=== PATIENT | male | born 1950 | race Caucasian/White ===

== ENCOUNTER 2024-03-02 17:42 | Emergency (ER) | payer MEDICARE, OTHER, SELFPAY ==
[2024-03-02 17:43] VITALS: BP 102/76; PULSE 107; RESP 16; TEMP 37.1; O2SAT 99; BMI 20.5
[2024-03-02 17:45] VITALS: BP 102/76; PULSE 107; RESP 16; TEMP 37.1; O2SAT 99
--- NOTE | 2024-03-02 18:22 | CT_ITS ---
EXAM: CT ABDOMEN AND PELVIS WITH INTRAVENOUS CONTRAST CLINICAL INDICATION: llq pain, n/v/d TECHNIQUE: Helically acquired images were obtained of the abdomen and pelvis with intravenous contrast. This CT exam was performed using one or more of the following dose reduction techniques: automated exposure control, adjustment of the mA and/or kV according to patient size, and/or use of iterative reconstruction technique. CONTRAST: IV 100mL Isovue-300 COMPARISON: No relevant prior studies available. FINDINGS: LOWER THORAX: Medium-sized hiatal hernia. Coronary artery calcifications and/or stents. Lung bases are clear. No cardiomegaly. No significant pericardial effusion. ABDOMEN: LIVER: Small right hepatic lobe cyst for which no follow-up is indicated. GALLBLADDER AND BILE DUCTS: No significant abnormality. No calcified gallstones. No gallbladder distention or wall edema. No intra- or extrahepatic biliary ductal dilation. PANCREAS: No significant abnormality. No focal cystic or solid mass. SPLEEN: No significant abnormality. Normal size without focal cystic or solid mass. ADRENALS: No significant abnormality. No nodules. KIDNEYS AND URETERS: Homogeneous intermediate attenuation right renal lesion measuring 1.9 cm. Punctate left lower pole renal calyceal stone without hydronephrosis or additional obstructive urolithiasis. STOMACH AND BOWEL: Colonic diverticulosis without evidence of acute diverticulitis. No stomach or bowel distention. PELVIS: APPENDIX: No evidence of acute appendicitis. BLADDER: Long catheter present. REPRODUCTIVE: Prostatomegaly and heterogeneity. ABDOMEN and PELVIS: INTRAPERITONEAL SPACE: No significant abnormality. No ascites or other fluid collection. No free air. BONES/JOINTS: Scoliotic curvature of the spine and degenerative changes of the axial and appendicular skeleton. No suspicious lytic or blastic abnormality. SOFT TISSUES: No significant abnormality. No discrete abdominal or pelvic wall hernia. VASCULATURE: Atherosclerosis of the aorta and its branch vessels. LYMPH NODES: No significant abnormality. No enlarged lymph nodes. CT/Abdomen/Pelvis W IV Cont ONLY IMPRESSION: 1. Homogeneous intermediate attenuation right renal lesion measuring 1.9 cm. ACR White Paper guidelines (Ara, et al. JACR 2018; 15(2):264-273) recommend MRI or CT without and with intravenous contrast. 2. Medium-sized hiatal hernia. 3. Punctate left lower pole renal calyceal stone without hydronephrosis or additional obstructive urolithiasis. 4. Prostatomegaly and heterogeneity. 5. Colonic diverticulosis without evidence of acute diverticulitis. Electronically Signed: Huang Nguyen DO at 20:11 EDT ,
--- NOTE | 2024-03-02 18:24 | EDS_ITS ---
HPI HPI - GI History of Present Illness Chief Complaint: Nausea/Vomiting/Diarrhea Informant: patient and family Narrative Narrative: 73-year-old male had a an outpatient total knee arthroplasty on the left knee 11 or 12 days ago. For the past week or so he has been having vomiting. He was put on both tramadol and Percocet by orthopedics. He was taking both of them for a long time and then he started cutting his medicines and now for the last couple days he has had none. He still vomiting and now has developed watery diarrhea. He is also developed some left lower quadrant pain. It is off-and-on it does not get better when he has bowel movement but sometimes improves after vomiting. No fevers or chills. No syncope. No blood that he has seen. He states his knee is doing great. He was on amoxicillin for a while postopera tively but not now. No history of C. difficile that he knows of. No travel out of the area recently except to get the surgery in [place]. No suspicious food ingestion or new ground water sources for drinking. 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 He needed to have dilating sounds used in order to get a catheter placed by urology at [facility] when this was placed. He states they suggested that he have the catheter removed soon. [facility] Home Medications ?Medication ?Instructions ?Recorded ?Last Taken ?Type ciprofloxacin HCl 500 mg tablet 500 mg PO BID #6 TABLETS 03/02/24 Unknown Rx promethazine 25 mg tablet 25 mg PO Q6H PRN PRN Nausea #16 03/02/24 Unknown Rx TABLETS Allergy/AdvReac Type Severity Reaction Status Date / Time No Known Allergies Allergy Verified 03/02/24 17:45 Social History Smoking Status: Never smoker ROS ROS ED Constitutional Constitutional ED: Denies chills or fever(s) Eyes Eyes: Denies change in vision or diplopia ENT ENT ED: Denies rhinorrhea or sore throat Cardiovascular Cardiovascular: Denies chest pain or palpitations Respiratory/Chest Respiratory/Chest: Denies cough or dyspnea Gastrointestinal Gastrointestinal: Reports abdominal pain, diarrhea, nausea and vomiting; Denies hematochezia or melena Genitourinary Genitourinary ED: Denies dysuria or hematuria Musculoskeletal Musculoskeletal: Denies back pain or neck pain Integumentary Denies abscess or rash Neurologic Neurologic: Denies headache(s), paresthesias or weakness Psychiatric Psychiatric: Denies anxiety or suicidal thoughts EXAM Physical Exam Const Vital Signs: 03/02/24 17:43 03/02/24 17:45 03/02/24 18:45 Temperature 98.7 F 98.7 F 98.2 F Temperature Source Temporal Temporal Oral Pulse Rate 107 H 107 H 89 Respiratory Rate 16 16 16 Blood Pressure 102/76 102/76 102/87 H Blood Pressure Mean 84 84 92 Pulse Ox 99 99 98 Oxygen Delivery Method Room Air Room Air Room Air 03/02/24 20:33 03/02/24 21:00 Temperature 98.2 F 98 F Temperature Source Oral Oral Pulse Rate 66 87 Respiratory Rate 16 16 Blood Pressure 154/76 H 145/78 H Blood Pressure Mean 102 100 Pulse Ox 100 98 Oxygen Delivery Method Room Air Room Air Positive well nourished and well developed General Appearance ED: well developed and NAD HEENT Reports moist mucous membranes normocephalic and atraumatic Eyes PERRL and EOMs intact bilaterally Neck full ROM and supple Resp normal respiratory effort and clear to auscultation bilaterally Cardio regular rate, regular rhythm and no murmurs GI non-tender and non-distended Auscultation: normoactive bowel sounds Palpation: soft Back/Spine no CVA tenderness General Back: other FROM Extremity normal to inspection General Extremety ED: Negative for edema, pulses abnormal or tenderness General Extremity: Negative for edema or pulses abnormal Neuro oriented x3, CN's II-XII intact bilaterally and no sensory deficits noted Sensorium / Orientation: awake and alert Motor Exam: strength 5/5 throughout Skin no rashes or lesions noted and no wounds MDM MDM MDM Narrative Medical decision making narrative: While running screening labs and urinalysis, treated patient with IV fluids, Zofran, and dicyclomine. He is doing better. Obtained a CT scan of the abdomen/pelvis given his pain and nausea/vomiting and diarrhea. He evaluated for colitis, diverticulitis, other potential sources. I reviewed the images and the report which I agree with, it is basically negative for any acute inflammatory condition that explains his symptoms. I did show some incidentals including a small mass in his right kidney and a nonobstructive nephrolith on the left. He has a history of kidney stones. He feels better after treatment. He said that his urologist suggested that he get the catheter out, but it is after 9 PM and I do not recommend pulling it out right now given the hour of the day. They are interested in potentially pulling it themselves. I am going to have nursing send him home with a syringe and instructions on how to discontinue the catheter, but I advised waiting to the morning and talking with his urologist first, and making sure that they are okay with that before it is pulled. 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 He was able to produce some diarrhea, I sent for stool studies, but he did not make very much. We were able to get a white blood cell smear that was positive. The labs suggesting we do not have enough for enteric PCR panel or C. difficile. I am less inclined to think this is C. difficile. He does not have a leukocytosis, his vitals are normal he is not clinically very ill. He was a little prerenal and the IV fluids probably help him feel better. In order to cover the urine possible infection which was sent for culture, as well as the diarrhea with positive white blood cell smear, I am going to prescribe him a 3-day course of Cipro and then I am encouraging him to be reevaluated closely if the diarrhea is worse, he is feeling worse, and/or he has urinary issues. I encouraged him to follow-up with his urologist and his medical doctor. They are comfortable with that overall plan. Lab Data Attestation: I reviewed the patient's lab results. Labs: Laboratory Results - last 24 hr 03/02/24 03/02/24 18:34 19:48 WBC 6.2 RBC 4.62 Hgb 11.2 L Hct 35.4 L MCV 76.6 L MCH 24.2 L MCHC 31.6 L RDW Std Deviation TNP RDW Coeff of Yonathan TNP Plt Count 297 MPV 9.6 Immature Gran % (Auto) 0.200 Neut % (Auto) 76.3 H Lymph % (Auto) 14.7 L [place] % (Auto) 7.5 Eos % (Auto) 0.5 Baso % (Auto) 0.8 Absolute Neuts (auto) 4.7 Absolute Lymphs (auto) 0.91 Nucleated RBC % 0 Differential Comment SCANNED Sodium 138 Potassium 3.5 Chloride 109 H Carbon Dioxide 21.0 Anion Gap 8 BUN 22 H Creatinine 0.88 Estim Creat Clear Calc 64.75 Est GFR (MDRD) Af Amer 108 Est GFR (MDRD) Non-Af 90 BUN/Creatinine Ratio 24.9 H Glucose 100 Calcium 9.4 Total Bilirubin 0.90 AST 25 ALT 24 Alkaline Phosphatase 259 H Total Protein 7.3 Albumin 2.9 L Globulin 4.4 H Albumin/Globulin Ratio 0.7 L Urine Color [place] Urine Clarity Cloudy Urine pH 6.0 Ur Specific [place] 1.020 Urine Protein 30 H Urine Glucose (UA) Normal Urine Ketones 50 H Urine Occult Blood 150 H Urine Nitrite Positive H Urine Bilirubin 1 H Urine Urobilinogen 8 H Ur Leukocyte Esterase 500 H Urine RBC 0-5 SEEN Urine WBC >100 SEEN Ur Squamous Epith Cells 0-5 SEEN Urine Bacteria 1+ Urine Mucus 1+ Urine Yeast 2+ Radiography Diagnostic Testing: Clinical Impression(s) from Imaging Studies Abdomen/Pelvis CT 03/02/24 18:22 IMPRESSION: 1. Homogeneous intermediate attenuation right renal lesion measuring 1.9 cm. ACR White Paper guidelines (Herts, et al. JACR 2018; 15(2):264-273) recommend MRI or CT without and with intravenous contrast. 2. Medium-sized hiatal hernia. 3. Punctate left lower pole renal calyceal stone without hydronephrosis or additional obstructive urolithiasis. 4. Prostatomegaly and heterogeneity. 5. Colonic diverticulosis without evidence of acute diverticulitis. Electronically Signed: Huang Nguyen DO at 20:11 EDT , Discharge Plan Triage Chief Complaint: Nausea/Vomiting/Diarrhea Other Complaint: Complaint ED Provider: Rafael Wilhelm Dx/Rx/DC Orders Clinical Impression: Gastroenteritis, Long catheter in place, Urinary tract infection, History of total knee arthroplasty, Mass of right kidney, Left nephrolithiasis Instructions: ED Diet Vomiting Diarrhea Prescriptions: New ciprofloxacin HCl 500 mg tablet 500 mg PO BID Qty: 6 0RF promethazine 25 mg tablet 25 mg PO Q6H PRN PRN (Reason: Nausea) Qty: 16 0RF Primary Care Provider: AIDEN TURCIOS MD Referrals: AIDEN TURCIOS MD [Other] - 3-5 Days if not improving Activity Restrictions/Additional Instructions: Call your urologist in the morning, if they want you to have the catheter remov ed and they approve of you removing it at home, use the syringe and remove as instructed. While on the 3 days of ciprofloxacin, use Phenergan for nausea, not Zofran. After you finish the antibiotic you may continue using Zofran. Print Language: Uzbek Disposition Disposition: Home, Self Care
[2024-03-02] MEDS: 0.9% Normal Saline (1000mL) 1,000 ML 999 ML IV (18:34)
[2024-03-02] MEDS: Dicyclomine 10 MG Capsule 20 MG PO (18:38)
[2024-03-02 18:45] VITALS: BP 102/87; PULSE 89; RESP 16; TEMP 36.8; O2SAT 98
[2024-03-02 19:03] LABS: ALB/GLOB Ratio 0.7 RATIO (0.9-2.4); AST(SGOT) 25 U/L (15-37); Alanine Aminotransfer ALT/SGPT 24 U/L (16-61); Albumin, Serum 2.9 g/dL (3.2-5.0); Alkaline Phosphatase 259 U/L (45-117); Anion Gap 8 (5-15); BUN 22 mg/dL (7-18); BUN/Creat Ratio 24.9 RATIO (10-20); Calcium,Total 9.4 mg/dL (8.5-10.1); Chloride 109 mmol/L (98-107); Creatinine, Serum 0.88 mg/dL (0.70-1.30); EST Glomerular Filtration Rate 90 mL/min (>60); Est Glom Filt Rate - Afr Amer 108 mL/min (>60); Estimated Creatinine Clearance 64.75 ml/min; Globulin 4.4 g/dL (2.2-4.2); Glucose 100 mg/dL (74-106); Potassium 3.5 mmol/L (3.5-5.1); Protein, Total 7.3 g/dL (6.4-8.2); Sodium Level 138 mmol/L (136-145)
[2024-03-02] MEDS: Ondansetron 4 MG/2 ML Vial IV (19:51)
[2024-03-02 19:52] LABS: Absolute Lymphocyte Count 0.91 X10^3/uL (0.83-4.51); Absolute Neutrophil Count 4.7 X10^3/uL (2.0-7.7); Basophil# 0.05 X10^3/uL; Basophil% 0.8 % (0-1); Eosinophil# 0.03 X10^3/uL; Eosinophils% 0.5 % (0-5); Hematocrit 35.4 % (40-54); Hemoglobin 11.2 g/dL (13.0-16.5); Lymphocyte # 0.91 X10^3/ul (0.83-4.51); Lymphocyte % 14.7 % (19-41); Mean Corp Hgb Conc 31.6 g/dL (32-36); Mean Corpuscular Hgb 24.2 pg (27.0-32.0); Mean Corpuscular Volume 76.6 fL (80-94); Mean Platelet Vol. 9.6 fl (6.2-12.0); Monocyte# 0.46 X10^3/uL; Monocyte% 7.5 % (0-10); NRBC Flagged by Analyzer 0 % (0-5); Neutrophil # 4.71 X10^3/uL (2.7-7.7); Neutrophil % 76.3 % (47-70); POSITIVE MORPHOLOGY YES; Platelet Count 297 K/mm3 (150-450); Red Blood Count 4.62 M/mm3 (4.6-6.2); White Blood Count 6.2 K/mm3 (4.4-11.0)
[2024-03-02 20:01] LABS: Color, Urine Amber (Yellow); Glucose, Dipstick Normal (Normal); Ketone-Dipstick 50 mg/dl (Negative); Leukocyte Esterase-Dipstick 500 /ul (Negative); Nitrite-Dipstick Positive (Negative); Occult Blood-Urine 150 /ul (Negative); Protein-Dipstick 30 mg/dl (Negative); Urine Clarity Cloudy (Clear); Urine Urobilinogen 8 mg/dl (Normal)
[2024-03-02 20:01] LABS: Differential Indicated SCAN CRITERIA MET
[2024-03-02 20:02] LABS: Urine Bilirubin Dipstick 1 mg/dL (Negative)
[2024-03-02 20:15] LABS: Bacteria 1+ /hpf (None Seen); Mucous, Urine 1+ /hpf (<or=2+); Red Blood Cells-Urine 0-5 SEEN /hpf (0-5); White Blood Cells >100 SEEN /hpf (0-5)
[2024-03-02 20:17] LABS: Squamous Epithelial Cells - UA 0-5 SEEN /hpf (0-5); Yeast-Urine 2+ /hpf (None Seen)
[2024-03-02 20:23] LABS: Differential Comment SCANNED
[2024-03-02 20:33] VITALS: BP 154/76; PULSE 66; RESP 16; TEMP 36.8; O2SAT 100
[2024-03-02 21:00] VITALS: BP 145/78; PULSE 87; RESP 16; TEMP 36.6; O2SAT 98
[2024-03-02] MEDS: Ciprofloxacin 500 MG Tablet PO (21:59)
[2024-03-02 22:02] VITALS: BP 140/66; PULSE 78; RESP 18; TEMP 36.8; O2SAT 98
== END 2024-03-02 22:12 | disposition home or self-care (01) ==
PROVIDERS: Emergency Provider Emergency Medicine; Visit Provider Emergency Medicine
DX: K52.9 Noninfective gastroenteritis and colitis, unspecified (principal); N39.0 Urinary tract infection, site not specified; N28.89 Other specified disorders of kidney and ureter; R33.9 Retention of urine, unspecified; Z98.890 Other specified postprocedural states; R10.32 Left lower quadrant pain; N20.0 Calculus of kidney; K44.9 Diaphragmatic hernia without obstruction or gangrene; K57.30 Diverticulosis of large intestine without perforation or abscess without bleeding
CPT/HCPCS: 74177; 80053; 81001; 83630; 85025; 87077; 87086; 87088; 87186; 87493; 87506; 99284; J7030; Q9967; A4216; J2405

== ENCOUNTER → 2024-05-23 | Outpatient (CLI) | payer MEDICARE, OTHER, SELFPAY ==
[2024-05-23 16:37] LABS: Color, Urine Straw (Yellow); Glucose, Dipstick Normal (Normal); Ketone-Dipstick 5 mg/dl (Negative); Leukocyte Esterase-Dipstick 500 /ul (Negative); Nitrite-Dipstick Negative (Negative); Occult Blood-Urine 250 /ul (Negative); Protein-Dipstick 100 mg/dl (Negative); Specific Gravity, Urine 1.025 (1.002-1.030); Urine Bilirubin Dipstick Negative (Negative); Urine Clarity Cloudy (Clear); Urine Urobilinogen 4 mg/dl (Normal)
[2024-05-23 16:44] LABS: Bacteria 2+ /hpf (None Seen); Mucous, Urine 1+ /hpf (<or=2+); Red Blood Cells-Urine 10-25 SEEN /hpf (0-5); Renal Epithelial Cells 5-10 SEEN /hpf (0-5); Squamous Epithelial Cells - UA 0-5 SEEN /hpf (0-5); Transitional Epithelial - Ur 0-5 SEEN /hpf (0-5); White Blood Cells 50-100 SEEN /hpf (0-5)
== END | disposition home or self-care (01) ==
LOC: BIMLAB 16:04
PROVIDERS: PCP Family Medicine; Visit Provider Family Medicine
DX: R39.9 Unspecified symptoms and signs involving the genitourinary system (principal)
CPT/HCPCS: 81001

== ENCOUNTER 2025-03-18 20:42 | Emergency (ER) | payer MEDICARE, OTHER, SELFPAY ==
[2025-03-18 20:43] VITALS: BP 179/97; PULSE 88; RESP 18; TEMP 36.4; O2SAT 99; BMI 23.8
--- OUTSIDE RECORDS SUMMARY | 2025-03-18 21:09 | XMS RPT_ITS | CCD ---
Author Organization 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 Name Role Phone Kosta Carrasco DO Primary Care Provid er Unavailable Primary Care Provider UnavailSam Malave Primary Care Provider Ileana Rojas DO A Unavailable Crystalkane MCFADDEN Ileana A Unavailable [phone] Iva MARTINS, Emilio Unavailable Megan Velazco MD, Tam Leiva Primary Care Provider DONNY KAPLAN Referring Unavailable MEGAN VELAZCO, TAM WALT Primary Care Unavailable RYAN WILL Admitting Unavailable RYAN WILL Attending Unavailable MEGAN VELAZCO, TAM WALT Primary Care Unavailable COLIN CARDOZA Consulting Unavailable Rochelle Mancini Attending Unavailable Rochelle Mancini Attending Unavailable Rochelle Mancini Primary Care Unavailable Rafael Wilhelm Attending Unavailable JAMSHID QUINTANA Primary Care Unavailable Megan Velazco MD, Tam Leiva Primary Care Provider ILEANA ROJAS Attending Unavailable MEGAN VELAZCO, TAM Primary Care Unavailable EARLY, SAM Primary Care Unavailable COLIN SCHAFFER Attending Unavailable EARLY, SAM Primary Care Unavailable CRYSTALILEANA Attending Unavailable CRYSTAL, ILEANA Referring Unavailable MEGAN VELAZCO, TAM Primary Care Unavailable CRYSTALVÍCTORILEANA Attending Unavailable CRYSTAL, ILEANA Referring Unavailable MEGAN VELAZCO, TAM Primary Care Unavailable CRYSTALVÍCTORILEANA Attending Unavailable EARLY, SAM Primary Care Unavailable CRYSTALILEANA Attending Unavailable EARLY, SAM Primary Care Unavailable EARLY, SAM Primary Care Unavailable CRYSTAL, ILEANA Attending Unavailable FLOWER ZEE Attending Unavailable TAM MAJOR WALT Primary Care Unavailable [facility] Primary [facility] Unavailable FLOWER ZEE Referring Unavailable [facility] Primary [facility] Unavailable ELANA TAVERAS Attending Unavailable SELF Referring Unavailable TAM MAJOR WALT Primary Care Unavailable [facility] Unavailable ROCHELLE CHRISTIAN Referring [facility] meng MEGANNomi VELAZCO [facility] Primary Care Unavailable ROCHELLE CHRISTIAN Attending [facility] Unavailable Medications Current Medications Medication Drug Class(es) Dates Sig (Normalized) Sig (Original) amoxicillin 875 mg / clavulanate 125 mg oral tablet (6 sources) Penicillin-class Antibacterial Start: 02-22-2024 End: 03-10-2024 take 1 tablet by mouth twice daily amoxicillin-clavul anate (Augmentin) 875-125 MG tablet Indications: Complicated UTI (urinary tract infection) Take 1 tablet by mouth 2 times daily for 17 days. 34 tablet 02/22/2024 03/10/2024 Active ciprofloxacin 500 mg oral tablet (20 sources) Quinolone Antimicrobial Start: 02-21-2024 End: 02-26-2024 take 1 tablet by mouth twice daily ciprofloxacin (Cipro) 500 MG tablet Take 1 tablet (500 mg) by mouth 2 times daily for 5 days. 10 tablet 02/21/2024 02/26/2024 Active Start: 08-21-2022 End: 12-02-2023 take 1 tablet by mouth twice daily ciprofloxacin HCl (CIPRO) 500 mg tablet Take 1 tablet by mouth twice daily. 14 tablet 0 01/29/2023 12/02/2023 Discontinued Comment on above: Take 500 mg by mouth as needed. Take 1 tablet by sergo th twice daily for 7 days. Take 1 tablet by sergo th twice daily. clobetasol propionate 0.5 mg/ml topical cream (19 sources) Corticosteroid Start: 09-08-19 24 clobetasol (Temovate) 0.05 % cream Indications: 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 urethral stricture , Hypospadias, penile Apply to meatus and dilator weekly and as needed for meatal stenosis 45 g 3 09/08/2023 Active doxycycline hyclate 100 mg oral tablet (10 sources) Tetracycline-class Drug Start: 07-12-20 End: 07-26-20 take 1 tablet by mouth twice daily doxycycline (Vibra-Tabs) 100 MG tablet Indications: Prostatitis, unspecified prostatitis type Take 1 tablet (100 mg) by mouth 2 times daily for 14 days. Take with a full glass of water and do not lie down for at least 30 minutes after. 28 tablet 0 07/12/2023 07/26/2023 Active Start: 08-19-2022 End: 08-29-2022 take 1 tablet by mouth twice daily doxycycline monohydrate 100 mg tablet Take 1 tablet by mouth twice daily for 10 days. 20 tablet 0 08/19/2022 08/29/2022 Active Start: 01-16-2020 take 1 capsule by [facility] twice daily doxycycline monohydrate (MONODOX) 100 mg capsule Indications: bacterial urinary tract infection Take 1 capsule by mouth twice daily. 28 capsule 0 12/06/2020 Active Comment on above: Take 1 capsule by [facility] twice daily. Take 1 tablet by [facility] twice daily for 10 days. ferrous sulfate 325 mg oral tablet (6 sources) Start: End: take 1 tablet by mouth once daily ferrous sulfate 325 mg (65 mg iron) tablet Indications: Iron deficiency Take 1 tablet by mouth once daily. 30 tablet 0 12/09/2023 01/08/2024 Active 17 ml ferumoxytol 30 mg/ml injection (1 source) Parenteral Iron Replacement Start: End: inject 17 mL intravenously every week ferumoxytol (FERAHEME) 510 mg/17 mL (30 mg/mL) injection Inject 17 mL intravenously one time a week for 2 doses. 34 mL 0 01/14/2024 01/22/2024 Active ibuprofen 600 mg oral tablet (20 sources) Nonsteroidal Anti-inflammatory Drug Start: 023 End: take 1 tablet by mouth every eight hours as needed for pain ibuprofen 600 MG tablet Indications: Prostatitis, unspecified prostatitis type Take 1 tablet (600 mg) by mouth every 8 hours as needed for mild pain (1-3) for up to 7 days. 20 tablet 0 07/12/2023 07/19/2023 Active take 1 tablet by [facility] every six hours as needed ibuprofen (MOTRIN) 200 mg tablet Take 200 mg by mouth every 6 hours as needed for pain. STOPPING 2 WEEKS PRIOR TO SURGERYlast dose was 02/12/24 0 Active End: 02-01-2024 take 2 tablets by mouth every six hours as needed ibuprofen (MOTRIN) 200 mg tablet Take 400 mg by mouth every 6 hours as needed for pain. 0 02/01/2024 Discontinued Comment on above: Take 400 mg by mouth every 6 hours as needed for pain. lansoprazole (20 sources) Proton Pump Inhibitor take 20 mg by mouth once daily lansoprazole (PREVACID ORAL) Take 20 mg by mouth once daily. Active Lansoprazole (MI EVACID PO) Take by mouth daily. Active take 20 mg by mouth once daily l ansoprazole (PREVACID ORAL) Take 20 mg by mouth once daily. 0 Active Lansoprazole (MI EVACID PO) Take by mouth daily. 0 Active lansoprazole (MI EVACID ORAL) Take by mouth once daily. 0 Active Comment on above: Take by mouth once d aily. Take 20 mg by mouth once daily. perflutren lipid microspheres 1.3 mL in NaCl (PF) 0.9% 10 mL injection (DEFINITY) (1 source) Start: 2022 End: 2022 perflutren lipid microspheres 1.3 mL in NaCl (PF) 0.9% 10 mL injection (DEFINITY) phenazopyridine hydrochloride 200 mg delayed release oral tablet (2 sources) Start: 2022 End: 2022 take 1 tablet by mouth three times daily as needed for muscle spasms phenazopyridine (Pyridium) 200 MG tablet Take 1 tablet (200 mg) by mouth 3 times daily as needed for bladder spasms for up to 3 days. 10 tablet 0 06/17/2023 06/20/2023 Active sildenafil 100 mg oral tablet (20 sources) Phosphodiesterase 5 Inhibitor Start: 2024 sildenafil (VIAGRA) 100 mg tablet Indications: erectile dysfunction Take 1 tablet by mouth as needed (one per day maximum as needed). 15 tablet 01/05/2025 Active Start: 09-03-2020 End: 05-02-2024 take 1 tablet by mouth once daily as needed, then take 1 tablet by mouth once daily as needed sildenafil (VIAGRA) 100 mg tablet Indications: BPH with obstruction/lower urinary tract symptoms take one tablet by mouth once a day as needed. maximum of 1 tablet daily 10 tablet 05/02/2024 Active Comment on above: TAKE ONE TABLET BY M OUTH NEEDED (MAXIMUM 1 PER DAY NEEDED) Take 1 tablet by sergo th as needed (one per day maximum as needed). TAKE ONE TABLET BY M OUTH NEEDED (ONCE PER DAY MAXIMUM NEEDED) tamsulosin hydrochloride 0.4 mg oral capsule (20 sources) alpha-Adrenergic Charbel Start: End: take 1 capsule by mouth twice daily tamsulosin (Flomax) 0.4 MG 24 hr capsule Indications: BPH with obstruction/lower urinary tract symptoms Take 1 capsule (0.4 mg) by mouth 2 times daily. 180 capsule 3 07/10/2024 Active Start: 02-25-2023 End: 07-16-2023 tamsulosin (Flomax) 0.4 MG 2 4 hr capsule Start: 08-11-2016 End: 12-02-2023 take 1 capsule by mouth once daily tamsulosin (FLOMAX) 0.4 mg Indications: Nocturia TAKE ONE CAPSULE BY MOUTH ONCE DAILY 90 capsule 3 03/31/2023 Active Comment on above: 0.4 mg once daily. Take 1 capsule by mo uth once daily. TAKE ONE CAPSULE BY MOUTH ONCE DAILY traMADol hydrochloride 50 mg oral tablet (14 sources) Opioid Agonist Start: 02-08-2024 End: 02-15-2024 traMADol (ULTRAM) 50 mg tablet Indications: Chronic pain of left knee Take 1 tablet by mouth every 12 hours as needed for up to 7 days. Do not start before February 08, 2024. 12 tablet 0 02/08/2024 02/15/2024 Active Start: 10-11-2023 End: 02-01-2024 take 1 tablet by mouth every six hours as needed traMADol (ULTRAM) 50 mg tablet Take 50 mg by mouth every 6 hours as needed. 0 10/11/2023 02/01/2024 Discontinued Completed/Discontinued Medications Medication Drug Class(es) Dates Sig (Normalized) Sig (Original) acetaminophen 500 mg oral tablet (20 sources) Start: 06-17-2023 End: 06-17-2023 acetaminophen (Tylenol) tablet 1,000 mg take 1 tablet by sergo every eight hours as needed acetaminophen (TYLENOL 8 HOUR) 650 mg CR tablet Take 650 mg by mouth every 8 hours as needed for pain. Active End: 12-02-2023 ACETAMINOPHEN (TYLENOL ORAL) Take by mouth once daily. 0 12/02/2023 Discontinued ACETAMINOPHEN (T YLENOL ORAL) Take by mouth once daily. 0 Active Comment on above: Take by mouth once d aily. ALPRAZolam 0.25 mg disintegrating oral tablet (2 sources) Benzodiazepine Start: 06-17-20 End: 06-17-20 ALPRAZolam (Xanax) disintegrating tablet 0.25 mg amoxicillin 500 mg oral capsule (15 sources) Penicillin-class Antibacterial End: 12-02-19 amoxicillin (POLYMOX, AMOXIL) 500 mg capsule Take 500 mg by mouth as needed. 0 12/02/2023 Discontinued Comment on above: Take 500 mg by mouth as needed. calcium chloride 0.0014 meq/ml / potassium chloride 0.004 meq/ml / sodium chloride 0.103 meq/ml / sodium lactate 0.028 meq/ml injectable solution (4 sources) Start: 06-17-20 End: 06-17-20 lactated ringers infusion Cannabinoids (medical cannabis) (20 sources) End: 09-13-19 take 1 dose by mouth twice daily Cannabinoids (medical cannabis) Take 1 each by mouth 2 times daily. CBD GUMMIES 09/13/2024 Discontinued (Therapy completed) End: 08-10-2024 take 1 dose by mouth twice daily Cannabinoids (medical cannabis) Take 1 each by mouth 2 times daily. CBD GUMMIES 08/10/2024 Discontinued (Therapy completed) take 1 dose by mouth twice daily Cannabinoids (medical cannabis) Take 1 each by mouth 2 times daily. CBD GUMMIES Active take 1 dose by mouth twice daily Cannabinoids (medical cannabis) Take 1 each by mouth 2 times daily. CBD GUMMIES 0 Active cephalexin 250 mg oral capsule (5 sources) Cephalosporin Antibacterial Start: 01-17-2019 take 1 capsule by mouth once daily cephALEXin (KEFLEX) 250 mg capsule Indications: bacterial urinary tract infection Take 1 capsule by mouth once daily. 90 capsule 3 01/17/2019 Active Comment on above: Take 1 capsule by [facility] once daily. cholecalciferol 0.025 mg oral capsule (20 sources) Vitamin D Start: 08-15-2014 End: 02-01-2024 take 1 capsule by mouth once daily Cholecalciferol, Vitamin D3, (VITAMIN D) 1,000 unit cap Indications: Vitamin D deficiency Take 1 capsule by mouth once daily. 0 08/15/2014 02/01/2024 Discontinued (Discontinued by Patient) take 1 tablet by mouth once poppy y cholecalciferol (Vitamin D-3) 10 MCG (400 UNIT) tablet Take 400 Units by mouth daily. Active Comment on above: Take 1 capsule by [facility] once daily. 1 ml diphenhydrAMINE hydrochloride 50 mg/ml cartridge (2 sources) Histamine-1 Receptor Antagonist Start: 06-17-2023 End: 06-17-2023 diphenhydrAMINE (BENADryl) injection 12.5 mg famotidine 20 mg oral tablet (3 sources) Histamine-2 Receptor Antagonist Start: 06-17-2023 End: 06-17-2023 famotidine (Pepcid) tablet 20 mg End: 03-03-2023 take 1 tablet by mouth twice daily famotidine (Pepcid) 20 MG tablet Take 20 mg by mouth 2 times daily. 0 03/03/2023 Discontinued (Therapy completed) 2 ml fentaNYL 0.05 mg/ml injection (4 sources) Opioid Agonist Start: 06-17-2023 End: 06-17-2023 fentaNYL (Sublimaze) injection 50 mcg Start: 06-17-2023 End: 06-17-2023 fentaNYL (Sublimaze) injecti on 25 mcg fluconazole 100 mg oral tablet (4 sources) Azole Antifungal Start: 08-10-2024 End: 09-13-2024 take 1 tablet by mouth once daily fluconazole (Diflucan) 100 MG tablet Indications: Recurrent UTI , Dysuria Take 1 tablet (100 mg) by mouth daily for 14 days. 14 tablet 08/10/2024 09/13/2024 Discontinued hyoscyamine sulfate 0.12 mg / methenamine 118 mg / methylene blue 10 mg / phenyl salicylate 36 mg / sodium phosphate, monobasic 40.8 mg oral capsule (10 sources) Oxidation-Reducti on Agent Start: 08-10-2024 End: 04-14-2025 take 1 capsule by mouth every six hours as needed for pain Meth-Hyo-M Bl-Na Phos-Ph Eduard (Uribel) 118 MG capsule Indications: Dysuria Take 1 capsule by mouth every 6 hours as needed (bladder pain/burning with urination). 30 capsule 3 09/13/2024 10/16/2024 Discontinued (Reorder) labetalol (Normodyne,Trandate) injection 5 mg (2 sources) Start: 06-17-2023 End: 06-17-2023 labetalol (Normodyne,Trandat e) injection 5 mg lidocaine hydrochloride 0.02 mg/mg topical gel (2 sources) Antiarrhythmic, Amide Local Anesthetic Start: 02-21-2024 End: 02-21-2024 Urethral, Once, On Wed02/21/24 at 2130, For 1 dose 1 ml morphine sulfate 4 mg/ml cartridge (2 sources) Opioid Agonist Start: 02-21-2024 End: 02-21-2024 take 1 dose by mouth every hour 4 mg, IntraVENous, Once, On Wed02/21/24 at 2020, For 1 dose, If oral and IV narcotics ordered, use oral first and only use IV if oral is ineffective or cannot take oral. Do Not give oral and IV within 1 hour of each other unless specifically ordered. Start: 02-21-2024 End: 02-21-2024 take 1 dose by mouth every hour 4 mg, IntraVENous, Once, On Wed02/21/24 at 2020, For 1 dose, If oral and IV narcotics ordered, use oral first and only use IV if oral is ineffective or cannot take oral. Do Not give oral and IV within 1 hour of each other unless specifically ordered. naproxen 500 mg oral tablet (20 sources) Nonsteroidal Anti-inflammatory Drug Start: 10-26-2023 End: 12-02-2023 take 1 tablet by mouth twice daily naproxen (NAPROSYN) 500 mg tablet Take 500 mg by mouth two times a day. 0 10/26/2023 12/02/2023 Discontinued Start: 11-13-2022 take 1 tablet by sergo th every twenty-four hours as needed naproxen (Naprosyn) 500 MG tablet Take 500 mg by mouth Daily as needed. 11/13/2022 Active 2 ml ondansetron 2 mg/ml injection (4 sources) Serotonin-3 Receptor Antagonist Start: 02-21-2024 End: 02-21-2024 4 mg, IntraVENous, Once, On 02/21/24 at 2020, For 1 dose Start: 06-17-2023 End: 06-17-2023 ondansetron (Zofran) injecti on 4 mg oxyCODONE (2 sources) Opioid Agonist Start: 06-17-2023 End: 06-17-2023 oxyCODONE (Roxicodone) immed iate release tablet 5 mg SAW PALMETTO ORAL (20 sources) End: 02-01-2024 SAW PALMETTO ORAL Take by [facility] once daily. 0 02/01/2024 Discontinued SAW PALMETTO ORA L Take by mouth once daily. 0 Active Comment on above: Take by mouth once d aily. 5 ml sodium chloride 9 mg/ml injection (20 sources) Start: 06-17-2023 End: 06-17-2023 sodium chloride 0.9% (NS) flush 10 mL Start: 06-17-2023 End: 06-17-2023 sodium chloride 0.9% (NS) fl ush 10 mL Start: 06-17-2023 End: 06-17-2023 sodium chloride 0.9 % bolus 500 mL Start: 06-17-2023 End: 06-17-2023 sodium chloride 0.9 % infusi on Start: 06-17-2023 End: 06-17-2023 sodium chloride 0.9% (NS) fl ush 10 mL Start: 05-19-2023 End: 05-26-2023 sodium chloride 0.9 % (flush ) 10 mL (BD POSIFLUSH) sulfamethoxazole 800 mg / trimethoprim 160 mg oral tablet (5 sources) Dihydrofolate Reductase Inhibitor Antibacterial, Sulfonamide Antimicrobial Start: 08-10-2024 End: 09-13-2024 take 1 tablet by mouth twice daily sulfamethoxazole-trimethoprim (Bactrim DS) 800-160 MG tablet Indications: Recurrent UTI , Dysuria Take 1 tablet by mouth 2 times daily. 60 tablet 08/10/2024 09/13/2024 Discontinued Problems Active Problems Problem Classification Problem Date Documented Date Episodic/Chronic Administrative/socia l admission (1 source) Patient encounter status; Translations: [Persons encountering health services in other specified circumstances] 12-02-2023 Episodic Cardiac dysrhythmias (20 sources) Irregular heart beat; Translations: [Cardiac arrhythmia, unspecified] Onset: 11-16-2024 08-21-2020 Chronic Cardiac dysrhythmias (2 sources) Palpitations; Translations: [Palpitations] Onset: 11-16-2024 11-16-2024 Episodic Complications of surgical procedures or medical care (2 sources) Hypoinsulinemia following procedure; 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] Onset: 02-15-2024 02-15-2024 Chronic Deficiency and other anemia (1 source) Iron deficiency anemia due to blood loss; Translations: [Iron deficiency anemia secondary to blood loss (chronic)] 11-16-2024 Chronic Deficiency and other anemia (1 source) Iron deficiency anemia secondary to blood loss (chronic); Translations: [Iron deficiency anemia due to chronic blood loss] Onset: 02-21-2024 Chronic Deficiency and other anemia (1 source) Iron deficiency anemia; Translations: [Iron deficiency anemia, unspecified] Episodic Disorders of lipid metabolism (20 sources) Hyperlipidemia; Translations: [Hyperlipidemia, unspecified] Onset: 06-06-2014 06-06-2014 Chronic Esophageal disorders (20 sources) Gastroesophageal reflux disease; Translations: [Gastro-esophageal reflux disease without esophagitis] Onset: 06-06-2014 06-06-2014 Chronic Genitourinary congenital anomalies (20 sources) Hypospadias, penile; Translations: [Hypospadias, penile] Onset: 02-09-2017 03-03-2023 Chronic Genitourinary symptoms and ill-defined conditions (20 sources) Nocturnal enuresis; Translations: [Nocturnal enuresis] Onset: 02-09-2017 05-18-2022 Chronic Heart valve disorders (7 sources) Mitral valve regurgitation; Translations: [Nonrheumatic mitral (valve) insufficiency] Onset: 02-21-2024 05-19-2023 Chronic Hyperplasia of prostate (20 sources) Benign prostatic hypertrophy with outflow obstruction; Translations: [Benign prostatic hyperplasia with lower urinary tract symptoms] Onset: 02-09-2017 01-17-2019 Chronic Inflammatory conditions of male genital organs (20 sources) Chronic prostatitis; Translations: [Chronic prostatitis] Onset: 02-09-2017 05-18-2022 Chronic Inflammatory conditions of male genital organs (20 sources) Prostatitis; Translations: [Inflammatory disease of prostate, unspecified] 07-28-2021 Episodic Joint disorders and dislocations; trauma-related (1 source) Other spontaneous disruption of medial collateral ligament of left knee; Translations: [Other spontaneous disruption of medial collateral ligament of left knee] Onset: 02-21-2024 Chronic Nausea and vomiting (1 source) Nausea with vomiting, unspecified; Translations: [Nausea with vomiting, unspecified] Onset: 05-23-2024 Episodic Nutritional deficiencies (1 source) Vitamin D deficiency; Translations: [Vitamin D deficiency, unspecified] Chronic Nutritional deficiencies (2 sources) Cobalamin deficiency; Translations: [Deficiency of other specified B group vitamins] Episodic Osteoarthritis (20 sources) Osteoarthritis of knee; Translations: [Unilateral primary osteoarthritis, unspecified knee] Onset: 05-20-2015 07-28-2021 Chronic Other circulatory disease (1 source) History of cardiac arrhythmia; Translations: [Personal history of other diseases of the circulatory system] 02-01-2024 Episodic Other diseases of bladder and urethra (3 sources) Spasm of bladder; Translations: [Other specified disorders of bladder] 08-10-2024 Chronic Other diseases of bladder and urethra (1 source) Disorder of bladder; Translations: [Overactive bladder] 09-13-2024 Chronic Other diseases of bladder and urethra (2 sources) Other specified disorders of bladder; Translations: [Other specified disorders of bladder] Onset: 09-13-2024 Chronic Other diseases of bladder and urethra (2 sources) Overactive bladder; Translations: [Overactive bladder] Onset: 09-13-2024 Chronic Other diseases of kidney and ureters (8 sources) Hydronephrosis; Translations: [Unspecified hydronephrosis] 08-07-2024 Episodic Other diseases of kidney and ureters (2 sources) Unspecified hydronephrosis; Translations: [Unspecified hydronephrosis] Onset: 08-15-2024 Episodic Other liver diseases (20 sources) Nodule of liver; Translations: [Other specified diseases of liver] Onset: 10-02-2015 10-02-2015 Chronic Other liver diseases (20 sources) Lesion of liver; Translations: [Liver disease, unspecified] 10-19-2016 Chronic Other lower respiratory disease (1 source) Dyspnea on exertion; Translations: [Other forms of dyspnea] 11-16-2024 Episodic Other lower respiratory disease (1 source) Other forms of dyspnea; Translations: [AGUILERA (dyspnea on exertion)] Onset: 11-16-2024 Episodic Other male genital disorders (20 sources) Secondary erectile dysfunction; Translations: [Male erectile dysfunction, unspecified] Onset: 07-13-2017 07-13-2017 Chronic Other male genital disorders (3 sources) Other male erectile dysfunction; Translations: [Impotence of organic origin] Onset: 07-13-2017 01-05-2025 Chronic Other non-traumatic joint disorders (4 sources) Pain in left knee; Translations: [Pain in joint, lower leg] Onset: 02-15-2024 Episodic Residual codes; unclassified (1 source) Pain; Translations: [Pain, unspecified] 02-14-2024 Episodic Residual codes; unclassified (1 source) Pain, unspecified; Translations: [Pain, unspecified] Onset: 02-15-2024 Episodic Unclassified (13 sources) 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 Onset: 12-22-2023 12-22-2023 Unclassified (1 source) m17.12 Onset: 11-19-2023 Urinary tract infections (20 sources) Acute cystitis; Translations: [Acute cystitis without hematuria] Onset: 07-10-2024 Episodic Past or Other Problems Problem Classification Problem Date Documented Da te Episodic/Chronic Abdominal hernia (20 sources) Inguinal hernia; Translations: [Unilateral inguinal hernia, without obstruction or gangrene, not specified as recurrent] Onset: 09-26-2014 09-26-2014 Episodic Calculus of urinary tract (20 sources) Kidney stone; Translations: [Calculus of kidney] Onset: 02-09-2017 07-13-2017 Episodic Complications of surgical procedures or medical care (9 sources) Postprocedural anterior urethral stricture; Translations: [Postprocedural urethral stricture, male, unspecified] Onset: 08-25-2022 Episodic Deficiency and other anemia (20 sources) Microcytic anemia; Translations: [Iron deficiency anemia, unspecified] Onset: 10-18-2020 10-18-2020 Episodic Deficiency and other anemia (4 sources) Anemia; Translations: [Anemia, unspecified] Onset: 10-18-2020 02-21-2024 Episodic Deficiency and other anemia (1 source) Iron deficiency anemia, unspecified; Translations: [Microcytic anemia] Onset: 10-18-2020 Episodic Genitourinary symptoms and ill-defined conditions (20 sources) Poor stream of urine; Translations: [Poor urinary stream] Onset: 02-09-2017 07-13-2017 Episodic Joint disorders and dislocations; trauma-related (19 sources) Tear of medial meniscus of knee; Translations: [Other tear of medial meniscus, current injury, left knee, subsequent encounter] Onset: 12-02-2023 12-02-2023 Episodic Other diseases of bladder and urethra (20 sources) Male urethral stricture; Translations: [Other anterior urethral stricture, male] Onset: 02-27-2017 Episodic Other diseases of bladder and urethra (20 sources) Urethral stricture; Translations: [Unspecified urethral stricture, male, unspecified site] Onset: 08-25-2022 08-25-2022 Episodic Other diseases of kidney and ureters (3 sources) Other obstructive and reflux uropathy; Translations: [Other obstructive and reflux uropathy] Onset: 01-17-2019 Episodic Other gastrointestinal disorders (20 sources) Occult blood in stools; Translations: [Other fecal abnormalities] Onset: 01-01-2016 01-10-2016 Episodic Other non-traumatic joint disorders (20 sources) Bilateral shoulder joint pain; Translations: [Pain in right shoulder] Onset: 01-08-2016 01-08-2016 Episodic Other screening for suspected conditions (not mental disorders or infectious disease) (15 sources) Raised prostate specific antigen; Translations: [Elevated prostate specific antigen [PSA]] Onset: 07-10-2024 Episodic Pancreatic disorders (not diabetes) (20 sources) Cyst of pancreas; Translations: [Cyst of pancreas] Onset: 10-02-2015 10-02-2015 Episodic Residual codes; unclassified (20 sources) Past history of procedure; Translations: [Presence of other specified devices] Onset: 02-21-2024 02-21-2024 Episodic Residual codes; unclassified (2 sources) Presence of other specified devices; Translations: [Presence of other specified devices] Onset: 02-21-2024 Episodic Results Test Name Value Interpretation Reference Range Facility [facility] 01-05-2025 CNOV Office Visit (AKURFL) MARGAUX QUARLES ([id number]) 1950 M Date Time Provider Department 01/05/25 10:00 AM ROCHELLE CHRISTIAN During your visit today, we recorded the following information about you: Pulse Height 64/minute 1.702 m Rochelle Christian MD 01/05/2025 1:14 PM Signed ESTABLISHED PATIENT OFFICE VISIT patient declined echo technologist PATIENT INFO: Margaux Quarles 74 year old HPI 01/05/2025 CC: stricture Patient follows with Dr. Nguyen and has future follow-up with her as delineated Denies dysuria and he takes the Uribel as ordered below and that helps take away any dysuria or deterioration symptoms On Flomax twice daily Does not need antibiotic as needed at this point CT recently showed tiny stone lower pole left kidney PSA is fine Erectile dysfunction-takes one quarter of a Viagra tablet and just needs a refill total of 15 tablets He just wants to follow-up with Dr. Nguyen moving ahead and see me as needed Past Urology Hx: October 16, 2024-seen by Dr. Rojas- Plan: Doing very well on current regimen Continue Uribel twice daily (as needed up to 4 times daily) for urinary bother and UTI prevention Continue tamsulosin 0.4 mg twice daily Topical clobetasol to the meatus and penile shaft as needed, dilate as needed for urethral stricture Most recent imaging no hydronephrosis, we will plan to follow-up in 6 months, he will contact me sooner as needed Follow Up: Follow up in about 6 months (around 04/18/2025) for BPH/Recurrent UTI follow up (UA/PVR at visit) . 01/11/2024 CC: stricture saw Dr. Ileana Nguyen as noted below and taken to surgery for the urethral dilation and then in follow-up instructed on straight catheterization but that her too much so we just stopped doing it He thinks voiding is going fine right now and does not want anything else done at this point-- he understands stricture can recur and worsen at any point Does not think he has set appointment to see Dr. Nguyen again at this point and discussed he could always just follow-up with her on a regular basis or as needed He still wants to follow-up with me also this point Remains on Flomax twice daily but he could try daily and see if does just as well on that so we will do that On no antibiotics and history of being on daily Keflex and doxycycline as needed Dipstick positive nitrite but no feelings of symptomatic UTI so we will hold off on culture or antibiotic and patient agrees History of erectile dysfunction-Viagra just uses a few times a year and wants a printed prescription Follow-up 12 months with PSA at the latest and earlier problems IPSS-; QoL-08/07September 08, 2023-seen by Dr. Ileana Nguyen/[facility]- Mamadou is doing very well after dilation in OR in June Reports has not had any recurrent urinary tract infections, stream is stronger as well For his BPH he is on Flomax twice a day, this has improved his emptying and his urinary symptoms as well He was taught meatal dilation/calibration today He will perform this weekly and as needed to keep the meatus patent, he was prescribed clobetasol cream as well which she can apply weekly and as needed to help prevent restenosis Follow-up with me in about 10 months for BPH and stricture, contact office sooner as needed Follow Up: Follow up in about 10 months (around 07/08/2024) for BPH / urethral stricture follow up (UA and PVR at visit) . Ileana Rojas DO Jun 17 2023-surgery with Dr. Nguyen/[facility]- The distal penile urethra is noted to be somewhat scarred and stenotic however the remaining portion of the urethra appears grossly normal. There is a narrowing where the expected location of the external urinary sphincter is located, no evidence for additional strictures within the urethra. Contrast does reach the bladder. He was then repositioned into a dorsal lithotomy fashion and reprepped and draped in a normal sterile fashion. A semirigid ureteroscope was used to perform distal ureteroscopy. Distal urethra is noted to be quite stenotic. Wire was passed through the scope and into the bladder. Decision was made to perform urethral dilation. Using the Cook S-curve dilators we dilated the urethra up to 20 Greenlandic using the dilators. A 17 Greenlandic rigid cystoscope was then passed alongside the wire and into the bladder. Distal urethra was noted to be scarred, likely from prior hypospadias surgeries. he proximal penile urethra, bulbar urethra, and prostatic urethra is noted to be widely patent. Within the urinary bladder there are no masses stones or lesions identified, bilateral ureteral orifices are normal in number position and orientation with clear E flux. Decision was made to place a Long catheter. The scope was withdrawn. An 18 Greenlandic Councill catheter was placed Plan: Patient will be discharged home with a Long (more content not included)... Normal [facility] UA DIP, URINE (POC)on 2024 BILIRUBIN UA (POCT) Small Abnormal Negative [facility] CLARITY UA (POCT) Slightly Cloudy Cl [facility] COLOR UA (POCT) Green [facility] GLUCOSE UA (POCT) Negative Negative mg/dL [facility] Hemoglobin Ql (U) Large Abnormal Negative [facility] Interpretation and review of laboratory results Abnormal [facility] KETONE UA (POCT) Negative Negative mg/dL [facility] LEUKOCYTES UA (POCT) Small Abnormal Negative [facility] NITRITE UA (POCT) Positive Abnormal Negative [facility] PH UA (POCT) 6 4.5 - 8.0 [facility] Protein Ql (U) 100 mg/dL Abnormal Negative [facility] SPECIFIC GRAVITY UA (POCT) 1.025 1.005 - 1.030 [facility] UROBILINOGEN UA (POCT) 0.2 Yenny l E.U./dL [facility] Location:[facility], [address] [place] [address], [address] [place] [address] POINT OF CARE [facility] David 12-22-2024 SKY Telephone (UROLAE) MARGAUX QUARLES ([id number]) 1950 M Date Time Provider Department 12/22/24 DONAL NIÑO During your visit today, we recorded the following information about you: Allergies As of Date: 12/22/2024 (No Known Allergies) Date Reviewed: 11/16/2024 Reviewed by: Joanna Holt MA - Fully Assessed Visit Diagnosis:BPH with obstruction/lower urinary tract symptoms [N40.1, N13.8] Prescriptions as of 12/22/2024 - URO-MP 118-10-40.8-36 mg TAKE 1 CAPSULE BY MOUTH EVERY 6 HOURS NEEDED FOR BLADDER PAIN / BURNING WITH URINATION. - sildenafil (VIAGRA) 100 mg tablet take one tablet by mouth once a day as needed. maximum of 1 tablet daily - acetaminophen (TYLENOL 8 HOUR) 650 mg CR tablet Take 650 mg by mouth every 8 hours as needed for pain. - tamsulosin (FLOMAX) 0.4 mg TAKE ONE CAPSULE BY MOUTH ONCE DAILY - lansoprazole (PREVACID ORAL) Take 20 mg by mouth once daily. 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] 10/02/2015 Liver nodule [K76.89] 10/02/2015 Pain of both shoulder joints [M25.511, M25.512] 01/08/2016 Fecal occult blood test positive [R19.5] 01/01/2016 Liver lesion [K76.9] ED (erectile dysfunction) of organic origin [N5*07/13/2017 Renal calculi [N20.0] 07/13/2017 Poor urinary stream [R39.12] 07/13/2017 Nocturia [R35.1] 07/13/2017 Hx of renal calculi [Z87.442] 01/17/2018 Irregular heart beat [I49.9] Anemia [D64.9] 10/18/2020 Urethral stricture [N35.919] 08/25/2022 Tear of medial meniscus of left knee, current [*12/02/2023 Preop testing [Z01.818] 02/17/2024 Nonrheumatic mitral valve regurgitation [I34.0] 02/21/2024 Encounter Status:Closed by BERLIN LE on 12/22/24 [facility] CNOVon 11-16-2024 CNOV Office Visit (AGCARDPOB) MARGAUX QUARLES ([id number]) 1950 M Date Time Provider Department 11/16/24 11:20 AM ELANA TAVERAS AGCARDPOB During your visit today, we recorded the following information about you: Pulse Blood pressure Weight Height 74/minute 137/74 74.4 kg 1.702 m Elana Taveras MD 11/16/2024 11:38 AM Signed Chief Complaint No chief complaint on file. History of Present Illness: Margaux Quarles is a 74-year-old male with a history of palpitations, microcytic anemia, and moderate mitral insufficiency, presenting for follow-up. The patient reports feeling well overall and denies experiencing palpitations, heart racing, chest pain, chest tightness, dyspnea, leg swelling, or claudication. He recalls a single episode of palpitations following knee surgery in January, which he attributes to standing in line for an extended period. He has not undergone an event recorder or stress test and has previously declined these tests. He continues to work 12-hour shifts, 6-7 days a week, without any issues. He has a history of microcytic anemia with an MCV of 66 fL and hematocrit of 29%. A GI evaluation was negative. He is currently taking bioplasma, which his recommended, and denies any recent testing for anemia. He reports normal bleeding when cut and denies any pallor. He underwent successful left knee surgery in January, performed by Dr. Ryan Gann. He also mentions having an enlarged prostate and is on medication that causes his urine to appear blue. He limits lifting to 40-pound bags of dog food and hay and rests if he anticipates heavy activity. Past medical history is significant for moderate mitral insufficiency and minimal aortic root enlargement, with a previous LVEF of 55%. His last LDL was 113 mg/dL a year ago, and he has not had recent lipid testing. PAST MEDICAL HISTORY Diagnosis Date Bilateral inguinal hernia 2014 BPH (benign prostatic hyperplasia) enlarged prostate Colonoscopy refused 06/06/2014 Fecal occult blood test positive 01/2016 GERD (gastroesophageal reflux disease) History of epistaxis Hyperlipidemia on diet control, exercise Irregular heart beat Left inguinal hernia 2010 Liver lesion MRI Microcytic anemia Mitral valve insufficiency, unspecified etiology OA (osteoarthritis) of knee Received Euflexxa injection Osteoarthritis Pancreatic lesion (HCC) MRI Poor urinary stream Prostatitis since age [address] [facility] Renal stone 2011 removed Urethral stricture in male Urgency of urination UTI (urinary tract infection) PAST SURGICAL HISTORY Procedure Laterality Date CAUTERIZATION INNER NOSE 2013 HERNIA REPAIR HX 11/16/2014 Laparoscopic total preperitoneal bilateral inguinal hernia repair. Open umbilical hernia repair PAST SURGICAL HISTORY OF 07/2010 lithotripsy REPAIR INGUINAL HERNIA 2010 left injuinal hernia repair w/ mesh TONSILLECTOMY HX URETHRA SURGERY HX 2021 AT [facility] FAMILY HISTORY Problem Relation Age of Onset Ischemic Heart Disease Father 70 CABG other (vertigo) Father alive other (Lung cancer- smoker) Mother 61 Cancer Maternal Grandmother lung cancer Heart Paternal Grandmother Social History Tobacco Use Smoking status: Never Smokeless tobacco: Never Vaping Use Vaping status: Never Used Substance Use Topics Alcohol use: Yes Comment: rarely Drug use: No ALLERGIES No Known Allergies Medications: Current Outpatient Medications Medication Sig Dispense Refill sildenafil (VIAGRA) 100 mg tablet take one tablet by mouth once a day as needed. maximum of 1 tablet daily 10 tablet 0 acetaminophen (TYLENOL 8 HOUR) 650 mg CR tablet Take 650 mg by mouth every 8 hours as needed for pain. tamsulosin (FLOMAX) 0.4 mg TAKE ONE CAPSULE BY MOUTH ONCE DAILY 90 capsule 3 lansoprazole (PREVACID ORAL) Take 20 mg by mouth once daily. No current facility-administere d medications for this visit. ROS Physical Examination: Vitals: BP 137/74 (BP Site: Left Arm, BP Position: Sitting, BP Cuff Size: Regular Adult) Pulse 74 Ht 5' 7 (1.702 m) Wt 164 lb (74.4 kg) SpO2 98% BMI 25.69 kg/m? Last 2 Encounter Wt Readings: Date: Wt: 02/15/2024 148 lb (67.1 kg) 02/01/2024 150 lb (68 kg) Physical Exam Constitutional: in no distress. HENT: Head: Normocephalic. Eyes: Pupils equal, eyelids appear normal Neck: No JVD present. No thyromegaly present. Cardiovascular: Regular rhythm and normal heart sounds. Occasional premature beats PMI is not palpable exam reveals no gallop, no distant heart sounds and no friction rub. No murmur heard. Pulses: Carotid pulses are 2+ on the right side and 2+ on the left side. Radial pulses are 2+ on the right side and 2+ on the left side. Bilateral posterior tibial pulses 2+ no RV lift Pulmonary/Ches (more content not included)... Normal [facility] ECG B/O W INTERP (MED OFFICE )on 11-16-2024 Sinus rhythm frequent multifocal PVCs small inferior Q waves [facility] Office Visiton 10-16-2024 Follow-up visit [id number] Margaux Quarles 1950 M Date Provider Department Center 10/16/2024 [id number] ROJAS [facility] UR None Family History Problem Relation Age of Onset Prostate cancer Father Breast cancer Mother Heart disease Father Family Status - Relation Status Age at Father Mother Level of Service:57724 [place] OFFICE/OUTPATIENT ESTABLISHED MOD MDM 30 MIN Reason for Visit and Comments: Benign Prostatic Hypertrophy [[id number]] Normal [facility] Progress Noteon 10-16-2024 Progress Note Ileana Rojas DO Urology Office Visit Established patient [facility] - [address] [facility] [address] Dept: [phone] Dept Loc: [phone] PATIENT NAME: Margaux Quarles DATE OF : 1950 REFERRING PROVIDER: No ref. provider found PCP: TAM MAJOR MD DATE OF VISIT: 10/16/2024 CHIEF COMPLAINT: Chief Complaint Patient presents with Benign Prostatic Hypertrophy Impression: Diagnoses and all orders for this visit: Recurrent UTI BPH with obstruction/lower urinary tract symptoms - Bladder scan Hypospadias, penile Dysuria Bladder spasms - Meth-Hyo-M Bl-Na Phos-Ph Eduard (Uribel) 118 MG capsule; Take 1 capsule by mouth every 6 hours as needed (bladder pain/burning with urination). Plan: Doing very well on current regimen Continue Uribel twice daily (as needed up to 4 times daily) for urinary bother and UTI prevention Continue tamsulosin 0.4 mg twice daily Topical clobetasol to the meatus and penile shaft as needed, dilate as needed for urethral stricture Most recent imaging no hydronephrosis, we will plan to follow-up in 6 months, he will contact me sooner as needed Follow Up: Follow up in about 6 months (around 04/18/2025) for BPH/Recurrent UTI follow up (UA/PVR at visit) . Ileana Rojas DO Reconstructive [facility] Subjective: Mr. Quarles is a 74 y.o. male who presents to the office for 3 month follow up visit for BPH and recurrent UTIs. Records have been reviewed HPI HPI The patient presents to the office for 3 month follow up visit for BPH and recurrent UTIs. Today he is doing well He uses Uribel BID now, down from 4 times a day He feels this is helping him tremendously We will continue this regimen along with tamsulosin 0.4 mg BID Has not had sx of UTI in a couple of months! 08/15/2024 CT abd&pelvis wo contrast showed Left inferior pole punctate nonobstructive nephrolithiasis. Prostatomegaly. 08/10/24 OV. He is unable to perform meatal dilation, has severe skin irritation. PO Fluconazole 100mg daily x 14 days. Bactrim DS BID x 30 days. Consider addition of tadalafil 5mg if no improvement in sx. Consider baclofen nightly. Uribel PRN for bladder spasms 07/14/2024 renal ultrasound simple right renal cyst, mild left hydronephrosis. Bladder incompletely distended 07/10/2024 urine culture 1-9K yeast 03/09/24 Void trial, able to void without difficulty 02/21/24 knee replacement, post operative urinary retention 09/08/23 office visit. Taught meatal dilation/calibration today. Continue Flomax BID 06/17/23 RUG, Cysto, urethral dilation, long placement. Distal penile urethral stricture (prior hypospadias surgeries) Hx of hypospadias, BPH, urinary retention and urethral stricture requiring dilation Referred by Dr Christian Has seen Drs Gino, Kwaku, Lesley, and Jamila in the past 12 years ago he had a hernia repair in [place] Could not get catheter in Had to get a urologist to get a catheter in. A few years ago had a dilation here in [place] as well Last Dilated August 2022 at [facility]. Dilated to 14, had 12 fr catheter placed over wire Reports that was the least painful Hx of recurrent prostatitis, stones. Has had previous treatment of stones with laser lithotripsy. PSA 07/14/2024 4.2 (38% free PSA)) 12/07/23 5.56 01/11/23 5.03 10/03/21 4.23 08/06/21 8.0 06/10/21 4.4 01/06/21 4.01 Tobacco History reports that he has never smoked. He does not have any smokeless tobacco history on file. Review of Systems Review of Systems Constitutional: Negative. HENT: Negative. Gastrointestinal: Negative. Genitourinary: Negative. Musculoskeletal: Negative. Past Medical History: Past Medical History: Diagnosis Date Arthritis gets stem cells injected in both knees and right shoulder Bilateral inguinal hernia Bleeding from the nose cauterized BPH (benign prostatic hyperplasia) Chronic anemia Eczema GERD (gastroesophageal reflux disease) Hyperlipidemia Kidney stones Mitral valve insufficiency Poor urinary stream UTI (urinary tract infection) Past Surgical History: Past Surgical History: Procedure Laterality Date CYSTOSCOPY 2016 stent HERNIA REPAIR KIDNEY STONE SURGERY LITHOTRIPSY 2010 OTHER SURGICAL HISTORY string stent TONSILLECTOMY AND ADENOIDECTOMY (HISTORICAL) Medications Current Outpatient Medications: cholecalciferol (Vitamin D-3) 10 MCG (400 UNIT) tablet, Take 400 Units by mouth daily., Disp: , Rfl: clobetasol (Temovate) 0.05 % cream, Apply to meatus and dilator weekly and as needed for meatal stenosis, Disp: 45 g, Rfl: 3 Lansoprazole (PREVACID PO), Take by mouth daily., Disp: , Rfl: naproxen (Naprosyn) 500 MG tablet, Take 500 mg by mouth Daily as needed., Disp: , Rfl: sildenafil (Viagra) 100 MG tablet, take one tablet by mouth once a day as needed. (more content not included)... Normal [facility] AMB POC URINALYSIS DIP STICK AUTO W/O MICROon 09-13-2024 Bil[facility], [facility], [facility] Large [facility] Glucose, UA Negative [facility] Interpretation and review of laboratory results Abnormal [facility] Ketones, UA (mg/dL) Positive Abnormal Negative mg/dL [facility] Leukocytes, UA Large [facility] Nitrite, UA Positive [facility] pH, UA 6.0 [facility] Protein, UA 100 [facility] Spec Grav, UA 1.025 [facility] Urobilin[facility], UA 0.2 [facility]th [facility] Office Visiton 09-13-2024 Follow-up visit [id number] Margaux Quarles 1950 M Date Provider Department Center 09/13/2024 [id number] ROJAS [facility] None Family History Problem Relation Age of Onset Prostate cancer Father Breast cancer Mother Heart disease Father Family Status - Relation Status Age at Father Mother Level of Service:31649 [place] OFFICE/OUTPATIENT ESTABLISHED MOD MDM 30 MIN Reason for Visit and Comments: Follow-up [894711] UTI [[id number]] Normal [facility] Progress Noteon 09-13-2024 Progress Note Ileana Rojas DO Urology Office Visit Established patient [facility] - [address] [facility] [address] Dept: [phone] Dept Loc: [phone] PATIENT NAME: Margaux Quarles DATE OF : 1950 REFERRING PROVIDER: No ref. provider found PCP: TAM MAJOR MD DATE OF VISIT: 09/13/2024 CHIEF COMPLAINT: Chief Complaint Patient presents with Follow-up UTI Impression: Diagnoses and all orders for this visit: Hypospadias, penile Bladder spasms - Meth-Hyo-M Bl-Na Phos-Ph Eduard (Uribel) 118 MG capsule; Take 1 capsule by mouth every 6 hours as needed (bladder pain/burning with urination). 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 Plan: Doing well at this time, he has no urinary symptoms. Urine analysis with some nitrates however in the absence of symptoms, his known significant urethral stricture disease and hypospadias would defer culture Nitrates could be positive as well secondary to being on Uribel If symptoms of UTI he can contact the office and we will obtain a culture Imaging reviewed, no stones to treat today, no significant prostate calcifications Continue tamsulosin twice daily for BPH Sildenafil 100 mg as needed for sexual activity Will plan 1 month follow-up as scheduled Follow Up: Follow up for Next scheduled follow-up. Ileana Rojas DO Reconstructive Urology [facility] Subjective: Mr. Quarles is a 74 y.o. male who presents to the office for 5 week follow up for recurrent UTI/prostatitis. Records have been reviewed HPI HPI The patient presents to the office for 5 week follow up for recurrent UTI/prostatitis. Urine culture on 08/10/2024 was negative for bacteria growth. Margaux reports that since his last visit last month he feels significantly better. Between treating the prostatitis and utilizing Uribel as needed he is no longer having any urinary discomfort He feels he is emptying his bladder well, PVR 0 cc today. While the urine is nitrate positive he is also taking Uribel which can cause this on a dipstick. Since he is not symptomatic will not send for a culture today He has not been calibrating the meatus, he states it is widely patent and he is able to void without difficulty He continues to take Flomax twice a day We discussed that should he need a catheter for any procedures in the future, would likely have him come to our office the day prior for a Long catheter placed here to prevent the complications that arose this past summer 08/15/2024 CT abd&pelvis wo contrast showed Left inferior pole punctate nonobstructive nephrolithiasis. Prostatomegaly. 08/10/24 OV. He is unable to perform meatal dilation, has severe skin irritation. PO Fluconazole 100mg daily x 14 days. Bactrim DS BID x 30 days. Consider addition of tadalafil 5mg if no improvement in sx. Consider baclofen nightly. Uribel PRN for bladder spasms 07/14/2024 renal ultrasound simple right renal cyst, mild left hydronephrosis. Bladder incompletely distended 07/10/2024 urine culture 1-9K yeast 03/09/24 Void trial, able to void without difficulty 02/21/24 knee replacement, post operative urinary retention 09/08/23 office visit. Taught meatal dilation/calibration today. Continue Flomax BID 06/17/23 RUG, Cysto, urethral dilation, long placement. Distal penile urethral stricture (prior hypospadias surgeries) Hx of hypospadias, BPH, urinary retention and urethral stricture requiring dilation Referred by Dr Christian Has seen Drs Gino, Kwaku, Lesley, and Jamila in the past 12 years ago he had a hernia repair in [facility] Could not get catheter in Had to get a urologist to get a catheter in. A few years ago had a dilation here in [place] as well Last Dilated August 2022 at [facility]. Dilated to 14, had 12 fr catheter placed over wire Reports that was the least painful Hx of recurrent prostatitis, stones. Has had previous treatment of stones with laser lithotripsy. PSA 07/14/2024 4.2 (38% free PSA)) 12/07/23 5.56 01/11/23 5.03 10/03/21 4.23 08/06/21 8.0 06/10/21 4.4 01/06/21 4.01 Tobacco History reports that he has never smoked. He does not have any smokeless tobacco history on file. Review of Systems Review of Systems Constitutional: Negative. HENT: Negative. Genitourinary: Positive for frequency. Negative for difficulty urinating, dysuria, hematuria and penile pain. Past Medical History: Past Medical History: Diagnosis Date Arthritis gets stem cells injected in both knees and right shoulder Bilateral inguinal hernia Bleeding from the nose cauterized BPH (benign prostatic hyperplasia) Chronic anemia Eczema GERD (gastroesophageal reflux disease) Hyperlipidemia Ki (more content not included)... Normal [facility] Progress Note PVR: 0 mL Normal [facility] 36on 09-01-2024 36 LMR for pt to reschedule his appt from 10/09/[address] Rojas at [place] she will be out of the office that day. Moved pt to 10/16/[address] Rojas at [place] office. Sending Soonr message also. Normal [facility] CT ABDOMEN PELVIS WO IV CONT Mela 08-15-2024 CT ABDOMEN PELVIS WO IV CONTRAST Patient Name: MARGAUX QUARLES : 1950 Exam Date/Time: 08/15/2024 09:18 Procedure: CT ABDOMEN PELVIS WO IV CONTRAST Ordering Provider: ROJAS ELIZABETH Reason For Exam: Flank pain, kidney stone suspected CT ABDOMEN AND PELVIS WITHOUT CONTRAST CLINICAL INDICATION: Flank pain Technique: Axial CT images were obtained of the abdomen and pelvis without the use of intravenous contrast. Images were reformatted in coronal and sagittal projections. Oral contrast: Not given Dose reduction was employed with automated exposure control. COMPARISON: 07/14/2024 US FINDINGS: Evaluation of solid organs is limited by lack of contrast administration. Lung bases: No pleural effusion or focal consolidation. Chest wall: Unremarkable. Liver: The liver is normal in size and contour. No focal hepatic lesions identified. Biliary system: The biliary system is not dilated. The gallbladder is normal in appearance. Spleen: The spleen is normal in size and contour. Pancreas: No significant abnormality. Adrenal glands: No significant abnormality. Kidneys/ Ureter: The bilateral kidneys are normal in size and contour. No evidence of hydroureteronephrosi s. Punctate nonobstructive nephrolithiasis is observed. This is in the inferior pole of the left kidney. Circumscribed hypoattenuating structures are noted in the kidneys bilaterally, likely reflecting simple renal and parapelvic cysts. Bladder: The urinary bladder is decompressed, limiting detailed evaluation. Thickening of the urinary bladder is noted particularly of the left lateral wall. Pelvic organs: The prostate gland is enlarged. It measures 5.6 x 4.8 cm, with internal dystrophic calcifications. Bowel: Moderate hiatal hernia is present, containing the gastric fundus and a portion of the gastric body. No evidence of incarceration. The stomach is unremarkable. The small bowel is of normal caliber throughout without evidence of wall thickening or obstruction. The appendix is unremarkable. Diverticuli are noted throughout the colon. No stenotic lesion or mucosal thickening is noted to suggest diverticulitis. Mesentery/Intraperit oneum: No intraperitoneal free fluid or air is seen. Mesentery is normal in appearance. Lymph nodes: No lymphadenopathy Vasculature: Atherosclerotic calcifications are noted throughout the abdominal pelvic vasculature. Otherwise, the abdominal aorta is normal in caliber without evidence of aneurysmal dilatation. The venous vasculature appears grossly unremarkable. Abdominal wall: The abdominal wall soft tissues appear unremarkable. Osseous structures: Levoscoliosis of the lumbar spine is noted. Diffuse osteopenia is observed. Mild degenerative changes of the lumbar spine are observed. IMPRESSION: 1. No acute abdominopelvic process identified. 2. Left inferior pole punctate nonobstructive nephrolithiasis. 3. Prostatomegaly, correlate with PSA values and concern for BPH. 4. Circumferential left bladder wall predominant thickening, which may reflect a sequela bladder outlet obstruction in the context of prostatomegaly. Consider cystoscopy for further evaluation. 5. Diverticulosis without evidence of diverticulitis. 6. Other chronic findings as discussed. Report Dictated on Electronically Signed By: Raymond Sandoval MD Electronically Signed Date/Time: 08/15/2024 12:13 PM EST Pt states he has a hx of kidney stones. He had an xray done recently and it showed something in right kidney per patient. He has no acute complaints today. Hx of hernia repair. Normal [facility] CT Abdomen and Pelvis WO con traston 08-15-2024 1. No acute abdominopelvic process identified. 2. Left inferior pole punctate nonobstructive nephrolithiasis. 3. Prostatomegaly, correlate with PSA values and concern for BPH. 4. Circumferential left bladder wall predominant thickening, which may reflect a sequela bladder outlet obstruction in the context of prostatomegaly. Consider cystoscopy for further evaluation. 5. Diverticulosis without evidence of diverticulitis. 6. Other chronic findings as discussed. Report Dictated on Electronically Signed By: Raymond Sandoval MD Electronically Signed Date/Time: 08/15/2024 12:13 PM [facility] RADIOLOGY SYSTEM Patient Name: MARGAUX QUARLES : 1950 Exam Date/Time: 08/15/2024 09:18 Procedure: CT ABDOMEN PELVIS WO IV CONTRAST Ordering Provider: CRYSTAL, , ILEANA Reason For Exam: Flank pain, kidney stone suspected CT ABDOMEN AND PELVIS WITHOUT CONTRAST CLINICAL INDICATION: Flank pain Technique: Axial CT images were obtained of the abdomen and pelvis without the use of intravenous contrast. Images were reformatted in coronal and sagittal projections. Oral contrast: Not given Dose reduction was employed with automated exposure control. COMPARISON: 07/14/2024 US FINDINGS: Evaluation of solid organs is limited by lack of contrast administration. Lung bases: No pleural effusion or focal consolidation. Chest wall: Unremarkable. Liver: The liver is normal in size and contour. No focal hepatic lesions identified. Biliary system: The biliary system is not dilated. The gallbladder is normal in appearance. Spleen: The spleen is normal in size and contour. Pancreas: No significant abnormality. Adrenal glands: No significant abnormality. Kidneys/ Ureter: The bilateral kidneys are normal in size and contour. No evidence of hydroureteronephrosi s. Punctate nonobstructive nephrolithiasis is observed. This is in the inferior pole of the left kidney. Circumscribed hypoattenuating structures are noted in the kidneys bilaterally, likely reflecting simple renal and parapelvic cysts. Bladder: The urinary bladder is decompressed, limiting detailed evaluation. Thickening of the urinary bladder is noted particularly of the left lateral wall. Pelvic organs: The prostate gland is enlarged. It measures 5.6 x 4.8 cm, with internal dystrophic calcifications. Bowel: Moderate hiatal hernia is present, containing the gastric fundus and a portion of the gastric body. No evidence of incarceration. The stomach is unremarkable. The small bowel is of normal caliber throughout without evidence of wall thickening or obstruction. The appendix is unremarkable. Diverticuli are noted throughout the colon. No stenotic lesion or mucosal thickening is noted to suggest diverticulitis. Mesentery/Intraperit oneum: No intraperitoneal free fluid or air is seen. Mesentery is normal in appearance. Lymph nodes: No lymphadenopathy Vasculature: Atherosclerotic calcifications are noted throughout the abdominal pelvic vasculature. Otherwise, the abdominal aorta is normal in caliber without evidence of aneurysmal dilatation. The venous vasculature appears grossly unremarkable. Abdominal wall: The abdominal wall soft tissues appear unremarkable. Osseous structures: Levoscoliosis of the lumbar spine is noted. Diffuse osteopenia is observed. Mild degenerative changes of the lumbar spine are observed. [employer] [facility] SYSTEM Raymond Sandoval MD - 08/15/2024 [facility] Name[facility] 1950 [id number] Exam Date/Time: 08/15/2024 09:18 Procedure: CT ABDOMEN PELVIS WO IV CONTRAST Ordering Provider: ROJAS ELIZABETH Reason For Exam: Flank pain, kidney stone suspected CT ABDOMEN AND PELVIS WITHOUT CONTRAST CLINICAL INDICATION: Flank pain Technique: Axial CT images were obtained of the abdomen and pelvis without the use of intravenous contrast. Images were reformatted in coronal and sagittal projections. Oral contrast: Not given Dose reduction was employed with automated exposure control. COMPARISON: 07/14/2024 US FINDINGS: Evaluation of solid organs is limited by lack of contrast administration. Lung bases: No pleural effusion or focal consolidation. Chest wall: Unremarkable. Liver: The liver is normal in size and contour. No focal hepatic lesions identified. Biliary system: The biliary system is not dilated. The gallbladder is normal in appearance. Spleen: The spleen is normal in size and contour. Pancreas: No significant abnormality. Adrenal glands: No significant abnormality. Kidneys/ Ureter: The bilateral kidneys are normal in size and contour. No evidence of hydroureteronephrosi s. Punctate nonobstructive nephrolithiasis is observed. This is in the inferior pole of the left kidney. Circumscribed hypoattenuating structures are noted in the kidneys bilaterally, likely reflecting simple renal and parapelvic cysts. Bladder: The urinary bladder is decompressed, limiting detailed evaluation. Thickening of the urinary bladder is noted particularly of the left lateral wall. Pelvic organs: The prostate gland is enlarged. It measures 5.6 x 4.8 cm, with internal dystrophic calcifications. Bowel: Moderate hiatal hernia is present, containing the gastric fundus and a portion of the gastric body. No evidence of incarceration. The stomach is unremarkable. The small bowel is of normal caliber throughout without evidence of wall thickening or obstruction. The appendix is unremarkable. Diverticuli are noted throughout the colon. No stenotic lesion or mucosal thickening is noted to suggest diverticulitis. Mesentery/Intraperit oneum: No intraperitoneal free fluid or air is seen. Mesentery is normal in appearance. Lymph nodes: No lymphadenopathy Vasculature: Atherosclerotic calcifications are noted throughout the abdominal pelvic vasculature. Otherwise, the abdominal aorta is normal in caliber without evidence of aneurysmal dilatation. The venous vasculature appears grossly unremarkable. Abdominal wall: The abdominal wall soft tissues appear unremarkable. Osseous structures: Levoscoliosis of the lumbar spine is noted. Diffuse osteopenia is observed. Mild degenerative changes of the lumbar spine are observed. IMPRESSION: 1. No acute abdominopelvic process identified. 2. Left inferior pole punctate nonobstructive nephrolithiasis. 3. Prostatomegaly, correlate with PSA values and concern for BPH. 4. Circumferential left bladder wall predominant thickening, which may reflect a sequela bladder outlet obstruction in the context of prostatomegaly. Consider cystoscopy for further evaluation. 5. Diverticulosis without evidence of diverticulitis. 6. Other chronic findings as discussed. Report Dictated on Electronically Signed By: Raymond Sandoval MD Electronically Signed Date/Time: 08/15/2024 12:13 PM EST [facility] Radiology Study observation (narrative[facility]en and Pelvis WO con trastOrdered By: Raymond Sandoval on 08-15-2024 [facility] [employer] Work Phone: [phone] 08-10-2024 37 Check out this website [email or web address] .org for more information about pelvic floor relaxation You can also check out this FREE YouTube Channel for videos on helpful stretches and exercises to start at home. Dr Siddiqui's [facility] Normal [facility] System [facility] AMB POC URINALYSIS DIP STICK AUTO W/O MICROon 08-10-2024 Bilirubin, UA Negative [facility] Blood, UA Large [facility] Glucose, UA Negative [facility] Ketones, UA (mg/dL) Negative Negative mg/dL [facility] Leukocytes, UA Small [facility] th Nitrite, UA Negative [facility] pH, UA 5.5 [facility] Protein, UA 300 [facility] Spec Grav, UA 1.030 [facility] Urob[facility], UA 0.2 [facility] alth [facility] Office Visiton 08-10-2024 Follow-up visit [id number] Margaux Quarles 1950 M Date Provider Department Center 08/10/2024 [id number] ROJAS [facility] URO None Family History Problem Relation Age of Onset Prostate cancer Father Breast cancer Mother Heart disease Father Family Status - Relation Status Age at Father Mother Level of Service:70686 [place] OFFICE/OUTPATIENT ESTABLISHED MOD MDM 30 MIN Reason for Visit and Comments: UTI [[id number]] - Pt stated he still have lots of bladder spasms, complications with his prostate, burning, cloudy urine. Normal [facility] Progress Noteon 08-10-2024 Progress Note Ileana Rojas DO Urology Office Visit Established patient [facility] [place] [address] [facility] [address] Dept: [phone] Dept Loc: [phone] PATIENT NAME: Margaux Quarles DATE OF : 1950 REFERRING PROVIDER: No ref. provider found PCP: Sam Early DATE OF VISIT: 08/10/2024 CHIEF COMPLAINT: Chief Complaint Patient presents with UTI Pt stated he still have lots of bladder spasms, complications with his prostate, burning, cloudy urine. Impression: Diagnoses and all orders for this visit: Bladder spasms - Meth-Hyo-M Bl-Na Phos-Ph Eduard (Uribel) 118 MG capsule; Take 1 capsule by mouth every 6 hours as needed (bladder pain/burning with urination). Recurrent UTI - AMB POC URINALYSIS DIP STICK AUTO W/O MICRO - Bladder scan - Mycoplasma/Ureaplasm a Panel ([facility]) - Urine culture - fluconazole (Diflucan) 100 MG tablet; Take 1 tablet (100 mg) by mouth daily for 14 days. - sulfamethoxazole-tri methoprim (Bactrim DS) 800-160 MG tablet; Take 1 tablet by mouth 2 times daily. Dysuria - Mycoplasma/Ureaplasm a Panel ([facility]) - Urine culture - fluconazole (Diflucan) 100 MG tablet; Take 1 tablet (100 mg) by mouth daily for 14 days. - sulfamethoxazole-tri methoprim (Bactrim DS) 800-160 MG tablet; Take 1 tablet by mouth 2 times daily. Hypospadias, penile 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 urethral stricture . Plan: Urine culture today Fluconazole 100mg daily x 14 days based on urine culture from July Bactrim DS BID x 30 days Adjust as needed, will contact with results Consider Tadalafil 5mg daily at next visit if no improvement in symptoms Consider Baclofen nightly as well if having bladder spasms that are worse overnight and in the morning Check out this website [email or web address] .org for more information about pelvic floor relaxation You can also check out this FREE YouTube Channel for videos on helpful stretches and exercises to start at home. Dr Siddiqui's [facility] Uribel PRN for bladder spasms / dysuria Plan about 5 week follow up Follow Up: Follow up in about 5 weeks (around 09/14/2024) for recurrent UTI / prostatitis follow up . Ileana Rojas, Reconstructive Urology [facility] Subjective: Mr. Quarles is a 73 y.o. male who presents to the office for dysuria, recurrent UTI . Records have been reviewed HPI HPI Having a lot of bladder spasms/prostate Has skin irritation as well Unable to pass the dilator at this time He does have urine associated dermatitis associated with dribbling. This is from his hypospadias, numerous surgeries and penile stricture. He has been having more pain within the perineum and prostate. This has been present ever since he had his knee replaced this summer. The last couple of months have been much worse. We obtained a renal ultrasound which showed new hydronephrosis on the left side. Uncertain etiology therefore a CT scan has been ordered and is scheduled for next week PSA 07/14/2024 4.2 (38% free PSA)) 12/07/23 5.56 01/11/23 5.03 10/03/21 4.23 08/06/21 8.0 06/10/21 4.4 01/06/21 4.01 08/15/2024 CT abdomen pelvis (scheduled) 07/14/2024 renal ultrasound simple right renal cyst, mild left hydronephrosis. Bladder incompletely distended 07/10/2024 urine culture 1-9K yeast 03/09/24 Void trial, able to void without difficulty 02/21/24 knee replacement, post operative urinary retention 09/08/23 office visit. Taught meatal dilation/calibration today. Continue Flomax BID 06/17/23 RUG, Cysto, urethral dilation, long placement. Distal penile urethral stricture (prior hypospadias surgeries) Hx of hypospadias, BPH, urinary retention and urethral stricture requiring dilation Referred by Dr Christian Has seen Rudy Christian, Kwaku, Lesley, and Jamila in the past 12 years ago he had a hernia repair in [place] Could not get catheter in Had to get a urologist to get a catheter in. A few years ago had a dilation here in [place] as well Last Dilated August 2022 at [facility]. Dilated to 14, had 12 fr catheter placed over wire Reports that was the least painful Hx of recurrent prostatitis, stones. Has had previous treatment of stones with laser lithotripsy. Tobacco History reports that he has never smoked. He does not have any smokeless tobacco history on file. Review of Systems Review of Systems Constitutional: Negative. HENT: Negative. Gastrointestinal: Negative. Genitourinary: Positive for dysuria, enuresis, frequency, penile pain and urgency. Negative for difficulty urinating, hematuria and testicular pain. Past Medical History: Past Medical History: Diagnosis Date Arthritis gets stem cells injected in both knees and right shoulder Bilateral inguinal hernia Bleeding from the nose cauterized BPH (benign prostatic hyperplasia) Chronic anemia Eczema GERD (gastroesophageal reflux dis (more content not included)... Normal [facility] 36on 08-07-2024 36 Spoke to pt to give D/T/L of CT. Pt said [employer] ok any day but Mondays. Scheduled for 08/15/24 @ 9:30am [employer] location. Also pt having issue and wants to see Dr Rojas and get a shot he say. Made appt for this 08/10/24. Normal [facility] 36on 08-05-2024 36 Please schedule patient for a CT scan of the abdomen and pelvis secondary to swelling seen on renal ultrasound with a history of kidney stones Normal [facility] US RETROPERITONEALon 16- 024 US RETROPERITONEAL Patient Name: MARGAUX QUARLES : 1950 Exam Date/Time: 07/14/2024 10:35 Procedure: US RETROPERITONEAL Ordering Provider: ROJAS ELIZABETH Reason For Exam: Nephrolithiasis US RETROPERITONEAL COMPLETE CLINICAL INDICATION: 73-year-old male with past medical history of nephrolithiasis and recurrent UTI presents for evaluation TECHNIQUE: Complete ultrasound of the retroperitoneal structures. COMPARISON: 03/24/2023 FINDINGS: RIGHT KIDNEY: Size: 9.6 x 5.2 x 6.0 cm Echogenicity: normal Parenchymal thickness: normal Contour: smooth Pelvicalyceal dilatation: none Calculus: none Mass: none Cyst: Mid pole simple cyst measuring 1.6 x 1.8 x 1.8 cm. LEFT KIDNEY: Size: 10.9 x 5.4 x 4.9 cm Echogenicity: normal Parenchymal thickness: normal Contour: smooth Pelvicalyceal dilatation: There is mild left-sided hydronephrosis Calculus: none Mass: none Cyst: none Bladder: The urinary bladder is incompletely distended. IMPRESSION: Mild left-sided hydronephrosis. No evidence of nephrolithiasis on either side. Report Dictated on Electronically Signed By: Sam Sandoval MD Electronically Signed Date/Time: 07/17/2024 9:38 AM EST Normal [facility] Office Visiton 07-10-2024 Follow-up visit [id number] Margaux Quarles 1950 M Date Provider Department Center 07/10/2024 [id number] ROJAS [facility] UR None Family History Problem Relation Age of Onset Prostate cancer Father Breast cancer Mother Heart disease Father Family Status - Relation Status Age at Father Mother Level of Service:04101 [place] OFFICE/OUTPATIENT ESTABLISHED MOD [facility] 30 MIN Reason for Visit and Comments: Benign Prostatic Hypertrophy [[id number]] - BPH/ Urethral stricture follow up. Has some occasional spasms and discomfort at prostate. Has been treated for pseudomonas about two weeks ago at [facility]. Normal [facility] Progress Noteon 07-10-2024 Progress Note Ileana Rojas DO Urology Office Visit Established patient [facility] - [address] [facility] [address] Dept: [phone] Dept Loc: [phone] PATIENT NAME: Margaux Quarles DATE OF : 1950 REFERRING PROVIDER: No ref. provider found PCP: Sam Early DATE OF VISIT: 07/10/24 CHIEF COMPLAINT: Chief Complaint Patient presents with Benign Prostatic Hypertrophy BPH/ Urethral stricture follow up. Has some occasional spasms and discomfort at prostate. Has been treated for pseudomonas about two weeks ago at [facility]. Impression: Diagnoses and all orders for this visit: Urinary retention - Bladder scan Dysuria - Urine culture Elevated PSA - PSA, total and free; Future - PSA, total and free; Future Recurrent UTI - US retroperitoneum; Future BPH with obstruction/lower urinary tract symptoms - tamsulosin (Flomax) 0.4 MG 24 hr capsule; Take 1 capsule (0.4 mg) by mouth 2 times daily. Hypospadias, penile 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 urethral stricture . Plan: Check Urine culture to rule out infection Will contact with results Rising PSA Check Free/Total PSA now and again in about 3 months Continue Flomax BID Recommend he continue dilation/self calibration 2 x per week Use clobetasol For urine associated dermatitis Barrier ointment such as A&D or Aquaphor Follow up in about 3 months to assess symptoms Follow Up: Follow up in about 3 months (around 10/08/2024) for BPH/Recurrent UTI/elevated PSA follow up . Ileana Rojas DO Reconstructive Urology [facility] Subjective: Mr. Quarles is a 73 y.o. male who presents to the office for BPH, history of retention, distal urethral stricture . Records have been reviewed HPI Since his post operative urinary retention, he has had urinary difficulty and UTIs Also some dysuria Was recently treated with PO cipro and then PO doxycycline for UTI Urine culture done at PCP in [place] and then one at an urgent care as well We discussed his rising PSA as well Will check PSA now and again in about 3 months to assess stabilit PSA 12/07/23 5.56 01/11/23 5.03 10/03/21 4.23 08/06/21 8.0 06/10/21 4.4 01/06/21 4.01 03/09/24 Void trial, able to void without difficulty 02/21/24 Left knee replacement, post operative urinary retention 09/08/23 office visit. Taught meatal dilation/calibration today. Continue Flomax BID 06/17/23 RUG, Cysto, urethral dilation, long placement. Distal penile urethral stricture (prior hypospadias surgeries) Hx of hypospadias, BPH, urinary retention and urethral stricture requiring dilation Referred by Dr Christian Has seen Rudy Christian, Kwaku, Lesley, and Jamila in the past 12 years ago he had a hernia repair in [place] Could not get catheter in Had to get a urologist to get a catheter in. A few years ago had a dilation here in [place] as well Last Dilated August 2022 at [facility]. Dilated to 14, had 12 fr catheter placed over wire Reports that was the least painful Hx of recurrent prostatitis, stones. Has had previous treatment of stones with laser lithotripsy. Tobacco History reports that he has never smoked. He does not have any smokeless tobacco history on file. Review of Systems Review of Systems Constitutional: Negative. HENT: Negative. Gastrointestinal: Negative. Genitourinary: Positive for difficulty urinating, dysuria, frequency, penile pain and urgency. Negative for hematuria. Past Medical History: Past Medical History: Diagnosis Date Arthritis gets stem cells injected in both knees and right shoulder Bilateral inguinal hernia Bleeding from the nose cauterized BPH (benign prostatic hyperplasia) Chronic anemia Eczema GERD (gastroesophageal reflux disease) Hyperlipidemia Kidney stones Mitral valve insufficiency Poor urinary stream UTI (urinary tract infection) Past Surgical History: Past Surgical History: Procedure Laterality Date CYSTOSCOPY 2015 stent HERNIA REPAIR KIDNEY STONE SURGERY LITHOTRIPSY 2010 OTHER SURGICAL HISTORY string stent TONSILLECTOMY AND ADENOIDECTOMY (HISTORICAL) Medications Current Outpatient Medications: Cannabinoids (medical cannabis), Take 1 each by mouth 2 times daily. CBD GUMMIES, Disp: , Rfl: cholecalciferol (Vitamin D-3) 10 MCG (400 UNIT) tablet, Take 400 Units by mouth daily., Disp: , Rfl: clobetasol (Temovate) 0.05 % cream, Apply to meatus and dilator weekly and as needed for meatal stenosis, Disp: 45 g, Rfl: 3 Lansoprazole (PREVACID PO), Take by mouth daily., Disp: , Rfl: naproxen (Naprosyn) 500 MG tablet, Take 500 mg by mouth Daily as needed., Disp: , Rfl: sildenafil (Viagra) 100 MG tablet, take one tablet by mouth once a day as needed. maximum of 1 tablet daily, Disp: , Rfl: tamsulosin (Flomax) 0.4 MG 24 hr capsule, Take 1 capsule (0.4 mg) by mouth 2 times daily., (more content not included)... Normal [facility] Internal Medicine Office Vis jean claude 05-23-2024 Internal Medicine Office Visit [facility] [address] [place], [place] [id number] OFFICE VISIT Date of Service: 05/23/24 MR#: [id number] Acct: [id number] Name: MARGAUX QUARLES Rep #: [id number] : 1950 Provider: Dr. 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 Accompanied by: Is patient in pain?: No Allergies No Known Allergies Allergy (Verified 05/23/24 14:51) Medications ???Medication ???Instructions ???Recorded ???Confirmed ???Type ferrous sulfate 325 mg (65 mg 325 mg PO QDAY 05/23/24 05/23/24 History iron) tablet (Feosol) lansoprazole 30 mg capsule,delayed 30 mg PO QDAY 05/23/24 05/23/24 History release (Prevacid) neruida PO 05/23/24 History nervida supplement PO BID 05/23/24 History tamsulosin 0.4 mg capsule 0.8 mg PO QDAY 05/23/24 05/23/24 History Have you fallen in the past year?: No Nurse's Note: Was wanting cbc and iron levels, states he has iron deficency which causes irregular heartbeat at times. States he has a cold that came on wednesday, Sx's include nasal congestion, productive cough that is clear and white. States he had a half an hour of body aches and chills but went away w/ tylneol. Denies fever, sob. Has taken 2 covid test and have been negative. [facility] Medical History (Updated 05/23/24 @ 16:[address] 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 In general this patient's health has been very good. He had a total knee replacement in January 2024 and had problems with urination after that. He had a catheter for 14 days before he could find a urologist to remove it and his tamsulosin has been increased to 0.8 mg a day because of that. He has been told by urology that he has a chronic prostatitis, and is taken Cipro for this in the past but feels it is not as effective as it used to be. He also has a history of chronic anemia with his iron being low and he has had upper and lower endoscopy and other tests to see if the cause could be found but none was found. At this time he has a minor URI so he has a mask on. ROS Const Constitutional: No body ache, chills, excessive sweating, fatigue, fever(s), frequent falls, headache(s), snoring, weakness or change in appetite Eyes Eyes: No blurry vision, change in vision, eye pain or Light sensitivity ENT ENT: Positive for nasal congestion; No abnormal hearing, ear or mastoid pain, tinnitus, headache(s), neck pain or sore throat Resp Respiratory: Positive for cough; No shortness of breath, snoring or wheezing Cardio Cardiology: No chest pain at rest, chest pain with exertion, excessive sweating, dyspnea on exertion, lightheadedness, orthopnea or palpitations Gastro GI: No abdominal pain, change in bowel habits, constipation, cramping, diarrhea, nausea/dyspepsia or vomiting Genitourinary Male: No burning urination, painful urination, urinary incontinence or urinary frequency Musc Musculoskeletal: No abnormal gait, joint pain, back pain, limited range of motion, muscle weakness, neck pain or numbness Skin Skin: No dry skin, redness, lesions, itchy eyes, rash or wounds Neuro Neurology: No abnormal gait, abnormal hearing, weakness, frequent falls, headache(s), memory loss or numbness Psych Psychiatric: No anxiety, No change in appet (more content not included)... Normal [facility] Urinalysis, Completeon 05-23 BACTERIA 2+ /hpf Normal None Seen [facility] Comment on above: Order Comment: BHAVANA CTOR TO SPECIFY Performed By: #### L 400.0001 #### [facility] [address] [place], [address] EPI,RENAL 5-10 SEEN Normal 0-5 [facility] Comment on above: Order Comment: BHAVANA CTOR TO SPECIFY Performed By: #### L 400.0001 #### [facility] [address] [place], [address] EPI,SQUAMOUS 0-5 SEEN Normal 0-5 [facility] Comment on above: Order Comment: BHAVANA CTOR TO SPECIFY Performed By: #### L 400.0001 #### [facility] [address] [place], [address] EPI,TRANSITION 0-5 SEEN Normal 0-5 [facility] Comment on above: Order Comment: BHAVANA CTOR TO SPECIFY Performed By: #### L 400.0001 #### [facility] [address] [place], [address] Mucus Ql (Urine sed) 1+ /hpf Normal [facility] Comment on above: Order Comment: BHAVANA CTOR TO SPECIFY Performed By: #### L 400.0001 #### [facility] [address] [place], [address] RBC 10-25 SEEN Normal 0-5 [facility] Comment on above: Order Comment: BHAVANA CTOR TO SPECIFY Performed By: #### L 400.0001 #### [facility] [address] [place], [place], [address] WBC 50-100 SEEN Normal 0-5 [facility] Comment on above: Order Comment: BHAVANA CTOR TO SPECIFY Performed By: #### L 400.0001 #### [facility] [address] [place], [place], [id number] CNPNon 04-27-2024 CNPN Telephone (AGINTMAC) MARGAUX QUARLES ([id number]) 1950 Date Time Provider Department 04/27/24 ZEEMILIO LING AGINTMAC During your visit today, we recorded the following information about you: Jamir Wong 04/27/2024 3:05 PM Signed Received a VM from [facility] requesting OV notes and supporting documentation for patient's iron infusion. 12/02/2023 and 02/01/2024 OV notes and 02/01/2024 Ferritin lab results faxed to [phone]. Alyse Love, Dental Assistant April 27, 2024 3:04 PM Allergies As of Date: 04/27/2024 (No Known Allergies) Date Reviewed: 02/21/2024 Reviewed by: Lynette Orellana RN - Fully Assessed Reason for Visit: Patient Update [6684] Cmt: Iron Infusion Prescriptions as of 04/27/2024 - acetaminophen (TYLENOL 8 HOUR) 650 mg CR tablet Take 650 mg by mouth every 8 hours as needed for pain. - sildenafil (VIAGRA) 100 mg tablet Take 1 tablet by mouth as needed (one per day maximum as needed). - tamsulosin (FLOMAX) 0.4 mg TAKE ONE CAPSULE BY MOUTH ONCE DAILY - kimosoprazole (PREVACID ORAL) Take 20 mg by mouth once daily. 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] 10/02/2015 Liver nodule [K76.89] 10/02/2015 Pain of both shoulder joints [M25.511, M25.512] 01/08/2016 Fecal occult blood test positive [R19.5] 01/01/2016 Liver lesion [K76.9] ED (erectile dysfunction) of organic origin [N5*07/13/2017 Renal calculi [N20.0] 07/13/2017 Poor urinary stream [R39.12] 07/13/2017 Nocturia [R35.1] 07/13/2017 Hx of renal calculi [Z87.442] 01/17/2018 Irregular heart beat [I49.9] Anemia [D64.9] 10/18/2020 Urethral stricture [N35.919] 08/25/2022 Tear of medial meniscus of left knee, current [*12/02/2023 Preop testing [Z01.818] 02/17/2024 Nonrheumatic mitral valve regurgitation [I34.0] 02/21/2024 Encounter Status:Closed by JAMIR WONG on 04/27/24 Normal [facility] 36on 03-17-2024 36 Name of caller: Margaux Contact phone number: [phone] Relationship to Patient: patient Provider: Practice: Urology Chief Complaint/Reason for Call: Patient calling to reschedule procedure appointment for 04/11/24. Patient will be out of town. Please call to reschedule. Best time of day caller can be reached: any Patient advised that office/PCP has 24-48 business hours to return their call: no Normal [facility] Progress Noteon 03-09-2024 Progress Note Attestation signed by Ian Luna APRN - [facility] at 03/09/2024 5:24 PM [address] [facility] [address] [facility] [address] Supervising Provider?s Attestation Statement The patient met the criteria for indirect supervision. I discussed the findings and plans with the nurse and agree as documented in their noted. Ian Luna DNP, [facility] 03/09/2024 at 5:24 PM An electronic signature was used to authenticate this note. [facility] [address] [facility] [facility] [address] Urology Nursing Visit PATIENT NAME: Margaux Quarles DATE OF : 1950 TODAY'S DATE: 03/09/2024 Patient presents today for indwelling long catheter removal and trial of voiding. Patient presents for long catheter removal and trial of voiding after episode of urinary retention.Patient had knee surgery 02/21/24 and evaluated in ER for urinary retention and required dilation. Patient is currently on Tamsulosin (Flomax). No Known Allergies Procedure: The existing 16 kiswahili straight tip catheter was instilled with 160 mL of sterile water into the urinary bladder. The catheter balloon was deflated, removing 10 mL of fluid. The catheter was clamped and then removed without difficulty. The patient was able to void 160 mL immediately. Patient tolerated well. PLAN: Patient was able to void after catheter removal. Patient scheduled for Cysto with possible dilation 04/11/24. Advised patient that it is common to having some burning with urination and to see blood-tinged urine intermittently for 2-4 weeks after catheter removal due to nature of recent surgical procedure. This timeframe can be longer if on blood thinning medications. Encouraged patient to increase fluids over the next few weeks to help with blood in urine and burning with urination that can occur. Patient instructed to go to ER if fever >100.4F +/- chills develop or unable to urinate. Normal [facility] Urine Cultureon 03-05-2024 [facility] Pseudomonas aeruginosa [place] Count 80,000-100,000 Pseudomonas aeruginosa: REACTION Cefepime Islt DONALDO 4 S Ciprofloxacin Islt DONALDO <=0.25 S Imipenem Islt DONALDO 2 S levoFLOXacin Islt DONALDO 0.5 S Pip+Tazo Islt DONALDO <=4 S Tobramycin Islt DONALDO <=1 S Normal [facility] Comment on above: Performed By: #### M 100.2200 #### [facility] [address] [place], [place], [address] Abdomen/Pelvis W IV Cont ONL Yon 03-02-2024 Abdomen/Pelvis W IV Cont ONLY [facility] [address] [place], [place] [address] Abdomen/Pelvis W IV Cont ONLY MR#: [id number] Acct: [id number] Name: MARGAUX QUARLES Rep #: [id number] : 1950 M 73 From: Huang reich DO PCP: MEGAN TURCIOS MD Status: REG ER Study: Abdomen/Pelvis W IV Cont ONLY Date of Exam: Exam# [id number] Ordering Dr: Rafael Wilhelm MD [id number] EXAM: CT ABDOMEN AND PELVIS WITH INTRAVENOUS CONTRAST CLINICAL INDICATION: llq pain, n/v/d TECHNIQUE: Helically acquired images were obtained of the abdomen and pelvis with intravenous contrast. This CT exam was performed using one or more of the following dose reduction techniques: automated exposure control, adjustment of the mA and/or kV according to patient size, and/or use of iterative reconstruction technique. CONTRAST: IV 100mL Isovue-300 COMPARISON: No relevant prior studies available. FINDINGS: LOWER THORAX: Medium-sized hiatal hernia. Coronary artery calcifications and/or stents. Lung bases are clear. No cardiomegaly. No significant pericardial effusion. ABDOMEN: LIVER: Small right hepatic lobe cyst for which no follow-up is indicated. GALLBLADDER AND BILE DUCTS: No significant abnormality. No calcified gallstones. No gallbladder distention or wall edema. No intra- or extrahepatic biliary ductal dilation. PANCREAS: No significant abnormality. No focal cystic or solid mass. SPLEEN: No significant abnormality. Normal size without focal cystic or solid mass. ADRENALS: No significant abnormality. No nodules. KIDNEYS AND URETERS: Homogeneous intermediate attenuation right renal lesion measuring 1.9 cm. Punctate left lower pole renal calyceal stone without hydronephrosis or additional obstructive urolithiasis. STOMACH AND BOWEL: Colonic diverticulosis without evidence of acute diverticulitis. No stomach or bowel distention. PELVIS: APPENDIX: No evidence of acute appendicitis. BLADDER: Long catheter present. REPRODUCTIVE: Prostatomegaly and heterogeneity. ABDOMEN and PELVIS: INTRAPERITONEAL SPACE: No significant abnormality. No ascites or other fluid collection. No free air. BONES/JOINTS: Scoliotic curvature of the spine and degenerative changes of the axial and appendicular skeleton. No suspicious lytic or blastic abnormality. SOFT TISSUES: No significant abnormality. No discrete abdominal or pelvic wall hernia. VASCULATURE: Atherosclerosis of the aorta and its branch vessels. LYMPH NODES: No significant abnormality. No enlarged lymph nodes. CT/Abdomen/Pelvis W IV Cont ONLY IMPRESSION: 1. Homogeneous intermediate attenuation right renal lesion measuring 1.9 cm. ACR White Paper guidelines (Herts, et al. JACR 2018; 15(2):264-273) recommend MRI or CT without and with intravenous contrast. 2. Medium-sized hiatal hernia. 3. Punctate left lower pole renal calyceal stone without hydronephrosis or additional obstructive urolithiasis. 4. Prostatomegaly and heterogeneity. 5. Colonic diverticulosis without evidence of acute diverticulitis. Electronically Signed: Huang Nguyen DO at 20:11 EDT , CC: MEGAN TURCIOS MD; Dr. Rafael Wilhelm MD Web Content Manager: Signed Normal [facility] CBC W/Diff, Automatedon 08-0 SMEAR COMMENT SCANNED Normal [facility] Comment on above: Result Comment: AUTO DIFF OK Performed By: #### L 500.4050, L100.0100 #### [facility] [address] [place], [address] CDIFF (PCR)on 03-02-2024 CDIFF A positive C. difficile molecular test does not differentiate between an active C. difficile infection and C. difficile colonization. Use clinical judgement and paired toxin/antigen testing to identify true infection and need for treatment. C diff DNA Spec Ql ELLA+probe Reference Range: Negative [employer] GeneXpert: polymerase chain reaction (PCR) 027 027 NAP1-B1 Presumptive Negative *for epidemiolologic???us e C. Diff PCR Negative- No toxigenic C. Diff Detected Normal [facility] Comment on above: Performed By: #### L 400.0001, M100.0605, M100.6796 #### [facility] [address] [place], [address] Comprehensive Metabolic Prof ilon 03-02-2024 Albumin [Mass/Vol] 2.9 g/dL Low 3.2-5.0 [facility] Comment on above: Performed By: #### L 500.4050, L100.0100 #### [facility] [address] [place], [address] Albumin/Globulin [Mass ratio] 0.7 {ratio} Low 0.9-2.4 [facility] Comment on above: Performed By: #### L 500.4050, L100.0100 #### [facility] [address] [place], [address] ALK P 259 U/L High 45-117 [facility] Comment on above: Performed By: #### L 500.4050, L100.0100 #### [facility] [address] [place], [address] ALT [Catalytic activity/Vol] 24 U/L Normal 16-61 [facility] Comment on above: Performed By: #### L 500.4050, L100.0100 #### [facility] [address] [place], [address] AST [Catalytic activity/Vol] 25 U/L Normal 15-37 [facility] Comment on above: Performed By: #### L 500.4050, L100.0100 #### [facility] [address] [place], [address] Bilirubin [Mass/Vol] 0.90 mg/dL Normal 0.20-1.00 [facility] Comment on above: Result Comment: For patients on eltrombopag therapy, use of Dimension [place] TBIL is not recommended. Performed By: #### L 500.4050, L100.0100 #### [facility] [address] [place], [address] BUN/CRE 24.9 RATIO High 10-20 [facility] Comment on above: Performed By: #### L 500.4050, L100.0100 #### [facility] [address] [place], [address] CA,Total 9.4 mg/dL Normal 8.5-10.1 [facility] Comment on above: Performed By: #### L 500.4050, L100.0100 #### [facility] [address] [place], [address] Chloride [Moles/Vol] 109 mmol/L High 98-107 [facility] Comment on above: Performed By: #### L 500.4050, L100.0100 #### [facility] [address] [place], [address] CO2 [Moles/Vol] 21.0 mmol/L Normal 21.0-32.0 [facility] Comment on above: Performed By: #### L 500.4050, L100.0100 #### [facility] [address] [place], [address] Creatinine [Mass/Vol] 0.88 mg/dL Normal 0.70-1.30 [facility] Comment on above: Result Comment: The validity of the calculated GFR GFRAA in patients over 70 years has not been determined. Clinical correlation is essential. Performed By: #### L 500.4050, L100.0100 #### [facility] [address] [place], [address] ECRCL 64.75 ml/min Normal [facility] Comment on above: Performed By: #### L 500.4050, L100.0100 #### [facility] [address] [place], [address] EST GFR - AA 108 mL/min Normal >60 [facility] Comment on above: Result Comment: Afri can [place] GFR Calc Performed By: #### L 500.4050, L100.0100 #### [facility] [address] [place], [address] GAP 8 Normal 5-15 [facility] Comment on above: Performed By: #### L 500.4050, L100.0100 #### [facility] [address] [place], [address] GFR/1.73 sq M.predicted among non-blacks MDRD (S/P/Bld) [Vol rate/Area] 90 mL/min/{1.73_m2} Normal >60 [facility] Comment on above: Result Comment: Non- GFR Calc Performed By: #### L 500.4050, L100.0100 #### [facility] [address] [place], [address] Globulin (S) [Mass/Vol] 4.4 g/dL High 2.2-4.2 [facility] Comment on above: Performed By: #### L 500.4050, L100.0100 #### [facility] [address] [place], [address] Glucose [Mass/Vol] 100 mg/dL Normal 74-106 [facility] Comment on above: Result Comment: Fast ing Glucose result from 100 to 125 mg/dL suggests IMPAIRED HOMEOSTASIS per A.D.A. criteria. Performed By: #### L 500.4050, L100.0100 #### [facility] [address] [place], [address] Potassium [Moles/Vol] 3.5 mmol/L Normal 3.5-5.1 [facility] Comment on above: Performed By: #### L 500.4050, L100.0100 #### [facility] [address] [place], [address] Sodium [Moles/Vol] 138 mmol/L Normal 136-145 [facility] Comment on above: Performed By: #### L 500.4050, L100.0100 #### [facility] [address] [place], [address] T PROT 7.3 g/dL Normal 6.4-8.2 [facility] Comment on above: Performed By: #### L 500.4050, L100.0100 #### [facility] [address] [place], [address] Urea nitrogen [Mass/Vol] 22 mg/dL High 7-18 [facility] Comment on above: Performed By: #### L 500.4050, L100.0100 #### [facility] [address] [place], [address] Emergency Department Summary on 03-02-2024 Emergency Department Summary [facility] Medical Records Department [address] [place] [address] Emergency Department Summary 03/02/24 MR#: [id number] Acct: [id number] Name: MARGAUX QUARLES Rep #: [id number] : 1950 73 From: Rafael Wilhelm MD PCP: MEGAN TURCIOS MD Status:REG ER Location: ED HPI HPI - GI History of Present Illness Chief Complaint: Nausea/Vomiting/Diar shira Informant: patient and family Narrative Narrative: 73-year-old male had a an outpatient total knee arthroplasty on the left knee 11 or 12 days ago. For the past week or so he has been having vomiting. He was put on both tramadol and Percocet by orthopedics. He was taking both of them for a long time and then he started cutting his medicines and now for the last couple days he has had none. He still vomiting and now has developed watery diarrhea. He is also developed some left lower quadrant pain. It is off-and-on it does not get better when he has bowel movement but sometimes improves after vomiting. No fevers or chills. No syncope. No blood that he has seen. He states his knee is doing great. He was on amoxicillin for a while postoperatively but not now. No history of C. difficile that he knows of. No travel out of the area recently except to get the surgery in [place]. No suspicious food ingestion or new ground water sources for drinking. She does have an indwelling Long catheter that has been in for 1 or 2 weeks because of urinary retention due to prostate issues and some type of uncommon issues with cartilage in his penis that he sees a specialist urology physician for in [place]. He needed to have dilating sounds used in order to get a catheter placed by urology at [facility] when this was placed. He states they suggested that he have the catheter removed soon. PFSH PFSH Home Medications ???Medication ???Instructions ???Recorded ???Last Taken ???Type ciprofloxacin HCl 500 mg tablet 500 mg PO BID #6 TABLETS 03/02/24 Unknown Rx promethazine 25 mg tablet 25 mg PO Q6H PRN PRN Nausea #16 03/02/24 Unknown Rx TABLETS Allergy/AdvReac Type Severity Reaction Status Date / Time No Known Allergies Allergy Verified 03/02/24 17:45 Social History Smoking Status: Never smoker ROS ROS ED Constitutional Constitutional ED: Denies chills or fever(s) Eyes Eyes: Denies change in vision or diplopia ENT ENT ED: Denies rhinorrhea or sore throat Cardiovascular Cardiovascular: Denies chest pain or palpitations Respiratory/Chest Respiratory/Chest: Denies cough or dyspnea Gastrointestinal Gastrointestinal: Reports abdominal pain, diarrhea, nausea and vomiting; Denies hematochezia or melena Genitourinary Genitourinary ED: Denies dysuria or hematuria Musculoskeletal Musculoskeletal: Denies back pain or neck pain Integumentary Denies abscess or rash Neurologic Neurologic: Denies headache(s), paresthesias or weakness Psychiatric Psychiatric: Denies anxiety or suicidal thoughts EXAM Physical Exam Const Vital Signs: 03/02/24 17:43 03/02/24 17:45 03/02/24 18:45 Temperature 98.7 F 98.7 F 98.2 F Temperature Source Temporal Temporal Oral Pulse Rate 107 H 107 H 89 Respiratory Rate 16 16 16 Blood Pressure 102/76 102/76 102/87 H Blood Pressure Mean 84 84 92 Pulse Ox 99 99 98 Oxygen Delivery Method Room Air Room Air Room Air 03/02/24 20:33 03/02/24 21:00 Temperature 98.2 F 98 F Temperature Source Oral Oral Pulse Rate 66 87 Respiratory Rate 16 16 Blood Pressure 154/76 H 145/78 H Blood Pressure Mean 102 100 Pulse Ox 100 98 Oxygen Delivery Method Room Air Room Air Positive well nourished and well developed General Appearance ED: well developed and NAD HEENT Reports moist mucous membranes normocephalic and atraumatic Eyes PERRL and EOMs intact bilaterally Neck full ROM and supple Resp normal respiratory effort and clear to auscultation bilaterally Cardio regular rate, regular rhythm and no murmurs GI non-tender and non-distended Auscultation: normoactive bowel sounds Palpation: soft Back/Spine no CVA tenderness General Back: other FROM Extremity normal to inspection General Extremety ED: Negative for edema, pulses abnormal or tenderness General Extremity: Negative for edema or pulses abnormal Neuro oriented x3, CN's II-XII intact bilaterally and no sensory deficits noted Sensorium / Orientation: awake and alert Motor Exam: strength 5/5 throughout Skin no rashes or lesions noted and no wounds MDM MDM MDM Narrative Medical decision making narrative: While running screening labs and urinalysis, treated patient with IV fluids, Zofran, and dicyclomine. He is doing better. Obtained a CT scan of the abdomen/pelvis given his pain and nausea/vomiting and diarrhea. He evaluated for colitis, diverticulit (more content not included)... Normal [facility] Stool Lactoferrin/WBCon 08 WBCST Normal Reference Range = Negative Fecal WBC Lactoferrin A Positive: Fecal WBC Lactoferrin present A Normal [facility] Comment on above: Performed By: #### L 400.0001, M100.0605, M100.6796 #### [facility] [address] [place], [address] Urinalysis, Completeon 03-02 -2023 EPI,SQUAMOUS 0-5 SEEN Normal 0-5 [facility] Comment on above: Order Comment: COLOR OF URINE MAY AFFECT DIPSTICK RESULTS. CLEAN CATCH Performed By: #### L 400.0001, M100.0605, M100.6796 #### [facility] [address] [place], [address] YEAST 2+ /hpf Normal None Seen [facility] Comment on above: Order Comment: COLOR OF URINE MAY AFFECT DIPSTICK RESULTS. CLEAN CATCH Performed By: #### L 400.0001, M100.0605, M100.6796 #### [facility] [address] [place], [address] BACTERIA 1+ /hpf Normal None Seen [facility] Comment on above: Order Comment: COLOR OF URINE MAY AFFECT DIPSTICK RESULTS. CLEAN CATCH Performed By: #### L 400.0001, M100.0605, M100.6796 #### [facility] [address] [place], [address] Mucus Ql (Urine sed) 1+ /hpf Normal [facility] Comment on above: Order Comment: COLOR OF URINE MAY AFFECT DIPSTICK RESULTS. CLEAN CATCH Performed By: #### L 400.0001, M100.0605, M100.6796 #### [facility] [address] [place], [address] RBC 0-5 SEEN Normal 0-5 [facility] Comment on above: Order Comment: COLOR OF URINE MAY AFFECT DIPSTICK RESULTS. CLEAN CATCH Performed By: #### L 400.0001, M100.0605, M100.6796 #### [facility] [address] [place], [address] WBC >100 SEEN Normal 0-5 [facility] Comment on above: Order Comment: COLOR OF URINE MAY AFFECT DIPSTICK RESULTS. CLEAN CATCH Performed By: #### L 400.0001, M100.0605, M100.6796 #### [facility] [address] [place], [address] 36on 02-22-2024 36 Pt called in. Asked if he should stay on Flomax even with catheter in now. Advised yes. [place] [address] Medication was sent to the [facility] in [place] per patient request. Call placed to the patient to advise script was sent to this pharmacy as requested. Patient voiced understanding. [place] [address] Pt is staying at his daughters house. He is requesting his medication to be sent to [facility] in [place]. Please advise. [place] [address] Left detailed message for pt regarding antibiotic. Advised to call office if there are any questions. [place] [address] Called pt and scheduled VT. Pt stated he had knee replacement at [facility] and then went into retention. They were unable to put a catheter in as they do not have any urologists oncall in the evenings. Pt stated he called our office as he is a pt of Dr Rojas and was advised to come to [facility] ED. Pt stated he waited 8 hours in the ED and it was chaos there. Those people don't know what they are doing. Thank goodness for the doctor who came and put the catheter in. She was wonderful. I was in so much pain because I couldn't pee. No one would help me until she came and she was absolutely wonderful!!. She was so nice and I appreciate that. Advised that it was Dr Jurado and she is one of our of best. Pt did not want to schedule cysto at this time stating I'm still overwhelmed right now with everything. Advised that he can shcedule cysto at his appt on 03/09/24. Pt verbalized understanding. [facility] 36 Augmentin BID until cath removal Patient is 1 day post op from total knee replacement [facility] 36 Please schedule for a void trial 1-2 weeks; Follow up with me for office cystoscopy with possible dilation any time after void trial (has appt in July but I would like to see him before then) [facility] 36 Please clarify if patient should be scheduled a VT vs office appointment or both . [facility] 36on 02-21-[address] Rojas. Seen in ED for rentention, difficult long after knee surgery. Required bedside dilation and long placement. Will need follow up. Thanks! [facility] 36 S: Patient spoke with [facility] nurse regarding urinary retention. B: Onset of symptoms/concern 02/21/2024. A: Patient reports that he had a total knee replacement today, is at home currently and having difficulty voiding. Patient states he does have some urine output, but has pressure and bladder feels firm and full. Patient had surgery at [facility], states they do not have urology team there. R: Advised patient to go to ED now, he verbalized understanding, states he is going to [facility] ED. No further needs at this time. Patient instructed to call back with new or worsening symptoms. Reason for Disposition [1] Unable to urinate (or only a few drops) > 4 hours AND [2] bladder feels very full (e.g., palpable bladder or strong urge to urinate) Protocols used: Urinary [id number] [facility] ANES POSTPROC EVALon 024 ANES POSTPROC EVAL HNO ID: [id number] Author: EZRA MARIA MD Service: Anesthesiology Author Type: Anesthesiologist Type: Anesthesia Postprocedure Evaluation Filed: 02/21/2024 11:54 Note Text: POST ANESTHESIA EVALUATION NOTE : 1950 Procedure Summary Date: 02/21/24 Room / Location: MR OR 02 / MR OR Anesthesia Start: 7 Anesthesia Stop: 3 Procedure: ARTHROPLASTY REPLACE JOINT TOTAL KNEE (Left: Knee) Diagnosis: Primary osteoarthritis of left knee Other spontaneous disruption of medial collateral ligament of left knee Left knee pain, unspecified chronicity (Primary osteoarthritis of left knee [M17.12]) (Other spontaneous disruption of medial collateral ligament of left knee [M23.632]) (Left knee pain, unspecified chronicity [M25.562]) Surgeons: Ryan Will MD Responsible Provider: Ezra Maria MD Anesthesia Type: regional, spinal ASA Status: 3 Anesthesia Type: regional, spinal Last Vitals Vitals Value Taken Time BP 152/68 02/21/24 1145 Temp 36.7 ?C (98 ?F) 02/21/24 1040 Pulse 75 02/21/24 1151 Resp 18 02/21/24 1115 SpO2 95 % 02/21/24 1151 Vitals shown include unfiled device data. Post Anesthesia Patient Status Patient Evaluation: PACU. PACU/ICU Patient Condition: stable. Anticipated Disposition: inpatient floor planned admission. Neurological Status: aware and responsive. Pulmonary Status: breathing comfortably on room air Airway Control: returned to baseline unsupported. Cardiovascular Status: stable. Pain Management: clinically adequate Postoperative Hydration: acceptable. Intraoperative Events: no significant anesthesia events Post Operative Nausea/Vomiting Status: no significant post operative nausea or vomiting Recommendation: continue current plan of care. Other Remarks: Spinal resolving appropriately. Patient is complaining of non dermatomal pain on the right side. Improving with pain meds. Otherwise doing well.. Anesthesia Observations No Documentation SIGNATURE: Ezra Maria MD PATIENT NAME: Margaux Quarles DATE: February 21, 2024 TIME: 11:53 AM CSN: [id number] [facility] ANES PRE-OPon 02-21-2024 ANES PRE-OP HNO ID: [id number] Author: EZRA MARIA MD Service: Anesthesiology Author Type: Anesthesiologist Type: Anesthesia Preprocedure Evaluation Filed: 02/21/2024 06:45 Note Text: ANESTHESIOLOGY DAY OF SURGERY NOTE : 1950 Procedure Information Date/Time: 02/21/24 6330 Procedures: ARTHROPLASTY REPLACE JOINT TOTAL KNEE (Left: Knee) OPEN REPAIR LIGAMENT KNEE; COLLATERAL (Left: Knee) Location: MR OR 02 / MR OR Surgeons: Ryan Will MD Estimated body mass index is 22.52 kg/m? as calculated from the following: Height as of this encounter: 170.2 cm (5' 7). Weight as of this encounter: 65.2 kg (143 lb 12.8 oz). Most recent hematocrit and potassium results: Hematocrit 38.2 02/15/2024 Potassium 4.3 02/15/2024 Relevant Problems ANESTHESIA (within normal limits) CARDIO Irregular heart rhythm. Has seen a alterations supervisor. Currently sinus rhythm with occasional pac and pvc on monitor. Echo in 2020 reveals normal LVEF, 2+ MR and trace AI. Aorta is dialated with maximal diameter pf 4.7 cm. According to alterations supervisor notes, patient refused stress testing, though most recent communication was that patient was acceptable for this procedure. (+) Nonrheumatic mitral valve regurgitation ENDO (within normal limits) GI GERD is controlled with prevacid. (+) GERD (gastroesophageal reflux disease) -RENAL (+) Liver lesion (+) Liver nodule (+) Renal calculi NEURO-PSYCH History of scoliosis. No leg pain or radicular symptoms. (+) Hx of renal calculi PULMONARY (within normal limits) I - PHYSICAL EVALUATION AIRWAY Patient intubated: No. Tracheostomy tube not present Mallampati: II. TM distance: >3 FB. Neck ROM: full ROM without neurological symptoms. Mouth opening: adequate. Short neck: no. Thick neck: no Coughlin present: yes Microretrognathia/Mi cronagthia/Recessed Chin: No DENTAL Dental findings: teeth intact. Additional exam findings: yes. CARDIOVASCULAR Rhythm: irregular Rate: normal Additional comments: Premature beats. PULMONARY Breath sounds clear to auscultation. II - ANESTHESIA PLAN ASA Score: 3 Anesthetic Plan: regional and spinal The patient is not a current smoker. NPO Status: adequate Beta Charbel Monitoring Plan Monitoring plan: standard ASA. Post Procedure Analgesic Plan Postoperative analgesic plan: peripheral nerve block. Informed Consent Anesthetic risks, benefits, alternatives, personnel and consent discussed: yes. Patient / Responsible Alliance Party agrees to proceed: yes Patient / Surrogate agrees to blood products: Yes Potential Anesthesia issues that may suggest increased risk of complications or contraindication to planned procedure: none. Discussed the possibility of lip / dental damage: yes Vitals Value Taken Time BP Pulse Resp Temp 37.1 ?C (98.7 ?F) 02/21/24 0614 SpO2 Facility-Administere d Medications as of 02/21/2024 Medication Dose Route Frequency lidocaine (PF) 10 mg/mL (1 %) 2 mg injection (XYLOCAINE) 0.2 mL INTRADERMAL PRN lactated ringers iv infusion 30 mL/hr INTRAVENOUS CONTINUOUS NaCl 0.9% iv flush bag 20 mL INTRAVENOUS PRN povidone-iodine 10 % solution (BETADINE) TOPICAL Pre-Op Once acetaminophen 1,000 mg tab(s) (TYLENOL) 1,000 mg ORAL ONCE celecoxib 400 mg cap(s) (CeleBREX) 400 mg ORAL ONCE oxyCODONE IR 5 mg tab(s) (ROXICODONE) 5 mg ORAL ONCE ceFAZolin iv piggyback 2 g in D5W (iso-osmotic) 100 mL (ANCEF) 2 g INTRAVENOUS ONCE Outpatient Medications as of 02/21/2024 Medication Sig ibuprofen (MOTRIN) 200 mg tablet Take 200 mg by mouth every 6 hours as needed for pain. STOPPING 2 WEEKS PRIOR TO SURGERYlast dose was 02/12/24 acetaminophen (TYLENOL 8 HOUR) 650 mg CR tablet Take 650 mg by mouth every 8 hours as needed for pain. tamsulosin (FLOMAX) 0.4 mg TAKE ONE CAPSULE BY MOUTH ONCE DAILY lansoprazole (PREVACID ORAL) Take 20 mg by mouth once daily. [] ferrous sulfate 325 mg (65 mg iron) tablet Take 1 tablet by mouth once daily. I have interviewed and examined the patient. I have reviewed the medical record and/or the pre-anesthesia evaluation, pertinent labs, and test results. This contains updated information obtained within 48 hours of Surgery/Procedure. SIGNATURE: Ezra Maria MD PATIENT NAME: Margaux Quarles DATE: February 21, 2024 TIME: 6:34 AM CSN: [id number] Normal [facility] BASIC METABOLIC PANELon 07-2 Anion gap [Moles/Vol] 10 mmol/L Normal 3-13 [facility] Comment on above: Performed By: #### L AB15 #### [employer] Making Machine Operator: JOSELINE PALENCIA ([id number]) [facility] ([facility]) [address] [place] [address] Calcium [Mass/Vol] 9.1 mg/dL Normal 8.4-10.4 [facility] Comment on above: Performed By: #### L AB15 #### [employer] Machine Operator: JOSELINE PALENCIA ([id number]) [facility] ([facility]) [address] [place] [address] [place] Chloride [Moles/Vol] 107 mmol/L Normal 98-107 [facility] Comment on above: Performed By: #### L AB15 #### [employer] Making Machine Operator: JOSELINE PALENCIA ([id number]) [facility] [address] [place] [address] CO2 [Moles/Vol] 17 mmol/L Low 22-30 [facility] Comment on above: Performed By: #### L AB15 #### [employer] Machine Operator: JOSELINE PALENCIA ([id number]) [facility] [address] [place] [address] Creatinine [Mass/Vol] 0.84 mg/dL Normal 0.66-1.25 [facility] Comment on above: Performed By: #### L AB15 #### [employer] Making Machine Operator: JOSELINE PALENCIA ([id number]) [facility] [address] [place] [address] GLOMERULAR FILTRATION RATE ML/MIN/1.73 SQ M.PREDICTED >90.0 Normal >60.0 [facility] Comment on above: Result Comment: Calc ulation based on the Chronic Kidney Disease Epidemiology Collaboration (CKD-EPI) equation refit without adjustment for race Performed By: #### L AB15 #### [employer] Making Machine Operator: JOSELINE PALENCIA ([id number]) [facility] [address] [place] [address] [place] Glucose [Mass/Vol] 132 mg/dL High 70-100 [facility] Comment on above: Performed By: #### L AB15 #### [employer] Making Machine Operator: JOSELINE PALENCIA ([id number]) [facility] ([facility]) [address] [place] [address] Potassium [Moles/Vol] 3.5 mmol/L Normal 3.5-5.1 [facility] Comment on above: Performed By: #### L AB15 #### [employer] Making Machine Operator: JOSELINE PALENCIA ([id number]) [facility] ([facility]) [address] [place] [address] Sodium [Moles/Vol] 134 mmol/L Low 135-145 [facility] Comment on above: Performed By: #### L AB15 #### [employer] Making Machine Operator: JOSELINE PALENCIA ([id number]) [facility] [address] [place] [address] Urea nitrogen [Mass/Vol] 18 mg/dL Normal 9-20 [facility] Comment on above: Performed By: #### L AB15 #### [employer] Making Machine Operator: JOSELINE PALENCIA ([id number]) [facility] [address] [place] [address] Bacteria Spec Anaerobe Culto n 02-21-2024 Bacteria identified Anaer cx Nom (Unsp spec) CULTURE, ANAEROBE: Anaerobe culture reviewed, negative at day 14. [facility] Comment on above: Performed By: #### 5 7021-8 #### [facility] CLIA [id number] [address] [place] [address] [place] Bacteria identified Anaer cx Nom (Unsp spec) CULTURE, ANAEROBE: Anaerobe culture reviewed, negative at day 14. [facility] Comment on above: Performed By: #### 5 7021-8 #### [facility] CLIA [id number] [address] [place] [address] [place] Bacteria Tiss Culton 024 Bacteria identified Cx Nom (Tiss) CULTURE, TISSUE: No Growth 14 days - Thioglycollate broth GRAM STAIN: Rare Polymorphonuclear leukocytes No organisms seen [facility] Comment on above: Performed By: #### 5 7021-8 #### [facility] CLIA [id number] [address] [place], [place] [id number] [place] Bacteria Wnd Culton 02-21-20 24 Bacteria identified Cx Nom (Wound) CULTURE, WOUND: No Growth 14 days - Thioglycollate broth GRAM STAIN: Rare Polymorphonuclear leukocytes No organisms seen Normal [facility] Comment on above: Performed By: #### 5 7021-8 #### [facility] CLIA [id number] [address] [place] [id number] [place] Basic metabolic 1998 panelon 02-21-2024 Anion gap [Moles/Vol] 10 mmol/L 3 - 13 mmol/L [facility] Calcium [Mass/Vol] 9.1 mg/dL 8.4 - 10. 4 mg/dL [facility] Chloride [Moles/Vol] 107 mmol/L 98 - 10 7 mmol/L [facility] CO2 [Moles/Vol] 17 mmol/L Low 22 - 30 mmol/L [facility] Creatinine [Mass/Vol] 0.84 mg/dL 0.66 - 1.25 mg/dL [facility] GFR/1.73 sq M.predicted MDRD (S/P/Bld) [Vol rate/Area] - PINF [facility] Comment on above: Calculation based on the Chronic Kidney Disease Epidemiology Collaboration (CKD-EPI) equation refit without adjustment for race Glucose [Mass/Vol] 132 mg/dL High 70 - 100 mg/dL [facility] Interpretation and review of laboratory results Abnormal [facility] Potassium [Moles/Vol] 3.5 mmol/L 3.5 - 5.1 mmol/L [facility] Sodium [Moles/Vol] 134 mmol/L Low 135 - 145 mmol/L [facility] Urea nitrogen [Mass/Vol] 18 mg/dL 9 - 20 mg/dL [facility] CBC W Auto Differential pane l (Bld)Ordered By: Azucena Solorzano on 02-21-2024 Erythrocyte distribution width (RBC) [Ratio] [facility] Comment on above: Unable to calculate Hematocrit (Bld) [Volume fraction] 33.0 % Low 40.0 - 52.0 % [facility] Hemoglobin (Bld) [Mass/Vol] 10.4 g/dL Low 13.0 - 18.0 g/dL [facility] Interpretation and review of laboratory results Abnormal [facility] th IPF 5 [facility] MCH (RBC) [Entitic mass] 24.1 pg Low 26. 0 - 34.0 pg [facility] MCHC (RBC) [Mass/Vol] 31.5 % 30.5 - 36.0 % [facility] MCV (RBC) [Entitic vol] 76.4 fL Low 77.0 - 99.0 fL [facility] Platelet mean volume (Bld) [Entitic vol] 10.6 fL 9.0 - 12.7 fL [facility] Platelets (Bld) [#/Vol] 159 10*3/uL 140 - 440 10*3/uL [facility] RBC (Bld) [#/Vol] 4.32 10*6/uL Low 4.40 - 5.9 0 10*6/uL [facility] WBC (Bld) [#/Vol] 8.7 10*3/uL 3.6 - 10.7 10*3/uL [facility] CBC WITH AUTO DIFFERENTIALon 02-21-2024 Hematocrit (Bld) [Volume fraction] 33.0 % Low 40.0-52.0 [facility] Comment on above: Performed By: #### Darcie [id number], [id number] ####[employer] Making Machine Operator: JOSELINE PALENCIA ([id number])[address] Hemoglobin (Bld) [Mass/Vol] 10.4 g/dL Low 13.0-18.0 [facility] Comment on above: Performed By: #### Darcie [id number], [id number] ####[employer] Making Machine Operator: JOSLEINE PALENCIA ([id number])[address] IPF 5 Normal [facility] Comment on above: Performed By: #### L [id number], [id number] ####[employer] Machine Operator: JOSELINE PALENCIA ([id number])[address] MCH (RBC) [Entitic mass] 24.1 pg Low 26.0-34.0 [facility] Comment on above: Performed By: #### L [id number], [id number] ####[employer] Making Machine Operator: JOSELINE PALENCIA ([id number])[facility])[address] [place] [address] MCHC 31.5 % Normal 30.5-36.0 [facility] Comment on above: Performed By: #### L [id number], [id number] ####[employer] Making Machine Operator: JOSELINE PALENCIA ([id number])[facility])[address] [place] [address] MCV (RBC) [Entitic vol] 76.4 fL Low 77.0-99.0 [facility] Comment on above: Performed By: #### L [id number], [id number] ####[employer] Making Machine Operator: JOSELINE PALENCIA ([id number])[facility])[address] [place] [address] Platelet mean volume (Bld) [Entitic vol] 10.6 fL Normal 9.0-12.7 [facility] Comment on above: Performed By: #### Darcie [id number], [id number] ####[employer] Making Machine Operator: JOSELINE PALENCIA ([id number])[facility] ([facility] [facility] [place] [address] Platelets (Bld) [#/Vol] 159 10*3/uL Normal 140-440 [facility] Comment on above: Performed By: #### L [id number], [id number] ####Collet Making Machine Operator: JOSELINE PALENCIA ([id number])[facility])[address] [place] [address] RBC (Bld) [#/Vol] 4.32 10*6/uL Low 4.40-5.90 [facility] Comment on above: Performed By: #### L [id number], [id number] ####Collet Making Machine Operator: JOSELINE PALENCIA ([id number])[facility])[address] [place] [address] RDW Normal [facility] Comment on above: Result Comment: Unab le to calculate Performed By: #### L [id number], [id number] ####Collet Making Machine Operator: JOSELINE PALENCIA ([id number])[facility])[address] [place] [address] WBC (Bld) [#/Vol] 8.7 10*3/uL Normal 3.6-10.7 [facility] Comment on above: Performed By: #### L [id number], [id number] ####Collet Making Machine Operator: JOSELINE PALENCIA ([id number])[facility] [place] [address] CONFIRM BLOOD TYPEon 024 ABO A [facility] Comment on above: Order Comment: Speci men Type: BLOOD SPECIMENOrdering Facility: [facility] Address: [address] [place] [address] Performed By: #### C ONABO ####[facility] BLOOD BANKCLIA [id number] [place] [address] [place] Rh Nom (Bld) Positive [facility] Comment on above: Order Comment: Speci men Type: BLOOD SPECIMENOrdering Facility: [facility] Address: [address] [place] [address] Performed By: #### C ONABO ####[facility] BLOOD BANKCLIA [id number] [address] [place] ED Nursing Noteon 02-21-2024 ED Nursing Note RN provided patient with leg bag and other supplies per resident Anthony Meadows RN 02/21/[address] [facility] ED Nursing Note RN attempted to place coude cath. Unsuccessful cart order. Resident at the bedside Anthony Meadows RN 02/21/[address] [facility] ED Nursing Note RN bladder scanned patient. Pt has over 563 ml of urine in bladder. Kosta ORDER MANAGEMENT SPECIALIST aware Anthony Meadows RN 02/21/[address] [facility] ED Provider Noteon ED Provider Note Emergency Department Encounter [facility] EMERGENCY DEPT Patient: Margaux Quarles : 1950 Date of Evaluation: 02/21/2024 ED Supervising Physician: Colin Schaffer MD I personally evaluated Margaux Quarles and made/approved the management plan and take responsibility for the patient management. This will serve as my Supervisory note and shared attestation. I did perform a substantive portion of the visit including all aspects of the Medical Decision Making. I wore appropriate PPE for the entirety of this encounter. In brief, Margaux Quarles is a 73 y.o. that presents to the emergency department for retention. Follows with urology and told to come here for evaluation by them after his knee replacement today. Has BPH. Complaining of pain secondary to urinary retention. No fevers or vomiting no flank pain Focused exam: Awake alert no acute distress vital signs stable nontoxic Long catheter in place draining pooja-colored light urine No abdominal or CVA tenderness Brief ED course/MDM: 73-year-old male presents for urinary retention. Differential BPH, recent surgical procedure, kidney injury. Urology consulted and placed a Long. No NAUN on BMP, urinalysis collected. Medical history and prognosis includes BPH. Will discharge with urology follow-up. Diagnostics interpreted by me: none I personally discussed the patient's management with other clinicians: none All diagnostic, treatment, and disposition decisions were made by myself in conjunction with the SARAH. For all further details of the patient's emergency department visit, please see their documentation. (Comment: Please note this report has been produced using speech recognition software and may contain errors related to that system including errors in grammar, punctuation, and spelling, as well as words and phrases that may be inappropriate. If there are any questions or concerns please feel free to contact the dictating provider for clarification.) Colin Schaffer MD Acute Care [facility] Colin Schaffer MD 02/21/[address] [facility] ED Provider Note EMERGENCY DEPARTMENT ENCOUNTER Pt Name: Margaux Quarles Birthdate 1950 Date of evaluation: 02/21/2024 ED Provider: Kosta Allen APRN - SCIENCE TEACHER Patient was seen by my attending Dr. Grossman please see his note and attestation of this patient. CHIEF COMPLAINT Urinary retention Chief Complaint Patient presents with Urinary Retention Pt states he had a knee replacement this morning and is now having urinary retention. Pt states he is also nausea and feels like he is going to pass out HISTORY OF PRESENT ILLNESS (Location/Symptom, Timing/Onset, Context/Setting, Quality, Duration, Modifying Factors, Severity) Note limiting factors. I wore appropriate PPE for the entirety of this encounter. HPI Margaux Quarles is a 73 y.o. who presents to the emergency department for evaluation treatment patient reported that he had a knee replacement of the left knee at a [facility] facility in [place] stated that he developed urinary retention and he called Dr. Rojas office who referred him to the emergency room. Denies any problems with his surgery he stated that he did feel some nausea. He denies any chest pain or shortness of breath he speaking in full sentences able to swallow his own secretions. Patient has a medical history of hyperlipidemia chronic anemia BPH he also has a history of arthritis poor urinary system or stream. As well as a mitral valve insufficiency. He reports he does not smoke denies any alcohol illicit drug use or abuse. Nursing Notes were reviewed. Limitations to history: None Outside historians: None REVIEW OF SYSTEMS Review of Systems GENERAL: Denies weight change, fatigue, weakness, fever HEENT: Denies trauma, headache, dizziness, visual change, ear pain, hearing change, tinnitus, rhinorrhea CARDIAC: Denies hypertension, murmur, angina, palpations, dyspnea on exertion, edema RESPIRATORY: Denies shortness of breath, wheezing, cough, sputum, asthma, COPD GI: Denies nausea, vomiting, change in bowels, abdominal pain URINARY: Denies changes in frequency/urgency, hematuria, incontinence, flank pain complaint of urinary retention MUSCULOSKELETAL: Denies weakness, pain, change in ROM, redness, swelling NEURO: Denies loss in sensation, tingling, tremors, weakness, fainting or seizures ENDO: Denies heat/cold intolerance, polyuria, polydipsia, or swelling around neck PSYCH: Denies changes in mood, anxiety, depression, tension, memory Pertinent positives and negatives as per HPI. PAST MEDICAL HISTORY Past Medical History: Diagnosis Date Arthritis gets stem cells injected in both knees and right shoulder Bilateral inguinal hernia Bleeding from the nose cauterized BPH (benign prostatic hyperplasia) Chronic anemia Eczema GERD (gastroesophageal reflux disease) Hyperlipidemia Kidney stones Mitral valve insufficiency Poor urinary stream UTI (urinary tract infection) SURGICAL HISTORY Past Surgical History: Procedure Laterality Date CYSTOSCOPY 2016 stent HERNIA REPAIR KIDNEY STONE SURGERY LITHOTRIPSY 2010 OTHER SURGICAL HISTORY string stent TONSILLECTOMY AND ADENOIDECTOMY (HISTORICAL) CURRENT MEDICATIONS Current Discharge Medication List CONTINUE these medications which have NOT CHANGED Details Cannabinoids (medical cannabis) Take 1 each by mouth 2 times daily. CBD GUMMIES cholecalciferol (Vitamin D-3) 10 MCG (400 UNIT) tablet Take 400 Units by mouth daily. 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 naproxen (Naprosyn) 500 MG tablet Take 500 mg by mouth Daily as needed. sildenafil (Viagra) 100 MG tablet take one tablet by mouth once a day as needed. maximum of 1 tablet daily tamsulosin (Flomax) 0.4 MG 24 hr capsule Take 1 capsule (0.4 mg) by mouth 2 times daily. 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 FAMILY HISTORY Family History Problem Relation Name Age of Onset Prostate cancer Father Breast cancer Mother Heart disease Father SOCIAL HISTORY Social History Socioeconomic History Marital status: Tobacco Use Smoking status: Never Vaping Use Vaping status: Never Used Substance and Sexual Activity Alcohol use: No Drug use: No Social Determinants of Health Received from [facility] Family and Community Support Intimate Partner Violence: Not At Risk (11/04/2023) Received from [facility] Abuse Screen Feels Unsafe at Home or Work/School: no Feels Threatened by Someone: no Does Anyone Try to Keep You From Having Contact with Others or Doing Things Outside Your Home?: no Physical Signs of Abuse Present (more content not included)... Normal [facility] ED Provider Note I did not participate in the care of this patient. America Felder PA-C 02/21/24 2259 Normal [facility] HISTORY PHYSICALon HISTORY PHYSICAL HNO ID: [id number] Author: RYAN WILL MD Service: Orthopaedic Surgery Author Type: Physician Type: H&P Filed: 02/21/2024 07:43 Note Text: Summary: interval HANDP No interval change Did discuss possible MCL augmentation repair and constrained component and or decompression of peroneal nerve if necessary. Normal [facility] Hematocrit Auto (Bld) [Volum e fraction]on 02-21-2024 Hematocrit (Bld) [Volume fraction] 38.4 % Low 39.0-51.0 [facility] Comment on above: Order Comment: Griselda shaver Type: BLOOD SPECIMENOrdering Facility: [facility] Address: [address] [place] [address] Performed By: #### 4 544-3, 718-7 ####[facility] LABORATORYCLIA [id number] [place] [address] [place] Hgb Bld-mCncon 02-21-2024 Hemoglobin (Bld) [Mass/Vol] 12.1 g/dL Low 13.0-17.0 [facility] Comment on above: Order Comment: Griselda shaver Type: BLOOD SPECIMENOrdering Facility: [facility] Address: [address] [place] [address] Performed By: #### 4 544-3, 718-7 ####[facility] LABORATORYCLIA [id number] [place] [address] [place] Laboratory - Hematology and Cell countson 02-21-2024 Anisocytosis Ql (Bld) Slight Abnormal (none) [facility] Band form neutrophils (Bld) [#/Vol] 0.2 10*3/uL High NINF - 0.0 10*3/uL [facility] Band form neutrophils/100 WBC (Bld) 2 % High NINF - 0 % [facility] Basophils (Bld) [#/Vol] 0.1 10*3/uL 0.0 - 0.2 10*3/uL [facility] Basophils/100 WBC (Bld) 1 % 0 - 2 % [facility] Terra cells LM Ql (Bld) Slight Abnormal (none) [facility] Lymphocytes (Bld) [#/Vol] 0.5 10*3/uL Low 1. 0 - 4.3 10*3/uL [facility] Lymphocytes/100 WBC (Bld) 6 % Low 15 - 45 % [facility] Macrocytes Ql (Bld) Slight Abnormal (none) [facility] Monocytes (Bld) [#/Vol] 0.0 10*3/uL 0.0 - 0.9 10*3/uL [facility] Monocytes/100 WBC (Bld) 0 % Low 5 - 13 % [facility] Neutrophils (Bld) [#/Vol] 8.1 10*3/uL High 1. 8 - 7.5 10*3/uL [facility] Ovalocytes LM Ql (Bld) Slight Abnormal (none) [facility] Poikilocytosis LM Ql (Bld) Slight Abnormal (none) [facility] RBC morphology finding Nom (Bld) abnormal [facility] Segmented neutrophils/100 WBC (Bld) 91 % High 38 - 82 % [facility] MANUAL DIFFERENTIAL (CELLAVI JOSE MARIA)on 02-21-2024 ANISOCYTOSIS PRESENCE IN BLOOD BY LIGHT MICROSCOPY Slight Abnormal (none) [facility] Comment on above: Performed By: #### L [id number], [id number] ####Collet Making Machine Operator: JOSELINE PALENCIA ([id number])[address] BAND NEUTROPHILS TOTAL PER COUNTED LEUKOCYTES BY MANUAL COUNT 2 Normal [facility] Comment on above: Performed By: #### L [id number], [id number] ####Collet Making Machine Operator: JOSELINE PALENCIA ([id number])[facility])[address] [place] [address] BANDS (10*3/UL) IN BLOOD-CELLAVISION 0.2 10*3/uL High <=0.0 [facility] Comment on above: Performed By: #### L [id number], [id number] ####Collet Making Machine Operator: JOSELINE PALENCIA ([id number])[facility] [place] [address] [place] BASOPHILS (10*3/UL) IN BLOOD-CELLAVISION 0.1 10*3/uL Normal 0.0-0.2 [facility] Comment on above: Performed By: #### L [id number], [id number] ####Collet Making Machine Operator: JOSELINE PALENCIA ([id number])[facility] [place] [address] [place] BASOPHILS TOTAL PER COUNTED LEUKOCYTES BY MANUAL COUNT 1 Normal [facility] Comment on above: Performed By: #### L [id number], [id number] ####Collet Making Machine Operator: JOSELINE PALENCIA ([id number])[facility] ([facility])[address] [place] [address] [place] BASOPHILS/100 LEUKOCYTES IN BLOOD-CELLAVISION 1 % Normal 0-2 [facility] Comment on above: Performed By: #### L [id number], [id number] ####Collet Making Machine Operator: JOSELINE PALENCIA ([id number])[facility] [place] [address] [place] BLASTS TOTAL PER COUNTED LEUKOCYTES BY MANUAL COUNT Normal [facility] Comment on above: Performed By: #### L [id number], [id number] ####Collet Making Machine Operator: JOSELINE PALENCIA ([id number])[facility] [place] [address] [place] TERRA CELLS PRESENCE IN BLOOD BY LIGHT MICROSCOPY Slight Abnormal (none) [facility] Comment on above: Performed By: #### L [id number], [id number] ####Collet Making Machine Operator: JOSELINE PALENCIA ([id number])[facility] ([facility])[address] [place] [address] [place] EOSINOPHILS TOTAL PER COUNTED LEUKOCYTES BY MANUAL COUNT Normal [facility] Comment on above: Performed By: #### L [id number], [id number] ####Collet Making Machine Operator: JOSELINE PALENCIA ([id number])[facility] ([facility])[address] [place] [address] [place] LYMPHOCYTES (10*3/UL) IN BLOOD-CELLAVISION 0.5 10*3/uL Low 1.0-4.3 [facility] Comment on above: Performed By: #### L [id number], [id number] ####Collet Making Machine Operator: JOSELINE PALENCIA ([id number])[facility] ([facility])[address] [place] [address] [place] LYMPHOCYTES TOTAL PER COUNTED LEUKOCYTES BY MANUAL COUNT 6 Normal [facility] Comment on above: Performed By: #### L [id number], [id number] ####Collet Making Machine Operator: JOSELINE PALENCIA ([id number])[facility] ([facility])[address] [place] [address] LYMPHOCYTES/100 LEUKOCYTES IN BLOOD-CELLAVISION 6 % Low 15-45 [facility] Comment on above: Performed By: #### Darcie [id number], [id number] ####Collet Making Machine Operator: JOSELINE PALENCIA ([id number])[facility] ([facility])[address] [place] [address] MACROCYTES (PRESENCE) IN BLOOD BY LIGHT MICROSCOPY Slight Abnormal (none) [facility] Comment on above: Performed By: #### Darcie [id number], [id number] ####Collet Making Machine Operator: JOSELINE PALENCIA ([id number])[facility])[address] [place] [address] METAMYELOCYTES TOTAL PER COUNTED LEUKOCYTES BY MANUAL COUNT Normal [facility] Comment on above: Performed By: #### Darcie [id number], [id number] ####Collet Making Machine Operator: JOSELINE PALENCIA ([id number])[facility])[address] [place] [address] [place] MONOCYTES (10*3/UL) IN BLOOD-CELLAVISION 0.0 10*3/uL Normal 0.0-0.9 [facility] Comment on above: Performed By: #### L [id number], [id number] ####Collet Making Machine Operator: JOSELINE PALENCIA ([id number])[facility] ([facility])[address] [place] [address] [place] MONOCYTES TOTAL PER COUNTED LEUKOCYTES BY MANUAL COUNT 0 Normal [facility] Comment on above: Performed By: #### L [id number], [id number] ####Collet Making Machine Operator: JOSELINE PALENCIA ([id number])[facility] ([facility])[address] [place] [address] [place] MONOCYTES/100 LEUKOCYTES IN BLOOD-PATRICK 0 % Low 5-13 [facility] Comment on above: Performed By: #### L [id number], [id number] ####Collet Making Machine Operator: JOSELINE PALENCIA ([id number])[facility] ([facility])[address] [place] [address] [place] MYELOCYTES COUNTED BY MANUAL COUNT Normal [facility] Comment on above: Performed By: #### L [id number], [id number] ####Collet Making Machine Operator: JOSELINE PALENCIA ([id number])[facility] ([facility])[address] [place] [address] NEUTROPHILS BAND FORM/100 LEUKOCYTES IN BLOOD-CELLAVISI 2 % High <=0 [facility] Comment on above: Performed By: #### L [id number], [id number] ####Collet Making Machine Operator: JOSELINE PALENCIA ([id number])[facility] ([facility])[address] [place] [address] NEUTROPHILS TOTAL PER COUNTED LEUKOCYTES BY MANUAL COUNT 91 Normal [facility] Comment on above: Performed By: #### L [id number], [id number] ####Collet Making Machine Operator: JOSELINE PALENCIA ([id number])[facility] ([facility])[address] [place] [address] [place] OVALOCYTES PRESENCE IN BLOOD BY LIGHT MICROSCOPY Slight Abnormal (none) [facility] Comment on above: Performed By: #### L [id number], [id number] ####Collet Making Machine Operator: JOSELINE PALENCIA ([id number])[facility])[address] [place] [address] [place] POIKILOCYTOSIS (PRESENCE) IN BLOOD BY LIGHT MICROSCOPY Slight Abnormal (none) [facility] Comment on above: Performed By: #### L [id number], [id number] ####Collet Making Machine Operator: JOSELINE [id number])[facility] ([facility])[address] [place] [address] [place] PROMYELOCYTES TOTAL PER COUNTED LEUKOCYTES BY MANUAL COUNT [facility] Comment on above: Performed By: #### L [id number], [id number] ####Collet Making Machine Operator: JOSELINE PALENCIA ([id number])[facility] ([facility])[address] [place] [address] RBC MORPHOLOGY IN BLOOD abnormal Normal [facility] Comment on above: Performed By: #### L [id number], [id number] ####Collet Making Machine Operator: JOSELINE PALENCIA ([id number])[facility] ([facility])[address] [place] [address] SEGMENTED NEUTROPHILS (10*3/UL) IN BLOOD-CELLAVISION 8.1 10*3/uL High 1.8-7.5 [facility] Comment on above: Performed By: #### L [id number], [id number] ####Collet Making Machine Operator: JOSELINE PALENCIA ([id number])[facility] [place] [address] [place] SEGMENTED NEUTROPHILS/100 LEUKOCYTES-CE 91 % High 38-82 [facility] Comment on above: Performed By: #### L [id number], [id number] ####Collet Making Machine Operator: JOSELNIE PALENCIA ([id number])[facility] ([facility])[address] [place] [address] UNCLASSIFIED CELLS TOTAL PER COUNTED LEUKOCYTES BY MANUAL COUNT [facility] Comment on above: Performed By: #### L [id number], [id number] ####Collet Making Machine Operator: JOSELINE PALENCIA ([id number])[facility] ([facility])[address] [place] [address] [place] VARIANT LYMPHOCYTES TOTAL PER COUNTED LEUKOCYTES BY MANUAL COUNT [facility] Comment on above: Performed By: #### L [id number], [id number] ####Collet Making Machine Operator: JOSELINE PALENCIA ([id number])[facility] ([facility])[address] [place] [address] [place] NURSING PROGon 02-21-2024 NURSING PROG HNO ID: [id number] Author: ANTHONY BARONE, RN Service: Nursing Author Type: Registered Nurse Type: Nursing Progress Note Filed: 02/21/2024 08:01 Note Text: Dr. Maria performed a left adductor block using us from [phone]. Suzy Camargo performed a spinal from [phone]. Normal [facility] No Panel Informationon 02-20 Atypical Lymphocytes Manual [facility] Bands Manual 2 [facility] Basophils Manual 1 [facility] Blasts Manual [facility] Eosinophils Manual [facility] Interpretation and review of laboratory results Abnormal [facility] Lymphocytes Manual 6 [facility] Metamyelocytes Manual [facility] Monocytes Manual 0 [facility] Myelocytes Manual [facility] Neutrophils Manual 91 [facility] Promyelocytes Manual [facility] Unclassified Cells, Manual [facility] OPERATIVE NOon 02-21-2024 OPERATIVE NO HNO ID: [id number] Author: RYAN WILL MD Service: Orthopaedic Surgery Author Type: Physician Type: Operative Report Filed: 02/21/2024 11:50 Note Text: Total Knee Arthroplasty OPERATIVE REPORT LOG ID: [id number] Surgery/Procedure Date: 02/21/2024 Incision/Procedure Start Time: 8:21 AM Incision Close/Procedure End Time: 10:31 AM Surgeon(s)/Procedura list(s) and Continuous Linter Drier Operator(s): Surgeon(s) and Role: * Ryan Will MD - Primary * Derian Coello DO - Resident - Assisting Recreation Program Specialist: Ann-Marie Otoole SA; Mehreen Payan SA Procedure(s): left total knee arthroplasty posterior stabilized. 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 . The tibial tray was a 79 mm 12 mm tibial bearing. The patella was a 34 mm thin. PROCEDURE: The patient is a very pleasant 73-year-old male I have known him for the last 3 years and has had severe valgus osteoarthritis of the left knee. 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 The valgus arthritis is severe his mechanical valgus on standing weightbearing x-rays about 26 degrees. Significant swelling in the knee and he has been intermittently using combination of PRP and/or stem cell injections into the medial collateral ligament area which he is the thing that bothers him the most. He does not report significant lateral joint line pain. He has severe erosive change of the lateral compartment. MRI did not show an avulsion of the MCL. In the office he was not completely correctable and I was concerned that I would have to do extensive releasing and/or augmentation of the medial collateral ligament given the fact that he gapped open 20 to 25 degrees when valgus stress is applied. Long discussions with him about increased risk for peroneal nerve palsy failure of components dislocation of the componentry I have primary revision and hinge constrained components all available. 10 alternatives are discussed and the patient is taken to the operating room for total knee arthroplasty plus or minus medial collateral ligament reconstruction and fixation up to including hinged componentry. At the time of surgery the patient had severe erosive change and deficient lateral condyle. We carefully measured out epicondylar axis and rotated Donato degrees off of the femoral condyles as the lateral femoral condyle was definitely deficient. There was a bloody effusion and extensive synovitis. I did an extensive synovectomy along the joint capsule and areas where there was hemosiderin deposit. there was severe erosive change at the posterior lateral tibial plateau. I took the resection level down to the mid aspect of the lateral tibial plateau and had about a 4 to 5 mm posterior lateral gap that was filled with drill holes and cement the componentry was stable. Once we had carefully resected and balanced in both flexion and extension I could feel that the MCL was definitely intact. I did a poor partial release of the pop Carol's in flexion the anterior aspect and trephination of the IT band and extension. Postoperatively the patient's peroneal nerve was intact and near neutral alignment was achieved Patient was evaluated in the holding area and the appropriate site was verified and the surgical team was present and all questions were answered by the patient and the team. Preoperative blocks and/or spinal anesthesia was obtained as indicated and the patient was then taken to the main operating room. Once anesthesia was obtained the patient was positioned on the operating room table and the left leg was prepped and draped in sterile orthopedic fashion. Timeout was taken and antibiotic was given. 1 g of tranexamic acid was given IV prior to beginning the procedure surgical marker was used to agustín out appropriate anatomy. Midline incision was made fingerbreadths above the superior pole of the patella down to the tibial tubercle. Esmarch was used to exsanguinate the limb and the tourniquet inflated to 250 mmHg. 10 blade was used to go through skin subcutaneous tissue. Medial parapatellar arthrotomy was made. The patella was everted and a medial release was performed to just shy of the mid coronal line. The patellar thickness was 22 mm. A Leon mill size 46 mm was used to ream down to a size 15 mm and a final size 34 mm was drilled the patellar button was placed and the patella was subluxed for the remaining aspect of the case. Medullary alignment was used for femoral alig (more content not included)... Normal [facility] Bacteria Ur Culton Bacteria identified Cx Nom (U) CULTURE, URINE: 10,000-<50,000 CFU/ml Normal Urogenital Muna Normal [facility] Comment on above: Performed By: #### 6 30-4 ####[facility] [id number] [place] [address] [place] Basic metabolic 2000 panelon 02-15-2024 Anion gap [Moles/Vol] 4 mmol/L Low 5 - 16 mmol/L [facility] Calcium [Mass/Vol] 9.4 mg/dL 8.5 - 10. 5 mg/dL [facility] Chloride [Moles/Vol] 112 mmol/L High 98 - 10 7 mmol/L [facility] CO2 [Moles/Vol] 24 mmol/L 21 - 32 mmol/L [facility] Creatinine [Mass/Vol] 0.89 mg/dL 0.50 - 1.40 mg/dL [facility] Comment on above: Patients receiving e ither N-Acetylcysteine (NAC) or Metamizole prior to venipuncture, may have falsely depressed results. GFR/1.73 sq M.predicted among non-blacks MDRD (S/P/Bld) [Vol rate/Area] 90 mL/min/{1.73_m2} - [facility] Comment on above: Estimated Glomerular Filtration Rate (eGFR) is calculated using the 2020 CKD-EPI creatinine equation. This equation utilizes serum creatinine, sex, and age as parameters. The creatinine assay has traceable calibration to isotope dilution-mass spectrometry. Refer to KDIGO guidelines for clinical interpretation. In patients with unstable renal function, e.g. those with acute kidney injury, the eGFR may not accurately reflect actual GFR. Glucose [Mass/Vol] 79 mg/dL 70 - 100 mg/dL [facility] Comment on above: The [place] Diabete s Association (ADA) provides guidance for cutoff values for fasting glucose and random glucose. The ADA defines fasting as no caloric intake for at least 8 hours. Fasting plasma glucose results between 100 to 125 mg/dL indicate increased risk for diabetes (prediabetes). Fasting plasma glucose results greater than or equal to 126 mg/dL meet the criteria for diagnosis of diabetes. In the absence of unequivocal hyperglycemia, results should be confirmed by repeat testing. In a patient with classic symptoms of hyperglycemia or hyperglycemic crisis, random plasma glucose results greater than or equal to 200 mg/dL meet the criteria for diagnosis of diabetes. Reference: Standards of Medical Care in Diabetes 2016, [place] Diabetes Association. Diabetes Care. 2016.39(Suppl 1). Results may be falsely elevated after the administration of Sulfapyridine. Results may be falsely depressed after the administration of Sulfasalazine. Interpretation and review of laboratory results Abnormal [facility] Potassium [Moles/Vol] 4.3 mmol/L 3.5 - 5.1 mmol/L [facility] Sodium [Moles/Vol] 140 mmol/L 136 - 145 mmol/L [facility] Urea nitrogen [Mass/Vol] 16 mg/dL 7 - 26 mg/dL [facility] Anion gap [Moles/Vol] 4 mmol/L Low 5-16 [facility] Comment on above: Order Comment: Speci men Type: BLOOD SPECIMEN Ordering Facility: [facility] Address: [address] [place] [address] Performed By: #### 2 4321-2 #### [facility] CLIA [id number] [address] [place] [address] [place] Calcium [Mass/Vol] 9.4 mg/dL Normal 8.5-10.5 [facility] Comment on above: Order Comment: Speci men Type: BLOOD SPECIMEN Ordering Facility: [facility] Address: [address] [place] [address] Performed By: #### 2 4321-2 #### [facility] CLIA [id number] [address] [place] [address] [place] Chloride [Moles/Vol] 112 mmol/L High 98-107 [facility] Comment on above: Order Comment: Speci men Type: BLOOD SPECIMEN Ordering Facility: [facility] Address: [address] [place] [address] Performed By: #### 2 4321-2 #### [facility] CLIA [id number] [address] [place] [address] [place] CO2 [Moles/Vol] 24 mmol/L Normal 21-32 [facility] Comment on above: Order Comment: Speci men Type: BLOOD SPECIMEN Ordering Facility: [facility] Address: [address] [place] [address] Performed By: #### 2 4321-2 #### [facility] CLIA [id number] [address] [place] [address] [place] Creatinine [Mass/Vol] 0.89 mg/dL Normal 0.50-1.40 [facility] Comment on above: Order Comment: Speci men Type: BLOOD SPECIMEN Ordering Facility: [facility] Address: [address] [place] [address] Result Comment: Ana ents receiving either N-Acetylcysteine (NAC) or Metamizole prior to venipuncture, may have falsely depressed results. Performed By: #### 2 4321-2 #### [facility] CLIA [id number] [address] [place] [address] [place] Creatinine and Glomerular filtration rate.predicted panel (S/P/Bld) 90 mL/min/1.73m??? Normal >=60 [facility] Comment on above: Order Comment: Speci men Type: BLOOD SPECIMEN Ordering Facility: [facility] Address: [address] [id number] Result Comment: Chandrika mated Glomerular Filtration Rate (eGFR) is calculated using the 2020 CKD-EPI creatinine equation. This equation utilizes serum creatinine, sex, and age as parameters. The creatinine assay has traceable calibration to isotope dilution-mass spectrometry. Refer to KDIGO guidelines for clinical interpretation. In patients with unstable renal function, e.g. those with acute kidney injury, the eGFR may not accurately reflect actual GFR. Performed By: #### 2 4321-2 #### [facility] CLIA [id number] [address] [place] [address] [place] Glucose [Mass/Vol] 79 mg/dL Normal 70-100 [facility] Comment on above: Order Comment: Griselda men Type: BLOOD SPECIMEN Ordering Facility: [facility] Address: [address] [place] [address] Result Comment: The [place] Diabetes Association (ADA) provides guidance for cutoff values for fasting glucose and random glucose. The ADA defines fasting as no caloric intake for at least 8 hours. Fasting plasma glucose results between 100 to 125 mg/dL indicate increased risk for diabetes (prediabetes). Fasting plasma glucose results greater than or equal to 126 mg/dL meet the criteria for diagnosis of diabetes. In the absence of unequivocal hyperglycemia, results should be confirmed by repeat testing. In a patient with classic symptoms of hyperglycemia or hyperglycemic crisis, random plasma glucose results greater than or equal to 200 mg/dL meet the criteria for diagnosis of diabetes. Reference: Standards of Medical Care in Diabetes 2016, [place] Diabetes Association. Diabetes Care. 2016.39(Suppl 1). Results may be falsely elevated after the administration of Sulfapyridine. Results may be falsely depressed after the administration of Sulfasalazine. Performed By: #### 2 4321-2 #### [facility] CLIA [id number] [address] [place], [place] [address] [place] Potassium [Moles/Vol] 4.3 mmol/L Normal 3.5-5.1 [facility] Comment on above: Order Comment: Griselda men Type: BLOOD SPECIMEN Ordering Facility: [facility] Address: [address] [id number] Performed By: #### 2 4321-2 #### [facility] CLIA [id number] [address] [place] [address] [place] Sodium [Moles/Vol] 140 mmol/L Normal 136-145 [facility] Comment on above: Order Comment: Speci men Type: BLOOD SPECIMEN Ordering Facility: [facility] Address: [address] [place] [address] Performed By: #### 2 4321-2 #### [facility] CLIA [id number] [address] [place] [address] [place] Urea nitrogen [Mass/Vol] 16 mg/dL Normal 7-26 [facility] Comment on above: Order Comment: Speci men Type: BLOOD SPECIMEN Ordering Facility: [facility] Address: [address] [place] [address] Performed By: #### 2 4321-2 #### [facility] CLIA [id number] [address] [place] [address] [place] CBC W Auto Differential pane l (Bld)on 02-15-2024 Basophils (Bld) [#/Vol] 0.05 10*3/uL [facility] Basophils/100 WBC (Bld) 1.2 % [facility] Differential cell count method Nom (Bld) Auto [facility] Eosinophils (Bld) [#/Vol] 0.20 10*3/uL [facility] Eosinophils/100 WBC (Bld) 4.6 % [facility] Erythrocyte distribution width (RBC) [Ratio] 29.0 % High 11.5 - 15.0 % [facility] Hematocrit (Bld) [Volume fraction] 38.2 % Low 39.0 - 51.0 % [facility] Hemoglobin (Bld) [Mass/Vol] 11.8 g/dL Low 13.0 - 17.0 g/dL [facility] Immature granulocytes (Bld) [#/Vol] [facility] Immature granulocytes/100 WBC (Bld) 0.2 % [facility] Interpretation and review of laboratory results Abnormal [facility] Lymphocytes (Bld) [#/Vol] 1.34 10*3/uL [facility] Lymphocytes/100 WBC (Bld) 31.1 % [facility] MCH (RBC) [Entitic mass] 23.4 pg Low 26. 0 - 34.0 pg [facility] MCHC (RBC) [Mass/Vol] 30.9 g/dL 30.5 - 36.0 g/dL [facility] MCV (RBC) [Entitic vol] 75.6 fL Low 80.0 - 100.0 fL [facility] Monocytes (Bld) [#/Vol] 0.30 10*3/uL [facility] Monocytes/100 WBC (Bld) 7.0 % C [facility] Neutrophils (Bld) [#/Vol] 2.41 10*3/uL [facility] Neutrophils/100 WBC (Bld) 55.9 % [facility] Nucleated RBC (Bld) [#/Vol] [facility] Nucleated RBC/100 WBC (Bld) [Ratio] 0.0 % /100 WBC [facility] Platelet mean volume (Bld) [Entitic vol] 9.9 fL 9.0 - 12.7 fL [facility] Platelets (Bld) [#/Vol] 174 10*3/uL [facility] RBC (Bld) [#/Vol] 5.05 10*6/uL 4.20 - 6.0 0 m/uL [facility] WBC (Bld) [#/Vol] 4.31 10*3/uL [facility] Basophils (Bld) [#/Vol] 0.05 10*3/uL Normal <0.11 [facility] Comment on above: Order Comment: Speci men Type: BLOOD SPECIMEN Ordering Facility: [facility] Address: [address] [place] [address] Performed By: #### 5 7021-8 #### [facility] CLIA [id number] [address] [place] [address] [place] [facility] Basophils/100 WBC (Bld) 1.2 % Normal [facility] Comment on above: Order Comment: Speci men Type: BLOOD SPECIMEN Ordering Facility: [facility] Address: [address] [place] [address] Performed By: #### 5 7021-8 #### [facility] CLIA [id number] [address] [place] [address] [place] Differential cell count method Nom (Bld) Auto Normal [facility] Comment on above: Order Comment: Speci men Type: BLOOD SPECIMEN Ordering Facility: [facility] Address: [address] [place] [address] Performed By: #### 5 7021-8 #### [facility] CLIA [id number] [address] [place] [address] [place] Eosinophils (Bld) [#/Vol] 0.20 10*3/uL Normal <0.46 [facility] Comment on above: Order Comment: Speci men Type: BLOOD SPECIMEN Ordering Facility: [facility] Address: [address] [place] [address] Performed By: #### 5 7021-8 #### [facility] CLIA [id number] [address] [place] [address] [place] Eosinophils/100 WBC (Bld) 4.6 % Normal [facility] Comment on above: Order Comment: Speci men Type: BLOOD SPECIMEN Ordering Facility: [facility] Address: [address] [place] [address] Performed By: #### 5 7021-8 #### [facility] CLIA [id number] [address] [place] [address] [place] Erythrocyte distribution width (RBC) [Ratio] 29.0 % High 11.5-15.0 [facility] Comment on above: Order Comment: Speci men Type: BLOOD SPECIMEN Ordering Facility: [facility] Address: [address] [place] [address] Performed By: #### 5 7021-8 #### [facility] CLIA [id number] [address] [place] [address] [place] Hematocrit (Bld) [Volume fraction] 38.2 % Low 39.0-51.0 [facility] Comment on above: Order Comment: Speci men Type: BLOOD SPECIMEN Ordering Facility: [facility] Address: [address] [place] [address] Performed By: #### 5 7021-8 #### [facility] CLIA [id number] [address] [place] [address] [place] Hemoglobin (Bld) [Mass/Vol] 11.8 g/dL Low 13.0-17.0 [facility] Comment on above: Order Comment: Speci men Type: BLOOD SPECIMEN Ordering Facility: [facility] Address: [address] [place] [address] Performed By: #### 5 7021-8 #### [facility] CLIA [id number] [address] [place] [address] [place] Immature granulocytes (Bld) [#/Vol] 10*3/uL Normal <0.10 [facility] Comment on above: Order Comment: Speci men Type: BLOOD SPECIMEN Ordering Facility: [facility] Address: [address] [place] [address] Performed By: #### 5 7021-8 #### [facility] CLIA [id number] [address] [place] [address] [place] Immature granulocytes/100 WBC (Bld) 0.2 % Normal [facility] Comment on above: Order Comment: Speci men Type: BLOOD SPECIMEN Ordering Facility: [facility] Address: [address] [place] [address] Performed By: #### 5 7021-8 #### [facility] CLIA [id number] [address] [place] [address] [place] Lymphocytes (Bld) [#/Vol] 1.34 10*3/uL Normal 1.00-4.0 0 [facility] Comment on above: Order Comment: Speci men Type: BLOOD SPECIMEN Ordering Facility: [facility] Address: [address] [place] [address] Performed By: #### 5 7021-8 #### [facility] CLIA [id number] [address] [place] [address] [place] Lymphocytes/100 WBC (Bld) 31.1 % Normal [facility] Comment on above: Order Comment: Speci men Type: BLOOD SPECIMEN Ordering Facility: [facility] Address: [address] [place] [address] Performed By: #### 5 7021-8 #### [facility] CLIA [id number] [address] [place] [address] [place] MCH (RBC) [Entitic mass] 23.4 pg Low 26.0-34.0 [facility] Comment on above: Order Comment: Speci men Type: BLOOD SPECIMEN Ordering Facility: [facility] Address: [address] [place] [address] Performed By: #### 5 7021-8 #### [facility] CLIA [id number] [address] [place] [address] [place] MCHC (RBC) [Mass/Vol] 30.9 g/dL Normal 30.5-36.0 [facility] Comment on above: Order Comment: Speci men Type: BLOOD SPECIMEN Ordering Facility: [facility] Address: [address] [place] [address] Performed By: #### 5 7021-8 #### [facility] CLIA [id number] [address] [place] [address] [place] [facility] MCV (RBC) [Entitic vol] 75.6 fL Low 80.0-100.0 [facility] Comment on above: Order Comment: Speci men Type: BLOOD SPECIMEN Ordering Facility: [facility] Address: [address] [place] [address] Performed By: #### 5 7021-8 #### [facility] CLIA [id number] [address] [place] [address] [place] Monocytes (Bld) [#/Vol] 0.30 10*3/uL Normal <0.87 [facility] Comment on above: Order Comment: Speci men Type: BLOOD SPECIMEN Ordering Facility: [facility] Address: [address] [place] [address] Performed By: #### 5 7021-8 #### [facility] CLIA [id number] [address] [place] [address] [place] Monocytes/100 WBC (Bld) 7.0 % Normal [facility] Comment on above: Order Comment: Speci men Type: BLOOD SPECIMEN Ordering Facility: [facility] Address: [address] [place] [address] Performed By: #### 5 7021-8 #### [facility] CLIA [id number] [address] [place] [address] [place] Neutrophils (Bld) [#/Vol] 2.41 10*3/uL Normal 1.45-7.5 0 [facility] Comment on above: Order Comment: Speci men Type: BLOOD SPECIMEN Ordering Facility: [facility] Address: [address] [place] [address] Performed By: #### 5 7021-8 #### [facility] CLIA [id number] [address] [place] [address] [place] Neutrophils/100 WBC (Bld) 55.9 % Normal [facility] Comment on above: Order Comment: Speci men Type: BLOOD SPECIMEN Ordering Facility: [facility] Address: [address] [place] [address] Performed By: #### 5 7021-8 #### [facility] CLIA [id number] [address] [place] [address] [place] Nucleated RBC (Bld) [#/Vol] 10*3/uL Normal <0.01 [facility] Comment on above: Order Comment: Speci men Type: BLOOD SPECIMEN Ordering Facility: [facility] Address: [address] [place] [address] Performed By: #### 5 7021-8 #### [facility] CLIA [id number] [address] [place] [address] [place] Nucleated RBC/100 WBC (Bld) [Ratio] 0.0 /100 WBC Normal [facility] Comment on above: Order Comment: Speci men Type: BLOOD SPECIMEN Ordering Facility: [facility] Address: [address] [place] [address] Performed By: #### 5 7021-8 #### [facility] CLIA [id number] [address] [place] [address] [place] Platelet mean volume (Bld) [Entitic vol] 9.9 fL Normal 9.0-12.7 [facility] Comment on above: Order Comment: Speci men Type: BLOOD SPECIMEN Ordering Facility: [facility] Address: [address] [place] [address] Performed By: #### 5 7021-8 #### [facility] CLIA [id number] [address] [place] [address] [place] Platelets (Bld) [#/Vol] 174 10*3/uL Normal 150-400 [facility] Comment on above: Order Comment: Speci men Type: BLOOD SPECIMEN Ordering Facility: [facility] Address: [address] [place] [address] Performed By: #### 5 7021-8 #### [facility] CLIA [id number] [address] [place] [address] [place] RBC (Bld) [#/Vol] 5.05 10*6/uL Normal 4.20-6.00 [facility] Comment on above: Order Comment: Speci men Type: BLOOD SPECIMEN Ordering Facility: [facility] Address: [address] [place] [address] Performed By: #### 5 7021-8 #### [facility] CLIA [id number] [address] [place] [address] [place] WBC (Bld) [#/Vol] 4.31 10*3/uL Normal 3.70-11.00 [facility] Comment on above: Order Comment: Speci men Type: BLOOD SPECIMEN Ordering Facility: [facility] Address: [address] [place] [address] Performed By: #### 5 7021-8 #### [facility] CLIA [id number] [address] [place] [address] [place] HbA1c (Bld)on 02-15-2024 Average glucose Estimated from glycated hemoglobin (Bld) [Mass/Vol] 94 mg/dL Normal [facility] Comment on above: Order Comment: Speci men Type: BLOOD SPECIMEN Ordering Facility: [facility] Address: [address] [place] [address] Result Comment: eAG: (Estimated average glucose) is a calculated value from HgbA1c and is sales and service representative of the average blood glucose level in the last 2-3 month period. Performed By: #### 5 5454-3 #### [facility] CLIA [id number] [address] [place] [address] [place] HbA1c (Bld) [Mass fraction] 4.9 % Normal 4.3-5.6 [facility] Comment on above: Order Comment: Griselda shaver Type: BLOOD SPECIMEN Ordering Facility: [facility] Address: [address] [place] [address] Result Comment: [place] Diabetes [employer] guidelines indicate that patients with HgbA1c in the range 5.7-6.4% are at increased risk for development of diabetes, and intervention by lifestyle modification may be beneficial. HgbA1c greater or equal to 6.5% is considered diagnostic of diabetes. Performed By: #### 5 5454-3 #### [facility] CLIA [id number] [address] [place] [address] [place] STAPHYLOCOCCUS AUREUS AND MR SA SCREEN, PCR, NASALon 02-15-2024 S. aureus and MRSA panel ELLA+probe (Nose) Not detected Normal Not Detected [facility] Comment on above: Order Comment: Griselda shaver Type: SWAB Ordering Facility: [facility] Address: [address] [place] [address] Performed By: #### S APCR #### [facility] CLIA [id number] [address] [place] [address] [place] STAPHYLOCOCCUS AUREUS & MRSA SCREEN, PCR, NASALon 02-15-2024 Interpretation and review of laboratory results Normal [facility] S. aureus and MRSA panel ELLA+probe (Nose) Not detected Not Detected [facility] TYPE AND SCREEN,30 DAYon ABO group Nom (Bld) A [facility] Blood group antibody screen Ql Negative [facility] HIstorical Ab Scr Status Negative [facility] Rh Nom (Bld) Positive [facility] ABO A Normal [facility] Comment on above: Order Comment: Speci men Type: BLOOD SPECIMEN Ordering Facility: [facility] Address: [address] [place] [address] Performed By: #### T SCR30 #### [facility] CLIA [id number] [address] [place] [address] OF [facility] HISTORICAL AB SCR STATUS Negative [facility] Comment on above: Order Comment: Speci men Type: BLOOD SPECIMEN Ordering Facility: [facility] Address: [address] [place] [address] Performed By: #### T SCR30 #### [facility] CLIA [id number] [address] [place] [address] [place] Rh Nom (Bld) Positive [facility] Comment on above: Order Comment: Speci men Type: BLOOD SPECIMEN Ordering Facility: [facility] Address: [address] [place] [address] Performed By: #### T SCR30 #### [facility] CLIA [id number] [address] [place] [address] David 02-02-2024 CNPN Telephone (AGINTMAC) MARGAUX QUARLES ([id number]) 1950 M Date Time Provider Department 02/02/24 FLOWER ZEE AGEBONI During your visit today, we recorded the following information about you: Flower Zee APRN.CNP 02/02/2024 12:01 PM Signed Reviewed lab results. Improved levels. Left VM regarding above. Advised to call office for any questions concerns. Flower Zee APRN.SCIENCE TEACHER Allergies As of Date: 02/02/2024 (No Known Allergies) Date Reviewed: 02/01/2024 Reviewed by: Gerard Granado LPN - Fully Assessed Reason for Visit: Results [95] Prescriptions as of 02/02/2024 - traMADol (ULTRAM) 50 mg tablet Take 1 tablet by mouth every 12 hours as needed for up to 7 days. Do not start before February 08, 2024. - sildenafil (VIAGRA) 100 mg tablet Take 1 tablet by mouth as needed (one per day maximum as needed). - tamsulosin (FLOMAX) 0.4 mg TAKE ONE CAPSULE BY MOUTH ONCE DAILY - sildenafil (VIAGRA) 100 mg tablet TAKE ONE TABLET BY MOUTH NEEDED (ONCE PER DAY MAXIMUM NEEDED) - lansoprazole (PREVACID ORAL) Take 20 mg by mouth once daily. 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] 10/02/2015 Liver nodule [K76.89] 10/02/2015 Pain of both shoulder joints [M25.511, M25.512] 01/08/2016 Fecal occult blood test positive [R19.5] 01/01/2016 Liver lesion [K76.9] ED (erectile dysfunction) of organic origin [N5*07/13/2017 Renal calculi [N20.0] 07/13/2017 Poor urinary stream [R39.12] 07/13/2017 Nocturia [R35.1] 07/13/2017 Hx of renal calculi [Z87.442] 01/17/2018 Irregular heart beat [I49.9] Microcytic anemia [D50.9] 10/18/2020 Urethral stricture [N35.919] 08/25/2022 Tear of medial meniscus of left knee, current [*12/02/2023 Encounter Status:Closed by CINKO, LIBERTINE on 02/02/24 Normal [facility] Basic metabolic 2000 panelon 02-01-2024 Anion gap [Moles/Vol] 13 mmol/L 8 - 15 mmol/L [facility] Calcium [Mass/Vol] 8.8 mg/dL 8.5 - 10. 2 mg/dL [facility] Chloride [Moles/Vol] 110 mmol/L High 98 - 10 7 mmol/L [facility] CO2 [Moles/Vol] 19 mmol/L Low 22 - 30 mmol/L [facility] Creatinine [Mass/Vol] 0.90 mg/dL 0.73 - 1.22 mg/dL [facility] GFR/1.73 sq M.predicted among non-blacks MDRD (S/P/Bld) [Vol rate/Area] 90 mL/min/{1.73_m2} [facility] Comment on above: Estimated Glomerular Filtration Rate (eGFR) is calculated using the 2020 CKD-EPI creatinine equation. This equation utilizes serum creatinine, sex, and age as parameters. The creatinine assay has traceable calibration to isotope dilution-mass spectrometry. Refer to KDIGO guidelines for clinical interpretation. In patients with unstable renal function, e.g. those with acute kidney injury, the eGFR may not accurately reflect actual GFR. Glucose [Mass/Vol] 85 mg/dL 74 - 99 mg/dL [facility] Comment on above: The [place] Diabete s Association (ADA) provides guidance for cutoff values for fasting glucose and random glucose. The ADA defines fasting as no caloric intake for at least 8 hours. Fasting plasma glucose results between 100 to 125 mg/dL indicate increased risk for diabetes (prediabetes). Fasting plasma glucose results greater than or equal to 126 mg/dL meet the criteria for diagnosis of diabetes. In the absence of unequivocal hyperglycemia, results should be confirmed by repeat testing. In a patient with classic symptoms of hyperglycemia or hyperglycemic crisis, random plasma glucose results greater than or equal to 200 mg/dL meet the criteria for diagnosis of diabetes. Reference: Standards of Medical Care in Diabetes 2016, [place] Diabetes Association. Diabetes Care. 2016.39(Suppl 1). Potassium [Moles/Vol] 4.5 mmol/L 3.7 - 5.1 mmol/L [facility] Sodium [Moles/Vol] 142 mmol/L 136 - 144 mmol/L [facility] Urea nitrogen [Mass/Vol] 22 mg/dL 9 - 24 mg/dL [facility] Anion gap [Moles/Vol] 13 mmol/L Normal 8-15 [facility] Comment on above: Order Comment: Speci men Type: BLOOD SPECIMEN Ordering Facility: [facility] Address: [address] [place] [address] Performed By: #### 2 4321-2, 6-4, 62967-6 #### [facility] CLIA [id number] [address] [place] [address] [place] Calcium [Mass/Vol] 8.8 mg/dL Normal 8.5-10.2 [facility] Comment on above: Order Comment: Speci men Type: BLOOD SPECIMEN Ordering Facility: [facility] Address: [address] [place] [address] Performed By: #### 2 4321-2, 2275-4, 08190-0 #### [facility] CLIA [id number] [address] [place] [address] [place] Chloride [Moles/Vol] 110 mmol/L High 98-107 [facility] Comment on above: Order Comment: Speci men Type: BLOOD SPECIMEN Ordering Facility: [facility] Address: [address] [place] [address] Performed By: #### 2 4321-2, 2275-4, 06653-6 #### [facility] CLIA [id number] [address] [place] [address] [place] CO2 [Moles/Vol] 19 mmol/L Low 22-30 [facility] Comment on above: Order Comment: Speci men Type: BLOOD SPECIMEN Ordering Facility: [facility] Address: [address] [place] [address] Performed By: #### 2 4321-2, 2275-4, 42852-4 #### [facility] CLIA [id number] [address] [place] [address] [place] Creatinine [Mass/Vol] 0.90 mg/dL Normal 0.73-1.22 [facility] Comment on above: Order Comment: Speci men Type: BLOOD SPECIMEN Ordering Facility: [facility] Address: [address] [place] [address] Performed By: #### 2 4321-2, 2276-4, 77140-7 #### [facility] CLIA [id number] [address] OF [place] Creatinine and Glomerular filtration rate.predicted panel (S/P/Bld) 90 mL/min/1.73m??? Normal >=60 [facility] Comment on above: Order Comment: Griselda shaver Type: BLOOD SPECIMEN Ordering Facility: [facility] Address: [address] [place] [address] Result Comment: Chandrika mated Glomerular Filtration Rate (eGFR) is calculated using the 2020 CKD-EPI creatinine equation. This equation utilizes serum creatinine, sex, and age as parameters. The creatinine assay has traceable calibration to isotope dilution-mass spectrometry. Refer to KDIGO guidelines for clinical interpretation. In patients with unstable renal function, e.g. those with acute kidney injury, the eGFR may not accurately reflect actual GFR. Performed By: #### 2 4321-2, 2276-4, 26782-4 #### [facility] CLIA [id number] [address] [place] [address] [place] Glucose [Mass/Vol] 85 mg/dL Normal 74-99 [facility] Comment on above: Order Comment: Griselda chhaya Type: BLOOD SPECIMEN Ordering Facility: [facility] Address: [address] [place] [address] Result Comment: The [place] Diabetes Association (ADA) provides guidance for cutoff values for fasting glucose and random glucose. The ADA defines fasting as no caloric intake for at least 8 hours. Fasting plasma glucose results between 100 to 125 mg/dL indicate increased risk for diabetes (prediabetes). Fasting plasma glucose results greater than or equal to 126 mg/dL meet the criteria for diagnosis of diabetes. In the absence of unequivocal hyperglycemia, results should be confirmed by repeat testing. In a patient with classic symptoms of hyperglycemia or hyperglycemic crisis, random plasma glucose results greater than or equal to 200 mg/dL meet the criteria for diagnosis of diabetes. Reference: Standards of Medical Care in Diabetes 2016, [place] Diabetes Association. Diabetes Care. 2016.39(Suppl 1). Performed By: #### 2 4321-2, 2276-4, 15567-2 #### [facility] CLIA [id number] [address] [place] Potassium [Moles/Vol] 4.5 mmol/L Normal 3.7-5.1 [facility] Comment on above: Order Comment: Speci men Type: BLOOD SPECIMEN Ordering Facility: [facility] Address: [address] [place] [address] Performed By: #### 2 4321-2, 2276-4, 09782-4 #### [facility] CLIA [id number] [address] STATES OF [facility] Sodium [Moles/Vol] 142 mmol/L Normal 136-144 [facility] Comment on above: Order Comment: Speci men Type: BLOOD SPECIMEN Ordering Facility: [facility] Address: [address] [place] [address] Performed By: #### 2 4321-2, 2276-4, 41377-2 #### [facility] CLIA [id number] [address] [place] [address] [place] Urea nitrogen [Mass/Vol] 22 mg/dL Normal 9-24 [facility] Comment on above: Order Comment: Speci men Type: BLOOD SPECIMEN Ordering Facility: [facility] Address: [address] [place] [address] Performed By: #### 2 4321-2, 2276-4, 59384-9 #### [facility] CLIA [id number] [address] [place] [address] [place] CBC panel Auto (Bld)on 01-31 Erythrocyte distribution width (RBC) [Ratio] 27.9 % High 11.5 - 15.0 % [facility] Hematocrit (Bld) [Volume fraction] 36.6 % Low 39.0 - 51.0 % [facility] Hemoglobin (Bld) [Mass/Vol] 10.8 g/dL Low 13.0 - 17.0 g/dL [facility] Interpretation and review of laboratory results Abnormal [facility] MCH (RBC) [Entitic mass] 22.0 pg Low 26. 0 - 34.0 pg [facility] MCHC (RBC) [Mass/Vol] 29.5 g/dL Low 30.5 - 36.0 g/dL [facility] MCV (RBC) [Entitic vol] 74.4 fL Low 80.0 - 100.0 fL [facility] Nucleated RBC (Bld) [#/Vol] NINF [facility] Platelet mean volume (Bld) [Entitic vol] 10.3 fL 9.0 - 12.7 fL [facility] Platelets (Bld) [#/Vol] 233 10*3/uL [facility] RBC (Bld) [#/Vol] 4.92 10*6/uL 4.20 - 6.0 0 m/uL [facility] WBC (Bld) [#/Vol] 5.47 10*3/uL [facility] Erythrocyte distribution width (RBC) [Ratio] 27.9 % High 11.5-15.0 [facility] Comment on above: Order Comment: Speci men Type: BLOOD SPECIMEN Ordering Facility: [facility] Address: [address] [place] [address] Performed By: #### 5 8410-2 #### [facility] CLIA [id number] [address] OF [facility] Hematocrit (Bld) [Volume fraction] 36.6 % Low 39.0-51.0 [facility] Comment on above: Order Comment: Speci men Type: BLOOD SPECIMEN Ordering Facility: [facility] Address: [address] [place] [address] Performed By: #### 5 8410-2 #### [facility] CLIA [id number] [address] [place] Hemoglobin (Bld) [Mass/Vol] 10.8 g/dL Low 13.0-17.0 [facility] Comment on above: Order Comment: Speci men Type: BLOOD SPECIMEN Ordering Facility: [facility] Address: [address] [place] [address] Performed By: #### 5 8410-2 #### [facility] CLIA [id number] [address] MCH (RBC) [Entitic mass] 22.0 pg Low 26.0-34.0 [facility] Comment on above: Order Comment: Speci men Type: BLOOD SPECIMEN Ordering Facility: [facility] Address: [address] [place] [address] Performed By: #### 5 8410-2 #### [facility] CLIA [id number] [address] MCHC (RBC) [Mass/Vol] 29.5 g/dL Low 30.5-36.0 [facility] Comment on above: Order Comment: Speci men Type: BLOOD SPECIMEN Ordering Facility: [facility] Address: [address] [place] [address] Performed By: #### 5 8410-2 #### [facility] CLIA [id number] [address] MCV (RBC) [Entitic vol] 74.4 fL Low 80.0-100.0 [facility] Comment on above: Order Comment: Speci men Type: BLOOD SPECIMEN Ordering Facility: [facility] Address: [address] [place] [address] Performed By: #### 5 8410-2 #### [facility] CLIA [id number] [address] Nucleated RBC (Bld) [#/Vol] 10*3/uL Normal <0.01 [facility] Comment on above: Order Comment: Speci men Type: BLOOD SPECIMEN Ordering Facility: [facility] Address: [address] [place] [address] Performed By: #### 5 8410-2 #### [facility] CLIA [id number] [address] Platelet mean volume (Bld) [Entitic vol] 10.3 fL Normal 9.0-12.7 [facility] Comment on above: Order Comment: Speci men Type: BLOOD SPECIMEN Ordering Facility: [facility] Address: [address] [place] [address] Performed By: #### 5 8410-2 #### [facility] CLIA [id number] [address] Platelets (Bld) [#/Vol] 233 10*3/uL Normal 150-400 [facility] Comment on above: Order Comment: Speci men Type: BLOOD SPECIMEN Ordering Facility: [facility] Address: [address] [place] [address] Performed By: #### 5 8410-2 #### [facility] CLIA [id number] [address] RBC (Bld) [#/Vol] 4.92 10*6/uL Normal 4.20-6.00 [facility] Comment on above: Order Comment: Speci men Type: BLOOD SPECIMEN Ordering Facility: [facility] Address: [address] [place] [address] Performed By: #### 5 8410-2 #### [facility] CLIA [id number] [address] WBC (Bld) [#/Vol] 5.47 10*3/uL Normal 3.70-11.00 [facility] Comment on above: Order Comment: Speci men Type: BLOOD SPECIMEN Ordering Facility: [facility] Address: [address] [place] [address] Performed By: #### 5 8410-2 #### [facility] CLIA [id number] [address] CNOVon 02-01-2024 CNOV Office Visit (AGINTMAC) MARGAUX QUARLES ([id number]) 1950 M Date Time Provider Department 02/01/24 11:00 AM FLOWER ZEE AGINTMAC During your visit today, we recorded the following information about you: Temperature Pulse Respiration Blood pressure 98.2 degrees 75/minute 18/minute 129/82 Weight Height 68 kg 1.702 m Flower Zee APRN.SCIENCE TEACHER 02/01/2024 12:18 PM Signed Flower Zee APRN [facility] SUBJECTIVE: Margaux Quarles is a 73 year old White male who presents for preoperative medical clearance for having left knee surgery Requesting surgeon: Dr. Figueredo. Procedure: Left total knee replacement. Anesthesia: Yes. Procedure/surgery date: 02/21/2024. Difficulty with prior surgeries:Denies - Hx Hernia, TURP. . History of difficulties with previous anesthesia: Denies Bleeding problems: Denies History of heart failure: Denies. History of stroke: Denies. History of diabetes requiring insulin: Denies. History of end-stage renal disease or severe CKD: Denies. History of significant arrhythmia: Yes. Activity level greater than 4 METs: Yes. Highest intensity of activity over last month: . - Able to walk around the block without shortness of breath - Still works at an [employer] everyday. - Takes care of his ADLs independently. Current or recent chest pain: Denies. Currently recent shortness of breath: Never. Patient is following with Dr. Major / Dr. Enrique for his chronic medical condition Patient is cleared for surgery by Dr. Taveras (Cardiology). History of microcytic anemia (receiving iron infusion) last infusion 01/26 , GERD, irregular heartbeat, and BPH. Patient is not on anticoagulation. Patient's medications were reviewed today. Patient is compliant on taking his medications :Yes Patient is tolerating his medication(s) without side effects: Yes Is the patient having any pain? Yes LOCATION: Left knee PAIN SCALE: 6 on a scale of 0-10 PAIN CHARACTER: burning, sharp, shooting, and Ache DURATION: (How long have you had the pain?) unknown FREQUENCY: (How often does the pain occur?) occurs constantly AGGRAVATING FACTORS: standing and twisting ALLEVIATING FACTORS: resting and medications - opioids Medications: See medication reconciliation list in [facility] MEDICATIONS: Tramadol at HS and recently has been taking 2x / day Have you ever seen a pain management physician: No Have you ever taken any pain medications (Narcotics): Yes; Type(s) AND Duration: september Last dispensed 01/22/24 for 30 pills. Only 13 pills left as he has been using it 2x per day. He is is requesting additional coverage until surgery date. Review of Systems Constitutional: Negative for chills, diaphoresis, fever, malaise/fatigue and weight loss. HENT: Negative. Eyes: Negative. Respiratory: Negative. Cardiovascular: Positive for palpitations (history.). Negative for chest pain, orthopnea, claudication, leg swelling and PND. Gastrointestinal: Negative. Genitourinary: Negative. Musculoskeletal: Positive for joint pain (left knee). Negative for back pain, falls, myalgias and neck pain. Skin: Negative. Neurological: Negative. Endo/Heme/Allergies: Negative. Psychiatric/Behavior al: Negative. Denies smoking or alcohol use. ALLERGIES No Known Allergies Current Outpatient Medications Medication Sig sildenafil (VIAGRA) 100 mg tablet Take 1 tablet by mouth as needed (one per day maximum as needed). traMADol (ULTRAM) 50 mg tablet Take 50 mg by mouth every 6 hours as needed. ibuprofen (MOTRIN) 200 mg tablet Take 400 mg by mouth every 6 hours as needed for pain. (Patient not taking: Reported on 12/02/2023) tamsulosin (FLOMAX) 0.4 mg TAKE ONE CAPSULE BY MOUTH ONCE DAILY sildenafil (VIAGRA) 100 mg tablet TAKE ONE TABLET BY MOUTH NEEDED (ONCE PER DAY MAXIMUM NEEDED) lansoprazole (PREVACID ORAL) Take 20 mg by mouth once daily. sildenafil (VIAGRA) 100 mg tablet TAKE ONE TABLET BY MOUTH NEEDED (MAXIMUM 1 PER DAY NEEDED) SAW PALMETTO ORAL Take by mouth once daily. (Patient not taking: Reported on 01/13/2021) Cholecalciferol, Vitamin D3, (VITAMIN D) 1,000 unit cap Take 1 capsule by mouth once daily. No current facility-administere d medications for this visit. PAST MEDICAL HISTORY Diagnosis Date Bilateral inguinal hernia 2014 BPH (benign prostatic hyperplasia) enlarged prostate Colonoscopy refused 06/06/2014 Fecal occult blood test positive 01/2016 GERD (gastroesophageal reflux disease) History of epistaxis Hyperlipidemia on diet control, exercise Irregular heart beat Left inguinal hernia 2010 Liver lesion MRI OA (osteoarthritis) of knee Received Euflexxa injection Osteoarthritis Pancreatic lesion MRI Prostatitis since age [address] Km [facility] Renal stone 2012 removed (more content not included)... Normal [facility] FERRITINon 02-01-2024 Ferritin [Mass/Vol] 591.0 ng/mL High 30.3 - 565.7 ng/mL [facility] Ferritin SerPl-mCncon 2023 Ferritin [Mass/Vol] 591.0 ng/mL High 30.3-565.7 [facility] Comment on above: Order Comment: Speci men Type: BLOOD SPECIMEN Ordering Facility: [facility] Address: [address] [place] [address] Performed By: #### 2 4321-2, 6-4, 20294-2 #### [facility] CLIA [id number] [address] STATES [place] [facility] Iron and Iron binding capaci ty panelon 02-01-2024 Interpretation and review of laboratory results Normal [facility] Iron [Mass/Vol] 74 ug/dL 41 - 186 ug/dL [facility] Iron binding capacity [Mass/Vol] 257 ug/dL 232 - 386 ug/dL [facility] Iron saturation [Mass fraction] 28.8 % 15.0 - 57.0 % [facility] Iron [Mass/Vol] 74 ug/dL Normal 41-186 [facility] Comment on above: Order Comment: Heleni men Type: BLOOD SPECIMEN Ordering Facility: [facility] Address: [address] [place] [address] Performed By: #### 2 4321-2, 2275-4, 22101-9 #### [facility] CLIA [id number] [address] [place] Iron binding capacity [Mass/Vol] 257 ug/dL Normal 232-386 [facility] Comment on above: Order Comment: Heleni men Type: BLOOD SPECIMEN Ordering Facility: [facility] Address: [facility] [place] [address] Performed By: #### 2 4321-2, 6-4, 75954-0 #### [facility] CLIA [id number] [address] [place] Iron saturation [Mass fraction] 28.8 % Normal 15.0-57.0 [facility] Comment on above: Order Comment: Speci men Type: BLOOD SPECIMEN Ordering Facility: [facility] Address: [address] [id number] Performed By: #### 2 4321-2, 2276-4, 50381-6 #### [facility] CLIA [id number] [address] [place] [id number] [place] [facility] No Panel Informationon 01-31 Interpretation and review of laboratory results Abnormal [facility] CNOVon 01-11-2024 CNOV Office Visit (AKURFL) MARGAUX QUARLES ([id number]) 1950 M Date Time Provider Department 01/11/24 11:00 AM ROCHELLE CHRISTIAN During your visit today, we recorded the following information about you: Pulse Height 79/minute 1.727 m Rochelle Christian MD 01/13/2024 10:58 AM Signed ESTABLISHED PATIENT OFFICE VISIT PATIENT INFO: Margaux Fan Alexandrea 73 year old HPI 01/11/2024 CC: stricture saw Dr. Ileana Nguyen as noted below and taken to surgery for the urethral dilation and then in follow-up instructed on straight catheterization but that her too much so we just stopped doing it He thinks voiding is going fine right now and does not want anything else done at this point-- he understands stricture can recur and worsen at any point Does not think he has set appointment to see Dr. Nguyen again at this point and discussed he could always just follow-up with her on a regular basis or as needed He still wants to follow-up with me also this point Remains on Flomax twice daily but he could try daily and see if does just as well on that so we will do that On no antibiotics and history of being on daily Keflex and doxycycline as needed Dipstick positive nitrite but no feelings of symptomatic UTI so we will hold off on culture or antibiotic and patient agrees History of erectile dysfunction-Viagra just uses a few times a year and wants a printed prescription Follow-up 12 months with PSA at the latest and earlier problems Scores/PVR: Bladder scan/PVR: IPSS-; QoL-08/07 Past Urology Hx: September 08, 2023-seen by Dr. Ileana Nguyen/[facility]- Mamadou is doing very well after dilation in OR in June Reports has not had any recurrent urinary tract infections, stream is stronger as well For his BPH he is on Flomax twice a day, this has improved his emptying and his urinary symptoms as well He was taught meatal dilation/calibration today He will perform this weekly and as needed to keep the meatus patent, he was prescribed clobetasol cream as well which she can apply weekly and as needed to help prevent restenosis Follow-up with me in about 10 months for BPH and stricture, contact office sooner as needed Follow Up: Follow up in about 10 months (around 07/08/2024) for BPH / urethral stricture follow up (UA and PVR at visit) . Ileana Rojas, Jun 17 2023-surgery with Dr. Nguyen/[facility]- The distal penile urethra is noted to be somewhat scarred and stenotic however the remaining portion of the urethra appears grossly normal. There is a narrowing where the expected location of the external urinary sphincter is located, no evidence for additional strictures within the urethra. Contrast does reach the bladder. He was then repositioned into a dorsal lithotomy fashion and reprepped and draped in a normal sterile fashion. A semirigid ureteroscope was used to perform distal ureteroscopy. Distal urethra is noted to be quite stenotic. Wire was passed through the scope and into the bladder. Decision was made to perform urethral dilation. Using the Cook S-curve dilators we dilated the urethra up to 20 Greenlandic using the dilators. A 17 Greenlandic rigid cystoscope was then passed alongside the wire and into the bladder. Distal urethra was noted to be scarred, likely from prior hypospadias surgeries. he proximal penile urethra, bulbar urethra, and prostatic urethra is noted to be widely patent. Within the urinary bladder there are no masses stones or lesions identified, bilateral ureteral orifices are normal in number position and orientation with clear E flux. Decision was made to place a Long catheter. The scope was withdrawn. An 18 Greenlandic Councill catheter was placed Plan: Patient will be discharged home with a Long catheter He will remove the catheter at home in a few days 01/12/2023 CC: cysto Voiding good with good stream and pleased with his progress and does not want cystoscopy today because he does not want to irritate anything Denies dysuria On Flomax Discussed stricture could easily recur and given his history probably most distal and he thinks that his consistent with what he is felt when it was dilated he does have a hypospadias history He is open to seeing Dr. Ileana Nguyen now for evaluation and opinion at least At the latest see me with PSA/KUB 12 months as he does have history of stones 10/06/2022 CC: stricture Since I saw him thinks voiding well with stream being okay and remains on Flomax He finished the Cipro but question of whether it made his joints hurt or whether was just the infection Residual urine 54 cc today Denies dysuria or gross hematuria now Option of seeing Dr. Ileana Nguyen about urethral evaluation and reconstruction but he wants to hold off on that He is open to getting PSA in 3 months and office cystoscopy in 3 months with me Werner (more content not included)... Normal [facility] UA DIP, URINE (POC)on 2023 BILIRUBIN UA (POCT) Negative Negative [facility] CLARITY UA (POCT) Slightly Cloudy Cl [facility] COLOR UA (POCT) Yellow [facility] GLUCOSE UA (POCT) Negative Negative mg/dL [facility] Hemoglobin Ql (U) Moderate Abnormal Negative [facility] Interpretation and review of laboratory results Abnormal [facility] KETONE UA (POCT) Negative Negative mg/dL [facility] LEUKOCYTES UA (POCT) Large Abnormal Negative [facility] NITRITE UA (POCT) Positive Abnormal Negative [facility] PH UA (POCT) 5.5 4.5 - 8.0 [facility] Protein Ql (U) 30 mg/dL Abnormal Negative [facility] SPECIFIC GRAVITY UA (POCT) 1.025 1.005 - 1.030 [facility] UROBILINOGEN UA (POCT) 0.2 Yenny l E.U./dL [facility] Location:[facility], [id number] [place] [address] POINT OF CARE [facility] XR ABDOMEN 1V SUPINEon 01-09 XR ABDOMEN 1V SUPINE * * *Final Report* * * DATE OF EXAM: Jan 10 2024 3:39PM ANX [id number] - XR ABDOMEN 1V SUPINE / PROCEDURE REASON: Renal calculi * * * * Physician Interpretation * * * * EXAM TITLE: XR ABDOMEN 1V SUPINE DATE: 01/10/2024 COMPARISON: 01/12/2018 CLINICAL INDICATION/HISTORY: Follow-up urinary tract calculi TECHNIQUE: Supine KUB. FINDINGS: No obvious renal calculi. There are numerous calcifications within the pelvis, many of which are likely related to the prostate gland and venous phleboliths. Some are quite large in size, measuring up to approximately 16 mm. These could potentially represent bladder calculi. There is no bowel dilatation. There is at least moderate stool throughout the right colon. Aortic calcification. Severe levorotoscoliosis of the lumbar spine. IMPRESSION: 1. No obvious renal calculi. 2. Multiple calcifications within the pelvis may be related to the prostate gland and venous phleboliths. However, some of these, measuring up to 16 mm, could represent bladder calculi. This could be further evaluated as indicated by ultrasound. 3. Moderate stool throughout the ascending colon. Web Content Manager: [facility] Transcribe Date/Time: Jan 14 2024 3:46P Dictated by : ROCHELLE STREET MD This examination was interpreted and the report reviewed and electronically signed by: ROCHELLE STREET MD on Jan 14 2024 3:49PM EST [id number] CN Normal [facility] CT KNEE WO IVCON LTon 2023 CT KNEE WO IVCON LT * * *Final Report* * * DATE OF EXAM: Nov 19 2023 4:46PM [id number] KNEE WO IVCON LT / PROCEDURE REASON: lt knee pain, effusion, unilateral primary osteo lt knee * * * * Physician Interpretation * * * * CT KNEE WO IVCON LT 11/19/2023 4:46 PM HISTORY: lt knee pain, effusion, unilateral primary osteo lt knee TECHNIQUE: Non-contrast axial CT imaging of the left knee was performed. Coronal and sagittal reconstructions were performed. Contrast: None. CT Radiation dose: Integrated Dose-length product (DLP) for this visit = 154.17 mGy*cm. CT Dose Reduction Employed: Automated exposure control(AEC) and iterative recon COMPARISON: Left knee radiographs dated 05/08/2015. RESULT: No acute fracture or dislocation is identified. There is tricompartment osteoarthritis with a joint effusion. No Lowery's cyst. No osseous erosion. No muscle fatty atrophy. No soft tissue collection. IMPRESSION: No acute bony abnormality. Tricompartment osteoarthritis with a joint effusion. Web Content Manager: [facility] Transcribe Date/Time: Nov 19 2023 5:00P Dictated by : ANDREW SCHMITT MD This examination was interpreted and the report reviewed and electronically signed by: ANDREW SCHMITT MD on Nov 19 2023 5:04PM EST [id number] CN [facility] CT Knee - left WO contraston 11-19-2023 [facility] Urinalysis complete panel (U )on 08-13-2023 Appearance (U) CLOUDY Abnormal CLEAR [facility] Bacteria LM.HPF (Urine sed) [#/Area] NONE SEEN NONE SEEN /HPF [facility] Bilirubin Ql (U) Negative NEGATIVE [facility] alth Color (U) YELLOW YELLOW [facility] Epithelial cells.squamous LM.HPF (Urine sed) [#/Area] 0-5 < OR = 5 /HPF [facility] Glucose Ql (U) Negative NEGATIVE [facility] Hemoglobin Ql (U) TRACE Abnormal NEGATIVE [facility] Hyaline casts (Urine sed) [#/Area] NONE SEEN NONE SEEN /LPF [facility] Interpretation and review of laboratory results Abnormal [facility] Ketones Ql (U) Negative NEGATIVE [facility] Leukocyte esterase Test strip Ql (U) 3+ Abnormal NEGATIVE [facility] Nitrite Ql (U) Negative NEGATIVE [facility] th pH (U) 6.0 [pH] 5.0 - 8.0 [facility] Protein Ql (U) TRACE Abnormal NEGATIVE [facility] RBC LM.HPF (Urine sed) [#/Area] NONE SEEN < OR = 2 /HPF [facility] Service comment (Unsp spec) [Interp] [facility] Comment on above: This urine was rowdy zed for the presence of WBC, RBC, bacteria, casts, and other formed elements. Only those elements seen were reported. Specific gravity (U) [Rel density] 1.020 1.001 - 1.035 [facility] WBC LM.HPF (Urine sed) [#/Area] /[HPF] Abnormal < OR = 5 /HPF [facility] No Panel Informationon 06-17 There is no interpretation needed for this exam. IMAGING US Retroperitoneumon 023 1.4 cm inferior pole right renal cyst. Report Dictated on Electronically Signed By: Ezra Couch DO Electronically Signed Date/Time: 03/24/2023 4:[address] [facility] Patient Name: MARGAUX QUARLES : 1950 Exam Date/Time: 03/24/2023 09:53 Procedure: US RETROPERITONEAL Ordering Provider: ROJAS ELIZABETH Reason For Exam: Nephrolithiasis RENAL ULTRASOUND: INDICATION: Nephrolithiasis COMPARISON: No prior studies are available for comparison. Sonographic images of the bilateral kidneys and bladder were obtained. The right kidney measures 9.6 x 5.2 x 5.4 cm. Parenchymal echotexture is normal. There is a 1.8 cm inferior pole simple cyst. There is no evidence of hydronephrosis or renal calculus. The left kidney measures 11.3 x 5.1 x 5.0 cm. Parenchymal echotexture is normal. No focal lesions are seen. There is mild pelvicalyceal ectasia. No mass or fluid collection is seen adjacent to the kidneys. The bladder is grossly unremarkable. [facility] Ezra Couch DO - 03/24/2023 Patient Name: MARGAUX QUARLES : 1950 Exam Date/Time: 03/24/2023 09:53 Procedure: US RETROPERITONEAL Ordering Provider: ROJAS ELIZABETH Reason For Exam: Nephrolithiasis RENAL ULTRASOUND: INDICATION: Nephrolithiasis COMPARISON: No prior studies are available for comparison. Sonographic images of the bilateral kidneys and bladder were obtained. The right kidney measures 9.6 x 5.2 x 5.4 cm. Parenchymal echotexture is normal. There is a 1.8 cm inferior pole simple cyst. There is no evidence of hydronephrosis or renal calculus. The left kidney measures 11.3 x 5.1 x 5.0 cm. Parenchymal echotexture is normal. No focal lesions are seen. There is mild pelvicalyceal ectasia. No mass or fluid collection is seen adjacent to the kidneys. The bladder is grossly unremarkable. IMPRESSION: 1.4 cm inferior pole right renal cyst. Report Dictated on Electronically Signed By: Ezra Couch DO Electronically Signed Date/Time: 03/24/2023 4:21 PM EDT [facility] Radiology Study observation (narrative) [facility] alth US RetroperitoneumOrdered By : Ezra Couch on 03-24-2023 [facility] [employer] Work Phone: [facility] URINALYSIS DIP STICK AUTO W/O MICRO (CRN)on 03-03-2023 Bilirubin, UA Negative [facility] Blood, UA Trace-Intact [facility] Glucose, UA Negative [facility] Ketones, UA Negative [facility] Leukocytes, UA Small [facility] Nitrite, UA Negative [facility] pH, UA 6.0 [facility] Protein, UA Negative [facility] Spec Grav, UA 1.020 [facility] Urobilinogen, UA 0.2 [facility] alth [facility] UA DIP, URINE (POC)on 2022 BILIRUBIN UA (POCT) Negative Negative [facility] CLARITY UA (POCT) Clear [facility] COLOR UA (POCT) Yellow [facility] GLUCOSE UA (POCT) Negative Negative mg/dL [facility] HEMOGLOBIN/BLOOD UA (POCT) Trace-intact Abnormal Negative [facility] KETONE UA (POCT) Negative Negative mg/dL [facility] LEUKOCYTES UA (POCT) Small Abnormal Negative [facility] NITRITE UA (POCT) Negative Negative [facility] PH UA (POCT) 6.0 4.5 - 8.0 [facility] Protein Ql (U) Trace Abnormal Negative mg/dL [facility] SPECIFIC GRAVITY UA (POCT) 1.025 1.005 - 1.030 [facility] UROBILINOGEN UA (POCT) 0.2 E.U./dL Yenny l E.U./dL [facility] XR UPPER GI ROUTINE DOUBLE C ONTRAST/AIRon 04-20-2022 [facility] Fecal Occult Bld Tston 11-17 Immuno FOB Positive Critically abnormal Negative [facility] Comment on above: Result Comment: This test was developed and its performance characteristics determined by [facility]'s [facility] [place] ([facility]). It has not been cleared or approved by the FDA. [facility] is regulated under CLIA as qualified to perform high complexity testing. This test is used for clinical purposes. It should not be regarded as investigational or for research. Performed By: #### I FOBT #### [facility] [address] [address] XR CHEST 2V FRONTAL/LATon XR CHEST 2V FRONTAL/LAT Final Report DATE OF EXAM: Sep 06 2020 9:03AM ANX [id number] - XR CHEST 2V FRONTAL/LAT / PROCEDURE REASON: multiple diagnoses Physician Interpretation EXAMINATION: CHEST RADIOGRAPH (2 VIEW FRONTAL & LATERAL) CLINICAL HISTORY: Irregular heart beat. AGUILERA (dyspnea on exertion). MQ: [id number] EXAM DATE/TIME: 09/06/2020 9:03 AM COMPARISON: Chest 2 views 10/04/2014. RESULT: Lines, tubes, and devices: None. Lungs and pleura: No consolidation. No lung mass. No pleural effusion. No pneumothorax. Small hiatal hernia. Cardiomediastinal silhouette: Within normal limits and unchanged. Bones and soft tissues: Unremarkable. IMPRESSION: No acute radiographic abnormality. Web Content Manager: [employer] Transcribe Date/Time: Sep 06 2020 9:11A Dictated by : ANDREW COULTER MD This examination was interpreted and the report reviewed and electronically signed by: ANDREW COULTER MD on Sep 06 2020 9:13AM EST Normal [facility] No Panel Information [facility] Vital Signs Date Time Vital Sign Value Performing Clinician Ana koroma 01-05-2025 09:48-0400 Body height 170.2 cm Rochelle Christian MD Work Phone: [facility] 01-05-2025 09:48-0400 Heart rate 64 /min Rochelle Christian MD Work Phone: [facility] 01-05-2025 09:48-0400 SaO2% (BldA) [Mass fraction] 98 % Rochelle Christian MD Work Phone: [facility] 11-16-2024 11:04-0400 Body height 170.2 cm Elana Taveras MD Work Phone: [facility] 11-16-2024 11:04-0400 Body mass index (BMI) [Ratio] 25.69 kg/m2 Elana Taveras MD Work Phone: [facility] 11-16-2024 11:04-0400 Body weight 74.39 kg Elana Taveras MD Work Phone: [facility] 11-16-2024 11:04-0400 Diastolic blood pressure 74 mm[Hg] Elana Taveras MD Work Phone: [facility] 11-16-2024 11:04-0400 Heart rate 74 /min Elana Taveras MD Work Phone: [facility] 11-16-2024 11:04-0400 SaO2% (BldA) [Mass fraction] 98 % Elana Taveras MD Work Phone: [facility] 11-16-2024 11:04-0400 Systolic blood pressure 137 mm[Hg] Elana Taveras MD Work Phone: [facility] 10-16-2024 11:11-0400 Diastolic blood pressure 88 mm[Hg] Ileana Matsons DO Work Phone: [facility] [employer] 10-16-2024 11:11-0400 Heart rate 65 /min Ileana Matsons DO Work Phone: [employer] 10-16-2024 11:11-0400 Systolic blood pressure 137 mm[Hg] Ileana Matsons DO Work Phone: [facility] [employer] 10-16-2024 11:07-0400 Body height 172.7 cm Ileana Rojas DO Work Phone: [facility] [employer] 10-16-2024 11:07-0400 Body mass index (BMI) [Ratio] 22.05 kg/m2 Ileana Crystal DO Work Phone: [employer] 10-16-2024 11:07-0400 Body weight 65.77 kg Ileana Crystal DO Work Phone: [employer] 09-13-2024 13:25-0500 Body height 172.7 cm Ileana Crystal DO Work Phone: [employer] 09-13-2024 13:25-0500 Body mass index (BMI) [Ratio] 22.05 kg/m2 Ileana Crystal DO Work Phone: [employer] 09-13-2024 13:25-0500 Body weight 65.77 kg Ileana Crystal DO Work Phone: [employer] 09-13-2024 13:25-0500 Diastolic blood pressure 74 mm[Hg] Ileana Crystal DO Work Phone: [employer] 09-13-2024 13:25-0500 Heart rate 66 /min Ileana Crystal DO Work Phone: [employer] 09-13-2024 13:25-0500 Systolic blood pressure 126 mm[Hg] Ileana Crystal DO Work Phone: [employer] 08-10-2024 09:13-0500 Body height 172.7 cm Ileana Crystal DO Work Phone: [employer] 08-10-2024 09:13-0500 Body mass index (BMI) [Ratio] 21.9 kg/m2 Ileana Crystal DO Work Phone: [employer] 08-10-2024 09:13-0500 Body weight 65.32 kg Ileana Crystal DO Work Phone: [employer] 08-10-2024 09:13-0500 Diastolic blood pressure 74 mm[Hg] Ileana Crystal DO Work Phone: [employer] 08-10-2024 09:13-0500 Heart rate 74 /min Ileana Rojas DO Work Phone: [employer] 08-10-2024 09:13-0500 Systolic blood pressure 138 mm[Hg] Ileana Matsons DO Work Phone: [employer] 07-10-2024 11:43-0500 Body height 172.7 cm [facility]jas [facility] 07-10-2024 11:43-0500 Body mass index (BMI) [Ratio] 21.9 kg/m2 Ileana Rojas DO Work Phone: [employer] 07-10-2024 11:43-0500 Body weight 65.32 kg Ileana Rojas DO Work Phone: [facility] [employer] 02-21-2024 19:46-0400 Body temperature 97.2 [degF] Colin Schaffer MD [facility] 02-21-2024 19:46-0400 Diastolic blood pressure 83 mm[Hg] Colin Schaffer MD Work Phone: [employer] 02-21-2024 19:46-0400 Heart rate 87 /min Colin Schaffer MD Work Phone: [employer] 02-21-2024 19:46-0400 Respiratory rate 20 /min Colin Schaffer MD Work Phone: [employer] 02-21-2024 19:46-0400 SaO2% (BldA) [Mass fraction] 99 % Colin Schaffer MD [facility] 02-21-2024 19:46-0400 Systolic blood pressure 155 mm[Hg] Colin Schaffer MD Work Phone: [facility] [employer] 02-15-2024 11:00-0400 Diastolic blood pressure 62 mm[Hg] Pacc 1 Work Phone: [facility] 02-15-2024 11:00-0400 Systolic blood pressure 126 mm[Hg] Pacc 1 Work Phone: [facility] 02-15-2024 10:58-0400 Body height 167.6 cm Pacc 1 Work Phone: [facility] 02-15-2024 10:58-0400 Body mass index (BMI) [Ratio] 23.89 kg/m2 Pacc 1 Work Phone: [facility] 02-15-2024 10:58-0400 Body weight 67.13 kg Pacc 1 Work Phone: [facility] 02-15-2024 10:58-0400 Heart rate 65 /min Pacc 1 Work Phone: [facility] 02-15-2024 10:58-0400 Respiratory rate 18 /min Pacc 1 Work Phone: [facility] 02-01-2024 11:35-0400 Body height 170.2 cm Libertine Cinko BIOMEDICAL ENGINEERING AIDE.SCIENCE TEACHER Work Phone: [facility] 02-01-2024 11:35-0400 Body mass index (BMI) [Ratio] 23.49 kg/m2 Libertine Cinko BIOMEDICAL ENGINEERING AIDE.SCIENCE TEACHER Work Phone: [facility] 02-01-2024 11:35-0400 Body temperature 98.2 [degF] Libertine Cinko BIOMEDICAL ENGINEERING AIDE.SCIENCE TEACHER Work Phone: [facility] 02-01-2024 11:35-0400 Body weight 68.04 kg Libertine Cinko BIOMEDICAL ENGINEERING AIDE.SCIENCE TEACHER Work Phone: [facility] 02-01-2024 11:35-0400 Diastolic blood pressure 82 mm[Hg] Libertine Cinko BIOMEDICAL ENGINEERING AIDE.SCIENCE TEACHER Work Phone: [facility] 02-01-2024 11:35-0400 Heart rate 75 /min Libertine Cinko BIOMEDICAL ENGINEERING AIDE.SCIENCE TEACHER Work Phone: [facility] 02-01-2024 11:35-0400 Respiratory rate 18 /min Libertine Cinko BIOMEDICAL ENGINEERING AIDE.SCIENCE TEACHER Work Phone: [facility] 02-01-2024 11:35-0400 SaO2% (BldA) [Mass fraction] 98 % Flower Salazarjo-ann BIOMEDICAL ENGINEERING AIDE.SCIENCE TEACHER Work Phone: [facility] 02-01-2024 11:35-0400 Systolic blood pressure 129 mm[Hg] Flower Salazarjo-ann BIOMEDICAL ENGINEERING AIDE.SCIENCE TEACHER Work Phone: [facility] 01-11-2024 11:00-0400 Body height 172.7 cm Rochelle Christian MD Work Phone: [facility] 01-11-2024 11:00-0400 Heart rate 79 /min Rochelle Christian MD Work Phone: [facility] 01-11-2024 11:00-0400 SaO2% (BldA) [Mass fraction] 100 % Rochelle Christian MD Work Phone: [facility] 12-02-2023 10:03-0400 Body height 172.7 cm Emilio Enrique MD Work Phone: [facility] 12-02-2023 10:03-0400 Body mass index (BMI) [Ratio] 23.11 kg/m2 Emilio Enrique MD Work Phone: [facility] 12-02-2023 10:03-0400 Body temperature 98.1 [degF] Emilio Enrique MD Work Phone: [facility] 12-02-2023 10:03-0400 Body weight 68.95 kg Emilio Enrique MD Work Phone: [facility] 12-02-2023 10:03-0400 Diastolic blood pressure 62 mm[Hg] Emilio Enrique MD Work Phone: [facility] 12-02-2023 10:03-0400 Heart rate 80 /min Emilio Enrique MD Work Phone: [facility] 12-02-2023 10:03-0400 Respiratory rate 18 /min Emilio Enrique MD Work Phone: [facility] 12-02-2023 10:03-0400 SaO2% (BldA) [Mass fraction] 100 % Emilio Enrique MD Work Phone: [facility] 12-02-2023 10:03-0400 Systolic blood pressure 106 mm[Hg] Emilio Enrique MD Work Phone: [facility] 09-08-2023 07:29-0500 Body height 172.7 cm Ileana Crystal DO Work Phone: [facility] [employer] 09-08-2023 07:29-0500 Body mass index (BMI) [Ratio] 24.18 kg/m2 Ileana Crystal DO Work Phone: [facility] [employer] 09-08-2023 07:29-0500 Body weight 72.12 kg Ileana Crystal DO Work Phone: [facility] [employer] 07-16-2023 10:14-0500 Body height 172.7 cm Albaniadafne Roy BIOMEDICAL ENGINEERING AIDE - SCIENCE TEACHER Work Phone: [facility] [employer] 07-16-2023 10:14-0500 Body mass index (BMI) [Ratio] 24.18 kg/m2 Alexanderlokesh Roy BIOMEDICAL ENGINEERING AIDE - SCIENCE TEACHER Work Phone: [facility] [employer] 07-16-2023 10:14-0500 Body weight 72.12 kg Rosas Roy BIOMEDICAL ENGINEERING AIDE - SCIENCE TEACHER Work Phone: [facility] [employer] 06-17-2023 12:15-0500 Diastolic blood pressure 68 mm[Hg] Ileana Crystal DO Work Phone: [facility] [employer] 06-17-2023 12:15-0500 Heart rate 55 /min Ileana Crystal DO Work Phone: [facility] [employer] 06-17-2023 12:15-0500 SaO2% (BldA) [Mass fraction] 100 % Ileana Crystal DO Work Phone: [facility] [employer] 06-17-2023 12:15-0500 Systolic blood pressure 119 mm[Hg] Ileana Crystal DO Work Phone: [facility] [employer] 06-17-2023 12:00-0500 Respiratory rate 14 /min Ileana Rojas DO Work Phone: [facility] [employer] 06-17-2023 11:28-0500 Body temperature 97 [degF] Ileana Matsons DO Work Phone: [facility] 06-17-2023 09:30-0500 Body height 172.7 cm Ileana Matsons DO Work Phone: [facility] 06-17-2023 09:30-0500 Body mass index (BMI) [Ratio] 24.18 kg/m2 Ileana Rojas DO Work Phone: [facility] 06-17-2023 09:30-0500 Body weight 72.12 kg Ileana Rojas DO Work Phone: [facility] 05-19-2023 09:57-0400 Body height 172.1 cm Elana Taveras MD Work Phone: [facility] 05-19-2023 09:57-0400 Body weight 70.76 kg Elana Taveras MD Work Phone: [facility] 05-19-2023 09:57-0400 Diastolic blood pressure 80 mm[Hg] Elana Taveras MD Work Phone: [facility] 05-19-2023 09:57-0400 Heart rate 73 /min Elana Taveras MD Work Phone: [facility] 05-19-2023 09:57-0400 SaO2% (BldA) [Mass fraction] 100 % Elana Taveras MD Work Phone: [facility] 05-19-2023 09:57-0400 Systolic blood pressure 122 mm[Hg] Elana Taveras MD Work Phone: [facility] 03-03-2023 10:43-0400 Body height 175.3 cm Ileana Crystal DO Work Phone: [facility] 03-03-2023 10:43-0400 Body mass index (BMI) [Ratio] 23.63 kg/m2 Ileanawei Rojas DO Work Phone: [facility] [employer] 03-03-2023 10:43-0400 Body weight 72.58 kg Ileana Crystal DO Work Phone: [facility] [employer] 03-03-2023 10:43-0400 Diastolic blood pressure 71 mm[Hg] Ileana Crystal DO Work Phone: [facility] 03-03-2023 10:43-0400 Systolic blood pressure 115 mm[Hg] Ileana Matsons DO Work Phone: [facility] 10-06-2022 13:58-0500 Body height 175.3 cm Rochelle Christian MD Work Phone: [facility] 10-06-2022 13:58-0500 Body weight 73.48 kg Rochelle Christian MD Work Phone: [facility] 10-06-2022 10:06-0500 Body height 175.3 cm Kosta Bodjanac DO Work Phone: [facility] 10-06-2022 10:06-0500 Body weight 73.48 kg Kosta Bodjanac DO Work Phone: [facility] 10-06-2022 10:06-0500 Diastolic blood pressure 83 mm[Hg] Kosta Bodjanac DO Work Phone: [facility] 10-06-2022 10:06-0500 Heart rate 72 /min Kosta Bodjanac DO Work Phone: [facility] 10-06-2022 10:06-0500 SaO2% (BldA) [Mass fraction] 98 % Kosta Bodjanac DO Work Phone: [facility] 10-06-2022 10:06-0500 Systolic blood pressure 135 mm[Hg] Kosta Bodjanac DO Work Phone: [facility] 08-25-2022 10:55-0500 Body height 175.3 cm Rochelle Christian MD Work Phone: [facility] 08-25-2022 10:55-0500 Body weight 74.39 kg Rochelle Christian MD Work Phone: [facility] 08-25-2022 10:55-0500 Diastolic blood pressure 78 mm[Hg] Rochelle Christian MD Work Phone: [facility] 08-25-2022 10:55-0500 Systolic blood pressure 126 mm[Hg] Rochelle Christian MD Work Phone: [facility] 12-03-2021 10:25-0400 Body height 175.3 cm Kosta Bodjanac DO Work Phone: [facility] 12-03-2021 10:25-0400 Body weight 74.39 kg Kosta Bodjanac DO Work Phone: [facility] 12-03-2021 10:25-0400 Diastolic blood pressure 75 mm[Hg] Kosta Bodjanac DO Work Phone: [facility] 12-03-2021 10:25-0400 Heart rate 74 /min Kosta Bodjanac DO Work Phone: [facility] 12-03-2021 10:25-0400 SaO2% (BldA) [Mass fraction] 99 % Kosta Bodjanac DO Work Phone: [facility] 12-03-2021 10:25-0400 Systolic blood pressure 130 mm[Hg] Kosta Bodjanac DO Work Phone: [facility] Encounters Encounter Date Encounter Type Care Provider Facility Start: 01-05-2025 End: 01-05-2025 Patient encounter procedure Rochelle Christian MD Work Phone: [facility] Comment on above: BPH with obstruction /lower urinary tract symptoms (Primary Dx); Nocturia; Postprocedural stricture of anterior urethra; Renal calculi; Other male erectile dysfunction Start: 01-05-2025 End: 01-05-2025 ambulatory ROCHELLE CHRISTIAN Facility:[facility] Start: 11-16-2024 End: 11-16-2024 Patient encounter procedure Elana Taveras MD Work Phone: [facility] [place] Comment on above: Palpitations (Primar y Dx); Non-rheumatic mitral regurgitation; AGUILEAR (dyspnea on exertion); Iron deficiency anemia due to chronic blood loss; PVC (premature ventricular contraction) Start: 11-16-2024 End: 11-16-2024 ambulatory ELANA TAVERAS Facility:[facility] Start: 10-16-2024 End: 10-16-2024 Office outpatient visit 25 minutes Ileana Rojas DO Work Phone: [facility] [place] Comment on above: Recurrent UTI (Prima ry Dx); BPH with obstruction/lower urinary tract symptoms; Hypospadias, penile; Dysuria; Bladder spasms Start: 10-16-2024 End: 10-16-2024 ambulatory [facility] Start: 09-13-2024 End: 09-13-2024 Office outpatient visit 25 minutes Ileana Rojas DO Work Phone: [facility] [place] Comment on above: Hypospadias, penile (Primary Dx); Bladder spasms; Recurrent UTI; Urgency-frequency syndrome; BPH with obstruction/lower urinary tract symptoms Start: 09-13-2024 End: 09-13-2024 [facility] ILEANA ROJAS [facility] Start: 09-01-2024 End: 09-01-2024 [facility] Start: 08-15-2024 End: 08-15-2024 Subsequent hospital visit by physician Ileana Samuel Phone: [facility] Comment on above: Calculus of kidney; Hydronephrosis, unspecified hydronephrosis type Start: 08-15-2024 End: 08-15-2024 [facility] Start: 08-10-2024 End: 08-10-2024 Office outpatient visit 25 minutes [facility]leana Rojas DO [facility] Comment on above: Bladder spasms (Prim tru Dx); Recurrent UTI; Dysuria; Hypospadias, penile; 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 urethral stricture Start: 08-10-2024 End: 08-10-2024 ambulatory [facility] Start: 08-05-2024 End: 08-07-2024 Telephone encounter Ileana Rojas DO Work Phone[facility] [place] Comment on above: Results Start: 07-14-2024 End: 07-14-2024 Subsequent hospital visit by physician Ileana Rojas DO Work Phone: [facility] Comment on above: Recurrent UTI Start: 07-14-2024 End: 07-14-2024 ambulatory [facility] Start: 07-10-2024 End: 07-10-2024 ambulatory [facility] Start: 07-10-2024 End: 07-10-2024 Office outpatient visit 25 minutes Ileana Rojas DO Work Phone: [facility] Comment on above: Urinary retention (P rimary Dx); Dysuria; Elevated PSA; Recurrent UTI; BPH with obstruction/lower urinary tract symptoms; Hypospadias, penile; 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 urethral stricture Start: 05-23-2024 End: 05-23-2024 ambulatory [facility] Facility:[facility] Start: 05-23-2024 End: 05-23-2024 ambulatory [facility] Facility:[facility] Start: 04-30-2024 End: 05-02-2024 Refill Rochelle Christian MD Work Phone: [place] [place] [facility] Comment on above: Refill Request Start: 04-27-2024 End: 04-27-2024 Telephone encounter Emilio Enrique MD Work Phone: [facility] Internal Medicine [facility] ([facility]) Comment on above: Patient Update (Iron Infusion) Start: 03-17-2024 End: 06-05-2024 Telephone encounter Ileana Rojas DO Work Phone: [facility] [employer] Comment on above: Reschedule Start: 03-09-2024 End: 03-09-2024 ambulatory [facility] Start: 03-02-2024 End: 03-02-2024 [facility] Start: 02-21-2024 End: 02-21-2024 Emergency department patient visit Colin Schaffer MD Work Phone: [facility] EM[facility] Comment on above: Urinary retention (P rimary Dx); Status post insertion of Long catheter Start: 02-21-2024 End: 03-20-2024 Patient encounter procedure Benny Ogden RN [facility] Communication Start: 02-21-2024 End: 02-22-2024 Telephone encounter Jada Gutiérrez MD Work Phone: [facility] Comment on above: Appointment Request Start: 02-21-2024 End: 03-20-2024 ambulatory RYAN PARIS SUMAN Facility:[id number] Start: 02-17-2024 Patient encounter status Julia Enrique MD Work Phone: [facility] Work Phone: Start: 02-15-2024 End: 02-15-2024 Office outpatient new 45 [place] [id number] Work Phone: Pre Anesthesia Comment on above: Preop testing (Prima ry Dx); Pain, unspecified; Postprocedural hypoinsulinemia; Benign prostatic hyperplasia, unspecified whether lower urinary tract symptoms present; Gastroesophageal reflux disease, unspecified whether esophagitis present; Hyperlipidemia, unspecified hyperlipidemia type; Left knee pain, unspecified chronicity Start: 02-15-2024 End: 02-15-2024 Patient encounter status Pacc 1 Work Phone: [facility] Work Phone: Start: 02-15-2024 End: 02-15-2024 ambulatory TAM MAJOR Facility:[id number] Start: 02-15-2024 Encounter for other preprocedural examination DONNY KAPLAN [facility] Start: 02-02-2024 Telephone encounter Flower Zee APRN.CNP Work Phone: [facility] Internal Medicine [facility] ([facility]) Comment on above: Results Start: 02-01-2024 End: 02-01-2024 ambulatory LIBERTINE H MARTINKO Facility:[facility] Start: 02-01-2024 End: 02-01-2024 Patient encounter procedure Flower Zee APRN.SCIENCE TEACHER Work Phone: [facility] ([facility]) Comment on above: Pre-operative examin ation for internal medicine (Primary Dx); History of cardiac arrhythmia; Microcytic anemia; Chronic pain of left knee Start: 02-01-2024 End: 02-01-2024 Patient encounter status Flower Zee BIOMEDICAL ENGINEERING AIDE.SCIENCE TEACHER Work Phone: [facility] Work Phone: Start: 02-01-2024 End: 02-01-2024 ambulatory LIBERTINE H MARTINKO Facility:[facility] Start: 02-01-2024 Encounter for other preprocedural examination TERRYERTINE Li SALAZARKO [facility] Start: 01-11-2024 End: 01-11-2024 Patient encounter procedure Rochelle Christian MD Work Phone: [place] [place] [facility] Comment on above: Nocturia (Primary Dx ); Postprocedural stricture of anterior urethra; BPH with obstruction/lower urinary tract symptoms Start: 01-11-2024 End: 01-11-2024 ambulatory ROCHELLE CHRISTIAN Facility:[facility] Start: 01-10-2024 End: 01-10-2024 Subsequent hospital visit by physician Xr [place] [facility] Comment on above: Renal calculi [N20.0 ] Start: 01-10-2024 ambulatory Emilio mendes MD Work Phone: [facility] ([facility]) Start: 01-10-2024 Patient encounter procedure Denny Enrique MD Work Phone: [facility] ([facility]) Comment on above: Iron Infusion Start: 01-04-2024 Telephone encounter Cat Dinero [facility] Internal [facility] ([facility]) Comment on above: Consult (Pain Manage ment) Start: 01-03-2024 ambulatory Emilio mendes MD Work Phone: [facility] ([facility]) Start: 01-03-2024 Patient encounter procedure Denny Enrique MD Work Phone: [facility] ([facility]) Comment on above: Pain Management Start: 12-24-2023 Telephone encounter Elana nino MD Work Phone: [facility] [place] Start: 12-22-2023 Telephone encounter Elana nino MD Work Phone: [facility] [place] Comment on above: Cardiac Clearance Appointment (Pre-Op Clearance Appt Needed) Start: 12-09-2023 Telephone encounter Isidoro Botello MD Work Phone: [facility] ([facility]) Comment on above: Results Start: 12-02-2023 End: 12-02-2023 Patient encounter procedure Emilio Enrique MD Work Phone: [facility] ([facility]) Comment on above: Encounter to [facility] (Primary Dx); Microcytic anemia; Tear of medial meniscus of left knee, current, unspecified tear type, subsequent encounter Start: 11-19-2023 ambulatory DONNY Fortune y:[id number] Start: 11-19-2023 End: 11-19-2023 Subsequent hospital visit by physician [facility] [address] Scan Comment on above: m17.12 Start: 09-08-2023 End: 09-08-2023 Office outpatient visit 25 minutes Ileana Rojas DO Work Phone: [facility] Comment on above: 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 urethral stricture (Primary Dx); Hypospadias, penile Start: 08-12-2023 Orders Only Rosas Allen BIOMEDICAL ENGINEERING AIDE - SCIENCE TEACHER Work Phone: [facility] Start: 08-12-2023 Telephone encounter Rosas Roy BIOMEDICAL ENGINEERING AIDE - SCIENCE TEACHER Work Phone: [facility] Comment on above: Lab Orders Start: 07-16-2023 End: 07-16-2023 Office outpatient visit 15 minutes Rosas Ricks CNP Work Phone: [facility] Comment on above: BPH with obstruction /lower urinary tract symptoms Start: 06-17-2023 End: 06-17-2023 Subsequent hospital visit by physician Ileana Rojas DO Work Phone: [facility] Start: 06-16-2023 ambulatory Ileana lovelace DO Work Phone: [facility] Start: 05-19-2023 End: 05-19-2023 Patient encounter procedure Elana Taveras MD Work Phone: [facility] Cardiology [place] Comment on above: Irregular heart beat (Primary Dx); Mixed hyperlipidemia; Microcytic anemia; Poor urinary stream; Preoperative clearance; Mitral valve insufficiency, unspecified etiology Start: 05-19-2023 End: 05-19-2023 Preoperative state Elana Taveras MD Work Phone: [facility] Start: 03-31-2023 Refill Rochelle Christian MD Work Phone: [place] [place] [facility] Comment on above: Refill Request Start: 03-24-2023 End: 03-24-2023 Subsequent hospital visit by physician [facility] Us Exam Room 1 [facility] Comment on above: History of kidney [facility] Start: 03-05-2023 Telephone encounter Elana nino MD Work Phone: [facility] Cardiology [place] Comment on above: Cardiac Clearance Start: 03-03-2023 Telephone encounter Ileana Rojas DO Work Phone: [facility] Comment on above: Surgery Scheduling Start: 03-03-2023 End: 03-03-2023 Office outpatient new 45 minutes Ileana Rojas DO Work Phone: [facility] Comment on above: History of kidney [facility] (Primary Dx); Stricture of male urethra, unspecified stricture type; Hypospadias, penile Start: 01-29-2023 Telephone encounter Rochelle Christian MD Work Phone: [place] [place] [facility] Comment on above: Patient Update Start: 01-25-2023 Telephone encounter Rochelle Christian MD Work Phone: [place] [facility] Comment on above: Orders; UTI Start: 10-06-2022 End: 10-06-2022 Patient encounter procedure Kosta Colin Carrasco DO Work Phone: [facility] Comment on above: Routine general medi sofía examination at a [facility] facility (Primary Dx); Pure hypercholesterolemia; Hypertriglyceridemia; BPH with obstruction/lower urinary tract symptoms; Chronic pain of left knee BPH with obstruction /lower urinary tract symptoms (Primary Dx); Postprocedural stricture of anterior urethra Start: 10-06-2022 End: 10-06-2022 Patient encounter status Kosta Colin Carrasco DO Work Phone: [facility] Start: 08-25-2022 End: 08-25-2022 Patient encounter procedure Rochelle Christian MD Work Phone: [place] [place] [facility] Comment on above: Nocturia (Primary Dx ); Acute cystitis without hematuria; Other stricture of anterior urethra in male Start: 08-20-2022 Patient Outreach Annette Johnson [facility] Comment on above: Transition Of Care ( Seen at ED on 08/19/22) ER F/U Start: 04-20-2022 End: 04-20-2022 Evaluation and management of inpatient Gi/Gu 1 [facility] [place] [facility] (I-Stat) [facility] Comment on above: d50.9 anemia iorn di dd z12.[address] to fx Start: 12-03-2021 End: 12-03-2021 Patient encounter procedure Kosta Colin Carrasco DO Work Phone: [facility] Comment on above: Pure hypercholestero lemia (Primary Dx); Hypertriglyceridemia; Iron deficiency anemia, unspecified iron deficiency anemia type; BPH with obstruction/lower urinary tract symptoms; Elevated PSA; Vitamin D deficiency; Vitamin B12 deficiency Start: 10-21-2021 ambulatory Maxine Juarez [facility] [place] Comment on above: Population Health Na vigation Outreach (ACO Roster- Scheduled [address] Carrasco) Procedures Date Procedure Procedure Detail Performing Clinician Start: 01-05-2025 Urnls dip stick/tabl et rgnt auto w/o microscopy Rochelle Christian MD Work Phone: Start: 11-16-2024 Ecg routine ecg w/le ast 12 lds w/i&r Elana Taveras MD Work Phone: Start: 09-13-2024 Urnls dip stick/tabl et rgnt auto w/o microscopy Ileana Rojas DO Work Phone: Start: 08-15-2024 Ct abdomen & pelvis w/o contrast material Ileana Rojas DO Work Phone: Start: 08-10-2024 Urnls dip stick/tabl et rgnt auto w/o microscopy Ileana Rojas DO Work Phone: Start: 02-21-2024 Basic metabolic pane l calcium total Kosta Allen BIOMEDICAL ENGINEERING AIDE - SCIENCE TEACHER Work Phone: Start: 02-21-2024 Manual Differential panel - Blood Kosta Allen BIOMEDICAL ENGINEERING AIDE - SCIENCE TEACHER Work Phone: Start: 02-15-2024 Antibody screen DONNY KAPLAN Comment on above: Order Comment: Speci men Type: BLOOD SPECIMEN Ordering Facility: [facility] Address: [address] [place] [address] Performed By: #### T [id number] #### [facility] CLIA [id number] [address] [place] [address] [place] Start: 02-15-2024 Antibody screen rbc each serum technique Ryan Will MD Work Phone: Start: 02-15-2024 Basic metabolic pane l calcium total Ryan Will MD Work Phone: Start: 02-15-2024 Iadna s aureus ampli fied probe tq Ryan Will MD Work Phone: Start: 01-11-2024 Urnls dip stick/tabl et rgnt auto w/o microscopy Rochelle Christian MD Work Phone: Start: 12-02-2023 Adult depression scr eening assessment Emilio Enrique MD Work Phone: Start: 11-19-2023 Ct lower extremity w /o contrast material Donny Kaplan DO Work Phone: Start: 08-12-2023 Urnls dip stick/tabl et rgnt auto w/o microscopy Albaniadafne Carrera Kirill BIOMEDICAL ENGINEERING AIDE - SCIENCE TEACHER Work Phone: Start: 06-17-2023 FL GUIDANCE OR USE O NLY - NON-RESULTABLE Ileana Rojas DO Work Phone: Start: 05-19-2023 Ecg routine ecg w/le ast 12 lds w/i&r Elana Taveras MD Work Phone: Start: 03-24-2023 Us retroperitoneal r eal time w/image complete Ileana Rojas DO Work Phone: Start: 03-03-2023 Urnls dip stick/tabl et rgnt auto w/o microscopy Ileana Rojas DO Work Phone: Start: 10-06-2022 Ecg routine ecg w/le ast 12 lds w/i&r Kosta Carrasco DO Work Phone: Start: 10-06-2022 End: 10-06-2022 Hao post-voiding residual urine&/bladder cap Rochelle Christian MD Work Phone: Start: 04-20-2022 Radiologic exam upr gi trc double contrast study Jeff Duarte Work Phone: Start: 04-13-2022 Colonoscopy Kosta gilman DO Work Phone: Start: 12-03-2021 Ecg routine ecg w/le ast 12 lds w/i&r Kosta Carrasco DO Work Phone: Start: 12-03-2021 Adult depression scr eening assessment Kosta Carrasco DO Work Phone: Start: 09-06-2020 Lipid 1996 panel - S lauri or Plasma Elana Taveras MD Work Phone: Start: 01-16-2020 PSA screening Comment on above: Performed By: #### P SA #### [place] [id number] Start: 09-15-2016 Adult depression scr eening assessment Maxine Juarez Plan of Treatment Date Care Activity Detail Author Start: 04-13-2032 Colonoscopy COLONOSCOPY [facility] Start: 04-13-2032 COLORECTAL CANCER SCREENING COLORECTAL CANCER SCREENING [facility] Start: 04-13-2032 Screening for malignant neoplasm of colon [facility] Start: 02-20-2027 Diabetes Screening Diabetes Screening [facility] Start: 02-14-2027 Diabetes Screening Diabetes Screening [facility] Start: 01-31-2027 Diabetes Screening Diabetes Screening [facility] Start: 12-06-2026 Diabetes Screening Diabetes Screening [facility] Start: 10-16-2025 End: 11-16-2025 Echocardiography ECHO Cardiology Routine PVC (premature ventricular contraction) Expected: 10/16/2025 (Approximate), Expires: 11/16/2025 [facility] Work Phone: Comment on above: Expected: 10/16/2025 (Approximate), Expi res: 11/16/2025 Start: 09-06-2025 Lipid 1996 panel - Serum or Plasma Lipid Screening [facility] Start: 09-06-2025 Lipid panel Lipid Screening [facility] Start: 09-06-2025 LIPID SCREEN LIPID SCREEN [facility] Start: 04-26-2025 End: 04-26-2025 Patient encounter procedure 04/26/2025 10:00 AM EDT Office Visit [facility] [address] [place] [address] Ileana Rojas DO [address] [place] [address] [facility] Start: 04-02-2025 Influenza vaccination Influenza Vaccine (Season Ended) [facility] Start: 01-10-2025 End: 04-11-2025 Prostate specific Ag [Mass/volume] in Serum or Plasma PROSTATE-SPECIFIC ANTIGEN DIAGNOSTIC Lab Routine BPH with obstruction/lower urinary tract symptoms Expected: 01/10/2025 (Approximate), Expires: 04/11/2025 [facility] Work Phone: Comment on above: Expected: 01/10/2025 (Approximate), Expi res: 04/11/2025 Start: 01-09-2025 End: 01-09-2025 Patient encounter procedure 01/09/2025 11:00 AM EDT Office Visit [facility] [address] [place] [phone] Rochelle Christian MD [address] [place] [phone] 12 months psa prior [facility] Comment on above: 12 months psa prior Start: 01-05-2025 End: 01-05-2025 Patient encounter procedure 01/05/2025 10:00 AM EDT Office Visit [facility] [address] [place] [phone] Rochelle Christian MD [address] [place] [address] 12 months psa prior [facility] Comment on above: 12 months psa prior Start: 12-01-2024 Anxiety Screening Anxiety Screening [facility] Start: 12-01-2024 Depression Screening Depression Screening [facility] Start: 10-16-2024 End: 10-16-2024 Patient encounter procedure 10/16/2024 11:00 AM EDT [facility] [address] [place] [phone] Ileana Rojas, DO [address] [place] [address] [facility] Start: 10-09-2024 End: 10-09-2024 Patient encounter procedure 10/09/2024 11:00 AM EDT Office Visit [facility] [address] [place] [phone] Ileana Rojas DO [address] [place] [address] [facility] Start: 10-08-2024 End: 07-10-2025 PSA, total and free PSA, total and free Lab Routine Elevated PSA Expected: 10/08/2024 (Approximate), Expires: 07/10/2025 [facility] Comment on above: Expected: 10/08/2024 (Approximate), Expi res: 07/10/2025 Start: 09-13-2024 End: 09-13-2024 Patient encounter procedure 09/13/2024 1:40 PM EST Office Visit [place] [address] [place] [phone] Ileana Rojas DO [address] [place] [address] [facility] Start: 08-15-2024 End: 08-15-2024 Patient encounter procedure 08/15/2024 9:[address] [facility] [address] [facility] [address] [place] [address] Ileana Rojas DO [address] [place] [address] [facility] Start: 08-10-2024 End: 08-10-2024 Patient encounter procedure 08/10/2024 9:20 AM EST Office Visit [facility] [address] [place] [phone] Ileana Rojas DO [address] [place] [address] [facility] [place] Start: 08-05-2024 End: 08-05-2025 CT Abdomen and Pelvis WO contrast CT abdomen pelvis wo IV contrast Imaging Routine Calculus of kidney Hydronephrosis, unspecified hydronephrosis type Expected: 08/05/2024, Expires: 08/05/2025 [facility] Work Phone: Comment on above: Expected: 08/05/2024, Expires: Start: 08-02-2024 Advance Directive Discussion Advance Directive Discussion [facility] Start: 07-14-2024 End: 07-14-2024 Patient encounter procedure 07/14/2024 10:45 AM EST Appointment [facility] [address] [place] [address] [facility] Start: 07-10-2024 End: 07-10-2025 PSA, total and free PSA, total and free Lab Routine Elevated PSA Expected: 07/10/2024 (Approximate), Expires: 07/10/2025 [facility] Comment on above: Expected: 07/10/2024 (Approximate), Expi res: 07/10/2025 Start: 07-10-2024 End: 07-10-2025 US Retroperitoneum US retroperitoneum Imaging Routine Recurrent UTI Expected: 07/10/2024, Expires: 07/10/2025 [facility] Comment on above: Expected: 07/10/2024, Expires: Start: 07-10-2024 End: 07-10-2024 Patient encounter procedure [facility] Start: 04-19-2024 End: 05-19-2024 Echocardiography ECHO Cardiology Routine Mitral valve insufficiency, unspecified etiology Expected: 04/19/2024 (Approximate), Expires: 05/19/2024 [facility] Work Phone: Comment on above: Expected: 04/19/2024 (Approximate), Expi res: 05/19/2024 Start: 04-11-2024 End: 04-11-2024 Patient encounter procedure 04/11/2024 11:20 AM EDT Procedure Visit [facility] [address] [place] [phone] Ileana Rojas DO [address] [place] [address] [facility] Start: 04-02-2024 Covid-19 Vaccine ( season) Covid-19 Vaccine ( season) [facility] Start: 04-02-2024 Influenza vaccination [facility] Start: 03-09-2024 End: 03-09-2024 Patient encounter procedure 03/09/2024 11:30 AM EDT Office Visit [facility] [address] [place] [phone] [facility] Start: 02-21-2024 End: 02-21-2024 Admission to same day surgery center 02/21/2024 7:30 AM EDT - 02/21/2024 9:[address] [facility] [address] [place] [address] Ryan Will MD [address] [phone] ARTHROPLASTY REPLACE JOINT TOTAL KNEE [facility] Comment on above: ARTHROPLASTY REPLACE JOINT TOTAL KNEE Start: 02-21-2024 End: 02-21-2024 Arthrp kne condyle&platu medial&lat compartments ARTHROPLASTY REPLACE JOINT TOTAL KNEE Primary osteoarthritis of left knee Other spontaneous disruption of medial collateral ligament of left knee Left knee pain, unspecified chronicity 02/21/2024 7:30 AM EDT MR OR Start: 02-21-2024 End: 02-21-2024 Rpr primary torn ligm&/capsule knee collateral OPEN REPAIR LIGAMENT KNEE; COLLATERAL Primary osteoarthritis of left knee Other spontaneous disruption of medial collateral ligament of left knee Left knee pain, unspecified chronicity 02/21/2024 7:30 AM EDT MR OR Start: 02-21-2024 Subsequent hospital visit by physician 02/21/2024 7:30 AM EDT Hospital Encounter [facility] [address] [place] [address] Ryan Will MD [address] [place] [address] Primary osteoarthritis of left knee [M17.12] [facility] Comment on above: Primary osteoarthritis of left knee [M17 .12] Start: 02-15-2024 End: 05-16-2024 Bacteria identified in Urine by Culture [facility] Work Phone: Comment on above: Expected: 02/15/2024, Expires: Start: 02-15-2024 End: 05-16-2024 Hemoglobin A1c in Blood [facility] Work Phone: Comment on above: Expected: 02/15/2024, Expires: Start: 02-15-2024 End: 02-15-2024 Anesthesia consultation 02/15/2024 11:00 AM EDT PAT Pre Anesthesia [address] [place] [address] ARTHROPLASTY REPLACE JOINT TOTAL KNEE [3132] - Knee - Left Pre Anesthesia Comment on above: ARTHROPLASTY REPLACE JOINT TOTAL KNEE [3 132] - Knee - Left Start: 02-09-2024 End: 02-09-2024 Patient encounter procedure 02/09/2024 10:20 AM EDT Office Visit [facility] Internal [facility]) [address] [facility] [address] [place] [address] Flower Zee, DAYNA.SCIENCE TEACHER 1 [facility] [address] [place] [address] Pre surgery Exam [facility]) Comment on above: Pre surgery Exam Start: 02-07-2024 End: 02-07-2024 Patient encounter procedure 02/07/2024 3:30 PM EDT Office Visit [facility] [place] [address] [place] [phone] Weston Palacios DO [address] [place] [address] New Patient - Tear of medial meniscus of left knee, current, subsequent encounter [S83.242D] [facility] [place] Comment on above: New Patient - Tear of medial meniscus of left knee, current, subsequent encounter [H45.802D] Start: 02-01-2024 End: 02-01-2024 Patient encounter procedure 02/01/2024 11:00 AM EDT Office Visit [facility] Internal [facility] ([facility]) [address] [facility] [address] [place] [address] Flower Zee APRN.SCIENCE TEACHER 1 [facility] [address] [place] [address] Pre surgery Exam [facility]) Comment on above: Pre surgery Exam Start: 01-11-2024 End: 01-11-2024 Patient encounter procedure [facility] Comment on above: 12 months psa kub prior 12 months psa kub pr ior/12/13 lvm psa done, but not kub Start: 12-02-2023 End: 03-02-2024 Basic metabolic 2000 panel - Serum or Plasma BASIC METABOLIC PANEL Lab Routine Microcytic anemia Encounter to establish care Expected: 12/02/2023, Expires: 03/02/2024 [facility] Comment on above: Expected: 12/02/2023, Expires: Start: 12-02-2023 End: 03-02-2024 CBC panel - Blood by Automated count COMPLETE BLOOD COUNT Lab Routine Microcytic anemia Encounter to establish care Expected: 12/02/2023, Expires: 03/02/2024 [facility] Work Phone: Comment on above: Expected: 12/02/2023, Expires: Start: 12-02-2023 End: 03-02-2024 Ferritin [Mass/volume] in Serum or Plasma FERRITIN Lab Routine Microcytic anemia Expected: 12/02/2023, Expires: 03/02/2024 [facility] Comment on above: Expected: 12/02/2023, Expires: Start: 12-02-2023 End: 03-02-2024 Iron and Iron binding capacity panel - Serum or Plasma IRON AND TIBC Lab Routine Microcytic anemia Expected: 12/02/2023, Expires: 03/02/2024 [facility] Comment on above: Expected: 12/02/2023, Expires: Start: 09-08-2023 End: 09-08-2023 Patient encounter procedure 09/08/2023 4:00 PM EST Office Visit [facility] [address] [place] [address] Ileana Rojas DO [address] [place], [place] [id number] [facility] Start: 09-06-2023 DIABETES SCREEN DIABETES SCREEN [facility] Start: 09-06-2023 Diabetes Screening Diabetes Screening [facility] Start: 08-12-2023 End: 08-26-2023 Bacteria identified in Urine by Culture [facility] Work Phone: Comment on above: Expected: 08/12/2023 (Approximate), Expi res: 08/26/2023 Start: 08-12-2023 End: 08-26-2023 Urinalysis complete panel - Urine Complete Urinalysis Lab Routine Dysuria Expected: 08/12/2023 (Approximate), Expires: 08/26/2023 [facility] Work Phone: Comment on above: Expected: 08/12/2023 (Approximate), Expi res: 08/26/2023 Start: 08-02-2023 Advance Directive Discussion Advance Directive Discussion [facility] Start: 08-02-2023 Behavioral Health Screening Behavioral Health Screening [facility] Start: 07-07-2023 End: 07-07-2023 Patient encounter procedure 07/07/2023 4:00 PM EST Office Visit [facility] [address] [place] [phone] Crystal, Ileana A, DO [address] [place] [address] [facility] Start: 06-17-2023 End: 06-17-2023 Admission to same day surgery center 06/17/2023 11:00 AM EST - 06/17/2023 12:00 PM EST Surgery [facility] MA[facility] [place] [address] [place] [phone] Ileana Rojas, DO [address] [place] [address] RETROGRADE URETHROGRAM, CYSTOSCOPY, POSSIBLE URETHRAL DILATION [01104 (CPT )] [facility] Comment on above: RETROGRADE URETHROGRAM, CYSTOSCOPY, POSS IBLE URETHRAL DILATION [92623 (CPT )] Start: 06-17-2023 End: 06-17-2023 Cysto calibration dilat urtl strix/stenosis CYSTOSCOPY AND DILATION AND OR CALIBRATION OF URETHRAL STRICTURE Urethral stricture 06/17/2023 11:00 AM EST [facility] Operating Room Start: 06-17-2023 End: 06-17-2023 Cystourethroscopy CYSTOSCOPY Urethral stricture 06/17/2023 11:00 AM EST [facility] Operating [facility] Start: 06-17-2023 End: 06-17-2023 Njx retrograde urethrocstograpy INJECTION PROCEDURE FOR RETROGRADE URETHROCYSTOGRAPHY Urethral stricture 06/17/2023 11:00 AM EST [facility] Operating [facility] Start: 06-17-2023 Subsequent hospital visit by physician 06/17/2023 11:00 AM EST Hospital Encounter [facility] [address] [facility] [place] [phone] Ileana Rojas, DO [address] [place] [address] [facility] Start: 06-07-2023 End: 06-07-2023 Admission to establishment 06/07/2023 12:00 PM EST Pre-Admission Testing [facility] Pre-Admit Testing [address] [facility] [place] [phone] [facility] Pre-Admit Testing Start: 04-02-2023 Covid-19 Vaccine ( season) Covid-19 Vaccine ( season) [facility] Start: 04-02-2023 Influenza vaccination [facility] Start: 03-24-2023 End: 03-24-2023 Patient encounter procedure 03/24/2023 9:45 AM EDT Appointment [facility] [address] [facility] [place] [address] [facility] Start: 03-18-2023 End: 03-18-2023 Admission to same day surgery center 03/18/2023 9:00 AM EDT - 03/18/2023 10:00 AM EDT Surgery [facility] MA[facility] OR [address] [place] [phone] Ileana Rojas, DO [address] [place] [address] RETROGRADE URETHROGRAM, CYSTOSCOPY, POSSIBLE URETHRAL DILATION [23724 (CPT )] [facility] MAIN OR Comment on above: RETROGRADE URETHROGRAM, CYSTOSCOPY, POSS IBLE URETHRAL DILATION [79599 (CPT )] Start: 03-18-2023 End: 03-18-2023 Cysto calibration dilat urtl strix/stenosis CYSTOSCOPY AND DILATION AND OR CALIBRATION OF URETHRAL STRICTURE Urethral stricture 03/18/2023 9:00 AM EDT [facility] Operating Room Start: 03-18-2023 End: 03-18-2023 Cystourethroscopy CYSTOSCOPY Urethral stricture 03/18/2023 9:00 AM EDT [facility] Operating Room Start: 03-18-2023 End: 03-18-2023 Njx retrograde urethrocstograpy INJECTION PROCEDURE FOR RETROGRADE URETHROCYSTOGRAPHY Urethral stricture 03/18/2023 9:00 AM EDT [facility] Operating Room Start: 03-18-2023 Subsequent hospital visit by physician 03/18/2023 9:00 AM EDT Hospital Encounter [facility] [address] [place] [phone] Ileana Rojas, DO [address] [place] [address] [facility] Start: 03-11-2023 End: 03-11-2023 Admission to establishment 03/11/2023 12:30 PM EDT Pre-Admission Testing [facility] Pre-Admit Testing [address] [place] [phone] Ileana Rojas, DO [address] [place] [address] [facility] Pre-Admit Testing Start: 03-03-2023 End: 03-03-2024 US Retroperitoneum US retroperitoneum Imaging Routine History of kidney stones Expected: 03/03/2023, Expires: 03/03/2024 [facility] Work Phone: Comment on above: Expected: 03/03/2023, Expires: 4 Start: 01-25-2023 End: 03-27-2023 Bacteria identified in Urine by Culture [facility] Work Phone: Comment on above: Expected: 01/25/2023 (Approximate), Expi res: 03/27/2023 Start: 01-06-2023 End: 03-08-2023 Prostate specific Ag [Mass/volume] in Serum or Plasma PSA/PROSTSPECAG DIAG Lab Routine BPH with obstruction/lower urinary tract symptoms Expected: 01/06/2023, Expires: 03/08/2023 [facility] Work Phone: Comment on above: Expected: 01/06/2023, Expires: 3 Start: 12-03-2022 Adult depression screening assessment DEPRESSION SCREENING [facility] Start: 08-02-2022 ADVANCE DIRECTIVE DISCUSSION ADVANCE DIRECTIVE DISCUSSION [facility] Start: 08-02-2022 DEPRESSION ASSESSMENT DEPRESSION ASSESSMENT [facility] Start: 04-02-2022 Influenza vaccination INFLUENZA (#1) [facility] Start: 12-03-2021 End: 02-02-2022 CBC W Auto Differential panel - Blood CBC + DIFF Lab Routine Iron deficiency anemia, unspecified iron deficiency anemia type Expected: 12/03/2021, Expires: 02/02/2022 [facility] Work Phone: Comment on above: Expected: 12/03/2021, Expires: 2 Start: 12-03-2021 End: 02-02-2022 Comprehensive metabolic 2000 panel - Serum or Plasma COMP METABOLIC PANEL Lab Routine Pure hypercholesterolemia Hypertriglyceridemia Expected: 12/03/2021, Expires: 02/02/2022 [facility] Work Phone: Comment on above: Expected: 12/03/2021, Expires: 2 Start: 12-03-2021 End: 02-02-2022 FERRITIN BLD FERRITIN BLD Lab Routine Iron deficiency anemia, unspecified iron deficiency anemia type Expected: 12/03/2021, Expires: 02/02/2022 [facility] Work Phone: Comment on above: Expected: 12/03/2021, Expires: 2 Start: 12-03-2021 End: 02-02-2022 IRON + TIBC IRON + TIBC Lab Routine Iron deficiency anemia, unspecified iron deficiency anemia type Expected: 12/03/2021, Expires: 02/02/2022 [facility] Work Phone: Comment on above: Expected: 12/03/2021, Expires: 2 Start: 12-03-2021 End: 02-02-2022 LIPID PANEL BASIC LIPID PANEL BASIC Lab Routine Pure hypercholesterolemia Hypertriglyceridemia Expected: 12/03/2021, Expires: 02/02/2022 [facility] Work Phone: Comment on above: Expected: 12/03/2021, Expires: 2 Start: 12-03-2021 End: 02-02-2022 Thyrotropin [Units/volume] in Serum or Plasma TSH BLD Lab Routine Pure hypercholesterolemia Hypertriglyceridemia Expected: 12/03/2021, Expires: 02/02/2022 [facility] Work Phone: Comment on above: Expected: 12/03/2021, Expires: 2 Start: 12-03-2021 End: 02-02-2022 VITAMIN B12 BLOOD VITAMIN B12 BLOOD Lab Routine Vitamin B12 deficiency Expected: 12/03/2021, Expires: 02/02/2022 [facility] Work Phone: Comment on above: Expected: 12/03/2021, Expires: 2 Start: 12-03-2021 End: 02-02-2022 VITAMIN D 25 HYDROXY VITAMIN D 25 HYDROXY Lab Routine Vitamin D deficiency Expected: 12/03/2021, Expires: 02/02/2022 [facility] Work Phone: Comment on above: Expected: 12/03/2021, Expires: 2 Start: 11-17-2021 COLORECTAL CANCER SCREENING COLORECTAL CANCER SCREENING [facility] Start: 11-17-2021 FECAL OCCULT BLOOD FECAL OCCULT BLOOD [facility] Start: 11-17-2021 Screening for malignant neoplasm of colon Fecal Occult Blood [facility] Start: 09-10-2021 COVID-19 VACCINE (2 - Booster for Keaton series) COVID-19 VACCINE (2 - Booster for Keaton series) [facility] Start: 08-02-2021 ADVANCE DIRECTIVE DISCUSSION ADVANCE DIRECTIVE DISCUSSION [facility] Start: 09-09-2020 Pneumococcal Vaccine: 50+ Years (3 of 3 - PCV20 or PCV21) Pneumococcal Vaccine: 50+ Years (3 of 3 - PCV20 or PCV21) [facility] Start: 09-09-2020 Pneumococcal Vaccine: 65+ Years (3 - PPSV23 or PCV20) Pneumococcal Vaccine: 65+ Years (3 - PPSV23 or PCV20) [facility] Start: 09-09-2020 Pneumococcal Vaccine: 65+ Years (3 of 3 - PPSV23 or PCV20) Pneumococcal Vaccine: 65+ Years (3 of 3 - PPSV23 or PCV20) [facility] Start: 06-06-2019 Pneumococcal Vaccine: 65+ Years (3 - PPSV23 if available, else PCV20) Pneumococcal Vaccine: 65+ Years (3 - PPSV23 if available, else PCV20) [facility] Start: 09-15-2017 Adult depression screening assessment DEPRESSION SCREENING [facility] Start: 2010 Hepatitis B Vaccines (1 of 3 - Risk 3-dose series) Hepatitis B Vaccines (1 of 3 - Risk 3-dose series) [facility] Start: 2010 RSV Immunization aged 60 or older (1 - 1-dose 60+ series) RSV Immunization aged 60 or older (1 - 1-dose 60+ series) [facility] Start: 2010 RSV Immunization for Adults (1 - Risk 60-74 years 1-dose series) RSV Immunization for Adults (1 - Risk 60-74 years 1-dose series) [facility] Start: 2000 Zoster Vaccines (1 of 2) Zoster Vaccines (1 of 2) [facility] Start: 1995 COLOGUARD (FIT-DNA) COLOGUARD (FIT-DNA) [facility] Start: 1995 Colonoscopy COLONOSCOPY [facility] Start: [address] COLONOGRAPHY [facility] Start: 1995 Screening for malignant neoplasm of colon [facility] Start: 1995 SIGMOIDOSCOPY SIGMOIDOSCOPY [facility] Start: 1969 DTaP/Tdap/Td Vaccines (1 - Tdap) DTaP/Tdap/Td Vaccines (1 - Tdap) [facility] Start: 1969 Hepatitis A Vaccines (1 of 2 - Risk 2-dose series) Hepatitis A Vaccines (1 of 2 - Risk 2-dose series) [facility] Start: 1969 Urine microalbumin profile [facility] Start: 1968 Hepatitis C screening Hepatitis C Screening [facility] Start: 1962 Depression Screening Depression Screening [facility] Start: 1950 Lipid panel Lipid Panel [facility] Start: 1950 Medicare Annual Wellness (AWV) Medicare Annual Wellness (AWV) [facility] Start: 1950 Screening for malignant neoplasm of colon [facility] Bacteria identified in Urine by Culture Urine culture Microbiology Routine Dysuria Ordered: 07/10/2024 [facility] Work Phone: Comment on above: Ordered: 07/10/2024 Bacteria identified in Urine by Culture Urine culture Microbiology Routine Recurrent UTI Dysuria Ordered: 08/10/2024 [facility] Comment on above: Ordered: 08/10/2024 Cysto calibration di lat urtl strix/stenosis CYSTOSCOPY AND DILATION AND OR CALIBRATION OF URETHRAL STRICTURE Urethral stricture [facility] Operating [facility] Cystourethroscopy CYSTOSCOPY Ure thral stricture [facility] Operating Room Mycoplasma/Ureaplasm a Panel ([facility]) Mycoplasma/Ureaplasma Panel ([facility]) Microbiology Routine Recurrent UTI Dysuria Ordered: 08/10/2024 [facility] Work Phone: Comment on above: Ordered: 08/10/2024 Njx retrograde urethrocstograpy INJECTION PROCEDURE FOR RETROGRADE URETHROCYSTOGRAPHY Urethral stricture [facility] Operating Room OUTSIDE PROCEDURE SCAN OUTSIDE P ROCEDURE SCAN Procedures Ordered: 03/24/2023 [facility] Comment on above: Ordered: 03/24/2023 UA DIP B/O UA DIP B/O Lab R outine BPH with obstruction/lower urinary tract symptoms Ordered: 01/05/2025 [facility] Work Phone: Comment on above: Ordered: 01/05/2025 End: 07-14-2024 US Retroperitoneum [facility] Work Phone: Comment on above: Once for 1 Occurrences starting 07/14/20 24 until 07/14/2024 XR Abdomen Supine an d Upright XR ABDOMEN 1V SUPINE Radiology Routine Renal calculi 01/10/2024 3:39 PM EDT [facility] Work Phone: [facility] Immunizations Immunization Date Immunization Notes Care Provider Juan [facility] 04-15-2023 respiratory syncytia l virus (RSV) vaccine, adjuvanted (AREXVY) Emilio Enrique MD Work Phone: [facility] 07-09-2022 influenza, injectabl e, quadrivalent, preservative free Emilio Enrique MD Work Phone: [facility] 07-09-2022 influenza virus vaccine, unspecified formulation Ileana Rojas DO Work Phone: [facility] 07-04-2021 Influenza, injectabl e, Madin Gilbert Canine Kidney, preservative free, quadrivalent Emilio Enrique MD Work Phone: [facility] 04-24-2020 Influenza, injectabl e, Madin Gilbert Canine Kidney, preservative free, quadrivalent Maxine Juarez [facility] Work Phone: 09-15-2016 influenza, high dose seasonal, preservative-free [facility] 09-09-2015 pneumococcal conjuga te vaccine, 13 valent [facility] 04-23-2015 influenza, injectabl e, quadrivalent, contains preservative [facility] 04-23-2015 influenza, seasonal, injectable [facility] Work Phone: 06-06-2014 influenza, seasonal, injectable [facility]2014 pneumococcal polysaccharide vaccine, 23 valent Maxine [facility] 06-05-2013 influenza, high dose seasonal, preservative-free Maxine [facility] Work Phone: 07-20-2012 influenza, seasonal, injectable Maxine [facility] Work Phone: Payers Date Payer Category Payer Self-pay 2022 Medicare supplementa l policy (as second payer) [employer] [id number] 2022 Unknown [facility] [id number] 2022-Present [address] [place] [address] Supplement [id number] 2015 Medicare MEDICARE MEDICAR E A AND B [id number] 2015-Present [phone] [address] [address] [place] [address] Medicare [id number] 2015 Medicare [id number] 2015 Private Health Insurance [facility] AARP SUPPLEMENT [id number] 2015-Present [phone] [address] [place] [address] Indemnity [id number] 2015 Private Health Insurance [id number] 2015 Medicare [id number] 2015 Unknown [id number] Unknown [id number] Unknown [id number] Unknown [id number] Social History Date Type Detail Facility Start: 06-06-2014 Tobacco smoking stat [facility] Never smoked tobacco [facility] Start: 06-06-2014 Tobacco use and exposure Smoke less tobacco non-user [facility] Start: 10-07-2021 End: 01-05-2025 Alcohol intake Current drinker of alcohol (finding) [facility] Start: 06-06-2014 History SDOH Alcohol Comment rarely [facility] Start: 1950 Sex Assigned At Not on file [facility] Start: 10-11-2021 End: 03-24-2023 Exposure to SARS-CoV-2 (event) Not sure [facility] Start: 1950 Sex Assigned At Male [facility] Start: 07-21-2022 End: 10-16-2024 Alcohol intake Current non-drinker of alcohol (finding) [facility] Start: 07-21-2022 End: 06-13-2023 History of Social function [facility] Start: 07-21-2022 End: 01-12-2023 Tobacco use panel [facility] National Score (1-10 0), lower number is lower risk 59 [facility] Start: 08-22-2022 Gender identity Identifies as male gender (finding) [facility] Start: 08-22-2022 Sexual orientation Heterosexual (jose laura) [facility] Start: 03-02-2022 Sex Male (finding) Jennifernomi Johnson soto Medical Equipment Procedure Code Equipment Code Equipment Origin al Text Equipment Identifier Dates Mesh Srg 3dmax 6x4in Rt Groin - [id number] Start: 11-16-2014 Comment on above: Description: BARD 3D MAX MESHKNITTED POLYPROPYLEN PRE FORMED MESH Mesh Srg 3dmax 6x4in Lt Groin - [id number] Start: 11-16-2014 Comment on above: Description: BARD 3 D MAX MESH KNITTED POLYPROPYLENE PRE FORMED MESH Cement Refobacin Bone Sterile Latex Free Disposable - [id number] Start: 02-21-2024 Cement Refobacin Bone Sterile Latex Free Disposable - [id number] Start: 02-21-2024 Component 34mm Thin Patellar 3 Peg Series A Knee - [id number] Start: 02-21-[address] Interlok Cocr 65mm Femoral Cemented Posterior Stabilize - [id number] Start: 02-21-2024 Tray Cocr 79mm Tibial I Beam Knee - [id number] Start: 02-21-2024 Bearing Vanguard Porous [id number] Tibial Posterior Stabilize Plus Direct - [id number] Start: 02-21-2024 Goals Date Patient Goal Desired Activity /State Personal health goal Functional Status Date Assessment Result Facility 12-12-2014 Are you deaf, or do you have serious difficulty hearing No 12/12/2014 2:37 PM EDT Angeles Romero MA No [facility] 12-12-2014 Do you have serious difficulty walking or climbing stairs No 12/12/2014 2:37 PM EDT Angeles Romero MA No [facility] 12-12-2014 Do you have difficul ty dressing or bathing No 12/12/2014 2:37 PM EDT Angeles Romero MA No [facility] 12-12-2014 Because of a physica l, mental, or emotional condition, do you have difficulty doing errands alone such as visiting a physician's office or shopping No 12/12/2014 2:37 PM EDT Angeles Romero MA No [facility] 11-28-2014 Are you blind, or do you have serious difficulty seeing, even when wearing glasses No 11/28/2014 7:57 AM EDT Anitha Goldberg LPN No [facility] Mental Status Date Assessment Result Facility 12-12-2014 Because of a physica l, mental, or emotional condition, do you have serious difficulty concentrating, remembering, or making decisions No 12/12/2014 2:37 PM EDT Angeles Romero MA No [facility] Clinical Notes 10-21-2021 to 01-05-2025 Patient Rochelle Velazco MD - 01/05/2025 9:49 AM EDTPatient InstructionsElana Taveras MD - 11/16/2024 7:25 AM EDTEjulia Rojas DO - 10/16/2024 11:00 AM EDTPatient Instructions Note Date & Type Note Facility 01-05-2025 Instructions Rochelle Christian MD - 01/05/2025 10:22 AM EDT INSTRUCTIONS FROM DR. CHRISTIAN: PATIENT INFORMATION: Viagra Review: Viagra cannot be taken if plans to take any type of medication that contains nitrates. Side-effects of Viagra can include headache, blue vision, indigestion and the chance of priapism which is an erection that will not go away. Take Viagra approximately 45 minutes to 1 hours before desire for an erection, and the effects of Viagra should last about 6-8 hours. Try not have food just before or after taking Viagra as it may not work as well on full stomache. documented in this encounter [facility] 01-05-2025 Note HNO ID: [id number] Author: ROCHELLE CHRISTIAN MD Service: ? Author Type: Physician Type: Progress Notes Filed: 01/05/2025 13:14 Note Text: ESTABLISHED PATIENT OFFICE VISIT patient declined echo technologist PATIENT INFO: Margaux Quarles 74 year old HPI 01/05/2025 CC: stricture Patient follows with Dr. Nguyen and has future follow-up with her as delineated Denies dysuria and he takes the Uribel as ordered below and that helps take away any dysuria or deterioration symptoms On Flomax twice daily Does not need antibiotic as needed at this point CT recently showed tiny stone lower pole left kidney PSA is fine Erectile dysfunction-takes one quarter of a Viagra tablet and just needs a refill total of 15 tablets He just wants to follow-up with Dr. Nguyen moving ahead and see me as needed Past Urology Hx: October 16, 2024-seen by Dr. Rojas- Plan: Doing very well on current regimen Continue Uribel twice daily (as needed up to 4 times daily) for urinary bother and UTI prevention Continue tamsulosin 0.4 mg twice daily Topical clobetasol to the meatus and penile shaft as needed, dilate as needed for urethral stricture Most recent imaging no hydronephrosis, we will plan to follow-up in 6 months, he will contact me sooner as needed Follow Up: Follow up in about 6 months (around 04/18/2025) for BPH/Recurrent UTI follow up (UA/PVR at visit) . 01/11/2024 CC: stricture saw Dr. Ileana Nguyen as noted below and taken to surgery for the urethral dilation and then in follow-up instructed on straight catheterization but that her too much so we just stopped doing it He thinks voiding is going fine right now and does not want anything else done at this point-- he understands stricture can recur and worsen at any point Does not think he has set appointment to see Dr. Nguyen again at this point and discussed he could always just follow-up with her on a regular basis or as needed He still wants to follow-up with me also this point Remains on Flomax twice daily but he could try daily and see if does just as well on that so we will do that On no antibiotics and history of being on daily Keflex and doxycycline as needed Dipstick positive nitrite but no feelings of symptomatic UTI so we will hold off on culture or antibiotic and patient agrees History of erectile dysfunction-Viagra just uses a few times a year and wants a printed prescription Follow-up 12 months with PSA at the latest and earlier problems IPSS-; QoL-08/07September 08, 2023-seen by Dr. Ileana Nguyen/[facility]- Mamadou is doing very well after dilation in OR in June Reports has not had any recurrent urinary tract infections, stream is stronger as well For his BPH he is on Flomax twice a day, this has improved his emptying and his urinary symptoms as well He was taught meatal dilation/calibration today He will perform this weekly and as needed to keep the meatus patent, he was prescribed clobetasol cream as well which she can apply weekly and as needed to help prevent restenosis Follow-up with me in about 10 months for BPH and stricture, contact office sooner as needed Follow Up: Follow up in about 10 months (around 07/08/2024) for BPH / urethral stricture follow up (UA and PVR at visit) . Ileana Rojas, Jun 17 2023-surgery with Dr. Nguyen/[facility]- The distal penile urethra is noted to be somewhat scarred and stenotic however the remaining portion of the urethra appears grossly normal. There is a narrowing where the expected location of the external urinary sphincter is located, no evidence for additional strictures within the urethra. Contrast does reach the bladder. He was then repositioned into a dorsal lithotomy fashion and reprepped and draped in a normal sterile fashion. A semirigid ureteroscope was used to perform distal ureteroscopy. Distal urethra is noted to be quite stenotic. Wire was passed through the scope and into the bladder. Decision was made to perform urethral dilation. Using the Cook S-curve dilators we dilated the urethra up to 20 Greenlandic using the dilators. A 17 Greenlandic rigid cystoscope was then passed alongside the wire and into the bladder. Distal urethra was noted to be scarred, likely from prior hypospadias surgeries. he proximal penile urethra, bulbar urethra, and prostatic urethra is noted to be widely patent. Within the urinary bladder there are no masses stones or lesions identified, bilateral ureteral orifices are normal in number position and orientation with clear E flux. Decision was made to place a Long catheter. The scope was withdrawn. An 18 Greenlandic Councill catheter was placed Plan: Patient will be discharged home with a Long catheter He will remove the catheter at home in a few days 01/12/2023 CC: cysto Voiding good with good stream and pleased with his progress and does not want cystoscopy today because he does not want to irritate anything Denies (more content not included)... [facility] 01-05-2025 History of Present illness Narrative ESTABLISHED PATIENT OFFICE VISIT patient declined echo technologist PATIENT INFO: Margaux Quarles 74 year old HPI 01/05/2025 CC: stricture Patient follows with Dr. Nguyen and has future follow-up with her as delineated Denies dysuria and he takes the Uribel as ordered below and that helps take away any dysuria or deterioration symptoms On Flomax twice daily Does not need antibiotic as needed at this point CT recently showed tiny stone lower pole left kidney PSA is fine Erectile dysfunction-takes one quarter of a Viagra tablet and just needs a refill total of 15 tablets He just wants to follow-up with Dr. Nguyen moving ahead and see me as needed Past Urology Hx: October 16, 2024-seen by Dr. Rojas- Plan: Doing very well on current regimen Continue Uribel twice daily (as needed up to 4 times daily) for urinary bother and UTI prevention Continue tamsulosin 0.4 mg twice daily Topical clobetasol to the meatus and penile shaft as needed, dilate as needed for urethral stricture Most recent imaging no hydronephrosis, we will plan to follow-up in 6 months, he will contact me sooner as needed Follow Up: Follow up in about 6 months (around 04/18/2025) for BPH/Recurrent UTI follow up (UA/PVR at visit) . 01/11/2024 CC: stricture saw Dr. Ileana Nguyen as noted below and taken to surgery for the urethral dilation and then in follow-up instructed on straight catheterization but that her too much so we just stopped doing it He thinks voiding is going fine right now and does not want anything else done at this point-- he understands stricture can recur and worsen at any point Does not think he has set appointment to see Dr. Nguyen again at this point and discussed he could always just follow-up with her on a regular basis or as needed He still wants to follow-up with me also this point Remains on Flomax twice daily but he could try daily and see if does just as well on that so we will do that On no antibiotics and history of being on daily Keflex and doxycycline as needed Dipstick positive nitrite but no feelings of symptomatic UTI so we will hold off on culture or antibiotic and patient agrees History of erectile dysfunction-Viagra just uses a few times a year and wants a printed prescription Follow-up 12 months with PSA at the latest and earlier problems IPSS-; QoL-08/07September 08, 2023-seen by Dr. Ileana Nguyen/[facility]- Mamadou is doing very well after dilation in OR in June Reports has not had any recurrent urinary tract infections, stream is stronger as well For his BPH he is on Flomax twice a day, this has improved his emptying and his urinary symptoms as well He was taught meatal dilation/calibration today He will perform this weekly and as needed to keep the meatus patent, he was prescribed clobetasol cream as well which she can apply weekly and as needed to help prevent restenosis Follow-up with me in about 10 months for BPH and stricture, contact office sooner as needed Follow Up: Follow up in about 10 months (around 07/08/2024) for BPH / urethral stricture follow up (UA and PVR at visit) . Ileana Rojas, Jun 17 2023-surgery with Dr. Nguyen/[facility]- The distal penile urethra is noted to be somewhat scarred and stenotic however the remaining portion of the urethra appears grossly normal. There is a narrowing where the expected location of the external urinary sphincter is located, no evidence for additional strictures within the urethra. Contrast does reach the bladder. He was then repositioned into a dorsal lithotomy fashion and reprepped and draped in a normal sterile fashion. A semirigid ureteroscope was used to perform distal ureteroscopy. Distal urethra is noted to be quite stenotic. Wire was passed through the scope and into the bladder. Decision was made to perform urethral dilation. Using the Cook S-curve dilators we dilated the urethra up to 20 Greenlandic using the dilators. A 17 Greenlandic rigid cystoscope was then passed alongside the wire and into the bladder. Distal urethra was noted to be scarred, likely from prior hypospadias surgeries. he proximal penile urethra, bulbar urethra, and prostatic urethra is noted to be widely patent. Within the urinary bladder there are no masses stones or lesions identified, bilateral ureteral orifices are normal in number position and orientation with clear E flux. Decision was made to place a Long catheter. The scope was withdrawn. An 18 Greenlandic Councill catheter was placed Plan: Patient will be discharged home with a Long catheter He will remove the catheter at home in a few days 01/12/2023 CC: cysto Voiding good with good stream and pleased with his progress and does not want cystoscopy today because he does not want to irritate anything Denies dysuria On Flomax Discussed stricture could easily recur and given his history probably most distal and he thinks that his consistent with what he is felt when it was dilated he does have a hypospadias history He is open to seeing Dr. Ileana Nguyen now for evaluation and opinion at least At the latest see me with PSA/KUB 12 months as he does have history of stones 10/06/2022 CC: stricture Since I saw him thinks voiding well with stream being okay and remains on Flomax He finished the Cipro but question of whether it made his joints hurt or whether was just the infection Residual urine 54 cc today Denies dysuria or gross hematuria now Option of seeing Dr. Ileana Nguyen about urethral evaluation and reconstruction but he wants to hold off on that He is open to getting PSA in 3 months and office cystoscopy in 3 months with me Bladder scan/PVR: 54cc 08/25/2022 CC: aur Sent home on doxycycline but changed to Cipro He said the resident just put a wire in and dilated with one of the blue dilators and got the catheter and at the emergency department After starting Cipro discomfort went away very quickly but catheter is real bothersome Wants voiding trial today as catheter has been in for about a week We filled him up and he voided well Will add 1 more week of Cipro On Flomax Has appointment with me in about 5 to 6 weeks already from prior and will keep that August 19, 2022-seen by nurse practitioner at [facility]- 71 year old male known to Dr Christian for nephrolithiasis, urinary retention due BPH, hypospadias, ureteral stricture requiring dilation, and prostatitis. Last seen 10/07/2021. He reports he hasn't been able to urinate since yesterday, ER for long insertion by residents. He also notes his prostate feels like the size of an orange. Bladder scan in ER is 409cc. resident dilated urethra to 14F, then over an 035 wire, placed a 12F long catheter for a return of 250cc yellow urine. - Maintain long catheter at discharge. Send home with leg bags as well. - Check UA and Urine culture prior to dc. - Recommend discharging with 10 days of doxycycline based on prior urine cultures and resistance to cipro. - he can follow-up with Dr Christian. 10/07/2021 CC: bph Remains on Flomax daily and no problems with prostatitis right now Nocturia x2 and daytime voiding every 3-4 hours and moderate stream and satisfied with progress Has history of hypospadias and other staff trouble catheterizing in the past when he needed it but urology resident did so without any kind of problem He just sits to void and feels fine doing that Erectile dysfunction-he went to the private organization that does shockwave therapy the penis and thinks had some 50% improvement with treatments Now only needs about one fourth of a Viagra tablet and needs refill of that He will follow-up 12 months with PSA 01/13/2021 CC: bph Saw nurse as below and placed on doxycycline which cleared his symptoms and he took Flomax twice daily during that time but now just daily Back to normal now Does not take doxycycline on a regular basis anymore and just will take if recurrent symptoms in the future PSA slight continued rise so we will repeat PSA in 4 months and plan follow-up 12 months for exam and PSA 12 months Bladder scan/PVR: 0cc December 06, 2020-seen by nurse- office today complaining of difficulty urinating and pressure in rectum. Patient was able to void once in office and PVR 93 ml. Patient instructed that if he has any sudden pain or inability to urinate he is to contact this office ([phone]) during the hours of 08:00 to 16:00. If after those hours, to go to the emergency room. Urine culture obtained and sent to lab. Urine culture proved to be negative and Gina told him to continue doxycycline 01/16/2020 CC: bph Saw him in May for prostatitis and cultures came back with Escherichia coli resistant to Cipro he was taking so we changed him to Bactrim for a couple of weeks 1 month ago in [place] saw urology because of prostatitis symptoms and they gave him doxycycline and things cleared within a couple of days Urologist suggested 5 days of doxycycline the first week of every month as prophylaxis rather than daily Keflex and the patient would like to do that Taking Flomax daily only now Nocturia 1-3 and stream is okay Has not been on Keflex every day at this point 05/29/2019 CC: prostate Patient got poison yamila and started on steroids and he thought he might end up getting recurrent prostatitis/UTI which she did Had fevers and dysuria with frequency and went to urgent care and got 10 days of Cipro and there has been improvement albeit occasional bladder spasm Normally takes Keflex 250 mg and Flomax Urinalysis today-large leukocyte on dipstick We'll treat him with 10 extra days of Cipro and get urine culture today No urine culture was done through urgent care 01/17/2019 CC: bph Still taking Keflex 250 mg daily and wants to continue with that Just taking Flomax 1 pill a day now and doing fine Nocturia times 1-2 and stream is moderate and satisfied with it but we did talk about Urolift Would need cystoscopy and transrectal ultrasound to evaluate but he will hold off for now Viagra works well for erections and gets it at [facility] a [facility] locally He is worried about doing any kind of cystoscopy evaluation because even passing a catheter in the past cause trouble urinating for a long time and irritation January 17, 2018-still takes Flomax 2 tablets one day and the next day will only take it in the morning. Viagra is still helpful and wants to stay on Keflex 250 mg daily for prophylaxis for his history of prostatitis. Nocturia 1. No gross hematuria or dysuria. Been well since I saw him July 2017. July 2017-Taking Flomax twice every other day and one tablet every other day. Nocturia 1 and stream moderate. Still on Keflex 250 mg daily. No burning or gross hematuria issue. Erectile dysfunction and Viagra helped. Has history of kidney stones and wanted follow-up KUB to see if recurrence. . ;Hx recur prostatitis; saw dr Marino in past and goit Geocillin qd; hx Gent x1 IM could help; recent to ER and admit for prostatitis and had a long p;laced-out now; Dr Betancourt had given cipor and better on it but recur sx off so started cipro at home and getting better; still some SP spasms in am; flomax q am can help saw Dr Sutton in past ; Past notes reviewed: Pt recently admitted to hospital with obstructing UPJ calc. Had stent placed and dilation of urethral stricture. Prostastitis post op kept him in the hospital post op. Stone has not passed. FREQUENCY: He has frequency of urination. This has been present several months. The following treatments have been used: nothing. The frequency is the same. The patient now urinates every 3 hours. ERECTILE DYSFUNCTION: He has impotency (erectile dysfunction) which The impotency (erectile dysfunction) is the same. There is no pain with erection. No dysuria noted. No hematuria is present. NOCTURIA: He has nocturia 1-2X which has been present several years. The following treatments have been used: alpha charbel, nothing, antibiotics, saw palmetto. The nocturia some nights up to 4x Patient dribbles occasionally. No dysuria noted. He has frequency every 2 hours. No hematuria is present. Patient states there is an occasional straining to urinate. The urinary stream is moderate. Patient states there is occasional urgency. There is no urgency incontinence. [place] Sheet: August 19, 2022-urine culture-Pseudomonas- May 29, 2019-urine [id number]-[id number] to ampicillin, Cipro, Levaquin but sensitive to cefazolin and doxycycline and Bactrim 12/15/2016: [place] Sheet: UC- E Coli-R to cipro/Amp 11/12/2016: [place] Sheet: UC- E Coli--R to doxy/bactrim/amp/augmentin 11/21/2015: [place] Sheet: Stone Ca Oxalate 10/03/2015: [place] Sheet: Urine c+s- no growth 03/09/2011: [place] Sheet: n/s 09/19/2010: [place] Sheet: Ucx 50k e coli 09/10/2010: [place] Sheet: KUB L 2mm stone 07/16/2010: [place] Sheet: L ESWL , cysto 06/19/2010: [place] Sheet: U/S R 2.6cm cyst, L 7mm stone 11/03/2009: [place] Sheet: CT flank 8mm proximal urethral stone, 6mm L renal stone, no hydro, R 1cm cyst Radiology: General 14 2025-CT/summa-punctate lower pole left renal calculus and some bladder wall thickening; prostate is 5.6 x 4.8 cm January 10, [id number] and stool and bowel gas and no obvious significant stone growth January 14, [id number] 11/12/2016: Test: CT, Comments: enlarged prostate PSA: July 14, 2024-PSA-4.2; percent free PSA-38 03/13/2016: PSA: 1.40 09/12/2015: PSA: 2.23 07/16/2014: PSA: 1.20 07/13/2013: PSA: 2.070 Creatinine Date Value Ref Range Status 02/15/2024 0.89 0.50 - 1.40 mg/dL Final Comment: Patients receiving either N-Acetylcysteine (NAC) or Metamizole prior to venipuncture, may have falsely depressed results. PSA (ng/mL) Date Value 12/07/2023 5.56 01/11/2023 5.03 10/03/2021 4.23 10/03/2021 5.72 08/06/2021 8.00 06/10/2021 4.4 01/06/2021 4.01 01/15/2020 3.00 01/12/2018 1.63 03/12/2016 1.40 Color (no units) Date Value 08/19/2022 Light Yellow 11/12/2016 STRAW Clarity (no units) Date Value 08/19/2022 Clear 11/18/2014 Cloudy Glucose, Urine Date Value 08/19/2022 Negative 01/17/2018 neg mg/dL Bilirubin, Urine (no units) Date Value 08/19/2022 Negative 01/17/2018 neg Ketones, Urine (no units) Date Value 08/19/2022 Negative 01/17/2018 neg Specific [place], Ur (no units) Date Value 08/19/2022 1.019 01/17/2018 1.020 Hemoglobin/Blood,Ur (no units) Date Value 08/19/2022 2+ 01/17/2018 neg pH, Urine (no units) Date Value 08/19/2022 7.0 01/17/2018 5.5 Protein, Urine Date Value 08/19/2022 Negative 01/17/2018 neg mg/dL Urobilinogen (no units) Date Value 08/19/2022 Normal 11/18/2014 Normal Nitrites (no units) Date Value 08/19/2022 Negative 01/17/2018 neg Leukest (no units) Date Value 11/18/2014 2+ Leuk Esterase (no units) Date Value 08/19/2022 25 Marcelino/mL Leukocytes Esterase (no units) Date Value 11/12/2016 LARGE Review of Systems Constitutional: Negative. HENT: Negative. Eyes: Negative. Respiratory: Negative. Cardiovascular: Negative. Gastrointestinal: Negative. Endocrine: Negative. Genitourinary: See HPI Musculoskeletal: Negative. Skin: Negative. Allergic/Immunologic: Negative. Neurological: Negative. Hematological: Negative. Psychiatric/Behavioral: Negative. I reviewed and confirmed ROS obtained by MA HISTORIES PAST MEDICAL HISTORY Diagnosis Date Bilateral inguinal hernia 2014 BPH (benign prostatic hyperplasia) enlarged prostate Colonoscopy refused 06/06/2014 Fecal occult blood test positive 01/2016 GERD (gastroesophageal reflux disease) History of epistaxis Hyperlipidemia on diet control, exercise Irregular heart beat Left inguinal hernia 2010 Liver lesion MRI Microcytic anemia Mitral valve insufficiency, unspecified etiology OA (osteoarthritis) of knee Received Euflexxa injection Osteoarthritis Pancreatic lesion (HCC) MRI Poor urinary stream Prostatitis since age [address] [facility] Renal stone 2011 removed Urethral stricture in male Urgency of urination UTI (urinary tract infection) FAMILY HISTORY Problem Relation Age of Onset Ischemic Heart Disease Father 70 CABG other (vertigo) Father alive other (Lung cancer- smoker) Mother 61 Cancer Maternal Grandmother lung cancer Heart Paternal Grandmother SOCIAL HISTORY Social History Tobacco Use Smoking status: Never Smokeless tobacco: Never Vaping Use Vaping status: Never Used Substance Use Topics Alcohol use: Yes Comment: rarely Drug use: No MEDICATIONS: URO-MP 118-10-40.8-36 mg TAKE 1 CAPSULE BY MOUTH EVERY 6 HOURS NEEDED FOR BLADDER PAIN / BURNING WITH URINATION. sildenafil (VIAGRA) 100 mg tablet take one tablet by mouth once a day as needed. maximum of 1 tablet daily acetaminophen (TYLENOL 8 HOUR) 650 mg CR tablet Take 650 mg by mouth every 8 hours as needed for pain. tamsulosin (FLOMAX) 0.4 mg TAKE ONE CAPSULE BY MOUTH ONCE DAILY lansoprazole (PREVACID ORAL) Take 20 mg by mouth once daily. sildenafil (VIAGRA) 100 mg tablet Take 1 tablet by mouth as needed (one per day maximum as needed). Physical Exam HENT: Head: Normocephalic and atraumatic. Nose: Nose normal. Neck: Trachea: No tracheal deviation. Pulmonary: Effort: Pulmonary effort is normal. No respiratory distress. Musculoskeletal: General: No deformity. Normal range of motion. Cervical back: Normal range of motion. Skin: General: Skin is warm. Neurological: Mental Status: He is alert and oriented to person, place, and time. Gait: Gait is intact. Psychiatric: Mood and Affect: Mood and affect normal. Cognition and Memory: Memory normal. Risk/Benefit Discussion: Viagra Review: Viagra absolutely cannot be taken if he is taking or plans to take any type of medication that contains nitrates,I explained the various side-effects of Viagra, including headache, blue vision, indigestion and the chance of priapism. I discussed risk factors which include being over age 50, heart disease,diabetes, high blood pressure, high cholesterol and smoking. I discussed the possibility of the rare complication of blindness with the patient. I did warn him about the possibility of a lowering of the blood pressure with Viagra. I advised him to take Viagra approximately 45 minutes to 1 hours before his desire for an erection, and informed him that the effects of Viagra should last about 8 hours. I did inform him that he should not have food just before or after taking Viagra. FOLLOW UP (1s&1w; 3s): Return if symptoms worsen or fail to improve. ASSESSMENT/PLAN: 1. BPH with obstruction/lower urinary tract symptoms - ICD9: 600.01, 599.69, ICD10: N40.1, N13.8 (primary diagnosis) - UA DIP B/O 2. Nocturia - ICD9: 788.43, ICD10: R35.1 3. Postprocedural stricture of anterior urethra - ICD9: 598.2, ICD10: N99.114 4. Renal calculi - ICD9: 592.0, ICD10: N20.0 5. Other male erectile dysfunction - ICD9: 607.84, ICD10: N52.8 - SILDENAFIL 100 MG TABLET Rochelle Christian The sensitive exam: The sensitive examination was discussed with the Patient or Patient's Authorized Adult Education Teacher. As applicable, any other physician, advance practice provider, medical student, or other health professional student that will be observing or involved in the sensitive examination for educational or training purposes was discussed with the Patient or Authorized Adult Education Teacher. The Patient or Authorized Adult Education Teacher has agreed to proceed with the sensitive examination. (Sensitive examination includes inspection and/or palpation of the breasts, pelvis, prostate and anorectal regions) Please note: This note has been produced using speech recognition software and may contain errors related to that system including grammar, punctuation, spelling, gender and words and phrases that may be inappropriate. documented in this encounter [facility] 11-16-2024 Instructions Elana Taveras MD - 11/16/2024 11:34 AM EDT I ordered an echocardiogram to be done in about 11 months: You should eventually hear from scheduling If you start having problems with chest pain with activity shortness of breath with activity or severe palpitations or passing out let us know documented in this encounter [facility] 11-16-2024 Note HNO ID: [id number] Author: ELANA TAVERAS MD Service: ? Author Type: Physician Type: Progress Notes Filed: 11/16/2024 11:38 Note Text: Chief Complaint No chief complaint on file. History of Present Illness: Margaux Quarles is a 74-year-old male with a history of palpitations, microcytic anemia, and moderate mitral insufficiency, presenting for follow-up. The patient reports feeling well overall and denies experiencing palpitations, heart racing, chest pain, chest tightness, dyspnea, leg swelling, or claudication. He recalls a single episode of palpitations following knee surgery in January, which he attributes to standing in line for an extended period. He has not undergone an event recorder or stress test and has previously declined these tests. He continues to work 12-hour shifts, 6-7 days a week, without any issues. He has a history of microcytic anemia with an MCV of 66 fL and hematocrit of 29%. A GI evaluation was negative. He is currently taking bioplasma, which his recommended, and denies any recent testing for anemia. He reports normal bleeding when cut and denies any pallor. He underwent successful left knee surgery in January, performed by Dr. Ryan Gann. He also mentions having an enlarged prostate and is on medication that causes his urine to appear blue. He limits lifting to 40-pound bags of dog food and hay and rests if he anticipates heavy activity. Past medical history is significant for moderate mitral insufficiency and minimal aortic root enlargement, with a previous LVEF of 55%. His last LDL was 113 mg/dL a year ago, and he has not had recent lipid testing. PAST MEDICAL HISTORY Diagnosis Date Bilateral inguinal hernia 2014 BPH (benign prostatic hyperplasia) enlarged prostate Colonoscopy refused 06/06/2014 Fecal occult blood test positive 01/2016 GERD (gastroesophageal reflux disease) History of epistaxis Hyperlipidemia on diet control, exercise Irregular heart beat Left inguinal hernia 2010 Liver lesion MRI Microcytic anemia Mitral valve insufficiency, unspecified etiology OA (osteoarthritis) of knee Received Euflexxa injection Osteoarthritis Pancreatic lesion (HCC) MRI Poor urinary stream Prostatitis since age [address] [facility] Renal stone 2011 removed Urethral stricture in male Urgency of urination UTI (urinary tract infection) PAST SURGICAL HISTORY Procedure Laterality Date CAUTERIZATION INNER NOSE 2013 HERNIA REPAIR HX 11/16/2014 Laparoscopic total preperitoneal bilateral inguinal hernia repair. Open umbilical hernia repair PAST SURGICAL HISTORY OF 07/2010 lithotripsy REPAIR INGUINAL HERNIA 2010 left injuinal hernia repair w/ mesh TONSILLECTOMY HX URETHRA SURGERY HX 2021 AT [facility] FAMILY HISTORY Problem Relation Age of Onset Ischemic Heart Disease Father 70 CABG other (vertigo) Father alive other (Lung cancer- smoker) Mother 61 Cancer Maternal Grandmother lung cancer Heart Paternal Grandmother Social History Tobacco Use Smoking status: Never Smokeless tobacco: Never Vaping Use Vaping status: Never Used Substance Use Topics Alcohol use: Yes Comment: rarely Drug use: No ALLERGIES No Known Allergies Medications: Current Outpatient Medications Medication Sig Dispense Refill sildenafil (VIAGRA) 100 mg tablet take one tablet by mouth once a day as needed. maximum of 1 tablet daily 10 tablet 0 acetaminophen (TYLENOL 8 HOUR) 650 mg CR tablet Take 650 mg by mouth every 8 hours as needed for pain. tamsulosin (FLOMAX) 0.4 mg TAKE ONE CAPSULE BY MOUTH ONCE DAILY 90 capsule 3 lansoprazole (PREVACID ORAL) Take 20 mg by mouth once daily. No current facility-administered medications for this visit. ROS Physical Examination: Vitals: BP 137/74 (BP Site: Left Arm, BP Position: Sitting, BP Cuff Size: Regular Adult) Pulse 74 Ht 5' 7 (1.702 m) Wt 164 lb (74.4 kg) SpO2 98% BMI 25.69 kg/m? Last 2 Encounter Wt Readings: Date: Wt: 02/15/2024 148 lb (67.1 kg) 02/01/2024 150 lb (68 kg) Physical Exam Constitutional: in no distress. HENT: Head: Normocephalic. Eyes: Pupils equal, eyelids appear normal Neck: No JVD present. No thyromegaly present. Cardiovascular: Regular rhythm and normal heart sounds. Occasional premature beats PMI is not palpable exam reveals no gallop, no distant heart sounds and no friction rub. No murmur heard. Pulses: Carotid pulses are 2+ on the right side and 2+ on the left side. Radial pulses are 2+ on the right side and 2+ on the left side. Bilateral posterior tibial pulses 2+ no RV lift Pulmonary/Chest: No wheeze or accessory muscle use abdominal: Soft. Nontender no obvious hepatomegaly musculoskeletal: General: No or edema. Cervical back: Normal range of motion. Status post left knee replacement Neurological: Follows commands moves all extremities. Normal mentation (more content not included)... [facility] 11-16-2024 History of Present illness Narrative Chief Complaint No chief complaint on file. History of Present Illness: Margaux Quarles is a 74-year-old male with a history of palpitations, microcytic anemia, and moderate mitral insufficiency, presenting for follow-up. The patient reports feeling well overall and denies experiencing palpitations, heart racing, chest pain, chest tightness, dyspnea, leg swelling, or claudication. He recalls a single episode of palpitations following knee surgery in January, which he attributes to standing in line for an extended period. He has not undergone an event recorder or stress test and has previously declined these tests. He continues to work 12-hour shifts, 6-7 days a week, without any issues. He has a history of microcytic anemia with an MCV of 66 fL and hematocrit of 29%. A GI evaluation was negative. He is currently taking bioplasma, which his recommended, and denies any recent testing for anemia. He reports normal bleeding when cut and denies any pallor. He underwent successful left knee surgery in January, performed by Dr. Ryan Gann. He also mentions having an enlarged prostate and is on medication that causes his urine to appear blue. He limits lifting to 40-pound bags of dog food and hay and rests if he anticipates heavy activity. Past medical history is significant for moderate mitral insufficiency and minimal aortic root enlargement, with a previous LVEF of 55%. His last LDL was 113 mg/dL a year ago, and he has not had recent lipid testing. PAST MEDICAL HISTORY Diagnosis Date Bilateral inguinal hernia 2014 BPH (benign prostatic hyperplasia) enlarged prostate Colonoscopy refused 06/06/2014 Fecal occult blood test positive 01/2016 GERD (gastroesophageal reflux disease) History of epistaxis Hyperlipidemia on diet control, exercise Irregular heart beat Left inguinal hernia 2010 Liver lesion MRI Microcytic anemia Mitral valve insufficiency, unspecified etiology OA (osteoarthritis) of knee Received Euflexxa injection Osteoarthritis Pancreatic lesion (HCC) MRI Poor urinary stream Prostatitis since age [address] K[facility] Renal stone 2011 removed Urethral stricture in male Urgency of urination UTI (urinary tract infection) PAST SURGICAL HISTORY Procedure Laterality Date CAUTERIZATION INNER NOSE 2013 HERNIA REPAIR HX 11/16/2014 Laparoscopic total preperitoneal bilateral inguinal hernia repair. Open umbilical hernia repair PAST SURGICAL HISTORY OF 07/2010 lithotripsy REPAIR INGUINAL HERNIA 2010 left injuinal hernia repair w/ mesh TONSILLECTOMY HX URETHRA SURGERY HX 2021 AT [facility] FAMILY HISTORY Problem Relation Age of Onset Ischemic Heart Disease Father 70 CABG other (vertigo) Father alive other (Lung cancer- smoker) Mother 61 Cancer Maternal Grandmother lung cancer Heart Paternal Grandmother Social History Tobacco Use Smoking status: Never Smokeless tobacco: Never Vaping Use Vaping status: Never Used Substance Use Topics Alcohol use: Yes Comment: rarely Drug use: No ALLERGIES No Known Allergies Medications: Current Outpatient Medications Medication Sig Dispense Refill sildenafil (VIAGRA) 100 mg tablet take one tablet by mouth once a day as needed. maximum of 1 tablet daily 10 tablet 0 acetaminophen (TYLENOL 8 HOUR) 650 mg CR tablet Take 650 mg by mouth every 8 hours as needed for pain. tamsulosin (FLOMAX) 0.4 mg TAKE ONE CAPSULE BY MOUTH ONCE DAILY 90 capsule 3 lansoprazole (PREVACID ORAL) Take 20 mg by mouth once daily. No current facility-administered medications for this visit. ROS Physical Examination: Vitals: BP 137/74 (BP Site: Left Arm, BP Position: Sitting, BP Cuff Size: Regular Adult) Pulse 74 Ht 5' 7 (1.702 m) Wt 164 lb (74.4 kg) SpO2 98% BMI 25.69 kg/m Last 2 Encounter Wt Readings: Date: Wt: 02/15/2024 148 lb (67.1 kg) 02/01/2024 150 lb (68 kg) Physical Exam Constitutional: in no distress. HENT: Head: Normocephalic. Eyes: Pupils equal, eyelids appear normal Neck: No JVD present. No thyromegaly present. Cardiovascular: Regular rhythm and normal heart sounds. Occasional premature beats PMI is not palpable exam reveals no gallop, no distant heart sounds and no friction rub. No murmur heard. Pulses: Carotid pulses are 2+ on the right side and 2+ on the left side. Radial pulses are 2+ on the right side and 2+ on the left side. Bilateral posterior tibial pulses 2+ no RV lift Pulmonary/Chest: No wheeze or accessory muscle use abdominal: Soft. Nontender no obvious hepatomegaly musculoskeletal: General: No or edema. Cervical back: Normal range of motion. Status post left knee replacement Neurological: Follows commands moves all extremities. Normal mentation Skin: Skin is warm and dry. No cyanosis no rash noted. He is not diaphoretic. Psychiatric: Mood and affect normal. Pertinent Labs: CBC: Hemoglobin (g/dL) Date Value 02/21/2024 12.1 09/15/2016 12.0 HGB (g/dL) Date Value 11/14/2016 9.9 Hematocrit (%) Date Value 02/21/2024 38.4 11/14/2016 31.6 WBC Date Value 02/15/2024 4.31 k/uL 11/14/2016 7.20 thou/cmm Platelet Count Date Value 02/15/2024 174 k/uL 11/14/2016 137 thou/cmm BMP: Glucose (mg/dL) Date Value 02/15/2024 79 11/14/2016 93 Potassium Date Value 02/15/2024 4.3 mmol/L 11/14/2016 3.2 mEq/L Sodium Date Value 02/15/2024 140 mmol/L 11/14/2016 141 mEq/L Chloride Date Value 02/15/2024 112 mmol/L 11/14/2016 113 mEq/L CO2 Date Value 02/15/2024 24 mmol/L 11/14/2016 20 mEq/L Creatinine (mg/dL) Date Value 02/15/2024 0.89 11/14/2016 0.94 BUN (mg/dL) Date Value 02/15/2024 16 11/14/2016 11 Anion Gap Date Value 02/15/2024 4 mmol/L 11/14/2016 11 Calcium (mg/dL) Date Value 11/14/2016 7.7 Calcium, Total (mg/dL) Date Value 02/15/2024 9.4 INR: TSH: No results found for: TSHREFL Lipid Profile: Cholesterol, Total Date Value Ref Range Status 09/06/2020 175 <200 mg/dL Final Comment: <200 mg/dL, Desirable 200-239 mg/dL, Borderline high >239 mg/dL, High HDL Cholesterol Date Value Ref Range Status 09/06/2020 46 >39 mg/dL Final Comment: 40-59 mg/dL, Acceptable >59 mg/dL, High: Negative risk factor for coronary heart disease <40 mg/dL, Low: Positive risk factor for coronary heart disease LDL Cholesterol Date Value Ref Range Status 09/06/2020 113 (H) <100 mg/dL Final Comment: <100 mg/dL, Optimal 100-129 mg/dL, Near optimal/above optimal 130-159 mg/dL, Borderline high 160-189 mg/dL, High >189 mg/dL, Very high Secondary prevention optimal LDL Cholesterol levels are recommended to be < 70 mg/dL Triglyceride Date Value Ref Range Status 09/06/2020 82 <150 mg/dL Final Comment: <150 mg/dL, Normal 150-199 mg/dL, Borderline high 200-499 mg/dL, High >499 mg/dL, Very high Hemoglobin A1C: No results found for: HGBA1C Most Recent Cardiac Testing EKG today sinus rhythm frequent multifocal PVCs tiny inferior Q waves Assessment and Plan: 1. Palpitations (R00.2) PVC (premature ventricular contraction) (I49.3) EKG shows frequent PVCs. Patient reports minimal palpitations, with only one incident post-surgery. - Discussed potential significance of PVCs, including possible association with coronary artery disease. - Recommended heart monitor to further evaluate rhythm disturbances; patient declined. - Advised patient to report any new or worsening symptoms such as chest pain, dyspnea, or syncope. 2. Non-rheumatic mitral regurgitation (I34.0) Previously diagnosed with moderate mitral insufficiency. No significant heart murmur auscultated on exam today. - Ordered echocardiogram to be performed in 11 months to reassess mitral valve function. 3. AGUILERA (dyspnea on exertion) (R06.09) No current dyspnea on exertion reported. Patient is physically active, working 6-7 days a week without limitations. - Recommended stress test to evaluate for underlying coronary artery disease; patient declined. 4. Iron deficiency anemia due to chronic blood loss (D50.0) History of microcytic anemia with MCV 66 and hematocrit 29. Previous evaluations for gastrointestinal bleeding were negative. Patient is taking bioplasma supplement. - Monitor for symptoms of anemia such as fatigue, pallor, or dyspnea. - Advised patient to continue current supplementation. 5. Lipids: Has not required treatment last LDL of 113 Electronically signed by Elana Taveras MD on November 16, 2024, 7:25 AM documented in this encounter [facility] 10-16-2024 History of Present illness Narrative Images from the original note were not included. Ileana Rojas DO Urology Office Visit Established patient [facility] [address] [facility] [id number] Dept: [phone] Dept Loc: [phone] PATIENT NAME: Margaux Quarles DATE OF : 1950 REFERRING PROVIDER: No ref. provider found PCP: TAM MAJOR MD DATE OF VISIT: 10/16/2024 CHIEF COMPLAINT: Chief Complaint Patient presents with Benign Prostatic Hypertrophy Impression: Diagnoses and all orders for this visit: Recurrent UTI BPH with obstruction/lower urinary tract symptoms - Bladder scan Hypospadias, penile Dysuria Bladder spasms - Meth-Hyo-M Bl-Na Phos-Ph Eduard (Uribel) 118 MG capsule; Take 1 capsule by mouth every 6 hours as needed (bladder pain/burning with urination). Plan: Doing very well on current regimen Continue Uribel twice daily (as needed up to 4 times daily) for urinary bother and UTI prevention Continue tamsulosin 0.4 mg twice daily Topical clobetasol to the meatus and penile shaft as needed, dilate as needed for urethral stricture Most recent imaging no hydronephrosis, we will plan to follow-up in 6 months, he will contact me sooner as needed Follow Up: Follow up in about 6 months (around 04/18/2025) for BPH/Recurrent UTI follow up (UA/PVR at visit) . Ileana Rojas, Reconstructive U[facility] Subjective: Mr. Quarles is a 74 y.o. male who presents to the office for 3 month follow up visit for BPH and recurrent UTIs. Records have been reviewed HPI HPI The patient presents to the office for 3 month follow up visit for BPH and recurrent UTIs. Today he is doing well He uses Uribel BID now, down from 4 times a day He feels this is helping him tremendously We will continue this regimen along with tamsulosin 0.4 mg BID Has not had sx of UTI in a couple of months! 08/15/2024 CT abd&pelvis wo contrast showed Left inferior pole punctate nonobstructive nephrolithiasis. Prostatomegaly. 08/10/24 OV. He is unable to perform meatal dilation, has severe skin irritation. PO Fluconazole 100mg daily x 14 days. Bactrim DS BID x 30 days. Consider addition of tadalafil 5mg if no improvement in sx. Consider baclofen nightly. Uribel PRN for bladder spasms 07/14/2024 renal ultrasound simple right renal cyst, mild left hydronephrosis. Bladder incompletely distended 07/10/2024 urine culture 1-9K yeast 03/09/24 Void trial, able to void without difficulty 02/21/24 knee replacement, post operative urinary retention 09/08/23 office visit. Taught meatal dilation/calibration today. Continue Flomax BID 06/17/23 RUG, Cysto, urethral dilation, long placement. Distal penile urethral stricture (prior hypospadias surgeries) Hx of hypospadias, BPH, urinary retention and urethral stricture requiring dilation Referred by Dr Christian Has seen Drs Gino, Kwaku, Lesley, and Jamila in the past 12 years ago he had a hernia repair in [place] Could not get catheter in Had to get a urologist to get a catheter in. A few years ago had a dilation here in [place] as well Last Dilated August 2022 at [facility]. Dilated to 14, had 12 fr catheter placed over wire Reports that was the least painful Hx of recurrent prostatitis, stones. Has had previous treatment of stones with laser lithotripsy. PSA 07/14/2024 4.2 (38% free PSA)) 12/07/23 5.56 01/11/23 5.03 10/03/21 4.23 08/06/21 8.0 06/10/21 4.4 01/06/21 4.01 Tobacco History reports that he has never smoked. He does not have any smokeless tobacco history on file. Review of Systems Review of Systems Constitutional: Negative. HENT: Negative. Gastrointestinal: Negative. Genitourinary: Negative. Musculoskeletal: Negative. Past Medical History: Past Medical History: Diagnosis Date Arthritis gets stem cells injected in both knees and right shoulder Bilateral inguinal hernia Bleeding from the nose cauterized BPH (benign prostatic hyperplasia) Chronic anemia Eczema GERD (gastroesophageal reflux disease) Hyperlipidemia Kidney stones Mitral valve insufficiency Poor urinary stream UTI (urinary tract infection) Past Surgical History: Past Surgical History: Procedure Laterality Date CYSTOSCOPY 2015 stent HERNIA REPAIR KIDNEY STONE SURGERY LITHOTRIPSY 2010 OTHER SURGICAL HISTORY string stent TONSILLECTOMY AND ADENOIDECTOMY (HISTORICAL) Medications Current Outpatient Medications: cholecalciferol (Vitamin D-3) 10 MCG (400 UNIT) tablet, Take 400 Units by mouth daily., Disp: , Rfl: clobetasol (Temovate) 0.05 % cream, Apply to meatus and dilator weekly and as needed for meatal stenosis, Disp: 45 g, Rfl: 3 Lansoprazole (PREVACID PO), Take by mouth daily., Disp: , Rfl: naproxen (Naprosyn) 500 MG tablet, Take 500 mg by mouth Daily as needed., Disp: , Rfl: sildenafil (Viagra) 100 MG tablet, take one tablet by mouth once a day as needed. maximum of 1 tablet daily, Disp: , Rfl: tamsulosin (Flomax) 0.4 MG 24 hr capsule, Take 1 capsule (0.4 mg) by mouth 2 times daily., Disp: 180 capsule, Rfl: 3 Meth-Hyo-M Bl-Na Phos-Ph Eduard (Uribel) 118 MG capsule, Take 1 capsule by mouth every 6 hours as needed (bladder pain/burning with urination)., Disp: 60 capsule, Rfl: 3 Vitals: BP 137/88 Pulse 65 Ht 5' 8 (1.727 m) Wt 145 lb (65.8 kg) BMI 22.05 kg/m Physical Exam Physical Exam Constitutional: Appearance: Normal appearance. Pulmonary: Effort: Pulmonary effort is normal. Skin: General: Skin is warm and dry. Neurological: Mental Status: He is alert and oriented to person, place, and time. Labs: Lab Results Component Value Date GLUCOSEUR Negative 09/13/2024 BILIRUBINUR Moderate 09/13/2024 KETONESU Positive (A) 09/13/2024 SPECGRAV 1.025 09/13/2024 PHUR 6.0 09/13/2024 PROTUR 100 09/13/2024 UROBILINOGEN 0.2 09/13/2024 LEUKOCYTESUR Large 09/13/2024 NITRITE Positive 09/13/2024 Hemoglobin Date Value Ref Range Status 02/21/2024 10.4 (L) 13.0 - 18.0 g/dL Final 06/07/2023 9.0 (L) 13.0 - 18.0 g/dL Final Hematocrit Date Value Ref Range Status 02/21/2024 33.0 (L) 40.0 - 52.0 % Final 06/07/2023 29.5 (L) 40.0 - 52.0 % Final Radiology Review: === 08/15/24 === CT ABDOMEN PELVIS WO IV CONTRAST - Impression - 1. No acute abdominopelvic process identified. 2. Left inferior pole punctate nonobstructive nephrolithiasis. 3. Prostatomegaly, correlate with PSA values and concern for BPH. 4. Circumferential left bladder wall predominant thickening, which may reflect a sequela bladder outlet obstruction in the context of prostatomegaly. Consider cystoscopy for further evaluation. 5. Diverticulosis without evidence of diverticulitis. 6. Other chronic findings as discussed. Report Dictated on Electronically Signed By: Raymond Sandoval MD Electronically Signed Date/Time: 08/15/2024 12:13 PM EST documented in this encounter [facility] 09-13-2024 History of Present illness Narrative Images from the original note were not included. Ileana Rojas DO Urology Office Visit Established patient [facility] [place] [address] [facility] [address] Dept: [phone] Dept Loc: [phone] PATIENT NAME: Margaux Quarles DATE OF : 1950 REFERRING PROVIDER: No ref. provider found PCP: TAM MAJOR MD DATE OF VISIT: 09/13/2024 CHIEF COMPLAINT: Chief Complaint Patient presents with Follow-up UTI Impression: Diagnoses and all orders for this visit: Hypospadias, penile Bladder spasms - Meth-Hyo-M Bl-Na Phos-Ph Eduard (Uribel) 118 MG capsule; Take 1 capsule by mouth every 6 hours as needed (bladder pain/burning with urination). 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 Plan: Doing well at this time, he has no urinary symptoms. Urine analysis with some nitrates however in the absence of symptoms, his known significant urethral stricture disease and hypospadias would defer culture Nitrates could be positive as well secondary to being on Uribel If symptoms of UTI he can contact the office and we will obtain a culture Imaging reviewed, no stones to treat today, no significant prostate calcifications Continue tamsulosin twice daily for BPH Sildenafil 100 mg as needed for sexual activity Will plan 1 month follow-up as scheduled Follow Up: Follow up for Next scheduled follow-up. Ileana Rojas DO Reconstructive [facility] [place] Subjective: Mr. Quarles is a 74 y.o. male who presents to the office for 5 week follow up for recurrent UTI/prostatitis. Records have been reviewed HPI HPI The patient presents to the office for 5 week follow up for recurrent UTI/prostatitis. Urine culture on 08/10/2024 was negative for bacteria growth. Margaux reports that since his last visit last month he feels significantly better. Between treating the prostatitis and utilizing Uribel as needed he is no longer having any urinary discomfort He feels he is emptying his bladder well, PVR 0 cc today. While the urine is nitrate positive he is also taking Uribel which can cause this on a dipstick. Since he is not symptomatic will not send for a culture today He has not been calibrating the meatus, he states it is widely patent and he is able to void without difficulty He continues to take Flomax twice a day We discussed that should he need a catheter for any procedures in the future, would likely have him come to our office the day prior for a Long catheter placed here to prevent the complications that arose this past summer08/15/2024 CT abd&pelvis wo contrast showed Left inferior pole punctate nonobstructive nephrolithiasis. Prostatomegaly. 08/10/24 OV. He is unable to perform meatal dilation, has severe skin irritation. PO Fluconazole 100mg daily x 14 days. Bactrim DS BID x 30 days. Consider addition of tadalafil 5mg if no improvement in sx. Consider baclofen nightly. Uribel PRN for bladder spasms 07/14/2024 renal ultrasound simple right renal cyst, mild left hydronephrosis. Bladder incompletely distended 07/10/2024 urine culture 1-9K yeast 03/09/24 Void trial, able to void without difficulty 02/21/24 knee replacement, post operative urinary retention 09/08/23 office visit. Taught meatal dilation/calibration today. Continue Flomax BID 06/17/23 RUG, Cysto, urethral dilation, long placement. Distal penile urethral stricture (prior hypospadias surgeries) Hx of hypospadias, BPH, urinary retention and urethral stricture requiring dilation Referred by Dr Christian Has seen Rudy Christian, Kwaku, Lesley, and Jamila in the past 12 years ago he had a hernia repair in [place] Could not get catheter in Had to get a urologist to get a catheter in. A few years ago had a dilation here in [place] as well Last Dilated August 2022 at [facility]. Dilated to 14, had 12 fr catheter placed over wire Reports that was the least painful Hx of recurrent prostatitis, stones. Has had previous treatment of stones with laser lithotripsy. PSA 07/14/2024 4.2 (38% free PSA)) 12/07/23 5.56 01/11/23 5.03 10/03/21 4.23 08/06/21 8.0 06/10/21 4.4 01/06/21 4.01 Tobacco History reports that he has never smoked. He does not have any smokeless tobacco history on file. Review of Systems Review of Systems Constitutional: Negative. HENT: Negative. Genitourinary: Positive for frequency. Negative for difficulty urinating, dysuria, hematuria and penile pain. Past Medical History: Past Medical History: Diagnosis Date Arthritis gets stem cells injected in both knees and right shoulder Bilateral inguinal hernia Bleeding from the nose cauterized BPH (benign prostatic hyperplasia) Chronic anemia Eczema GERD (gastroesophageal reflux disease) Hyperlipidemia Kidney stones Mitral valve insufficiency Poor urinary stream UTI (urinary tract infection) Past Surgical History: Past Surgical History: Procedure Laterality Date CYSTOSCOPY 2015 stent HERNIA REPAIR KIDNEY STONE SURGERY LITHOTRIPSY 2010 OTHER SURGICAL HISTORY string stent TONSILLECTOMY AND ADENOIDECTOMY (HISTORICAL) Medications Current Outpatient Medications: cholecalciferol (Vitamin D-3) 10 MCG (400 UNIT) tablet, Take 400 Units by mouth daily., Disp: , Rfl: clobetasol (Temovate) 0.05 % cream, Apply to meatus and dilator weekly and as needed for meatal stenosis, Disp: 45 g, Rfl: 3 Lansoprazole (PREVACID PO), Take by mouth daily., Disp: , Rfl: naproxen (Naprosyn) 500 MG tablet, Take 500 mg by mouth Daily as needed., Disp: , Rfl: sildenafil (Viagra) 100 MG tablet, take one tablet by mouth once a day as needed. maximum of 1 tablet daily, Disp: , Rfl: tamsulosin (Flomax) 0.4 MG 24 hr capsule, Take 1 capsule (0.4 mg) by mouth 2 times daily., Disp: 180 capsule, Rfl: 3 Meth-Hyo-M Bl-Na Phos-Ph Eduard (Uribel) 118 MG capsule, Take 1 capsule by mouth every 6 hours as needed (bladder pain/burning with urination)., Disp: 30 capsule, Rfl: 3 Vitals: BP 126/74 (BP Location: Left arm, Patient Position: Sitting, BP Cuff Size: Large adult) Pulse 66 Ht 5' 8 (1.727 m) Wt 145 lb (65.8 kg) BMI 22.05 kg/m Physical Exam Physical Exam Constitutional: Appearance: Normal appearance. Pulmonary: Effort: Pulmonary effort is normal. Skin: General: Skin is warm and dry. Neurological: Mental Status: He is alert and oriented to person, place, and time. Labs: Lab Results Component Value Date GLUCOSEUR Negative 09/13/2024 BILIRUBINUR Moderate 09/13/2024 KETONESU Positive (A) 09/13/2024 SPECGRAV 1.025 09/13/2024 PHUR 6.0 09/13/2024 PROTUR 100 09/13/2024 UROBILINOGEN 0.2 09/13/2024 LEUKOCYTESUR Large 09/13/2024 NITRITE Positive 09/13/2024 Hemoglobin Date Value Ref Range Status 02/21/2024 10.4 (L) 13.0 - 18.0 g/dL Final 06/07/2023 9.0 (L) 13.0 - 18.0 g/dL Final Hematocrit Date Value Ref Range Status 02/21/2024 33.0 (L) 40.0 - 52.0 % Final 06/07/2023 29.5 (L) 40.0 - 52.0 % Final Radiology Review: === 08/15/24 === CT ABDOMEN PELVIS WO IV CONTRAST - Impression - 1. No acute abdominopelvic process identified. 2. Left inferior pole punctate nonobstructive nephrolithiasis. 3. Prostatomegaly, correlate with PSA values and concern for BPH. 4. Circumferential left bladder wall predominant thickening, which may reflect a sequela bladder outlet obstruction in the context of prostatomegaly. Consider cystoscopy for further evaluation. 5. Diverticulosis without evidence of diverticulitis. 6. Other chronic findings as discussed. Report Dictated on Electronically Signed By: Raymond Sandoval MD Electronically Signed Date/Time: 08/15/2024 12:13 PM EST PVR: 0 mL documented in this encounter [facility] 09-01-2024 Telephone encounter Note LMR for pt to reschedule his appt from 10/09/[address] Rojas at [place] she will be out of the office that day. Moved pt to 10/16/[address] Rojas at [place] office. Sending Concent[employer] message also. [facility] 09-01-2024 Miscellaneous Notes LMR for pt to reschedule his appt from 10/09/[address] Rojas at [place] she will be out of the office that day. Moved pt to 10/16/[address] Rojas at [place] office. Sending Soonr message also. documented in this encounter [facility] 08-10-2024 History of Present illness Narrative Images from the original note were not included. Ileana Rojas DO Urology Office Visit Established patient [facility] - [address] [facility] [address] Dept: [phone] Dept Loc: [phone] PATIENT NAME: Margaux Quarles DATE OF : 1950 REFERRING PROVIDER: No ref. provider found PCP: Sam Early DATE OF VISIT: 08/10/2024 CHIEF COMPLAINT: Chief Complaint Patient presents with UTI Pt stated he still have lots of bladder spasms, complications with his prostate, burning, cloudy urine. Impression: Diagnoses and all orders for this visit: Bladder spasms - Meth-Hyo-M Bl-Na Phos-Ph Eduard (Uribel) 118 MG capsule; Take 1 capsule by mouth every 6 hours as needed (bladder pain/burning with urination). Recurrent UTI - AMB POC URINALYSIS DIP STICK AUTO W/O MICRO - Bladder scan - Mycoplasma/Ureaplasma Panel ([facility]) - Urine culture - fluconazole (Diflucan) 100 MG tablet; Take 1 tablet (100 mg) by mouth daily for 14 days. - sulfamethoxazole-trimethoprim (Bactrim DS) 800-160 MG tablet; Take 1 tablet by mouth 2 times daily. Dysuria - Mycoplasma/Ureaplasma Panel ([facility]) - Urine culture - fluconazole (Diflucan) 100 MG tablet; Take 1 tablet (100 mg) by mouth daily for 14 days. - sulfamethoxazole-trimethoprim (Bactrim DS) 800-160 MG tablet; Take 1 tablet by mouth 2 times daily. Hypospadias, penile 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 urethral stricture . Plan: Urine culture today Fluconazole 100mg daily x 14 days based on urine culture from July Bactrim DS BID x 30 days Adjust as needed, will contact with results Consider Tadalafil 5mg daily at next visit if no improvement in symptoms Consider Baclofen nightly as well if having bladder spasms that are worse overnight and in the morning Check out this website [email or web address] for more information about pelvic floor relaxation You can also check out this FREE YouTube Channel for videos on helpful stretches and exercises to start at home. Dr Siddiqui's [facility] Uribel PRN for bladder spasms / dysuria Plan about 5 week follow up Follow Up: Follow up in about 5 weeks (around 09/14/2024) for recurrent UTI / prostatitis follow up . Ileana Rojas DO Reconstructive [facility] [place] Subjective: Mr. Quarles is a 73 y.o. male who presents to the office for dysuria, recurrent UTI . Records have been reviewed HPI HPI Having a lot of bladder spasms/prostate Has skin irritation as well Unable to pass the dilator at this time He does have urine associated dermatitis associated with dribbling. This is from his hypospadias, numerous surgeries and penile stricture. He has been having more pain within the perineum and prostate. This has been present ever since he had his knee replaced this summer. The last couple of months have been much worse. We obtained a renal ultrasound which showed new hydronephrosis on the left side. Uncertain etiology therefore a CT scan has been ordered and is scheduled for next week PSA 07/14/2024 4.2 (38% free PSA)) 12/07/23 5.56 01/11/23 5.03 10/03/21 4.23 08/06/21 8.0 06/10/21 4.4 01/06/21 4.01 08/15/2024 CT abdomen pelvis (scheduled) 07/14/2024 renal ultrasound simple right renal cyst, mild left hydronephrosis. Bladder incompletely distended 07/10/2024 urine culture 1-9K yeast 03/09/24 Void trial, able to void without difficulty 02/21/24 knee replacement, post operative urinary retention 09/08/23 office visit. Taught meatal dilation/calibration today. Continue Flomax BID 06/17/23 RUG, Cysto, urethral dilation, long placement. Distal penile urethral stricture (prior hypospadias surgeries) Hx of hypospadias, BPH, urinary retention and urethral stricture requiring dilation Referred by Dr Christian Has seen Drs Gino, Kwaku, Lesley, and Jamila in the past 12 years ago he had a hernia repair in [place] Could not get catheter in Had to get a urologist to get a catheter in. A few years ago had a dilation here in [place] as well Last Dilated August 2022 at [facility]. Dilated to 14, had 12 fr catheter placed over wire Reports that was the least painful Hx of recurrent prostatitis, stones. Has had previous treatment of stones with laser lithotripsy. Tobacco History reports that he has never smoked. He does not have any smokeless tobacco history on file. Review of Systems Review of Systems Constitutional: Negative. HENT: Negative. Gastrointestinal: Negative. Genitourinary: Positive for dysuria, enuresis, frequency, penile pain and urgency. Negative for difficulty urinating, hematuria and testicular pain. Past Medical History: Past Medical History: Diagnosis Date Arthritis gets stem cells injected in both knees and right shoulder Bilateral inguinal hernia Bleeding from the nose cauterized BPH (benign prostatic hyperplasia) Chronic anemia Eczema GERD (gastroesophageal reflux disease) Hyperlipidemia Kidney stones Mitral valve insufficiency Poor urinary stream UTI (urinary tract infection) Past Surgical History: Past Surgical History: Procedure Laterality Date CYSTOSCOPY 2016 stent HERNIA REPAIR KIDNEY STONE SURGERY LITHOTRIPSY 2010 OTHER SURGICAL HISTORY string stent TONSILLECTOMY AND ADENOIDECTOMY (HISTORICAL) Medications Current Outpatient Medications: cholecalciferol (Vitamin D-3) 10 MCG (400 UNIT) tablet, Take 400 Units by mouth daily., Disp: , Rfl: clobetasol (Temovate) 0.05 % cream, Apply to meatus and dilator weekly and as needed for meatal stenosis, Disp: 45 g, Rfl: 3 Lansoprazole (PREVACID PO), Take by mouth daily., Disp: , Rfl: naproxen (Naprosyn) 500 MG tablet, Take 500 mg by mouth Daily as needed., Disp: , Rfl: sildenafil (Viagra) 100 MG tablet, take one tablet by mouth once a day as needed. maximum of 1 tablet daily, Disp: , Rfl: tamsulosin (Flomax) 0.4 MG 24 hr capsule, Take 1 capsule (0.4 mg) by mouth 2 times daily., Disp: 180 capsule, Rfl: 3 fluconazole (Diflucan) 100 MG tablet, Take 1 tablet (100 mg) by mouth daily for 14 days., Disp: 14 tablet, Rfl: 0 Meth-Hyo-M Bl-Na Phos-Ph Eduard (Uribel) 118 MG capsule, Take 1 capsule by mouth every 6 hours as needed (bladder pain/burning with urination)., Disp: 30 capsule, Rfl: 1 sulfamethoxazole-trimethoprim (Bactrim DS) 800-160 MG tablet, Take 1 tablet by mouth 2 times daily., Disp: 60 tablet, Rfl: 0 Vitals: BP 138/74 (BP Location: Left arm, Patient Position: Sitting) Pulse 74 Ht 5' 8 (1.727 m) Wt 144 lb (65.3 kg) BMI 21.90 kg/m Physical Exam Physical Exam Constitutional: Appearance: Normal appearance. Pulmonary: Effort: Pulmonary effort is normal. Skin: General: Skin is warm and dry. Neurological: Mental Status: He is alert and oriented to person, place, and time. Labs: Lab Results Component Value Date GLUCOSEUR Negative 08/10/2024 BILIRUBINUR Negative 08/10/2024 KETONESU Negative 08/10/2024 SPECGRAV 1.030 08/10/2024 PHUR 5.5 08/10/2024 PROTUR 300 08/10/2024 UROBILINOGEN 0.2 08/10/2024 LEUKOCYTESUR Small 08/10/2024 NITRITE Negative 08/10/2024 Hemoglobin Date Value Ref Range Status 02/21/2024 10.4 (L) 13.0 - 18.0 g/dL Final 06/07/2023 9.0 (L) 13.0 - 18.0 g/dL Final Hematocrit Date Value Ref Range Status 02/21/2024 33.0 (L) 40.0 - 52.0 % Final 06/07/2023 29.5 (L) 40.0 - 52.0 % Final Radiology Review: === 07/14/24 === US RETROPERITONEAL - Impression - Mild left-sided hydronephrosis. No evidence of nephrolithiasis on either side. Report Dictated on Electronically Signed By: Sam Sandoval MD Electronically Signed Date/Time: 07/17/2024 9:38 AM EST I have viewed the images from this patient's radiographic exam(s) and my independent assessment is : Mild left hydronephrosis, no obvious stones identified, normal right kidney, bladder is not distended documented in this encounter [facility] 08-10-2024 Instructions Ileana Rojas DO - 08/10/2024 9:20 AM EST Check out this website www.[email or web address].org for more information about pelvic floor relaxation You can also check out this FREE YouTube Channel for videos on helpful stretches and exercises to start at home. Dr Siddiqui's [facility] documented in this encounter [facility] 08-07-2024 Telephone encounter Note Spoke to pt to give D/T/L of CT. Pt said [facility] ok any day but Mondays. Scheduled for 08/15/24 @ 9:30am [facility] location. Also pt having issue and wants to see Dr Rojas and get a shot he say. Made appt for this 08/10/24. [facility] 08-07-2024 Miscellaneous Notes Spoke to pt to give D/T/L of CT. Pt said [employer] [facility] ok any day but Mondays. Scheduled for 08/15/24 @ 9:30am [employer] [facility] location. Also pt having issue and wants to see Dr Rojas and get a shot he say. Made appt for this 08/10/24. Please schedule patient for a CT scan of the abdomen and pelvis secondary to swelling seen on renal ultrasound with a history of kidney stones documented in this encounter [facility] 08-05-2024 Telephone encounter Note Please schedule patient for a CT scan of the abdomen and pelvis secondary to swelling seen on renal ultrasound with a history of kidney stones [facility] 07-10-2024 History of Present illness Narrative Images from the original note were not included. Ileana Rojas DO Urology Office Visit Established patient [facility] - [address] [facility] [address] Dept: [phone] Dept Loc: [phone] PATIENT NAME: Margaux Quarles DATE OF : 1950 REFERRING PROVIDER: No ref. provider found PCP: Sam Early DATE OF VISIT: 07/10/24 CHIEF COMPLAINT: Chief Complaint Patient presents with Benign Prostatic Hypertrophy BPH/ Urethral stricture follow up. Has some occasional spasms and discomfort at prostate. Has been treated for pseudomonas about two weeks ago at [facility]. Impression: Diagnoses and all orders for this visit: Urinary retention - Bladder scan Dysuria - Urine culture Elevated PSA - PSA, total and free; Future - PSA, total and free; Future Recurrent UTI - US retroperitoneum; Future BPH with obstruction/lower urinary tract symptoms - tamsulosin (Flomax) 0.4 MG 24 hr capsule; Take 1 capsule (0.4 mg) by mouth 2 times daily. Hypospadias, penile 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 urethral stricture . Plan: Check Urine culture to rule out infection Will contact with results Rising PSA Check Free/Total PSA now and again in about 3 months Continue Flomax BID Recommend he continue dilation/self calibration 2 x per week Use clobetasol For urine associated dermatitis Barrier ointment such as A&D or Aquaphor Follow up in about 3 months to assess symptoms Follow Up: Follow up in about 3 months (around 10/08/2024) for BPH/Recurrent UTI/elevated PSA follow up . Ileana Rojas DO Reconstructive [facility] [place] Subjective: Mr. Quarles is a 73 y.o. male who presents to the office for BPH, history of retention, distal urethral stricture . Records have been reviewed HPI Since his post operative urinary retention, he has had urinary difficulty and UTIs Also some dysuria Was recently treated with PO cipro and then PO doxycycline for UTI Urine culture done at PCP in [place] and then one at an urgent care as well We discussed his rising PSA as well Will check PSA now and again in about 3 months to assess stabilit PSA 12/07/23 5.56 01/11/23 5.03 10/03/21 4.23 08/06/21 8.0 06/10/21 4.4 01/06/21 4.01 03/09/24 Void trial, able to void without difficulty 02/21/24 Left knee replacement, post operative urinary retention 09/08/23 office visit. Taught meatal dilation/calibration today. Continue Flomax BID 06/17/23 RUG, Cysto, urethral dilation, long placement. Distal penile urethral stricture (prior hypospadias surgeries) Hx of hypospadias, BPH, urinary retention and urethral stricture requiring dilation Referred by Dr Christian Has seen Rudy Christian, Kwaku, Lesley, and Jamila in the past 12 years ago he had a hernia repair in [place] Could not get catheter in Had to get a urologist to get a catheter in. A few years ago had a dilation here in [place] as well Last Dilated August 2022 at [facility]. Dilated to 14, had 12 fr catheter placed over wire Reports that was the least painful Hx of recurrent prostatitis, stones. Has had previous treatment of stones with laser lithotripsy. Tobacco History reports that he has never smoked. He does not have any smokeless tobacco history on file. Review of Systems Review of Systems Constitutional: Negative. HENT: Negative. Gastrointestinal: Negative. Genitourinary: Positive for difficulty urinating, dysuria, frequency, penile pain and urgency. Negative for hematuria. Past Medical History: Past Medical History: Diagnosis Date Arthritis gets stem cells injected in both knees and right shoulder Bilateral inguinal hernia Bleeding from the nose cauterized BPH (benign prostatic hyperplasia) Chronic anemia Eczema GERD (gastroesophageal reflux disease) Hyperlipidemia Kidney stones Mitral valve insufficiency Poor urinary stream UTI (urinary tract infection) Past Surgical History: Past Surgical History: Procedure Laterality Date CYSTOSCOPY 2016 stent HERNIA REPAIR KIDNEY STONE SURGERY LITHOTRIPSY 2010 OTHER SURGICAL HISTORY string stent TONSILLECTOMY AND ADENOIDECTOMY (HISTORICAL) Medications Current Outpatient Medications: Cannabinoids (medical cannabis), Take 1 each by mouth 2 times daily. CBD GUMMIES, Disp: , Rfl: cholecalciferol (Vitamin D-3) 10 MCG (400 UNIT) tablet, Take 400 Units by mouth daily., Disp: , Rfl: clobetasol (Temovate) 0.05 % cream, Apply to meatus and dilator weekly and as needed for meatal stenosis, Disp: 45 g, Rfl: 3 Lansoprazole (PREVACID PO), Take by mouth daily., Disp: , Rfl: naproxen (Naprosyn) 500 MG tablet, Take 500 mg by mouth Daily as needed., Disp: , Rfl: sildenafil (Viagra) 100 MG tablet, take one tablet by mouth once a day as needed. maximum of 1 tablet daily, Disp: , Rfl: tamsulosin (Flomax) 0.4 MG 24 hr capsule, Take 1 capsule (0.4 mg) by mouth 2 times daily., Disp: 180 capsule, Rfl: 3 Vitals: Ht 5' 8 (1.727 m) Wt 144 lb (65.3 kg) BMI 21.90 kg/m Physical Exam Physical Exam Constitutional: Appearance: Normal appearance. He is normal weight. Pulmonary: Effort: Pulmonary effort is normal. Genitourinary: Comments: Circumcised, penile hypospadias, neomeatus about 8-10 fr in size, skin with some urine associated dermatitis Skin: General: Skin is warm and dry. Neurological: Mental Status: He is alert and oriented to person, place, and time. Psychiatric: Behavior: Behavior normal. Labs: Lab Results Component Value Date GLUCOSEUR Negative 03/03/2023 BILIRUBINUR Negative 03/03/2023 KETONESU Negative 03/03/2023 SPECGRAV 1.020 03/03/2023 PHUR 6.0 03/03/2023 PROTUR Negative 03/03/2023 UROBILINOGEN 0.2 03/03/2023 LEUKOCYTESUR Small 03/03/2023 NITRITE NEGATIVE 08/12/2023 Hemoglobin Date Value Ref Range Status 02/21/2024 10.4 (L) 13.0 - 18.0 g/dL Final 06/07/2023 9.0 (L) 13.0 - 18.0 g/dL Final Hematocrit Date Value Ref Range Status 02/21/2024 33.0 (L) 40.0 - 52.0 % Final 06/07/2023 29.5 (L) 40.0 - 52.0 % Final documented in this encounter [facility] 05-01-2024 Miscellaneous Notes Patient called requesting the following refill. Requested Prescriptions Pending Prescriptions Disp Refills sildenafil (VIAGRA) 100 mg tablet [Pharmacy Med Name: Sildenafil Citrate Oral Tablet 100 MG] 10 tablet 0 Sig: take one tablet by mouth once a day as needed. maximum of 1 tablet daily Patient last appointment: 01/11/2024 Patient Phone numbers: [phone] (home) Request is for script(s) to be escript to pharmacy. Berlin Le MA documented in this encounter [facility] 05-01-2024 Telephone encounter Note Patient called requesting the following refill. Requested Prescriptions Pending Prescriptions Disp Refills sildenafil (VIAGRA) 100 mg tablet [Pharmacy Med Name: Sildenafil Citrate Oral Tablet 100 MG] 10 tablet 0 Sig: take one tablet by mouth once a day as needed. maximum of 1 tablet daily Patient last appointment: 01/11/2024 Patient Phone numbers: [phone] (home) Request is for script(s) to be escript to pharmacy. Berlin Le MA [facility] 04-27-2024 Telephone encounter Note Received a VM from [employer] requesting OV notes and supporting documentation for patient's iron infusion. 12/02/2023 and 02/01/2024 OV notes and 02/01/2024 Ferritin lab results faxed to [phone]. Alyse Love, Dental Assistant April 27, 2024 3:04 PM [facility] 04-27-2024 Miscellaneous Notes Received a VM from [employer] requesting OV notes and supporting documentation for patient's iron infusion. 12/02/2023 and 02/01/2024 OV notes and 02/01/2024 Ferritin lab results faxed to [phone]. Alyse Love Dental Assistant April 27, 2024 3:04 PM documented in this encounter [facility] 03-17-2024 Telephone encounter Note Name of caller: Margaux Contact phone number: [phone] Relationship to Patient: patient Provider: Practice: Urology Chief Complaint/Reason for Call: Patient calling to reschedule procedure appointment for 04/11/24. Patient will be out of town. Please call to reschedule. Best time of day caller can be reached: any Patient advised that office/PCP has 24-48 business hours to return their call: no [facility] 03-17-2024 Miscellaneous Notes Name of caller: Margaux Contact phone number: [phone] Relationship to Patient: patient Provider: Practice: Urology Chief Complaint/Reason for Call: Patient calling to reschedule procedure appointment for 04/11/24. Patient will be out of town. Please call to reschedule. Best time of day caller can be reached: any Patient advised that office/PCP has 24-48 business hours to return their call: no documented in this encounter [facility] 02-22-2024 Note Addended by: DOREEN COFFMAN on: 02/22/2024 02:18 PM Modules accepted: Orders [facility] 02-22-2024 Note Addended by: DOREEN COFFMAN on: 02/22/2024 02:18 PM Modules accepted: Orders [facility] 02-22-2024 Note Addended by: DOREEN COFFMAN on: 02/22/2024 02:18 PM Modules accepted: Orders [facility] 02-22-2024 Note Addended by: DOREEN COFFMAN on: 02/22/2024 02:18 PM Modules accepted: Orders [facility] 02-22-2024 Miscellaneous Notes Addended by: DOREEN COFFMAN on: 02/22/2024 02:18 PM Modules accepted: Orders Medication was sent to the [facility] in [place] per patient request. Call placed to the patient to advise script was sent to this pharmacy as requested. Patient voiced understanding. Pt is staying at his daughters house. He is requesting his medication to be sent to [facility] in [place]. Please advise. Left detailed message for pt regarding antibiotic. Advised to call office if there are any questions. Called pt and scheduled VT. Pt stated he had knee replacement at [facility] and then went into retention. They were unable to put a catheter in as they do not have any urologists oncall in the evenings. Pt stated he called our office as he is a pt of Dr Rojas and was advised to come to [facility] ED. Pt stated he waited 8 hours in the ED and it was chaos there. Those people don't know what they are doing. Thank goodness for the doctor who came and put the catheter in. She was wonderful. I was in so much pain because I couldn't pee. No one would help me until she came and she was absolutely wonderful!!. She was so nice and I appreciate that. Advised that it was Dr Jurado and she is one of our of best. Pt did not want to schedule cysto at this time stating I'm still overwhelmed right now with everything. Advised that he can shcedule cysto at his appt on 03/09/24. Pt verbalized understanding. Augmentin BID until cath removal Patient is 1 day post op from total knee replacement Please schedule for a void trial 1-2 weeks; Follow up with me for office cystoscopy with possible dilation any time after void trial (has appt in July but I would like to see him before then) Please clarify if patient should be scheduled a VT vs office appointment or both . Known to Dr. Rojas. Seen in ED for rentention, difficult long after knee surgery. Required bedside dilation and long placement. Will need follow up. Thanks! documented in this encounter [facility] 02-22-2024 Telephone encounter Note [facility] [place] per patient request. Call placed to the patient to advise script was sent to this pharmacy as requested. Patient voiced understanding. [facility] 02-22-2024 Telephone encounter Note Pt is staying at his daughters house. He is requesting his medication to be sent to [facility] in [place]. Please advise. [facility] 02-22-2024 Telephone encounter Note Left detailed message for pt regarding antibiotic. Advised to call office if there are any questions. [facility] 02-22-2024 Telephone encounter Note Called pt and scheduled VT. Pt stated he had knee replacement at [facility] and then went into retention. They were unable to put a catheter in as they do not have any urologists oncall in the evenings. Pt stated he called our office as he is a pt of Dr Rojas and was advised to come to [facility] ED. Pt stated he waited 8 hours in the ED and it was chaos there. Those people don't know what they are doing. Thank goodness for the doctor who came and put the catheter in. She was wonderful. I was in so much pain because I couldn't pee. No one would help me until she came and she was absolutely wonderful!!. She was so nice and I appreciate that. Advised that it was Dr Jurado and she is one of our of best. Pt did not want to schedule cysto at this time stating I'm still overwhelmed right now with everything. Advised that he can shcedule cysto at his appt on 03/09/24. Pt verbalized understanding. [facility] 02-22-2024 Telephone encounter Note Augmentin BID until cath removal Patient is 1 day post op from total knee replacement T [facility] 02-22-2024 Telephone encounter Note Please schedule for a void trial 1-2 weeks; Follow up with me for office cystoscopy with possible dilation any time after void trial (has appt in July but I would like to see him before then) T [facility] 02-22-2024 Telephone encounter Note Please clarify if patient should be scheduled a VT vs office appointment or both . T [facility] 02-21-2024 Telephone encounter Note Known to Dr. Rojas. Seen in ED for rentention, difficult long after knee surgery. Required bedside dilation and long placement. Will need follow up. Thanks! T [facility] 02-21-2024 Emergency department Note RN provided patient with leg bag and other supplies per resident Anthony Meadows RN 02/21/24 [id number] [facility] 02-21-2024 Emergency department Note RN provided patient with leg bag and other supplies per resident Anthony Meadows RN 02/21/[address] coude cath. Unsuccessful cart order. Resident at the bedside Anthony Meadows RN 02/21/242148 RN bladder scanned patient. Pt has over 563 ml of urine in bladder. Kosta QUIJANO aware Anthony Meadows RN 02/21/242113 EMERGENCY DEPARTMENT ENCOUNTER Pt Name: Margaux Quarles Birthdate 1950 Date of evaluation: 02/21/2024 ED Provider: DAYNA Tai CNP Patient was seen by my attending Dr. Grossman please see his note and attestation of this patient. CHIEF COMPLAINT Urinary retention Chief Complaint Patient presents with Urinary Retention Pt states he had a knee replacement this morning and is now having urinary retention. Pt states he is also nausea and feels like he is going to pass out HISTORY OF PRESENT ILLNESS (Location/Symptom, Timing/Onset, Context/Setting, Quality, Duration, Modifying Factors, Severity) Note limiting factors. I wore appropriate PPE for the entirety of this encounter. HPI Margaux Quarles is a 73 y.o. who presents to the emergency department for evaluation treatment patient reported that he had a knee replacement of the left knee at a [facility] facility in [place] stated that he developed urinary retention and he called Dr. Rojas office who referred him to the emergency room. Denies any problems with his surgery he stated that he did feel some nausea. He denies any chest pain or shortness of breath he speaking in full sentences able to swallow his own secretions. Patient has a medical history of hyperlipidemia chronic anemia BPH he also has a history of arthritis poor urinary system or stream. As well as a mitral valve insufficiency. He reports he does not smoke denies any alcohol illicit drug use or abuse. Nursing Notes were reviewed. Limitations to history: None Outside historians: None REVIEW OF SYSTEMS Review of Systems GENERAL: Denies weight change, fatigue, weakness, fever HEENT: Denies trauma, headache, dizziness, visual change, ear pain, hearing change, tinnitus, rhinorrhea CARDIAC: Denies hypertension, murmur, angina, palpations, dyspnea on exertion, edema RESPIRATORY: Denies shortness of breath, wheezing, cough, sputum, asthma, COPD GI: Denies nausea, vomiting, change in bowels, abdominal pain URINARY: Denies changes in frequency/urgency, hematuria, incontinence, flank pain complaint of urinary retention MUSCULOSKELETAL: Denies weakness, pain, change in ROM, redness, swelling NEURO: Denies loss in sensation, tingling, tremors, weakness, fainting or seizures ENDO: Denies heat/cold intolerance, polyuria, polydipsia, or swelling around neck PSYCH: Denies changes in mood, anxiety, depression, tension, memory Pertinent positives and negatives as per HPI. PAST MEDICAL HISTORY Past Medical History: Diagnosis Date Arthritis gets stem cells injected in both knees and right shoulder Bilateral inguinal hernia Bleeding from the nose cauterized BPH (benign prostatic hyperplasia) Chronic anemia Eczema GERD (gastroesophageal reflux disease) Hyperlipidemia Kidney stones Mitral valve insufficiency Poor urinary stream UTI (urinary tract infection) SURGICAL HISTORY Past Surgical History: Procedure Laterality Date CYSTOSCOPY 2016 stent HERNIA REPAIR KIDNEY STONE SURGERY LITHOTRIPSY 2010 OTHER SURGICAL HISTORY string stent TONSILLECTOMY AND ADENOIDECTOMY (HISTORICAL) CURRENT MEDICATIONS Current Discharge Medication List CONTINUE these medications which have NOT CHANGED Details Cannabinoids (medical cannabis) Take 1 each by mouth 2 times daily. CBD GUMMIES cholecalciferol (Vitamin D-3) 10 MCG (400 UNIT) tablet Take 400 Units by mouth daily. 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 naproxen (Naprosyn) 500 MG tablet Take 500 mg by mouth Daily as needed. sildenafil (Viagra) 100 MG tablet take one tablet by mouth once a day as needed. maximum of 1 tablet daily tamsulosin (Flomax) 0.4 MG 24 hr capsule Take 1 capsule (0.4 mg) by mouth 2 times daily. 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 FAMILY HISTORY Family History Problem Relation Name Age of Onset Prostate cancer Father Breast cancer Mother Heart disease Father SOCIAL HISTORY Social History Socioeconomic History Marital status: Tobacco Use Smoking status: Never Vaping Use Vaping status: Never Used Substance and Sexual Activity Alcohol use: No Drug use: No Social Determinants of Health Received from [facility] Family and Community Support Intimate Partner Violence: Not At Risk (11/04/2023) Received from [facility] Abuse Screen Feels Unsafe at Home or Work/School: no Feels Threatened by Someone: no Does Anyone Try to Keep You From Having Contact with Others or Doing Things Outside Your Home?: no Physical Signs of Abuse Present: no Received from [facility] Housing Stability SCREENINGS PHYSICAL EXAM ED Triage Vitals [02/21/241945] Temp Heart Rate Resp BP 36.2 C (97.2 F) 87 20 (!) 155/83 SpO2 Temp Source Heart Rate Source Patient Position 99 % Temporal Monitor -- BP Location FiO2 (%) -- -- Physical Exam GENERAL: The patient appears nourished and normally developed. Vital signs as documented. EYES: Head exam is unremarkable. No scleral icterus or orbital trauma noted. HEENT: Mucous membranes moist. Nares patent without copious rhinorrhea. No enlarged lymphadenopathy. LUNGS: Lungs are clear to auscultation, without any respiratory distress. CARDIAC: Rhythm is regular. No dysrythmias or murmurs. ABDOMEN: Nontender with no obvious masses, and no peritoneal signs. Bladder slightly distended EXTREMITIES: Non edematous, with no obvious deformities. SKIN: Good color, with no significant rashes. No pallor. NEURO: No obvious neurological deficits, normal sensation and strength bilaterally. patient able to ambulate. DIAGNOSTIC RESULTS RADIOLOGY (Per Emergency Physician): Interpretation per the Radiologist below, if available at the time of this note: No orders to display LABS: Labs Reviewed CBC WITH AUTO DIFFERENTIAL - Abnormal Result Value Auto WBC 8.7 RBC 4.32 (*) Hemoglobin 10.4 (*) Hematocrit 33.0 (*) MCV 76.4 (*) MCH 24.1 (*) MCHC 31.5 RDW Platelets 159 MPV 10.6 IPF 5 BASIC METABOLIC PANEL - Abnormal SODIUM 134 (*) POTASSIUM 3.5 CHLORIDE 107 CARBON DIOXIDE 17 (*) UREA NITROGEN 18 CREATININE 0.84 GLUCOSE 132 (*) CALCIUM 9.1 ANION GAP 10 eGFR >90.0 MANUAL DIFFERENTIAL (CELLAVISION) - Abnormal RBC Morphology abnormal Anisocytosis Slight (*) Poikilocytes Slight (*) Macrocytes Slight (*) Ovalocytes Slight (*) Terra Cells Slight (*) Neutrophils % 91 (*) Bands % 2 (*) Lymphocytes % 6 (*) Monocytes % 0 (*) Basophils % 1 Absolute Neutrophil Count 8.1 (*) Bands Absolute 0.2 (*) Lymphocytes Absolute 0.5 (*) Monocytes Absolute 0.0 Basophils Absolute 0.1 Neutrophils Manual 91 Lymphocytes Manual 6 Monocytes Manual 0 Eosinophils Manual Basophils Manual 1 Bands Manual 2 Metamyelocytes Manual Myelocytes Manual Promyelocytes Manual Blasts Manual Atypical Lymphocytes Manual Unclassified Cells, Manual COMPLETE URINALYSIS All other labs were within normal range or not returned as of this dictation. EMERGENCY DEPARTMENT COURSE and DIFFERENTIAL DIAGNOSIS/MDM: Vitals: Vitals: 02/21/24 194 BP: (!) 155/83 Pulse: 87 Resp: 20 Temp: 36.2 C (97.2 F) TempSrc: Temporal SpO2: 99% Medications traMADol (Ultram) tablet 50 mg (has no administration in time range) morphine injection 4 mg (4 mg IntraVENous Given 02/21/242010) ondansetron (Zofran) injection 4 mg (4 mg IntraVENous Given 02/21/242111) lidocaine (Uro-Jet) 2 % gel ( Urethral Given 02/21/242129) MDM MDM elements: The patient presented with chief complaint of urinary retention. The differential diagnosis associated with this patient's presentation includes urinary retention versus infection versus cystitis versus post surgery nausea. Our workup consisted of ordering/reviewing: CBC BMP a urine as well as a Long was inserted by the urology resident.. The patient will be Discharged. Patient is in agreement with this plan. Patient's care was significantly impacted by social determinants of health including none. The patient had a Long placed by the urology resident please see her note he is to follow-up with Dr. Rojas office and 3 days. He is to return for new or worsening symptoms all patient's question concerns were addressed he was in agreement this plan a Long was then placed patient reported he felt better he was given trial of tramadol and morphine in the emergency room as well as Zofran for his nausea condition stable upon discharge. PROCEDURES: Unless otherwise noted below, none Procedures CRITICAL CARE TIME None FINAL IMPRESSION 1. Urinary retention 2. Status post insertion of Long catheter DISPOSITION Discharge 02/21/2024 10:29:04 PM PATIENT REFERRED TO: No follow-up provider specified. DISCHARGE MEDICATIONS: Current Discharge Medication List START taking these medications Details ciprofloxacin (Cipro) 500 MG tablet Take 1 tablet (500 mg) by mouth 2 times daily for 5 days. Qty: 10 tablet, Refills: 0 (Comment: Please note this report has been produced using speech recognition software and may contain errors related to that system including errors in grammar, punctuation, and spelling, as well as words and phrases that may be inappropriate. If there are any questions or concerns please feel free to contact the dictating provider for clarification.) DAYNA Tai CNP (electronically signed) Emergency Medicine Provider DAYNA Cohen CNP 02/21/24 3201 I did not participate in the care of this patient. America Felder PA-C 02/21/24 4160 Emergency Department Encounter [facility] EMERGENCY DEPT Patient: Margaux Quarles : 1950 Date of Evaluation: 02/21/2024 ED Supervising Physician: Colin Schaffer MD I personally evaluated Margaux Quarles and made/approved the management plan and take responsibility for the patient management. This will serve as my Supervisory note and shared attestation. I did perform a substantive portion of the visit including all aspects of the Medical Decision Making. I wore appropriate PPE for the entirety of this encounter. In brief, Margaux Quarles is a 73 y.o. that presents to the emergency department for retention. Follows with urology and told to come here for evaluation by them after his knee replacement today. Has BPH. Complaining of pain secondary to urinary retention. No fevers or vomiting no flank pain Focused exam: Awake alert no acute distress vital signs stable nontoxic Long catheter in place draining pooja-colored light urine No abdominal or CVA tenderness Brief ED course/MDM: 73-year-old male presents for urinary retention. Differential BPH, recent surgical procedure, kidney injury. Urology consulted and placed a Long. No NAUN on BMP, urinalysis collected. Medical history and prognosis includes BPH. Will discharge with urology follow-up. Diagnostics interpreted by me: none I personally discussed the patient's management with other clinicians: none All diagnostic, treatment, and disposition decisions were made by myself in conjunction with the [facility]. For all further details of the patient's emergency department visit, please see their documentation. (Comment: Please note this report has been produced using speech recognition software and may contain errors related to that system including errors in grammar, punctuation, and spelling, as well as words and phrases that may be inappropriate. If there are any questions or concerns please feel free to contact the dictating provider for clarification.) Colin Schaffer MD Acute Care [facility] Colin Schaffer MD 02/21/24 7690 documented in this encounter [facility] 02-21-2024 Note Urology Inpatient Consultation 02/21/2024 HISTORY OF PRESENT ILLNESS: The patient is a 73 y.o. male known to Dr. Rojas for hx of urethral stricture, hypospadias s/o OR dilation in 06/2023. Pt underwent a knee surgery at an outpatient surgery center. He was unable to void and advised to come to [facility] for urologic evaluation. Myself and RN were unable to pass a 16f long. I was able to pass a 0.035 glidewire and dilate the urethra from 12-18f. Pt does have a hypospadias with meatus a mid shaft. After dilation 16f [place] tip catheter was passed over a wire for return of 1L yellow urine. PAST MEDICAL HISTORY: Past Medical History: Diagnosis Date Arthritis gets stem cells injected in both knees and right shoulder Bilateral inguinal hernia Bleeding from the nose cauterized BPH (benign prostatic hyperplasia) Chronic anemia Eczema GERD (gastroesophageal reflux disease) Hyperlipidemia Kidney stones Mitral valve insufficiency Poor urinary stream UTI (urinary tract infection) PAST SURGICAL HISTORY: Past Surgical History: Procedure Laterality Date CYSTOSCOPY 2016 stent HERNIA REPAIR KIDNEY STONE SURGERY LITHOTRIPSY 2010 OTHER SURGICAL HISTORY string stent TONSILLECTOMY AND ADENOIDECTOMY (HISTORICAL) ALLERGIES: Patient has no known allergies. CURRENT MEDICATIONS: Current Facility-Administered Medications: traMADol (Ultram) tablet 50 mg, 50 mg, Oral, Once, DAYNA Cohen CNP Current Outpatient Medications: Cannabinoids (medical cannabis), Take 1 each by mouth 2 times daily. CBD GUMMIES, Disp: , Rfl: cholecalciferol (Vitamin D-3) 10 MCG (400 UNIT) tablet, Take 400 Units by mouth daily., Disp: , Rfl: ciprofloxacin (Cipro) 500 MG tablet, Take 1 tablet (500 mg) by mouth 2 times daily for 5 days., Disp: 10 tablet, Rfl: 0 clobetasol (Temovate) 0.05 % cream, Apply to meatus and dilator weekly and as needed for meatal stenosis, Disp: 45 g, Rfl: 3 Lansoprazole (PREVACID PO), Take by mouth daily., Disp: , Rfl: naproxen (Naprosyn) 500 MG tablet, Take 500 mg by mouth Daily as needed., Disp: , Rfl: sildenafil (Viagra) 100 MG tablet, take one tablet by mouth once a day as needed. maximum of 1 tablet daily, Disp: , Rfl: tamsulosin (Flomax) 0.4 MG 24 hr capsule, Take 1 capsule (0.4 mg) by mouth 2 times daily., Disp: 180 capsule, Rfl: 3 FAMILY HISTORY: Family History Problem Relation Name Age of Onset Prostate cancer Father Breast cancer Mother Heart disease Father Social History: Social History Tobacco Use Smoking status: Never Smokeless tobacco: Not on file Substance Use Topics Alcohol use: No ROS: Constitutional: negative for chills and fevers Respiratory: negative for hemoptysis and shortness of breath Cardiovascular: negative for dyspnea and syncope Gastrointestinal: negative for jaundice, nausea and vomiting Genitourinary:negative for dysuria, hematuria, and flank pain Hematologic/lymphatic: negative for bleeding and lymphadenopathy Integumentary: no new bruises or lesions Musculoskeletal:negative for muscle weakness or pain Neurological: negative for coordination problems and seizures All other systems negative PHYSICAL EXAM: VITALS: BP (!) 155/83 Pulse 87 Temp 36.2 ?C (97.2 ?F) (Temporal) Resp 20 SpO2 99% General: Alert, in no acute distress Head: Normocephalic, atraumatic Neck: supple, trachea is midline, no obvious masses Respiratory: no respiratory distress, normal effort, no audible wheezes Cardiovascular: regular pulse and no cyanosis Musculoskeletal: moving all extremities, normal tone Skin: warm and dry Psych: normal mood and affect, oriented Abdomen: soft, non distended, non tender, no organomegaly, no hernias : hypospadias, urethral meatus at mid shaft of the penis DATA: LABS: BMP: Lab Results Component Value Date GLUCOSE 132 (H) 02/21/2024 CALCIUM 9.1 02/21/2024 NA 134 (L) 02/21/2024 K 3.5 02/21/2024 CO2 17 (L) 02/21/2024 CL 107 02/21/2024 BUN 18 02/21/2024 CREATININE 0.84 02/21/2024 CBC: Lab Results Component Value Date WBC 8.7 02/21/2024 HGB 10.4 (L) 02/21/2024 HCT 33.0 (L) 02/21/2024 MCV 76.4 (L) 02/21/2024 PLT 159 02/21/2024 Urinalysis: @LASTUA@ Urine Culture: No components found for: LABURIN RADIOLOGY: N/a IMPRESSION: 73 y.o. male with hx of hypospadias, urethral stricture, urinary retention PLAN: Pt with hx of hypospadias, urethral stricture s/p bedside dilation 12f-18f 16F long catheter placed by urology resident for 1000cc yellow urine Okay for DC home with long catheter in place. Pt known to Dr. Rojas, her office will call to arrange follow up Okay for DC home from ED from Urology perspective 5d cipro sent to pts pharmacy Please page the personal financial planner urology resident with any questions or concerns Thank you for allowing me to participate in the care of your patient. Jada Gutiérrez MD Urology PGY-3 02/21/2024 11:03 PM -Please r (more content not included)... [facility] 02-21-2024 Emergency department Note RN attempted to place coude cath. Unsuccessful cart order. Resident at the bedside Anthony Meadows RN 02/21/242148 [facility] 02-21-2024 Emergency department Note RN bladder scanned patient. Pt has over 563 ml of urine in bladder. Kosta QUIJANO aware Anthony Meadows RN 02/21/242113 [facility] 02-21-2024 Physician Emergency department Note EMERGENCY DEPARTMENT ENCOUNTER Pt Name: Margaux Quarles Birthdate 1950 Date of evaluation: 02/21/2024 ED Provider: Kosta Allen APRN - RONIT Patient was seen by my attending Dr. Grossman please see his note and attestation of this patient. CHIEF COMPLAINT Urinary retention Chief Complaint Patient presents with Urinary Retention Pt states he had a knee replacement this morning and is now having urinary retention. Pt states he is also nausea and feels like he is going to pass out HISTORY OF PRESENT ILLNESS (Location/Symptom, Timing/Onset, Context/Setting, Quality, Duration, Modifying Factors, Severity) Note limiting factors. I wore appropriate PPE for the entirety of this encounter. HPI Margaux Quarles is a 73 y.o. who presents to the emergency department for evaluation treatment patient reported that he had a knee replacement of the left knee at a [facility] in [place] stated that he developed urinary retention and he called Dr. Rojas office who referred him to the emergency room. Denies any problems with his surgery he stated that he did feel some nausea. He denies any chest pain or shortness of breath he speaking in full sentences able to swallow his own secretions. Patient has a medical history of hyperlipidemia chronic anemia BPH he also has a history of arthritis poor urinary system or stream. As well as a mitral valve insufficiency. He reports he does not smoke denies any alcohol illicit drug use or abuse. Nursing Notes were reviewed. Limitations to history: None Outside historians: None REVIEW OF SYSTEMS Review of Systems GENERAL: Denies weight change, fatigue, weakness, fever HEENT: Denies trauma, headache, dizziness, visual change, ear pain, hearing change, tinnitus, rhinorrhea CARDIAC: Denies hypertension, murmur, angina, palpations, dyspnea on exertion, edema RESPIRATORY: Denies shortness of breath, wheezing, cough, sputum, asthma, COPD GI: Denies nausea, vomiting, change in bowels, abdominal pain URINARY: Denies changes in frequency/urgency, hematuria, incontinence, flank pain complaint of urinary retention MUSCULOSKELETAL: Denies weakness, pain, change in ROM, redness, swelling NEURO: Denies loss in sensation, tingling, tremors, weakness, fainting or seizures ENDO: Denies heat/cold intolerance, polyuria, polydipsia, or swelling around neck PSYCH: Denies changes in mood, anxiety, depression, tension, memory Pertinent positives and negatives as per HPI. PAST MEDICAL HISTORY Past Medical History: Diagnosis Date Arthritis gets stem cells injected in both knees and right shoulder Bilateral inguinal hernia Bleeding from the nose cauterized BPH (benign prostatic hyperplasia) Chronic anemia Eczema GERD (gastroesophageal reflux disease) Hyperlipidemia Kidney stones Mitral valve insufficiency Poor urinary stream UTI (urinary tract infection) SURGICAL HISTORY Past Surgical History: Procedure Laterality Date CYSTOSCOPY 2016 stent HERNIA REPAIR KIDNEY STONE SURGERY LITHOTRIPSY 2010 OTHER SURGICAL HISTORY string stent TONSILLECTOMY AND ADENOIDECTOMY (HISTORICAL) CURRENT MEDICATIONS Current Discharge Medication List CONTINUE these medications which have NOT CHANGED Details Cannabinoids (medical cannabis) Take 1 each by mouth 2 times daily. CBD GUMMIES cholecalciferol (Vitamin D-3) 10 MCG (400 UNIT) tablet Take 400 Units by mouth daily. 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 naproxen (Naprosyn) 500 MG tablet Take 500 mg by mouth Daily as needed. sildenafil (Viagra) 100 MG tablet take one tablet by mouth once a day as needed. maximum of 1 tablet daily tamsulosin (Flomax) 0.4 MG 24 hr capsule Take 1 capsule (0.4 mg) by mouth 2 times daily. 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 FAMILY HISTORY Family History Problem Relation Name Age of Onset Prostate cancer Father Breast cancer Mother Heart disease Father SOCIAL HISTORY Social History Socioeconomic History Marital status: Tobacco Use Smoking status: Never Vaping Use Vaping status: Never Used Substance and Sexual Activity Alcohol use: No Drug use: No Social Determinants of Health Received from [facility] Family and Community Support Intimate Partner Violence: Not At Risk (11/04/2023) Received from [facility] Abuse Screen Feels Unsafe at Home or Work/School: no Feels Threatened by Someone: no Does Anyone Try to Keep You From Having Contact with Others or Doing Things Outside Your Home?: no Physical Signs of Abuse Present: no Received from [facility] Housing Stability SCREENINGS PHYSICAL EXAM ED Triage Vitals [02/21/241945] Temp Heart Rate Resp BP 36.2 C (97.2 F) 87 20 (!) 155/83 SpO2 Temp Source Heart Rate Source Patient Position 99 % Temporal Monitor -- BP Location FiO2 (%) -- -- Physical Exam GENERAL: The patient appears nourished and normally developed. Vital signs as documented. EYES: Head exam is unremarkable. No scleral icterus or orbital trauma noted. HEENT: Mucous membranes moist. Nares patent without copious rhinorrhea. No enlarged lymphadenopathy. LUNGS: Lungs are clear to auscultation, without any respiratory distress. CARDIAC: Rhythm is regular. No dysrythmias or murmurs. ABDOMEN: Nontender with no obvious masses, and no peritoneal signs. Bladder slightly distended EXTREMITIES: Non edematous, with no obvious deformities. SKIN: Good color, with no significant rashes. No pallor. NEURO: No obvious neurological deficits, normal sensation and strength bilaterally. patient able to ambulate. DIAGNOSTIC RESULTS RADIOLOGY (Per Emergency Physician): Interpretation per the Radiologist below, if available at the time of this note: No orders to display LABS: Labs Reviewed CBC WITH AUTO DIFFERENTIAL - Abnormal Result Value Auto WBC 8.7 RBC 4.32 (*) Hemoglobin 10.4 (*) Hematocrit 33.0 (*) MCV 76.4 (*) MCH 24.1 (*) MCHC 31.5 RDW Platelets 159 MPV 10.6 IPF 5 BASIC METABOLIC PANEL - Abnormal SODIUM 134 (*) POTASSIUM 3.5 CHLORIDE 107 CARBON DIOXIDE 17 (*) UREA NITROGEN 18 CREATININE 0.84 GLUCOSE 132 (*) CALCIUM 9.1 ANION GAP 10 eGFR >90.0 MANUAL DIFFERENTIAL (CELLAVISION) - Abnormal RBC Morphology abnormal Anisocytosis Slight (*) Poikilocytes Slight (*) Macrocytes Slight (*) Ovalocytes Slight (*) Terra Cells Slight (*) Neutrophils % 91 (*) Bands % 2 (*) Lymphocytes % 6 (*) Monocytes % 0 (*) Basophils % 1 Absolute Neutrophil Count 8.1 (*) Bands Absolute 0.2 (*) Lymphocytes Absolute 0.5 (*) Monocytes Absolute 0.0 Basophils Absolute 0.1 Neutrophils Manual 91 Lymphocytes Manual 6 Monocytes Manual 0 Eosinophils Manual Basophils Manual 1 Bands Manual 2 Metamyelocytes Manual Myelocytes Manual Promyelocytes Manual Blasts Manual Atypical Lymphocytes Manual Unclassified Cells, Manual COMPLETE URINALYSIS All other labs were within normal range or not returned as of this dictation. EMERGENCY DEPARTMENT COURSE and DIFFERENTIAL DIAGNOSIS/MDM: Vitals: Vitals: 02/21/24 1946 BP: (!) 155/83 Pulse: 87 Resp: 20 Temp: 36.2 C (97.2 F) TempSrc: Temporal SpO2: 99% Medications traMADol (Ultram) tablet 50 mg (has no administration in time range) morphine injection 4 mg (4 mg IntraVENous Given 02/21/242010) ondansetron (Zofran) injection 4 mg (4 mg IntraVENous Given 02/21/242111) lidocaine (Uro-Jet) 2 % gel ( Urethral Given 02/21/242129) MDM MDM elements: The patient presented with chief complaint of urinary retention. The differential diagnosis associated with this patient's presentation includes urinary retention versus infection versus cystitis versus post surgery nausea. Our workup consisted of ordering/reviewing: CBC BMP a urine as well as a Long was inserted by the urology resident.. The patient will be Discharged. Patient is in agreement with this plan. Patient's care was significantly impacted by social determinants of health including none. The patient had a Long placed by the urology resident please see her note he is to follow-up with Dr. Rojas office and 3 days. He is to return for new or worsening symptoms all patient's question concerns were addressed he was in agreement this plan a Long was then placed patient reported he felt better he was given trial of tramadol and morphine in the emergency room as well as Zofran for his nausea condition stable upon discharge. PROCEDURES: Unless otherwise noted below, none Procedures CRITICAL CARE TIME None FINAL IMPRESSION 1. Urinary retention 2. Status post insertion of Long catheter DISPOSITION Discharge 02/21/2024 10:29:04 PM PATIENT REFERRED TO: No follow-up provider specified. DISCHARGE MEDICATIONS: Current Discharge Medication List START taking these medications Details ciprofloxacin (Cipro) 500 MG tablet Take 1 tablet (500 mg) by mouth 2 times daily for 5 days. Qty: 10 tablet, Refills: 0 (Comment: Please note this report has been produced using speech recognition software and may contain errors related to that system including errors in grammar, punctuation, and spelling, as well as words and phrases that may be inappropriate. If there are any questions or concerns please feel free to contact the dictating provider for clarification.) DAYNA Tai CNP (electronically signed) Emergency Medicine Provider DAYNA Cohen CNP 02/21/24 3552 T [facility] 02-21-2024 Physician Emergency department Note I did not participate in the care of this patient. America Felder PA-C 02/21/242250 T [facility] Work Phone: 02-21-2024 Physician Emergency department Note Emergency Department Encounter [facility] EMERGENCY DEPT Patient: Margaux Quarles : 1950 Date of Evaluation: 02/21/2024 ED Supervising Physician: Colin Schaffer MD I personally evaluated Margaux Quarles and made/approved the management plan and take responsibility for the patient management. This will serve as my Supervisory note and shared attestation. I did perform a substantive portion of the visit including all aspects of the Medical Decision Making. I wore appropriate PPE for the entirety of this encounter. In brief, Margaux Quarles is a 73 y.o. that presents to the emergency department for retention. Follows with urology and told to come here for evaluation by them after his knee replacement today. Has BPH. Complaining of pain secondary to urinary retention. No fevers or vomiting no flank pain Focused exam: Awake alert no acute distress vital signs stable nontoxic Long catheter in place draining pooja-colored light urine No abdominal or CVA tenderness Brief ED course/MDM: 73-year-old male presents for urinary retention. Differential BPH, recent surgical procedure, kidney injury. Urology consulted and placed a Long. No NAUN on BMP, urinalysis collected. Medical history and prognosis includes BPH. Will discharge with urology follow-up. Diagnostics interpreted by me: none I personally discussed the patient's management with other clinicians: none All diagnostic, treatment, and disposition decisions were made by myself in conjunction with the SARAH. For all further details of the patient's emergency department visit, please see their documentation. (Comment: Please note this report has been produced using speech recognition software and may contain errors related to that system including errors in grammar, punctuation, and spelling, as well as words and phrases that may be inappropriate. If there are any questions or concerns please feel free to contact the dictating provider for clarification.) Colin Schaffer MD Acute Care [facility] Colin Schaffer MD 02/21/24 3772 [employer] Phone: 02-21-2024 Telephone encounter Note S: Patient spoke with CAC nurse regarding urinary retention. B: Onset of symptoms/concern 02/21/2024. A: Patient reports that he had a total knee replacement today, is at home currently and having difficulty voiding. Patient states he does have some urine output, but has pressure and bladder feels firm and full. Patient had surgery at [facility], states they do not have urology team there. R: Advised patient to go to ED now, he verbalized understanding, states he is going to [facility] ED. No further needs at this time. Patient instructed to call back with new or worsening symptoms. Reason for Disposition [1] Unable to urinate (or only a few drops) > 4 hours AND [2] bladder feels very full (e.g., palpable bladder or strong urge to urinate) Protocols used: Urinary [id number] [facility] 02-21-2024 Miscellaneous Notes S: Patient spoke with CAC nurse regarding urinary retention. B: Onset of symptoms/concern 02/21/2024. A: Patient reports that he had a total knee replacement today, is at home currently and having difficulty voiding. Patient states he does have some urine output, but has pressure and bladder feels firm and full. Patient had surgery at [facility], states they do not have urology team there. R: Advised patient to go to ED now, he verbalized understanding, states he is going to [facility] ED. No further needs at this time. Patient instructed to call back with new or worsening symptoms. Reason for Disposition [1] Unable to urinate (or only a few drops) > 4 hours AND [2] bladder feels very full (e.g., palpable bladder or strong urge to urinate) Protocols used: Urinary [id number] documented in this encounter [facility] 02-21-2024 Note HNO ID: [id number] Author: JERED CROW RN Service: ? Author Type: Registered Nurse Type: Nursing Progress Note Filed: 02/21/2024 09:51 Note Text: Other: IRRISEPT USED INTRA OP FOR IRRIGATION PER [facility] 02-21-2024 Note HNO ID: [id number] Author: TRINA WILSON APRN.CRNA Service: ? 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 Reason for Block: primary surgical anesthetic Staffing Anesthesiologist: Ezra Maria MD VISITOR SERVICE ASSISTANT: Trina Wilson APRN.CRNA Performed by: VISITOR SERVICE ASSISTANT Preparation Sterility Preparation: hand hygiene performed prior to procedure, sterile gloves, drapes, and procedure tray, gown used during line insertion, surgical cap used, mask used, sterile drape used during line insertion, skin prep agent completely dried prior to procedure Site Prep: Chloraprep Procedure Details Patient Position: sitting Ultrasound Guided: No Monitoring: Pulse Ox, EKG and NIBP Approach: Midline Location: L4-5 Injection Technique: single-shot Needle Needle Type: pencil-tip Needle Gauge: 24 G Needle Length: 4 in CSF: adequate CSF flow from spinal needle Assessment Sensory Level: T10 Events: tolerated well Medications Administered bupivacaine (PF) 0.5 % (5 mg/mL) injection - EPIDURAL 10 mg - 02/21/2024 7:53:00 AM Comments First attempt pt c/o transient paraesthesia . Spinal needle withdrawn and re directed at the same level . Clear csf obtained and no c/o at this time 10 mg .5% bupivicaine used without adverse reaction Lot [id number] Exp 2024-06-02 [facility] spinal tray SIGNATURE: Trina Wilson APRN.CRNA, APRN.CRNA PATIENT NAME: Margaux Quarles DATE: February 21, 2024 TIME: 8:13 AM CSN: [id number] [facility] 02-21-2024 Note HNO ID: [id number] Author: EZRA MARIA MD Service: Anesthesiology Author Type: Anesthesiologist Type: Anesthesia Procedure Notes Filed: 02/21/2024 07:44 Note Text: ANESTHESIOLOGY PROCEDURE NOTE Peripheral Nerve Block General Information Procedure Start Time/Medication Administration: 02/21/2024 7:40 AM Procedure End time: 02/21/2024 7:42 AM Patient location during procedure: pre-op Timeout Performed Pre-procedure: timeout performed Consent Obtained: Yes Patient identity confirmed: patient and arm band Reason for block: post-op pain management/at surgeon's request Staffing Anesthesiologist: Ezra Maria MD Performed by: anesthesiologist Preparation Sterility Preparation: gown used during line insertion Site Prep: Chloraprep Pre-Procedure Neuro Exam Location: LLE Procedure Details Patient Position: supine Monitoring: Pulse OX, EKG and NIBP Block Type Lower Extremity: distal femoral (adductor canal) Laterality: left Injection Technique: single-shot Ultrasound Guided: Yes Local Infiltration: Yes Needle Needle Type: blunt and echogenic Needle Gauge: 22 G Needle Length: 100 mm Needle Localization: ultrasound Assessment Injection assessment: negative aspiration, no paresthesia on injection, incremental injection and local visualized surrounding nerve on ultrasound Paresthesia: none Medications Administered ropivacaine (PF) 5 mg/mL (0.5 %) injection (NAROPIN) - peripheral nerve block 20 mL - 02/21/2024 7:40:00 AM SIGNATURE: Ezra Maria MD PATIENT NAME: Margaux Quarles DATE: February 21, 2024 TIME: 7:43 AM CSN: [id number] [facility] 02-18-2024 Note HNO ID: [id number] Author: PAIGE SAWYER RN Service: ? Author Type: Registered Nurse Type: Progress Notes Filed: 02/18/2024 14:28 Note Text: MEDICATION INSTRUCTIONS PRIOR TO SURGERY Please read below carefully for your personalized instructions. Medications: If you are on blood thinner or anticoagulants including aspirin, please confirm with your surgical team on when to stop these medications. Unless instructed differently by your surgical team, stay on all of your medications until your surgery. Pre-Surgery Med Instructions Medication Instructions ibuprofen (MOTRIN) 200 mg tablet Follow Surgeon's instructions acetaminophen (TYLENOL 8 HOUR) 650 mg CR tablet PRN if needed traMADol (ULTRAM) 50 mg tablet PRN if needed sildenafil (VIAGRA) 100 mg tablet HOLD 48 HOURS PRIOR TO OR tamsulosin (FLOMAX) 0.4 mg Take morning of surgery with a sip of water, no other fluids lansoprazole (PREVACID ORAL) Take morning of surgery with a sip of water, no other fluids If you take any medications for erectile dysfunction-Cialis (Tadalafil), Levitra, Staxyn (Vardenafil) Viagra (Sildenenafil please do not take these for 48 hours before surgery. If you have any medication changes between receiving these instructions and your surgery date, please provide this updated information with the nurse who calls you the week day prior to your surgical procedure so we can update your list and provide you with updated instructions for the morning of your procedure. PRE-PROCEDURE INSTRUCTIONS TO PREPARE FOR YOUR PROCEDURE: Your arrival time for your procedure is 0545. Do NOT eat any solid foods after MIDNIGHT the night prior to your procedure - this includes gum or mints. You can drink clear liquids* up until 0345, which is 2 hours before your arrival time. *Clear liquids = water, carbohydrate drink (sports drink that is clear or yellow in color), Ensure Pre-Surgery (given by JUSTIN or your ), fruit juice without pulp (apple/cranberry), clear tea, black coffee (no cream). NO CARBONATED BEVERAGES AND NO ALCOHOL. Shower the morning of the procedure, put on clean clothes, and have clean sheets for your bed to help prevent infection after your procedure. Leave all valuables such as jewelry including rings, piercings, wallets, and purses at home. Wear comfortable, loose-fitting clothing. If you wear glasses or contacts, please bring a case. SPECIAL INSTRUCTIONS: If instructed, bring your first voided urine specimen with you. If you were provided skin preparation to use prior to your procedure, complete this as directed. If you were provided Ensure Pre-Surgery drink, you need to drink this at 0345. This should be consumed quickly (in less than 5 minutes, rather than sipped over time) If a bowel preparation has been ordered by your physician, it is very important to follow the bowel prep instructions or your procedure may need to be rescheduled. If you use crutches or a walker, bring them with you. If you have a home CPAP/BIPAP machine, bring it with you. If you were instructed to complete a fleets enema or bowel prep, complete as directed. Bring copy of Living Will/Power of Risk Management Internship. Do not smoke or chew. If you use tobacco, quit or at least cut down before surgery. Do not smoke or chew after midnight the day before your surgery. This effects bleeding, infection, healing, and so much more. Do not take any Diet or Herbal Supplements 2 weeks prior to your surgery date. Please notify your physician if there is any change in your physical condition such as a cold, cough, fever, sore throat, or skin irritation near the surgical site. Visitors under the age of 14 are restricted in the Surgery Center. UPON ARRIVAL: Access to [facility] (the [facility]) is located on [address] Electroencephalogram Technologist parking is available for your convenience from 5am-5pm- there is a $5.00 charge for this service. Take the elevators directly inside the entrance to the 1st Floor Surgery Lobby. Sign in at the podium located to the left when you get off the elevators. A payment may be expected at the time of service. One visitor may come back to the preoperative area with you. The preoperative staff will be reviewing your medical history, please let them know if you prefer not to have a visitor with you during this time. Once you are ready for your procedure, two visitors at a time are permitted in your preprocedure room. [facility] 02-17-2024 Note HNO ID: [id number] Author: DAVE SIERRA APRN.RONIT Service: ? Author Type: Nurse Practitioner Type: Progress Notes Filed: 02/17/2024 14:03 Note Text: ------ Summary: microcytic anemia ------ Hgb improved from previous labs. [facility] 02-15-2024 Note HNO ID: [id number] Author: DAVE SIERRA APRN.SCIENCE TEACHER Service: ? Author Type: Nurse Practitioner Type: Progress Notes Filed: 02/17/2024 14:02 Note Text: [facility] Consult SERVICE DATE: 02/15/2024 SERVICE TIME: 12:30 PM PRIMARY CARE PHYSICIAN: Tam Major MD REASON FOR VISIT: Margaux Quarles is a 73 year old male who is scheduled for TKA at the request of Dr. BAUTISTA for consultation. My final recommendation will be communicated back to the requesting physician by way of shared medical record or letter. The patient has the following: ACTIVE PROBLEM LIST Oa (Osteoarthritis) of Knee Prostatitis Gerd (Gastroesophageal Reflux Disease) Hyperlipidemia Bph With Obstruction/Lower Urinary Tract Symptoms Inguinal Hernia Umbilical Hernia Primary Osteoarthritis of One Knee Pancreas Cyst Liver Nodule Pain of Both Shoulder Joints Fecal Occult Blood Test Positive Liver Lesion Ed (Erectile Dysfunction) of Organic Origin Renal Calculi Poor Urinary Stream Nocturia Hx of Renal Calculi Irregular Heart Beat Microcytic Anemia Urethral Stricture Tear of Medial Meniscus of Left Knee, Current Subjective CHIEF COMPLAINT: KNEE PAIN 73 yo male with HX: prostatitis, BPH, ED, hernias, kidney stones, urgency with urination, frequent UTI, GERD, HLD, irregular heart beat (Dr. Mcdaniel), liver lesion, pancreatic lesion. Patient states he requires a urologist only to place a long (if it is needed) due to structures and needing dilation catheters. He also endorses PONV at the age of 15. PAST MEDICAL HISTORY Diagnosis Date Bilateral inguinal hernia 2014 BPH (benign prostatic hyperplasia) enlarged prostate Colonoscopy refused 06/06/2014 Fecal occult blood test positive 01/2016 GERD (gastroesophageal reflux disease) History of epistaxis Hyperlipidemia on diet control, exercise Irregular heart beat Left inguinal hernia 2010 Liver lesion MRI OA (osteoarthritis) of knee Received Euflexxa injection Osteoarthritis Pancreatic lesion MRI Prostatitis since age [address] [facility] Renal stone 2011 removed Urgency of urination UTI (urinary tract infection) PAST SURGICAL HISTORY Procedure Laterality Date CAUTERIZATION INNER NOSE 2013 HERNIA REPAIR HX 11/16/2014 Laparoscopic total preperitoneal bilateral inguinal hernia repair. Open umbilical hernia repair PAST SURGICAL HISTORY OF 07/2010 lithotripsy REPAIR INGUINAL HERNIA 2010 left injuinal hernia repair w/ mesh TONSILLECTOMY HX URETHRA SURGERY HX 2021 AT [facility] FAMILY HISTORY Problem Relation Age of Onset Ischemic Heart Disease Father 70 CABG other (vertigo) Father alive other (Lung cancer- smoker) Mother 61 Cancer Maternal Grandmother lung cancer Heart Paternal Grandmother SOCIAL HISTORY: Social History Tobacco Use Smoking status: Never Smokeless tobacco: Never Vaping Use Vaping Use: Never used Substance Use Topics Alcohol use: Yes Comment: rarely Drug use: No MEDICATIONS: Prior to Admission medications as of 02/15/24 1057 Medication Sig Last Dose Taking ibuprofen (MOTRIN) 200 mg tablet Take 200 mg by mouth every 6 hours as needed for pain. STOPPING 2 WEEKS PRIOR TO SURGERYlast dose was 02/12/24 Taking Yes acetaminophen (TYLENOL 8 HOUR) 650 mg CR tablet Take 650 mg by mouth every 8 hours as needed for pain. Taking Yes traMADol (ULTRAM) 50 mg tablet Take 1 tablet by mouth every 12 hours as needed for up to 7 days. Do not start before February 08, 2024. Taking Yes sildenafil (VIAGRA) 100 mg tablet Take 1 tablet by mouth as needed (one per day maximum as needed). Patient taking differently: Take 100 mg by mouth as needed (one per day maximum as needed). Last dose 60 days ago Taking Yes tamsulosin (FLOMAX) 0.4 mg TAKE ONE CAPSULE BY MOUTH ONCE DAILY Taking Yes lansoprazole (PREVACID ORAL) Take 20 mg by mouth once daily. Taking Yes No medication comments found. CURRENT ALLERGIES: ALLERGIES No Known Allergies REVIEW OF SYSTEMS: PAIN ASSESSMENT: Pain Pain Level: 7 Pain Location: Leg-Left Frequency: Intermittent General: No weight loss, malaise or fevers. Neuro: No history of TIA's, stroke, WATER VALVE REPAIRER tumor, impaired sensorium, hemiplegia, paraplegia or quadraplegia. No neurological symptoms or problems. Respiratory: No history of current cough or dyspnea, or pneumonia in the past 6 weeks. No history of respiratory/pulmonary symptoms or problems. Cardiovascular: Positive for: HLD, irregular heart beat GI: Positive for GERD, hernias, liver lesion, pancreatic lesion : Positive for frequent urinary tract infections , kidney stones, urgency , urethral stricture, BPH, and ED , Endocrine: No history of diabetes. Has not taken steroids within the past 30 days. No history of endocrinological symptoms or problems. Hematology: No history of bleeding or clotting disorder. Pt is not taking anti-coagulation or plat (more content not included)... [facility] 02-15-2024 History of Present illness Narrative [facility] Consult SERVICE DATE: 02/15/2024 SERVICE TIME: 12:30 PM PRIMARY CARE PHYSICIAN: Tam Major MD REASON FOR VISIT: Margaux Quarles is a 73 year old male who is scheduled for TKA at the request of Dr. BAUTISTA for consultation. My final recommendation will be communicated back to the requesting physician by way of shared medical record or letter. The patient has the following: ACTIVE PROBLEM LIST Oa (Osteoarthritis) of Knee Prostatitis Gerd (Gastroesophageal Reflux Disease) Hyperlipidemia Bph With Obstruction/Lower Urinary Tract Symptoms Inguinal Hernia Umbilical Hernia Primary Osteoarthritis of One Knee Pancreas Cyst Liver Nodule Pain of Both Shoulder Joints Fecal Occult Blood Test Positive Liver Lesion Ed (Erectile Dysfunction) of Organic Origin Renal Calculi Poor Urinary Stream Nocturia Hx of Renal Calculi Irregular Heart Beat Microcytic Anemia Urethral Stricture Tear of Medial Meniscus of Left Knee, Current Subjective CHIEF COMPLAINT: KNEE PAIN 73 yo male with HX: prostatitis, BPH, ED, hernias, kidney stones, urgency with urination, frequent UTI, GERD, HLD, irregular heart beat (Dr. Mcdaniel), liver lesion, pancreatic lesion. Patient states he requires a urologist only to place a long (if it is needed) due to structures and needing dilation catheters. He also endorses PONV at the age of 15. PAST MEDICAL HISTORY Diagnosis Date Bilateral inguinal hernia 2014 BPH (benign prostatic hyperplasia) enlarged prostate Colonoscopy refused 06/06/2014 Fecal occult blood test positive 01/2016 GERD (gastroesophageal reflux disease) History of epistaxis Hyperlipidemia on diet control, exercise Irregular heart beat Left inguinal hernia 2010 Liver lesion MRI OA (osteoarthritis) of knee Received Euflexxa injection Osteoarthritis Pancreatic lesion MRI Prostatitis since age [address] [facility] Renal stone 2011 removed Urgency of urination UTI (urinary tract infection) PAST SURGICAL HISTORY Procedure Laterality Date CAUTERIZATION INNER NOSE 2013 HERNIA REPAIR HX 11/16/2014 Laparoscopic total preperitoneal bilateral inguinal hernia repair. Open umbilical hernia repair PAST SURGICAL HISTORY OF 07/2010 lithotripsy REPAIR INGUINAL HERNIA 2010 left injuinal hernia repair w/ mesh TONSILLECTOMY HX URETHRA SURGERY HX 2021 AT [facility] FAMILY HISTORY Problem Relation Age of Onset Ischemic Heart Disease Father 70 CABG other (vertigo) Father alive other (Lung cancer- smoker) Mother 61 Cancer Maternal Grandmother lung cancer Heart Paternal Grandmother SOCIAL HISTORY: Social History Tobacco Use Smoking status: Never Smokeless tobacco: Never Vaping Use Vaping Use: Never used Substance Use Topics Alcohol use: Yes Comment: rarely Drug use: No MEDICATIONS: Prior to Admission medications as of 02/15/24 1057 Medication Sig Last Dose Taking ibuprofen (MOTRIN) 200 mg tablet Take 200 mg by mouth every 6 hours as needed for pain. STOPPING 2 WEEKS PRIOR TO SURGERYlast dose was 02/12/24 Taking Yes acetaminophen (TYLENOL 8 HOUR) 650 mg CR tablet Take 650 mg by mouth every 8 hours as needed for pain. Taking Yes traMADol (ULTRAM) 50 mg tablet Take 1 tablet by mouth every 12 hours as needed for up to 7 days. Do not start before February 08, 2024. Taking Yes sildenafil (VIAGRA) 100 mg tablet Take 1 tablet by mouth as needed (one per day maximum as needed). Patient taking differently: Take 100 mg by mouth as needed (one per day maximum as needed). Last dose 60 days ago Taking Yes tamsulosin (FLOMAX) 0.4 mg TAKE ONE CAPSULE BY MOUTH ONCE DAILY Taking Yes lansoprazole (PREVACID ORAL) Take 20 mg by mouth once daily. Taking Yes No medication comments found. CURRENT ALLERGIES: ALLERGIES No Known Allergies REVIEW OF SYSTEMS: PAIN ASSESSMENT: Pain Pain Level: 7 Pain Location: Leg-Left Frequency: Intermittent General: No weight loss, malaise or fevers. Neuro: No history of TIA's, stroke, WATER VALVE REPAIRER tumor, impaired sensorium, hemiplegia, paraplegia or quadraplegia. No neurological symptoms or problems. Respiratory: No history of current cough or dyspnea, or pneumonia in the past 6 weeks. No history of respiratory/pulmonary symptoms or problems. Cardiovascular: Positive for: HLD, irregular heart beat GI: Positive for GERD, hernias, liver lesion, pancreatic lesion : Positive for frequent urinary tract infections , kidney stones, urgency , urethral stricture, BPH, and ED , Endocrine: No history of diabetes. Has not taken steroids within the past 30 days. No history of endocrinological symptoms or problems. Hematology: No history of bleeding or clotting disorder. Pt is not taking anti-coagulation or platelet medications. No history of hematological symptoms or problems. Oncology: No history of CA metastasis, chemo within 30 days, or radiotherapy within 90 days. Has not lost 10% of body wt in 6 months. No history of oncological symptoms or problems. Psych: No history of psychiatric symptoms or problems. Musculoskeletal: Joint pain Skin: Negative for lesions, rash and itching. Objective PHYSICAL EXAM: VITALS: BP 126/62 Pulse 65 Resp 18 Ht 5' 6 (1.68m) Wt 148 lb (67.1kg) BMI 23.90 kg/(m^2). General: Alert and oriented, No acute distress, Healthy appearance Skin: Normal color, no rash, no lesions. Diagnostic tests reviewed for today's visit: Lab Value Units Date High Low HB 11.8 g/dL 02/15/2024 17.0 13.0 HCT 38.2 % 02/15/2024 51.0 39.0 WBC 4.31 k/uL 02/15/2024 11.00 3.70 PLT 174 k/uL 02/15/2024 400 150 NA 140 mmol/L 02/15/2024 145 136 K 4.3 mmol/L 02/15/2024 5.1 3.5 GLUC 79 mg/dL 02/15/2024 100 70 BUN 16 mg/dL 02/15/2024 26 7 CREAT 0.89 mg/dL 02/15/2024 1.40 0.50 PTSEC No results within date range. INR No results within date range. APTT No results within date range. ALT No results within date range. AST No results within date range. TBILI No results within date range. TSH No results within date range. Lab Value Units Date High Low HCGQT No results within date range. UHCG No results within date range. HCG, BODY* No results within date range. Lab Value Units Date High Low ABORHD No results within date range. ABSCREEN No results within date range. No results found for: HBA1C PENDING Assessment/Plan I met Margaux today in [facility]. 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 He was standing on the [facility] truck ramp when he twisted and incurred this injury. 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 He denies CV complaints. He had been receiving stem cell injections and other alternative medicines on his knee for the last 12 years. He is adamant that he would NOT be having this surgery if it weren't necessary. He may need traction per Dr. Will. He endorses PONV at the age of 15. He received IV iron 2x in December in preparation for this OR. Margaux has BPH, urgency with urination, frequent UTIs, and urethral stricture and is adamant that IF he needs a catheter, only a urologist will be able to get it and he will need dilation (sees Dr. Nguyen in [place]). Medical and cardiac clearance received. METS: Do heavy work around the house, such as scrubbing floors, lifting or moving heavy furniture (8.00 METs) Patient denies any chest pain or undue shortness of breath with the above physical activity. ANESTHESIA FINDINGS: Intubation History: No history of difficult intubation Significant Anesthesia Considerations: Postop nausea/vomiting Airway History: No abnormal airway history Planned Anesthetic: Per anesthesia choice Instructions Given to Patient: Instructions located in the after visit summary. Patient given verbal and written preop instructions and voices comprehension and compliance. SIGNATURE: Isabel Campos APRN.CNP PATIENT NAME: Margaux Quarles DATE: February 15, 2024 TIME: 12:30 PM Summary: DOS MEDS MEDICATION INSTRUCTIONS PRIOR TO SURGERY Please read below carefully for your personalized instructions. Medications: If you are on blood thinner or anticoagulants including aspirin, please confirm with your surgical team on when to stop these medications. Unless instructed differently by your surgical team, stay on all of your medications until your surgery. Pre-Surgery Med Instructions Medication Instructions ibuprofen (MOTRIN) 200 mg tablet Follow Surgeon's instructions acetaminophen (TYLENOL 8 HOUR) 650 mg CR tablet PRN if needed traMADol (ULTRAM) 50 mg tablet PRN if needed sildenafil (VIAGRA) 100 mg tablet HOLD 48 HOURS PRIOR TO OR tamsulosin (FLOMAX) 0.4 mg Take morning of surgery with a sip of water, no other fluids lansoprazole (PREVACID ORAL) Take morning of surgery with a sip of water, no other fluids If you take any medications for erectile dysfunction-Cialis (Tadalafil), Levitra, Staxyn (Vardenafil) Viagra (Sildenenafil please do not take these for 48 hours before surgery. If you have any medication changes between receiving these instructions and your surgery date, please provide this updated information with the nurse who calls you the week day prior to your surgical procedure so we can update your list and provide you with updated instructions for the morning of your procedure. Suman L TKA 02/21/24 73 yo male with HX: prostatitis, BPH, ED, hernias, kidney stones, urgency with urination, UTI, GERD, HLD, irregular heart beat, liver lesion, pancreatic lesion, documented in this encounter [facility] 02-15-2024 Instructions Isabel Campos APRN.CNP - 02/15/2024 11:24 AM EDT MEDICATION INSTRUCTIONS PRIOR TO SURGERY Please read below carefully for your personalized instructions. Medications: If you are on blood thinner or anticoagulants including aspirin, please confirm with your surgical team on when to stop these medications. Unless instructed differently by your surgical team, stay on all of your medications until your surgery. Pre-Surgery Med Instructions Medication Instructions ibuprofen (MOTRIN) 200 mg tablet Follow Surgeon's instructions acetaminophen (TYLENOL 8 HOUR) 650 mg CR tablet PRN if needed traMADol (ULTRAM) 50 mg tablet PRN if needed sildenafil (VIAGRA) 100 mg tablet HOLD 48 HOURS PRIOR TO OR tamsulosin (FLOMAX) 0.4 mg Take morning of surgery with a sip of water, no other fluids lansoprazole (PREVACID ORAL) Take morning of surgery with a sip of water, no other fluids If you take any medications for erectile dysfunction-Cialis (Tadalafil), Levitra, Staxyn (Vardenafil) Viagra (Sildenenafil please do not take these for 48 hours before surgery. If you have any medication changes between receiving these instructions and your surgery date, please provide this updated information with the nurse who calls you the week day prior to your surgical procedure so we can update your list and provide you with updated instructions for the morning of your procedure. documented in this encounter [facility] 02-15-2024 Note HNO ID: [id number] Author: ISABEL CAMPOS APRN.CNP Service: ? Author Type: Nurse Practitioner Type: Progress Notes Filed: 02/15/2024 13:08 Note Text: ------ Summary: DOS MEDS ------ MEDICATION INSTRUCTIONS PRIOR TO SURGERY Please read below carefully for your personalized instructions. Medications: If you are on blood thinner or anticoagulants including aspirin, please confirm with your surgical team on when to stop these medications. Unless instructed differently by your surgical team, stay on all of your medications until your surgery. Pre-Surgery Med Instructions Medication Instructions ibuprofen (MOTRIN) 200 mg tablet Follow Surgeon's instructions acetaminophen (TYLENOL 8 HOUR) 650 mg CR tablet PRN if needed traMADol (ULTRAM) 50 mg tablet PRN if needed sildenafil (VIAGRA) 100 mg tablet HOLD 48 HOURS PRIOR TO OR tamsulosin (FLOMAX) 0.4 mg Take morning of surgery with a sip of water, no other fluids lansoprazole (PREVACID ORAL) Take morning of surgery with a sip of water, no other fluids If you take any medications for erectile dysfunction-Cialis (Tadalafil), Levitra, Staxyn (Vardenafil) Viagra (Sildenenafil please do not take these for 48 hours before surgery. If you have any medication changes between receiving these instructions and your surgery date, please provide this updated information with the nurse who calls you the week day prior to your surgical procedure so we can update your list and provide you with updated instructions for the morning of your procedure. [facility] 02-15-2024 Note HNO ID: [id number] Author: ISABEL CAMPOS APRN.SCIENCE TEACHER Service: ? Author Type: Nurse Practitioner Type: Progress Notes Filed: 02/15/2024 13:08 Note Text: Suman L TKA 02/21/24 73 yo male with HX: prostatitis, BPH, ED, hernias, kidney stones, urgency with urination, UTI, GERD, HLD, irregular heart beat, liver lesion, pancreatic lesion, [facility] 02-02-2024 Telephone encounter Note Reviewed lab results. Improved levels. Left VM regarding above. Advised to call office for any questions concerns. Flower Zee APRN.CNP [facility] 02-02-2024 Miscellaneous Notes Reviewed lab results. Improved levels. Left VM regarding above. Advised to call office for any questions concerns. Flower Zee APRN.CNP documented in this encounter [facility] 02-01-2024 History of Present illness Narrative Images from the original note were not included. Flower Zee APRN [facility] [place] [facility] SUBJECTIVE: Margaux Quarles is a 73 year old White male who presents for preoperative medical clearance for having left knee surgery Requesting surgeon: Dr. Figueredo. Procedure: Left total knee replacement. Anesthesia: Yes. Procedure/surgery date: 02/21/2024. Difficulty with prior surgeries:Denies - Hx Hernia, TURP. . History of difficulties with previous anesthesia: Denies Bleeding problems: Denies History of heart failure: Denies. History of stroke: Denies. History of diabetes requiring insulin: Denies. History of end-stage renal disease or severe CKD: Denies. History of significant arrhythmia: Yes. Activity level greater than 4 METs: Yes. Highest intensity of activity over last month: . - Able to walk around the block without shortness of breath - Still works at an [employer] everyday. - Takes care of his ADLs independently. Current or recent chest pain: Denies. Currently recent shortness of breath: Never. Patient is following with Dr. Major / Dr. Enrique for his chronic medical condition Patient is cleared for surgery by Dr. Taveras (Cardiology). History of microcytic anemia (receiving iron infusion) last infusion 01/26 , GERD, irregular heartbeat, and BPH. Patient is not on anticoagulation. Patient's medications were reviewed today. Patient is compliant on taking his medications :Yes Patient is tolerating his medication(s) without side effects: Yes Is the patient having any pain? Yes LOCATION: Left knee PAIN SCALE: 6 on a scale of 0-10 PAIN CHARACTER: burning, sharp, shooting, and Ache DURATION: (How long have you had the pain?) unknown FREQUENCY: (How often does the pain occur?) occurs constantly AGGRAVATING FACTORS: standing and twisting ALLEVIATING FACTORS: resting and medications - opioids Medications: See medication reconciliation list in [facility] MEDICATIONS: Tramadol at HS and recently has been taking 2x / day Have you ever seen a pain management physician: No Have you ever taken any pain medications (Narcotics): Yes; Type(s) & Duration: september Last dispensed 01/22/24 for 30 pills. Only 13 pills left as he has been using it 2x per day. He is is requesting additional coverage until surgery date. Review of Systems Constitutional: Negative for chills, diaphoresis, fever, malaise/fatigue and weight loss. HENT: Negative. Eyes: Negative. Respiratory: Negative. Cardiovascular: Positive for palpitations (history.). Negative for chest pain, orthopnea, claudication, leg swelling and PND. Gastrointestinal: Negative. Genitourinary: Negative. Musculoskeletal: Positive for joint pain (left knee). Negative for back pain, falls, myalgias and neck pain. Skin: Negative. Neurological: Negative. Endo/Heme/Allergies: Negative. Psychiatric/Behavioral: Negative. Denies smoking or alcohol use. ALLERGIES No Known Allergies Current Outpatient Medications Medication Sig sildenafil (VIAGRA) 100 mg tablet Take 1 tablet by mouth as needed (one per day maximum as needed). traMADol (ULTRAM) 50 mg tablet Take 50 mg by mouth every 6 hours as needed. ibuprofen (MOTRIN) 200 mg tablet Take 400 mg by mouth every 6 hours as needed for pain. (Patient not taking: Reported on 12/02/2023) tamsulosin (FLOMAX) 0.4 mg TAKE ONE CAPSULE BY MOUTH ONCE DAILY sildenafil (VIAGRA) 100 mg tablet TAKE ONE TABLET BY MOUTH NEEDED (ONCE PER DAY MAXIMUM NEEDED) lansoprazole (PREVACID ORAL) Take 20 mg by mouth once daily. sildenafil (VIAGRA) 100 mg tablet TAKE ONE TABLET BY MOUTH NEEDED (MAXIMUM 1 PER DAY NEEDED) SAW PALMETTO ORAL Take by mouth once daily. (Patient not taking: Reported on 01/13/2021) Cholecalciferol, Vitamin D3, (VITAMIN D) 1,000 unit cap Take 1 capsule by mouth once daily. No current facility-administered medications for this visit. PAST MEDICAL HISTORY Diagnosis Date Bilateral inguinal hernia 2014 BPH (benign prostatic hyperplasia) enlarged prostate Colonoscopy refused 06/06/2014 Fecal occult blood test positive 01/2016 GERD (gastroesophageal reflux disease) History of epistaxis Hyperlipidemia on diet control, exercise Irregular heart beat Left inguinal hernia 2010 Liver lesion MRI OA (osteoarthritis) of knee Received Euflexxa injection Osteoarthritis Pancreatic lesion MRI Prostatitis since age [address] [facility]al stone 2012 removed Urgency of urination UTI (urinary tract infection) PAST SURGICAL HISTORY Procedure Laterality Date CAUTERIZATION INNER NOSE HERNIA REPAIR HX 11/16/2014 Laparoscopic total preperitoneal bilateral inguinal hernia repair. Open umbilical hernia repair PAST SURGICAL HISTORY OF 07/2010 lithotripsy REPAIR INGUINAL HERNIA 2010 left injuinal hernia repair w/ mesh TONSILLECTOMY HX Social History Tobacco Use Smoking status: Never Smokeless tobacco: Never Vaping Use Vaping Use: Never used Substance Use Topics Alcohol use: Yes Comment: rarely Drug use: No FAMILY HISTORY Problem Relation Age of Onset Ischemic Heart Disease Father 70 CABG other (vertigo) Father alive other (Lung cancer- smoker) Mother 61 Cancer Maternal Grandmother lung cancer Heart Paternal Grandmother OBJECTIVE: BP 129/82 Pulse 75 Temp 98.2 Resp 18 Ht 5' 7 (1.70m) Wt 150 lb (68.0kg) SpO2 98% BMI 23.49 kg/(m^2). Physical Exam Vitals reviewed. Constitutional: General: He is not in acute distress. Appearance: Normal appearance. He is normal weight. He is not ill-appearing, toxic-appearing or diaphoretic. HENT: Head: Normocephalic and atraumatic. Nose: Nose normal. Mouth/Throat: Pharynx: No oropharyngeal exudate or posterior oropharyngeal erythema. Eyes: Conjunctiva/sclera: Conjunctivae normal. Pupils: Pupils are equal, round, and reactive to light. Neck: Vascular: No carotid bruit. Cardiovascular: Rate and Rhythm: Normal rate and regular rhythm. Pulses: Normal pulses. Heart sounds: Normal heart sounds. No murmur heard. Pulmonary: Effort: Pulmonary effort is normal. No respiratory distress. Breath sounds: Normal breath sounds. No stridor. No wheezing, rhonchi or rales. Abdominal: General: Bowel sounds are normal. Palpations: Abdomen is soft. Tenderness: There is no abdominal tenderness. There is no right CVA tenderness or left CVA tenderness. Musculoskeletal: General: Normal range of motion. Cervical back: Normal range of motion and neck supple. No rigidity or tenderness. Right lower leg: No edema. Left lower leg: No edema. Lymphadenopathy: Cervical: No cervical adenopathy. Skin: General: Skin is warm and dry. Capillary Refill: Capillary refill takes less than 2 seconds. Findings: No erythema, lesion or rash. Neurological: General: No focal deficit present. Mental Status: He is alert and oriented to person, place, and time. Sensory: No sensory deficit. Motor: No weakness. Psychiatric: Mood and Affect: Mood normal. Behavior: Behavior normal. Thought Content: Thought content normal. Judgment: Judgment normal. Labs and Imaging: Office Visit on 01/11/2024 Component Date Value Ref Range Status GLUCOSE UA (POCT) 01/11/2024 Negative Negative mg/dL Final BILIRUBIN UA (POCT) 01/11/2024 Negative Negative Final KETONE UA (POCT) 01/11/2024 Negative Negative mg/dL Final SPECIFIC GRAVITY UA (POCT) 01/11/2024 1.025 1.005 - 1.030 Final HEMOGLOBIN/BLOOD UA (POCT) 01/11/2024 Moderate (A) Negative Final PH UA (POCT) 01/11/2024 5.5 4.5 - 8.0 Final PROTEIN UA (POCT) 01/11/2024 30 (A) Negative mg/dL Final UROBILINOGEN UA (POCT) 01/11/2024 0.2 Normal E.U./dL Final NITRITE UA (POCT) 01/11/2024 Positive (A) Negative Final LEUKOCYTES UA (POCT) 01/11/2024 Large (A) Negative Final COLOR UA (POCT) 01/11/2024 Yellow Final CLARITY UA (POCT) 01/11/2024 Slightly Cloudy Final Appointment on 12/07/2023 Component Date Value Ref Range Status PSA 12/07/2023 5.56 (H) <2.60 ng/mL Final Comment: Total PSA test methodology used is the Electrochemiluminescence Immunoassay by [employer]. Total PSA values by differing methodologies cannot be interchanged. For an individual patient, the significance of a PSA level should be interpreted in a broad clinical context, including age, race, family history, digital rectal exam, prostate size, results of prior testing (prostate biopsy, free PSA, PCA3), and use of 5-alpha reductase inhibitors. Considering the high incidence of asymptomatic cancer in the general population that may not pose an ultimate risk to a patient, the decision to recommend urological evaluation or prostate biopsy should be individualized after consideration of all these factors. REFERENCE: Gurwinder Garrett M.D., M.P.H., Tanvir Mathis M.D., Ph.D., Lazaro Yusuf M.D., Winsome Navarrete, M.P.H., Carmita Hernandes Sc.Maricarmen. Effect of Verification Bias on Screening for Prostate Cancer by Measurement of Prostatic Specific Antigen. N Engl J Med 2003,349:335-42. WBC 12/07/2023 6.36 3.70 - 11.00 k/uL Final RBC 12/07/2023 4.95 4.20 - 6.00 m/uL Final Hemoglobin 12/07/2023 9.6 (L) 13.0 - 17.0 g/dL Final Hematocrit 12/07/2023 33.8 (L) 39.0 - 51.0 % Final MCV 12/07/2023 68.3 (L) 80.0 - 100.0 fL Final MCH 12/07/2023 19.4 (L) 26.0 - 34.0 pg Final MCHC 12/07/2023 28.4 (L) 30.5 - 36.0 g/dL Final RDW-CV 12/07/2023 23.7 (H) 11.5 - 15.0 % Final Platelet Count 12/07/2023 204 150 - 400 k/uL Final No clot detected. MPV 12/07/2023 Final Unable to Report. Absolute nRBC 12/07/2023 <0.01 <0.01 k/uL Final Glucose 12/07/2023 90 74 - 99 mg/dL Final The [place] [employer] (ADA) provides guidance for cutoff values for fasting glucose and random glucose. The ADA defines fasting as no caloric intake for at least 8 hours. Fasting plasma glucose results between 100 to 125 mg/dL indicate increased risk for diabetes (prediabetes). Fasting plasma glucose results greater than or equal to 126 mg/dL meet the criteria for diagnosis of diabetes. In the absence of unequivocal hyperglycemia, results should be confirmed by repeat testing. In a patient with classic symptoms of hyperglycemia or hyperglycemic crisis, random plasma glucose results greater than or equal to 200 mg/dL meet the criteria for diagnosis of diabetes. Reference: Standards of Medical Care in Diabetes 2016, [place] [employer]. Diabetes Care. 2016.39(Suppl 1). BUN 12/07/2023 18 9 - 24 mg/dL Final Creatinine 12/07/2023 1.04 0.73 - 1.22 mg/dL Final Sodium 12/07/2023 135 (L) 136 - 144 mmol/L Final Potassium 12/07/2023 4.4 3.7 - 5.1 mmol/L Final Chloride 12/07/2023 104 97 - 105 mmol/L Final CO2 12/07/2023 19 (L) 22 - 30 mmol/L Final Anion Gap 12/07/2023 12 9 - 18 mmol/L Final Calcium, Total 12/07/2023 9.5 8.5 - 10.2 mg/dL Final Estimated Glomerular Filtration Ra* 12/07/2023 76 >=60 mL/min/1.73m Final Estimated Glomerular Filtration Rate (eGFR) is calculated using the 2020 CKD-EPI creatinine equation. This equation utilizes serum creatinine, sex, and age as parameters. The creatinine assay has traceable calibration to isotope dilution-mass spectrometry. Refer to KDIGO guidelines for clinical interpretation. In patients with unstable renal function, e.g. those with acute kidney injury, the eGFR may not accurately reflect actual GFR. Iron 12/07/2023 23 (L) 41 - 186 ug/dL Final TIBC 12/07/2023 318 232 - 386 ug/dL Final Transferrin Saturation 12/07/2023 7.2 (L) 15.0 - 57.0 % Final Ferritin 12/07/2023 23.8 (L) 30.3 - 565.7 ng/mL Final Recommendations: RCRI-MD CALCULATOR High-Risk Surgery Intraperitoneal; intrathoracic; suprainguinal vascular No 0 History of Ischemic Heart Disease No 0 History of myocardial infarction (DE); history of positive exercise test; current chest pain considered due to myocardial ischemia; use of nitrate therapy or ECG with pathological Q waves History of Congestive Heart Failure No 0 Pulmonary edema; bilateral rales or S3 gallop; paroxysmal nocturnal dyspnea; chest x-ray (CXR) showing pulmonary vascular redistribution History of Cerebrovascular Disease No 0 Prior transient ischemic attack (TIA) or stroke Pre-operative Treatment with Insulin No 0 Pre-operative Creatinine >2mg/dl/176.8 mol/L No 0 TOTAL SCORE = 0 RISK = low RCRI (Risk for cardiac , nonfatal myocardial infarction, and nonfatal cardiac arrest): POINTS CLASS RISK 0 I 0.4% (low) 1 II 0.9% (low) 2 III 6.6% (moderate) 3 or more IV ? 11% (high) ASSESSMENT/PLAN: 1. Pre-operative examination for internal medicine - ICD9: V72.83, ICD10: Z01.818 (primary diagnosis) 2. History of cardiac arrhythmia - ICD9: V12.59, ICD10: Z86.79 RCRI Score: 0 KAYE Perioperative Risk: 0/2% ALINA Risk Patient is cleared by Cardiology 12/24/23. Patient is at low risk perioperative complications from what is an intermediate risk surgery. It is reasonable to proceed with left knee replacement pending Iron levels in setting of Iron deficiency Anemia. . Form will be signed if needed. See orders for any testing that was needed. Follow standard VTE prophylaxis protocol. - BASIC METABOLIC PANEL 3. Microcytic anemia - ICD9: 280.9, ICD10: D50.9 - COMPLETE BLOOD COUNT - BASIC METABOLIC PANEL - FERRITIN - IRON AND TIBC 4. Chronic pain of left knee - ICD9: 719.46, 338.29, ICD10: M25.562, G89.29 - Discussed conservative pain management. - Discussed side effects of tramadol. - Voiced understanding - TRAMADOL 50 MG TABLET PDMP website checked and validated. All prescriptions have been APPROPRIATELY filled. No suspicious activity was identified. Flower Zee APRN.CNP Letter will be sent to requesting provider. documented in this encounter [facility] 02-01-2024 Note HNO ID: [id number] Author: FLOWER ZEE APRN.CNP Service: ? Author Type: Nurse Practitioner Type: Progress Notes Filed: 02/01/2024 12:18 Note Text: Flower Zee APRN [facility] [place] [facility] SUBJECTIVE: Margaux Quarles is a 73 year old White male who presents for preoperative medical clearance for having left knee surgery Requesting surgeon: Dr. Figueredo. Procedure: Left total knee replacement. Anesthesia: Yes. Procedure/surgery date: 02/21/2024. Difficulty with prior surgeries:Denies - Hx Hernia, TURP. . History of difficulties with previous anesthesia: Denies Bleeding problems: Denies History of heart failure: Denies. History of stroke: Denies. History of diabetes requiring insulin: Denies. History of end-stage renal disease or severe CKD: Denies. History of significant arrhythmia: Yes. Activity level greater than 4 METs: Yes. Highest intensity of activity over last month: . - Able to walk around the block without shortness of breath - Still works at an [employer] everyday. - Takes care of his ADLs independently. Current or recent chest pain: Denies. Currently recent shortness of breath: Never. Patient is following with Dr. Major / Dr. Enrique for his chronic medical condition Patient is cleared for surgery by Dr. Taveras (Cardiology). History of microcytic anemia (receiving iron infusion) last infusion 01/26 , GERD, irregular heartbeat, and BPH. Patient is not on anticoagulation. Patient's medications were reviewed today. Patient is compliant on taking his medications :Yes Patient is tolerating his medication(s) without side effects: Yes Is the patient having any pain? Yes LOCATION: Left knee PAIN SCALE: 6 on a scale of 0-10 PAIN CHARACTER: burning, sharp, shooting, and Ache DURATION: (How long have you had the pain?) unknown FREQUENCY: (How often does the pain occur?) occurs constantly AGGRAVATING FACTORS: standing and twisting ALLEVIATING FACTORS: resting and medications - opioids Medications: See medication reconciliation list in [facility] MEDICATIONS: Tramadol at HS and recently has been taking 2x / day Have you ever seen a pain management physician: No Have you ever taken any pain medications (Narcotics): Yes; Type(s) AND Duration: september Last dispensed 01/22/24 for 30 pills. Only 13 pills left as he has been using it 2x per day. He is is requesting additional coverage until surgery date. Review of Systems Constitutional: Negative for chills, diaphoresis, fever, malaise/fatigue and weight loss. HENT: Negative. Eyes: Negative. Respiratory: Negative. Cardiovascular: Positive for palpitations (history.). Negative for chest pain, orthopnea, claudication, leg swelling and PND. Gastrointestinal: Negative. Genitourinary: Negative. Musculoskeletal: Positive for joint pain (left knee). Negative for back pain, falls, myalgias and neck pain. Skin: Negative. Neurological: Negative. Endo/Heme/Allergies: Negative. Psychiatric/Behavioral: Negative. Denies smoking or alcohol use. ALLERGIES No Known Allergies Current Outpatient Medications Medication Sig sildenafil (VIAGRA) 100 mg tablet Take 1 tablet by mouth as needed (one per day maximum as needed). traMADol (ULTRAM) 50 mg tablet Take 50 mg by mouth every 6 hours as needed. ibuprofen (MOTRIN) 200 mg tablet Take 400 mg by mouth every 6 hours as needed for pain. (Patient not taking: Reported on 12/02/2023) tamsulosin (FLOMAX) 0.4 mg TAKE ONE CAPSULE BY MOUTH ONCE DAILY sildenafil (VIAGRA) 100 mg tablet TAKE ONE TABLET BY MOUTH NEEDED (ONCE PER DAY MAXIMUM NEEDED) lansoprazole (PREVACID ORAL) Take 20 mg by mouth once daily. sildenafil (VIAGRA) 100 mg tablet TAKE ONE TABLET BY MOUTH NEEDED (MAXIMUM 1 PER DAY NEEDED) SAW PALMETTO ORAL Take by mouth once daily. (Patient not taking: Reported on 01/13/2021) Cholecalciferol, Vitamin D3, (VITAMIN D) 1,000 unit cap Take 1 capsule by mouth once daily. No current facility-administered medications for this visit. PAST MEDICAL HISTORY Diagnosis Date Bilateral inguinal hernia 2014 BPH (benign prostatic hyperplasia) enlarged prostate Colonoscopy refused 06/06/2014 Fecal occult blood test positive 01/2016 GERD (gastroesophageal reflux disease) History of epistaxis Hyperlipidemia on diet control, exercise Irregular heart beat Left inguinal hernia 2010 Liver lesion MRI OA (osteoarthritis) of knee Received Euflexxa injection Osteoarthritis Pancreatic lesion MRI Prostatitis since age [address] [facility] Renal stone 2012 removed Urgency of urination UTI (urinary tract infection) PAST SURGICAL HISTORY Procedure Laterality Date CAUTERIZATION INNER NOSE HERNIA REPAIR HX 11/16/2014 Laparoscopic total preperitoneal bilateral inguinal hernia repair. Open umbilical hernia repair PAST SURGICAL HISTORY OF 07/2010 lithotripsy R (more content not included)... [facility] 01-14-2024 Note HNO ID: [id number] Author: EMILIO ENRIQUE MD Service: ? Author Type: Resident Type: Progress Notes Filed: 01/14/2024 14:17 Note Text: I called the [facility] and talked to Ford. I was told we should fax our prescription to them at [phone]. The two iron formulations they have are feraheme and INFeD. Decided to go with feraheme 2 doses each 510 mg. Emilio Enrique M.D PGY-1, Internal Medicine 01/14/2024 2:16 PM [facility] 01-14-2024 History of Present illness Narrative I called the [facility] and talked to Ford. I was told we should fax our prescription to them at [phone]. The two iron formulations they have are feraheme and INFeD. Decided to go with feraheme 2 doses each 510 mg. Emilio Enrique M.D PGY-1, Internal Medicine 01/14/2024 2:16 PM documented in this encounter [facility] 01-11-2024 Instructions Rochelle Christian MD - 01/11/2024 11:29 AM EDT INSTRUCTIONS FROM DR. CHRISTIAN: Psa-12 mo Try the Flomax just once a day rather than twice a day Viagra as needed PATIENT INFORMATION: Viagra Review: Viagra cannot be taken if plans to take any type of medication that contains nitrates. Side-effects of Viagra can include headache, blue vision, indigestion and the chance of priapism which is an erection that will not go away. Take Viagra approximately 45 minutes to 1 hours before desire for an erection, and the effects of Viagra should last about 6-8 hours. Try not have food just before or after taking Viagra as it may not work as well on full stomache. documented in this encounter [facility] 01-11-2024 Nurse Note patient declined echo technologist Court Croft MA [facility] 01-11-2024 Note HNO ID: [id number] Author: ROCHELLE CHRISTIAN MD Service: ? Author Type: Physician Type: Progress Notes Filed: 01/13/2024 10:58 Note Text: ESTABLISHED PATIENT OFFICE VISIT PATIENT INFO: Margaux Quarles 73 year old HPI 01/11/2024 CC: stricture saw Dr. Ileana Nguyen as noted below and taken to surgery for the urethral dilation and then in follow-up instructed on straight catheterization but that her too much so we just stopped doing it He thinks voiding is going fine right now and does not want anything else done at this point-- he understands stricture can recur and worsen at any point Does not think he has set appointment to see Dr. Nguyen again at this point and discussed he could always just follow-up with her on a regular basis or as needed He still wants to follow-up with me also this point Remains on Flomax twice daily but he could try daily and see if does just as well on that so we will do that On no antibiotics and history of being on daily Keflex and doxycycline as needed Dipstick positive nitrite but no feelings of symptomatic UTI so we will hold off on culture or antibiotic and patient agrees History of erectile dysfunction-Viagra just uses a few times a year and wants a printed prescription Follow-up 12 months with PSA at the latest and earlier problems Scores/PVR: Bladder scan/PVR: IPSS-; QoL-1/6 Past Urology Hx: September 08, 2023-seen by Dr. Ileana Nguyen/[facility]rology- Mamadou is doing very well after dilation in OR in June Reports has not had any recurrent urinary tract infections, stream is stronger as well For his BPH he is on Flomax twice a day, this has improved his emptying and his urinary symptoms as well He was taught meatal dilation/calibration today He will perform this weekly and as needed to keep the meatus patent, he was prescribed clobetasol cream as well which she can apply weekly and as needed to help prevent restenosis Follow-up with me in about 10 months for BPH and stricture, contact office sooner as needed Follow Up: Follow up in about 10 months (around 07/08/2024) for BPH / urethral stricture follow up (UA and PVR at visit) . Ileana Rojas, Jun 17 2023-surgery with Dr. Nguyen/[facility] urology- The distal penile urethra is noted to be somewhat scarred and stenotic however the remaining portion of the urethra appears grossly normal. There is a narrowing where the expected location of the external urinary sphincter is located, no evidence for additional strictures within the urethra. Contrast does reach the bladder. He was then repositioned into a dorsal lithotomy fashion and reprepped and draped in a normal sterile fashion. A semirigid ureteroscope was used to perform distal ureteroscopy. Distal urethra is noted to be quite stenotic. Wire was passed through the scope and into the bladder. Decision was made to perform urethral dilation. Using the Cook S-curve dilators we dilated the urethra up to 20 Green[place]ic using the dilators. A 17 Green[place]ic rigid cystoscope was then passed alongside the wire and into the bladder. Distal urethra was noted to be scarred, likely from prior hypospadias surgeries. he proximal penile urethra, bulbar urethra, and prostatic urethra is noted to be widely patent. Within the urinary bladder there are no masses stones or lesions identified, bilateral ureteral orifices are normal in number position and orientation with clear E flux. Decision was made to place a Long catheter. The scope was withdrawn. An 18 [place] [address]ill catheter was placed Plan: Patient will be discharged home with a Long catheter He will remove the catheter at home in a few days 01/12/2023 CC: cysto Voiding good with good stream and pleased with his progress and does not want cystoscopy today because he does not want to irritate anything Denies dysuria On Flomax Discussed stricture could easily recur and given his history probably most distal and he thinks that his consistent with what he is felt when it was dilated he does have a hypospadias history He is open to seeing Dr. Ileana Nguyen now for evaluation and opinion at least At the latest see me with PSA/KUB 12 months as he does have history of stones 10/06/2022 CC: stricture Since I saw him thinks voiding well with stream being okay and remains on Flomax He finished the Cipro but question of whether it made his joints hurt or whether was just the infection Residual urine 54 cc today Denies dysuria or gross hematuria now Option of seeing Dr. Ileana Nguyen about urethral evaluation and reconstruction but he wants to hold off on that He is open to getting PSA in 3 months and office cystoscopy in 3 months with me Bladder scan/PVR: 54cc 08/25/2022 CC: aur Sent home on doxycycline but changed to Cipro He said the resident just put a wire in and dilated with one of the blue dilators and got the catheter and at the emergency department After start (more content not included)... [facility] 01-11-2024 History of Present illness Narrative ESTABLISHED PATIENT OFFICE VISIT PATIENT INFO: Margaux Quarles 73 year old HPI 01/11/2024 CC: stricture saw Dr. Ileana Nguyen as noted below and taken to surgery for the urethral dilation and then in follow-up instructed on straight catheterization but that her too much so we just stopped doing it He thinks voiding is going fine right now and does not want anything else done at this point-- he understands stricture can recur and worsen at any point Does not think he has set appointment to see Dr. Nguyen again at this point and discussed he could always just follow-up with her on a regular basis or as needed He still wants to follow-up with me also this point Remains on Flomax twice daily but he could try daily and see if does just as well on that so we will do that On no antibiotics and history of being on daily Keflex and doxycycline as needed Dipstick positive nitrite but no feelings of symptomatic UTI so we will hold off on culture or antibiotic and patient agrees History of erectile dysfunction-Viagra just uses a few times a year and wants a printed prescription Follow-up 12 months with PSA at the latest and earlier problems Scores/PVR: Bladder scan/PVR: IPSS-; QoL-08/07 Past Urology Hx: September 08, 2023-seen by Dr. Ileana Nguyen/[facility] urology- Mamadou is doing very well after dilation in OR in June Reports has not had any recurrent urinary tract infections, stream is stronger as well For his BPH he is on Flomax twice a day, this has improved his emptying and his urinary symptoms as well He was taught meatal dilation/calibration today He will perform this weekly and as needed to keep the meatus patent, he was prescribed clobetasol cream as well which she can apply weekly and as needed to help prevent restenosis Follow-up with me in about 10 months for BPH and stricture, contact office sooner as needed Follow Up: Follow up in about 10 months (around 07/08/2024) for BPH / urethral stricture follow up (UA and PVR at visit) . Ileana Rojas, DO Jun 17 2023-surgery with Dr. Nguyen/[facility]- The distal penile urethra is noted to be somewhat scarred and stenotic however the remaining portion of the urethra appears grossly normal. There is a narrowing where the expected location of the external urinary sphincter is located, no evidence for additional strictures within the urethra. Contrast does reach the bladder. He was then repositioned into a dorsal lithotomy fashion and reprepped and draped in a normal sterile fashion. A semirigid ureteroscope was used to perform distal ureteroscopy. Distal urethra is noted to be quite stenotic. Wire was passed through the scope and into the bladder. Decision was made to perform urethral dilation. Using the Cook S-curve dilators we dilated the urethra up to 20 Green[place]ic using the dilators. A 17 Greenlandic rigid cystoscope was then passed alongside the wire and into the bladder. Distal urethra was noted to be scarred, likely from prior hypospadias surgeries. he proximal penile urethra, bulbar urethra, and prostatic urethra is noted to be widely patent. Within the urinary bladder there are no masses stones or lesions identified, bilateral ureteral orifices are normal in number position and orientation with clear E flux. Decision was made to place a Long catheter. The scope was withdrawn. An 18 Green[place]ic Councill catheter was placed Plan: Patient will be discharged home with a Long catheter He will remove the catheter at home in a few days 01/12/2023 CC: cysto Voiding good with good stream and pleased with his progress and does not want cystoscopy today because he does not want to irritate anything Denies dysuria On Flomax Discussed stricture could easily recur and given his history probably most distal and he thinks that his consistent with what he is felt when it was dilated he does have a hypospadias history He is open to seeing Dr. Ileana Nguyen now for evaluation and opinion at least At the latest see me with PSA/KUB 12 months as he does have history of stones 10/06/2022 CC: stricture Since I saw him thinks voiding well with stream being okay and remains on Flomax He finished the Cipro but question of whether it made his joints hurt or whether was just the infection Residual urine 54 cc today Denies dysuria or gross hematuria now Option of seeing Dr. Ileana Nguyen about urethral evaluation and reconstruction but he wants to hold off on that He is open to getting PSA in 3 months and office cystoscopy in 3 months with me Bladder scan/PVR: 54cc 08/25/2022 CC: aur Sent home on doxycycline but changed to Cipro He said the resident just put a wire in and dilated with one of the blue dilators and got the catheter and at the emergency department After starting Cipro discomfort went away very quickly but catheter is real bothersome Wants voiding trial today as catheter has been in for about a week We filled him up and he voided well Will add 1 more week of Cipro On Flomax Has appointment with me in about 5 to 6 weeks already from prior and will keep that August 19, 2022-seen by nurse practitioner at [facility]- 71 year old male known to Dr Christian for nephrolithiasis, urinary retention due BPH, hypospadias, ureteral stricture requiring dilation, and prostatitis. Last seen 10/07/2021. He reports he hasn't been able to urinate since yesterday, ER for long insertion by residents. He also notes his prostate feels like the size of an orange. Bladder scan in ER is 409cc. resident dilated urethra to 14F, then over an 035 wire, placed a 12F long catheter for a return of 250cc yellow urine. - Maintain long catheter at discharge. Send home with leg bags as well. - Check UA and Urine culture prior to dc. - Recommend discharging with 10 days of doxycycline based on prior urine cultures and resistance to cipro. - he can follow-up with Dr Christian. 10/07/2021 CC: bph Remains on Flomax daily and no problems with prostatitis right now Nocturia x2 and daytime voiding every 3-4 hours and moderate stream and satisfied with progress Has history of hypospadias and other staff trouble catheterizing in the past when he needed it but urology resident did so without any kind of problem He just sits to void and feels fine doing that Erectile dysfunction-he went to the private organization that does shockwave therapy the penis and thinks had some 50% improvement with treatments Now only needs about one fourth of a Viagra tablet and needs refill of that He will follow-up 12 months with PSA 01/13/2021 CC: bph Saw nurse as below and placed on doxycycline which cleared his symptoms and he took Flomax twice daily during that time but now just daily Back to normal now Does not take doxycycline on a regular basis anymore and just will take if recurrent symptoms in the future PSA slight continued rise so we will repeat PSA in 4 months and plan follow-up 12 months for exam and PSA 12 months Bladder scan/PVR: 0cc December 06, 2020-seen by nurse- office today complaining of difficulty urinating and pressure in rectum. Patient was able to void once in office and PVR 93 ml. Patient instructed that if he has any sudden pain or inability to urinate he is to contact this office ([phone]) during the hours of 08:00 to 16:00. If after those hours, to go to the emergency room. Urine culture obtained and sent to lab. Urine culture proved to be negative and Gina told him to continue doxycycline 01/16/2020 CC: bph Saw him in May for prostatitis and cultures came back with Escherichia coli resistant to Cipro he was taking so we changed him to Bactrim for a couple of weeks 1 month ago in [place] saw urology because of prostatitis symptoms and they gave him doxycycline and things cleared within a couple of days Urologist suggested 5 days of doxycycline the first week of every month as prophylaxis rather than daily Keflex and the patient would like to do that Taking Flomax daily only now Nocturia 1-3 and stream is okay Has not been on Keflex every day at this point 05/29/2019 CC: prostate Patient got poison yamila and started on steroids and he thought he might end up getting recurrent prostatitis/UTI which she did Had fevers and dysuria with frequency and went to urgent care and got 10 days of Cipro and there has been improvement albeit occasional bladder spasm Normally takes Keflex 250 mg and Flomax Urinalysis today-large leukocyte on dipstick We'll treat him with 10 extra days of Cipro and get urine culture today No urine culture was done through urgent care 01/17/2019 CC: bph Still taking Keflex 250 mg daily and wants to continue with that Just taking Flomax 1 pill a day now and doing fine Nocturia times 1-2 and stream is moderate and satisfied with it but we did talk about Urolift Would need cystoscopy and transrectal ultrasound to evaluate but he will hold off for now Viagra works well for erections and gets it at [facility] locally He is worried about doing any kind of cystoscopy evaluation because even passing a catheter in the past cause trouble urinating for a long time and irritation January 17, 2018-still takes Flomax 2 tablets one day and the next day will only take it in the morning. Viagra is still helpful and wants to stay on Keflex 250 mg daily for prophylaxis for his history of prostatitis. Nocturia 1. No gross hematuria or dysuria. Been well since I saw him July 2017. July 2017-Taking Flomax twice every other day and one tablet every other day. Nocturia 1 and stream moderate. Still on Keflex 250 mg daily. No burning or gross hematuria issue. Erectile dysfunction and Viagra helped. Has history of kidney stones and wanted follow-up KUB to see if recurrence. . ;Hx recur prostatitis; saw dr Marino in past and goit Geocillin qd; hx Gent x1 IM could help; recent to ER and admit for prostatitis and had a long p;laced-out now; Dr Betancourt had given cipor and better on it but recur sx off so started cipro at home and getting better; still some SP spasms in am; flomax q am can help saw Dr Sutton in past ; Past notes reviewed: Pt recently admitted to hospital with obstructing UPJ calc. Had stent placed and dilation of urethral stricture. Prostastitis post op kept him in the hospital post op. Stone has not passed. FREQUENCY: He has frequency of urination. This has been present several months. The following treatments have been used: nothing. The frequency is the same. The patient now urinates every 3 hours. ERECTILE DYSFUNCTION: He has impotency (erectile dysfunction) which The impotency (erectile dysfunction) is the same. There is no pain with erection. No dysuria noted. No hematuria is present. NOCTURIA: He has nocturia 1-2X which has been present several years. The following treatments have been used: alpha charbel, nothing, antibiotics, saw palmetto. The nocturia some nights up to 4x Patient dribbles occasionally. No dysuria noted. He has frequency every 2 hours. No hematuria is present. Patient states there is an occasional straining to urinate. The urinary stream is moderate. Patient states there is occasional urgency. There is no urgency incontinence. [place] Sheet: August 19, 2022-urine culture-Pseudomonas- May 29, 2019-urine [id number] to ampicillin, Cipro, Levaquin but sensitive to cefazolin and doxycycline and Bactrim 12/15/2016: [place] Sheet: UC- E Coli-R to cipro/Amp 11/12/2016: [place] Sheet: UC- E Coli--R to doxy/bactrim/amp/augmentin 11/21/2015: [place] Sheet: Stone Ca Oxalate 10/03/2015: [place] Sheet: Urine c+s- no growth 03/09/2011: [place] Sheet: n/s 09/19/2010: [place] Sheet: Ucx 50k e coli 09/10/2010: [place] Sheet: KUB L 2mm stone 07/16/2010: [place] Sheet: L ESWL , cysto 06/19/2010: [place] Sheet: U/S R 2.6cm cyst, L 7mm stone 11/03/2009: [place] Sheet: CT flank 8mm proximal urethral stone, 6mm L renal stone, no hydro, R 1cm cyst Radiology: January 10, [id number] and stool and bowel gas and no obvious significant stone growth January 14, [id number] 11/12/2016: Test: CT, Comments: enlarged prostate PSA: 03/13/2016: PSA: 1.40 09/12/2015: PSA: 2.23 07/16/2014: PSA: 1.20 07/13/2013: PSA: 2.070 Creatinine Date Value Ref Range Status 12/07/2023 1.04 0.73 - 1.22 mg/dL Final PSA (ng/mL) Date Value 12/07/2023 5.56 01/11/2023 5.03 10/03/2021 4.23 10/03/2021 5.72 08/06/2021 8.00 06/10/2021 4.4 01/06/2021 4.01 01/15/2020 3.00 01/12/2018 1.63 03/12/2016 1.40 Color (no units) Date Value 08/19/2022 Light Yellow 11/12/2016 STRAW Clarity (no units) Date Value 08/19/2022 Clear 11/18/2014 Cloudy Glucose, Urine Date Value 08/19/2022 Negative 01/17/2018 neg mg/dL Bilirubin, Urine (no units) Date Value 08/19/2022 Negative 01/17/2018 neg Ketones, Urine (no units) Date Value 08/19/2022 Negative 01/17/2018 neg Specific [place], Ur (no units) Date Value 08/19/2022 1.019 01/17/2018 1.020 Hemoglobin/Blood,Ur (no units) Date Value 08/19/2022 2+ 01/17/2018 neg pH, Urine (no units) Date Value 08/19/2022 7.0 01/17/2018 5.5 Protein, Urine Date Value 08/19/2022 Negative 01/17/2018 neg mg/dL Urobilinogen (no units) Date Value 08/19/2022 Normal 11/18/2014 Normal Nitrites (no units) Date Value 08/19/2022 Negative 01/17/2018 neg Leukest (no units) Date Value 11/18/2014 2+ Leuk Esterase (no units) Date Value 08/19/2022 25 Marcelino/mL Leukocytes Esterase (no units) Date Value 11/12/2016 LARGE Review of Systems Constitutional: Negative. HENT: Negative. Eyes: Negative. Respiratory: Negative. Cardiovascular: Negative. Gastrointestinal: Negative. Endocrine: Negative. Genitourinary: See HPI Musculoskeletal: Negative. Skin: Negative. Allergic/Immunologic: Negative. Neurological: Negative. Hematological: Negative. Psychiatric/Behavioral: Negative. I reviewed and confirmed ROS obtained by MA HISTORIES PAST MEDICAL HISTORY Diagnosis Date Bilateral inguinal hernia 2014 BPH (benign prostatic hyperplasia) enlarged prostate Colonoscopy refused 06/06/2014 Fecal occult blood test positive 01/2016 GERD (gastroesophageal reflux disease) History of epistaxis Hyperlipidemia on diet control, exercise Irregular heart beat Left inguinal hernia 2010 Liver lesion MRI OA (osteoarthritis) of knee Received Euflexxa injection Osteoarthritis Pancreatic lesion MRI Prostatitis since age [address] [facility] Renal stone 2012 removed Urgency of urination UTI (urinary tract infection) FAMILY HISTORY Problem Relation Age of Onset Ischemic Heart Disease Father 70 CABG other (vertigo) Father alive other (Lung cancer- smoker) Mother 61 Cancer Maternal Grandmother lung cancer Heart Paternal Grandmother SOCIAL HISTORY Social History Tobacco Use Smoking status: Never Smokeless tobacco: Never Vaping Use Vaping Use: Never used Substance Use Topics Alcohol use: Yes Comment: rarely Drug use: No MEDICATIONS: traMADol (ULTRAM) 50 mg tablet Take 50 mg by mouth every 6 hours as needed. tamsulosin (FLOMAX) 0.4 mg TAKE ONE CAPSULE BY MOUTH ONCE DAILY lansoprazole (PREVACID ORAL) Take 20 mg by mouth once daily. sildenafil (VIAGRA) 100 mg tablet TAKE ONE TABLET BY MOUTH NEEDED (MAXIMUM 1 PER DAY NEEDED) Cholecalciferol, Vitamin D3, (VITAMIN D) 1,000 unit cap Take 1 capsule by mouth once daily. sildenafil (VIAGRA) 100 mg tablet Take 1 tablet by mouth as needed (one per day maximum as needed). ibuprofen (MOTRIN) 200 mg tablet Take 400 mg by mouth every 6 hours as needed for pain. (Patient not taking: Reported on 12/02/2023) sildenafil (VIAGRA) 100 mg tablet TAKE ONE TABLET BY MOUTH NEEDED (ONCE PER DAY MAXIMUM NEEDED) SAW PALMETTO ORAL Take by mouth once daily. (Patient not taking: Reported on 01/13/2021) Physical Exam HENT: Head: Normocephalic and atraumatic. Nose: Nose normal. Neck: Trachea: No tracheal deviation. Pulmonary: Effort: Pulmonary effort is normal. No respiratory distress. Musculoskeletal: General: No deformity. Comments: cane Skin: General: Skin is warm. Neurological: Mental Status: He is alert and oriented to person, place, and time. Gait: Gait is intact. Psychiatric: Mood and Affect: Mood and affect normal. Cognition and Memory: Memory normal. Risk/Benefit Discussion: FOLLOW UP (1s&1w; 3s): Return in about 1 year (around 01/10/2025) for psa-12 mo. ASSESSMENT/PLAN: 1. Nocturia - ICD9: 788.43, ICD10: R35.1 (primary diagnosis) 2. Postprocedural stricture of anterior urethra - ICD9: 598.2, ICD10: N99.114 3. BPH with obstruction/lower urinary tract symptoms - ICD9: 600.01, 599.69, ICD10: N40.1, N13.8 - PROSTATE-SPECIFIC ANTIGEN DIAGNOSTIC - SILDENAFIL 100 MG TABLET Rochelle Christian Please note: This note has been produced using speech recognition software and may contain errors related to that system including grammar, punctuation, spelling, gender and words and phrases that may be inappropriate. documented in this encounter [facility] 01-11-2024 Nurse Note patient declined echo technologist Court Croft MA documented in this encounter [facility] 01-05-2024 Telephone encounter Note Reminder created. Ashley Ramirez, Senior Physician January 05, 2024 2:45 PM [facility] 01-05-2024 Miscellaneous Notes Reminder created. Ashley Ramirez, Senior Physician January 05, 2024 2:45 PM Patient is scheduled for a left total knee arthroplasty with possible medial collateral ligament repair on 02/21/[address] Will. Please schedule a January appt with Dr. Enrique when the January schedules are open. documented in this encounter [facility] 01-04-2024 Telephone encounter Note Pain management referral #[id number] Cat Dinero 01/04/2024 10:27 am [facility] 01-04-2024 Miscellaneous Notes Pain management referral #[id number] Cat Dinero 01/04/2024 10:27 am documented in this encounter [facility] 01-03-2024 History of Present illness Narrative Placed an order for pain management consult to adequately help control left knee pain while awaiting for surgery. Also explained to the patient to reach out to the surgeons for additional pain relief medications. Emilio Enrique M.D PGY-1, Internal Medicine 01/03/2024 7:44 PM documented in this encounter [facility] 12-24-2023 Telephone encounter Note Completed cardiac clearance from Dr. Taveras Scanned in and faxed to Dr. Will's office. Thanks Sherry Vargas [facility] 12-24-2023 Miscellaneous Notes Completed cardiac clearance from Dr. Taveras Scanned in and faxed to Dr. Will's office. Thanks Sherry Vragas documented in this encounter [facility] 12-22-2023 Miscellaneous Notes Clearance received from Dr. Will for a left total knee arthroplasty w/ possible medial collateral ligament repair. Clearance scanned in and in Dr. Taveras's box to be reviewed. Jacuqelin Roy December 22, 2023 3:52 PM documented in this encounter [facility] 12-22-2023 Telephone encounter Note Clearance received from Dr. Will for a left total knee arthroplasty w/ possible medial collateral ligament repair. Clearance scanned in and in Dr. Taveras's box to be reviewed. Jacquelin Roy December 22, 2023 3:52 PM [facility] 12-22-2023 Telephone encounter Note Patient is scheduled for a left total knee arthroplasty with possible medial collateral ligament repair on 02/21/[address] Will. Please schedule a January appt with Dr. Enrique when the January schedules are open. [facility] 12-09-2023 Telephone encounter Note I attempted to call Mr. Quarles on the provided contact number and LVM to call back. Given recent blood shows iron deficiency anemia, I will start oral ferrous sulfate once daily. Please inform the patient if they call back. Thank you Isidoro Botello MD 12/09/2023 [facility] 12-09-2023 Miscellaneous Notes I attempted to call Mr. Quarles on the provided contact number and LVM to call back. Given recent blood shows iron deficiency anemia, I will start oral ferrous sulfate once daily. Please inform the patient if they call back. Thank you Isidoro Botello MD 12/09/2023 documented in this encounter [facility] 12-02-2023 History of Present illness Narrative Attending Note I discussed with resident. The patient was not seen or examined by the attending. I reviewed the resident's note. I agree with the resident's assessment and plan unless otherwise noted. Signature: Iris Fuller MD Date: 12/02/2023. Time: 10:37 AM Images from the original note were not included. [facility] Emilio Enrique MD ASSESSMENT/PLAN: 1. Encounter to establish care - ICD9: V65.8, ICD10: Z76.89 (primary diagnosis) - COMPLETE BLOOD COUNT - BASIC METABOLIC PANEL 2. Microcytic anemia - ICD9: 280.9, ICD10: D50.9 Not new, will also get a CBC to see if he still has anemia. Colonoscopy showed diverticulosis and internal hemorrhoids. Reports knee effusion is bloody. - COMPLETE BLOOD COUNT - BASIC METABOLIC PANEL - IRON AND TIBC - FERRITIN 3. Tear of medial meniscus of left knee, current, unspecified tear type, subsequent encounter - ICD9: V58.89, 836.0, ICD10: S83.242D - Following up with orthopedics who had the effusion removed 3 times now since the injury happened 1 month ago. MD Emilio Myers MD SUBJECTIVE: Margaux Quarles is a 73 year old male with a past medical history of GERD, osteoarthritis, prosatitis, HLD, BPH, focal nodular hyperplasia of liver, and blood in stools (colonoscopy done in 2021 showed internal hemorrhoids and diverticulosis), here today for establishing care. He denies any shortness of breath at rest or exertion or chest pain with exertion or at rest. He is still active even though he had a mechanical injury to his left knee a month ago and had a meniscal tear. He also had his knee drained multiple times and he reports it would be bloody. The knee has had issues for years and looks deformed even before his recent injury. He had multiple interventions stem cells, gels and medications injected in his knee but with no improvement. He is planning on doing a knee procedure with Dr. Will, orthopedics, who advised him to get a PCP before doing the surgery. He has left medial knee tenderness where the meniscus is. Otherwise, he denies any blood in stools or any other place. He follows with urology and had a recent procedure done to help with his chronic prostatitis and he reports that this has been going well ever since the procedure. He follows Dr. Rojas at [facility]. He also follows Dr. Taveras for irregular heart beats but his EKGs were normal sinus rhythm and he never had an event monitor placed as he declined it but afterwards, Dr. Taveras was okay with him not getting it as well as not getting a stress test. Orthopedics records are not shown here in EPIC. Will request for records. Patient will likely re-schedule for pre-op clearance but from his exam and chart review, it is likely he is cleared for a surgery but will revisit at that time when the surgery is scheduled. 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 PAST MEDICAL HISTORY Diagnosis Date Bilateral inguinal hernia 2014 BPH (benign prostatic hyperplasia) enlarged prostate Colonoscopy refused 06/06/2014 Fecal occult blood test positive 01/2016 GERD (gastroesophageal reflux disease) History of epistaxis Hyperlipidemia on diet control, exercise Irregular heart beat Left inguinal hernia 2010 Liver lesion MRI OA (osteoarthritis) of knee Received Euflexxa injection Osteoarthritis Pancreatic lesion MRI Prostatitis since age [address] Km [facility] Renal stone 2011 removed Urgency of urination UTI (urinary tract infection) PAST SURGICAL HISTORY Procedure Laterality Date CAUTERIZATION INNER NOSE HERNIA REPAIR HX 11/16/2014 Laparoscopic total preperitoneal bilateral inguinal hernia repair. Open umbilical hernia repair PAST SURGICAL HISTORY OF 07/2010 lithotripsy REPAIR INGUINAL HERNIA 2010 left injuinal hernia repair w/ mesh TONSILLECTOMY HX Social History Tobacco Use Smoking status: Never Smokeless tobacco: Never Vaping Use Vaping Use: Never used Substance Use Topics Alcohol use: Yes Comment: rarely Drug use: No FAMILY HISTORY Problem Relation Age of Onset Ischemic Heart Disease Father 70 CABG other (vertigo) Father alive other (Lung cancer- smoker) Mother 61 Cancer Maternal Grandmother lung cancer Heart Paternal Grandmother PAIN EVALUATION 12/02/2023 1000 Pain Level: 2 ALLERGIES No Known Allergies Current Outpatient Medications Medication Sig traMADol (ULTRAM) 50 mg tablet Take 50 mg by mouth every 6 hours as needed. tamsulosin (FLOMAX) 0.4 mg TAKE ONE CAPSULE BY MOUTH ONCE DAILY sildenafil (VIAGRA) 100 mg tablet TAKE ONE TABLET BY MOUTH NEEDED (ONCE PER DAY MAXIMUM NEEDED) lansoprazole (PREVACID ORAL) Take 20 mg by mouth once daily. sildenafil (VIAGRA) 100 mg tablet TAKE ONE TABLET BY MOUTH NEEDED (MAXIMUM 1 PER DAY NEEDED) Cholecalciferol, Vitamin D3, (VITAMIN D) 1,000 unit cap Take 1 capsule by mouth once daily. naproxen (NAPROSYN) 500 mg tablet Take 500 mg by mouth two times a day. (Patient not taking: Reported on 12/02/2023) ibuprofen (MOTRIN) 200 mg tablet Take 400 mg by mouth every 6 hours as needed for pain. (Patient not taking: Reported on 12/02/2023) ciprofloxacin HCl (CIPRO) 500 mg tablet Take 1 tablet by mouth twice daily. (Patient not taking: Reported on 05/19/2023) ciprofloxacin HCl (CIPRO) 500 mg tablet Take 1 tablet by mouth twice daily. (Patient not taking: Reported on 01/12/2023) tamsulosin (FLOMAX) 0.4 mg Take 1 capsule by mouth once daily. (Patient not taking: Reported on 12/02/2023) ciprofloxacin HCl (CIPRO) 500 mg tablet Take 500 mg by mouth as needed. (Patient not taking: Reported on 01/13/2021) amoxicillin (POLYMOX, AMOXIL) 500 mg capsule Take 500 mg by mouth as needed. (Patient not taking: Reported on 01/13/2021) SAW PALMETTO ORAL Take by mouth once daily. (Patient not taking: Reported on 01/13/2021) ACETAMINOPHEN (TYLENOL ORAL) Take by mouth once daily. (Patient not taking: Reported on 05/19/2023) tamsulosin ER (FLOMAX) 0.4 mg cp24 0.4 mg once daily. (Patient not taking: Reported on 01/12/2023) No current facility-administered medications for this visit. I have confirmed and edited as necessary the chief complaint, medications, past medical, family and social histories. Review of Systems Constitutional: Negative. HENT: Negative. Eyes: Negative. Respiratory: Negative. Cardiovascular: Negative. Gastrointestinal: Negative. Endocrine: Negative. Genitourinary: Negative. Musculoskeletal: Positive for arthralgias and joint swelling. Skin: Negative. Allergic/Immunologic: Negative. Neurological: Negative. Hematological: Negative. Psychiatric/Behavioral: Negative. OBJECTIVE: BP 106/62 Pulse 80 Temp 36.7 C (98.1 F) Resp 18 Ht 172.7 cm (5' 8) Wt 68.9 kg (152 lb) SpO2 100% BMI 23.11 kg/m Physical Exam Constitutional: Appearance: Normal appearance. HENT: Head: Normocephalic. Mouth/Throat: Pharynx: Oropharynx is clear. Eyes: Extraocular Movements: Extraocular movements intact. Conjunctiva/sclera: Conjunctivae normal. Cardiovascular: Rate and Rhythm: Normal rate. Pulses: Normal pulses. Heart sounds: Normal heart sounds. No murmur heard. Pulmonary: Effort: Pulmonary effort is normal. Breath sounds: Normal breath sounds. Abdominal: General: Bowel sounds are normal. Palpations: Abdomen is soft. Musculoskeletal: Right lower leg: No edema. Left lower leg: No edema. Comments: Left knee swollen and looks deformed. Left Patella laterally displaced Tenderness on left medial knee Slightly Erythematous left knee Left lateral bruise where the effusion got drained. He states that this is how his knee looked for years now including the erythema. Skin: General: Skin is warm. Capillary Refill: Capillary refill takes less than 2 seconds. Neurological: General: No focal deficit present. Mental Status: He is alert and oriented to person, place, and time. 09/15/2016 12/03/2021 PHQ-9 All Questions Little interest or pleasure in doing things 0 Feeling down, depressed, or hopeless 0 PHQ-9 Score 0 (0-4) minimal depression, (5-9) mild depression, (10-14) moderate depression, (15-19) moderately severe depression, (20-27) severe depression Screening tool completed by patient. Based on the PHQ-2 score and patient interview, patient is not at risk for depression. Screening tool discussed with patient, and I recommended no further intervention at this time. Return in about 6 months (around 06/03/2024) for Follow up knee. Discussed the above with the patient and my preceptor using shared decision-making. The patient is in agreement with the diagnostic and treatment plans. Provider: Emilio Enrique MD Signed on: December 02, 2023 10:07 AM documented in this encounter [facility] 11-19-2023 History of Present illness Narrative Summary: CT Radiology Service Progress Note PATIENT NAME: Margaux Quarles DATE OF SERVICE: November 19, 2023 TIME: 4:47 PM PATIENT IDENTITY VERIFICATION COMPLETED USING TWO (2) IDENTIFIERS: Name and Date of confirmed by patient verbally. FALL SCREENING: Has the patient had 2 falls in the last year or 1 fall with injury or currently using an Ambulatory Assistive Device (Walker, Cane, Wheelchair, Crutches, etc.)? 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 RADIOLOGY DEPARTMENT: CT; Exam(s) Completed: Lower extremity PERIPHERAL IV DATA: Not applicable SIGNED BY: SUYAPA Bradley) November 19, 2023 4:47 PM documented in this encounter [facility] 11-19-2023 Note HNO ID: [id number] Author: WILMA NIÑO RT(R) Service: Radiology Author Type: Technologist Type: Progress Notes Filed: 11/19/2023 16:47 Note Text: ------ Summary: CT ------ Radiology Service Progress Note PATIENT NAME: Margaux Quarles DATE OF SERVICE: November 19, 2023 TIME: 4:47 PM PATIENT IDENTITY VERIFICATION COMPLETED USING TWO (2) IDENTIFIERS: Name and Date of confirmed by patient verbally. FALL SCREENING: Has the patient had 2 falls in the last year or 1 fall with injury or currently using an Ambulatory Assistive Device (Walker, Cane, Wheelchair, Crutches, etc.)? 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 Ileana Rojas DO 09/08/2023 Urology Office Visit [facility] [address] [facility] [address] Dept: [phone] Dept Loc: [phone] PATIENT NAME: Margaux Quarles DATE OF : 1950 REFERRING PROVIDER: No ref. provider found PCP: Sam Early TODAY'S DATE: 09/08/2023 CHIEF COMPLAINT: Chief Complaint Patient presents with Consult 3 wk fu, discuss findings, pt denies any complication s/p surgery Impression: Diagnoses and all orders for this visit: 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 urethral stricture - clobetasol (Temovate) 0.05 % cream; Apply to meatus and dilator weekly and as needed for meatal stenosis Hypospadias, penile - clobetasol (Temovate) 0.05 % cream; Apply to meatus and dilator weekly and as needed for meatal stenosis . Plan: Mamadou is doing very well after dilation in OR in June Reports has not had any recurrent urinary tract infections, stream is stronger as well For his BPH he is on Flomax twice a day, this has improved his emptying and his urinary symptoms as well He was taught meatal dilation/calibration today He will perform this weekly and as needed to keep the meatus patent, he was prescribed clobetasol cream as well which she can apply weekly and as needed to help prevent restenosis Follow-up with me in about 10 months for BPH and stricture, contact office sooner as needed Follow Up: Follow up in about 10 months (around 07/08/2024) for BPH / urethral stricture follow up (UA and PVR at visit) . Ileana Rojas DO Reconstructive [facility] Subjective: Mr. Quarles is a 73 y.o. male who presents to the office for urethral stricture. This is a follow up of a pre-existing problem. Records have been reviewed HPI HPI Margaux presents to discuss OR findings from June and assess urinary symptoms 06/17/23 RUG, Cysto, urethral dilation, long placement. Distal penile urethral stricture (prior hypospadias surgeries) He reports he is doing very well today since surgery he has not had an infection He had his Flomax increased to twice a day That has worked well for him Hx of hypospadias, BPH, urinary retention and urethral stricture requiring dilation Referred by Dr Christian Has seen Drs Gino, Kwaku, Lesley, and Jamila in the past 12 years ago he had a hernia repair in [place] Could not get catheter in Had to get a urologist to get a catheter in. A few years ago had a dilation here in [place] as well Last Dilated August 2022 at [facility]. Dilated to 14, had 12 fr catheter placed over wire Reports that was the least painful Hx of recurrent prostatitis, stones. Has had previous treatment of stones with laser lithotripsy. Tobacco History reports that he has never smoked. He does not have any smokeless tobacco history on file. Review of Systems Review of Systems Constitutional: Negative. HENT: Negative. Gastrointestinal: Negative. Genitourinary: Negative for difficulty urinating, dysuria, frequency and urgency. Past Medical History: Past Medical History: Diagnosis Date Arthritis gets stem cells injected in both knees and right shoulder Bilateral inguinal hernia Bleeding from the nose cauterized BPH (benign prostatic hyperplasia) Chronic anemia Eczema GERD (gastroesophageal reflux disease) Hyperlipidemia Kidney stones Mitral valve insufficiency Poor urinary stream UTI (urinary tract infection) Past Surgical History: Past Surgical History: Procedure Laterality Date CYSTOSCOPY 2016 stent HERNIA REPAIR KIDNEY STONE SURGERY LITHOTRIPSY 2010 OTHER SURGICAL HISTORY string stent TONSILLECTOMY AND ADENOIDECTOMY (HISTORICAL) Medications Current Outpatient Medications: Cannabinoids (medical cannabis), Take 1 each by mouth 2 times daily. CBD GUMMIES, Disp: , Rfl: cholecalciferol (Vitamin D-3) 10 MCG (400 UNIT) tablet, Take 400 Units by mouth daily., Disp: , Rfl: Lansoprazole (PREVACID PO), Take by mouth daily., Disp: , Rfl: naproxen (Naprosyn) 500 MG tablet, Take 500 mg by mouth Daily as needed., Disp: , Rfl: sildenafil (Viagra) 100 MG tablet, take one tablet by mouth once a day as needed. maximum of 1 tablet daily, Disp: , Rfl: tamsulosin (Flomax) 0.4 MG 24 hr capsule, Take 1 capsule (0.4 mg) by mouth 2 times daily., Disp: 180 capsule, Rfl: 3 clobetasol (Temovate) 0.05 % cream, Apply to meatus and dilator weekly and as needed for meatal stenosis, Disp: 45 g, Rfl: 3 Vitals: Ht 5' 8 (1.727 m) Wt 159 lb (72.1 kg) BMI 24.18 kg/m Physical Exam Physical Exam Constitutional: Appearance: Normal appearance. He is normal weight. Pulmonary: Effort: Pulmonary effort is normal. Abdominal: General: There is no distension. Palpations: Abdomen is soft. Genitourinary: Comments: Circumcised phallus, mid penile hypospadias, meatus is patent. Taught self dilation Skin: General: Skin is warm and dry. Neurological: Mental Status: He is alert and oriented to person, place, and time. Psychiatric: Behavior: Behavior normal. Labs: Lab Results Component Value Date GLUCOSEUR Negative 03/03/2023 BILIRUBINUR Negative 03/03/2023 KETONESU Negative 03/03/2023 SPECGRAV 1.020 03/03/2023 PHUR 6.0 03/03/2023 PROTUR Negative 03/03/2023 UROBILINOGEN 0.2 03/03/2023 LEUKOCYTESUR Small 03/03/2023 NITRITE NEGATIVE 08/12/2023 Hemoglobin Date Value Ref Range Status 06/07/2023 9.0 (L) 13.0 - 18.0 g/dL Final Hematocrit Date Value Ref Range Status 06/07/2023 29.5 (L) 40.0 - 52.0 % Final An electronic signature was used to authenticate this note. documented in this encounter [facility] 08-12-2023 Telephone encounter Note Orders placed [facility] 08-12-2023 Miscellaneous Notes Orders placed Name of caller: Homer Contact phone number: [phone] Relationship to Patient: [facility] Provider: RONIT Roy Practice: [facility] Chief Complaint/Reason for Call: Priya states that the pt is currently at [facility] for [facility] Urinal[facility] and they do not have the orders. Homer states that an order need to be sent as soon as possible. Please advise. Best time of day caller can be reached: Any Patient advised that office/PCP has 24-48 business hours to return their call: No documented in this encounter [facility] 08-12-2023 Telephone encounter Note Name of caller: Homer Contact phone number: [phone] Relationship to Patient: Lakesha Provider: RONIT Roy Practice: [facility] Chief Complaint/Reason for Call: Priya states that the pt is currently at [facility] for a Ur[facility] and they do not have the orders. Homer states that an order need to be sent as soon as possible. Please advise. Best time of day caller can be reached: Any Patient advised that office/PCP has 24-48 business hours to return their call: No [facility] 07-16-2023 History of Present illness Narrative PVR: greater than 6 Images from the original note were not included. DAYNA Gomes CNP 07/16/2023 at 10:30 AM Urology Office Visit PATIENT NAME: Margaux Quarles DATE OF : 1950 TODAY'S DATE: 07/16/2023 CHIEF COMPLAINT: Chief Complaint Patient presents with Follow-up Prostatitis ( on antibiotics) with PVR. Nocturia x2, burning with urination at the end of the urine stream, right back pain that radiates to the middle, occasional dribbling. Urinates every 3-4 hours. Subjective: Mr. Quarles is a 72 y.o. male who presents to the office regarding acute prostatitis. He was started on doxycycline on 07/12/2023 The pain began 07/07/2023. He rates the pain as a 6/10. He describes the pain as aching and throbbing. The pain is better when he takes his ibuprofen. The pain is worse when he voids. He has taken ibuprofen for the pain. Denies concerns for STD's. Denies testicular swelling or pain. denies perineal pain. reports suprapubic pain. reports pain or burning at the tip of the penis. reports pain with ejaculation. Denies histosry of epididymitis or prostatitis. Nocturia x2, burning with urination at the end of the urine stream, right back pain that radiates to the middle, occasional dribbling. Urinates every 3-4 hours. Review of Systems Constitutional: Negative for chills and fever. Genitourinary: Positive for dysuria, frequency and urgency. Negative for decreased urine volume, difficulty urinating, flank pain and hematuria. All other systems reviewed and are negative. Past Medical History: Past Medical History: Diagnosis Date Arthritis gets stem cells injected in both knees and right shoulder Bilateral inguinal hernia Bleeding from the nose cauterized BPH (benign prostatic hyperplasia) Chronic anemia Eczema GERD (gastroesophageal reflux disease) Hyperlipidemia Kidney stones Mitral valve insufficiency Poor urinary stream UTI (urinary tract infection) Past Surgical History: Past Surgical History: Procedure Laterality Date CYSTOSCOPY 2016 stent HERNIA REPAIR KIDNEY STONE SURGERY LITHOTRIPSY 2010 OTHER SURGICAL HISTORY string stent TONSILLECTOMY AND ADENOIDECTOMY (HISTORICAL) Medications Prior to Admission medications Medication Sig Start Date End Date Taking? Authorizing Provider Cannabinoids (medical cannabis) Take 1 each by mouth 2 times daily. CBD GUMMIES Yes Historical Provider, cholecalciferol (Vitamin D-3) 10 MCG (400 UNIT) tablet Take 400 Units by mouth daily. Yes Historical Provider, doxycycline (Vibra-Tabs) 100 MG tablet Take 1 tablet (100 mg) by mouth 2 times daily for 14 days. Take with a full glass of water and do not lie down for at least 30 minutes after. 07/12/23 07/26/23 Yes Krupa Villalba APRN - [facility] ibuprofen 600 MG tablet Take 1 tablet (600 mg) by mouth every 8 hours as needed for mild pain (1-3) for up to 7 days. 07/12/23 07/19/23 Yes Krupa Villalba APRN - [facility] Lansoprazole (PREVACID PO) Take by mouth daily. Yes Historical Provider, naproxen (Naprosyn) 500 MG tablet Take 500 mg by mouth Daily as needed. 11/13/22 Yes Historical Provider, sildenafil (Viagra) 100 MG tablet take one tablet by mouth once a day as needed. maximum of 1 tablet daily 11/28/22 Yes Historical Provider, tamsulosin (Flomax) 0.4 MG 24 hr capsule 02/25/23 Yes Historical Provider, ibuprofen 200 MG tablet Take by mouth. 07/12/23 Historical Provider, Vitals: Ht 5' 8 (1.727 m) Wt 159 lb (72.1 kg) BMI 24.18 kg/m Physical Exam Vitals and nursing note reviewed. Constitutional: General: He is not in acute distress. Appearance: Normal appearance. Cardiovascular: Pulses: Normal pulses. Pulmonary: Effort: Pulmonary effort is normal. Abdominal: General: Abdomen is flat. There is no distension. Palpations: Abdomen is soft. There is no mass. Tenderness: There is no abdominal tenderness. There is no right CVA tenderness or left CVA tenderness. Musculoskeletal: General: Normal range of motion. Skin: General: Skin is warm and dry. Neurological: Mental Status: He is alert and oriented to person, place, and time. Labs: Hemoglobin Date Value Ref Range Status 06/07/2023 9.0 (L) 13.0 - 18.0 g/dL Final Hematocrit Date Value Ref Range Status 06/07/2023 29.5 (L) 40.0 - 52.0 % Final Radiology Review: N/A Procedure: PVR= 6cc Impression/Plan Diagnoses and all orders for this visit: BPH with obstruction/lower urinary tract symptoms - Bladder scan - tamsulosin (Flomax) 0.4 MG 24 hr capsule; Take 1 capsule (0.4 mg) by mouth 2 times daily. Here for acute prostatitis Continue Doxycycline to completion Discussed use of nonsteroidal anti-inflammatory medications such as Ibuprofen or naproxen as needed for pain. Rx given for ibuprofen 600 mg. Advised to take every 8 hours x3 days for anti-inflammatory effects. Then, can use every 8 hours as needed for pain. Continue Flomax BID Discussed behavioral modification that can be beneficial for his lower urinary tract symptoms including double voiding, timed voiding, avoidance of caffeine, alcohol and other diuretics, as well as night-time fluid restriction. Also, recommended use of [id number] anti-inflammatory supplements: Quercetin 500 mg +/- Bromelain 150 mg. Okay to use one or both 1-2 times daily. Advised that if develops fever, chills or inability to urinate that should present to the nearest emergency department for evaluation. Follow Up: Follow up if symptoms worsen or fail to improve. --Rosas Roy CNP, DAYNA on 07/16/2023 at 10:30 AM An electronic signature was used to authenticate this note. documented in this encounter [facility] 06-17-2023 Hospital Discharge instructions Ronald Coleman MD - 06/17/2023 11:30 AM EST You can remove your long catheter at home Tuesday 06/19 The following attachments cannot be sent through Care Everywhere.Urethral Dilation (Vincentian)documented in this encounter [facility] 06-17-2023 Note Formatting of this n ote is different from the original. Date: 06/17/2023 Location: [facility] OR Name: Margaux Quarles, : 1950, Diagnosis Pre-op Diagnosis * Urethral stricture [N35.919] Post-op Diagnosis * Urethral stricture [N35.919] Procedures Retrograde Urethrogram, Urethral Dilation, Cystoscopy Surgeons * Ileana Rojas - Primary James Coleman - assisting Procedure Summary Anesthesia: Monitor Anesthesia Care ASA: III Estimated Blood Loss: None Drains: Urethral Catheter Straight-tip 19 Fr. (Active) Staff: Can Piler: Ava Pulido RN; Malachi Plascencia RN Scrub Person: Ger Ratliffical Skoog Operator Student: Rut Luna Findings: see full op note Complications: None; patient tolerated the procedure well. Specimens Collected: Order Name Source Comment Collection Info Order Time POTASSIUM WITH MG REFLEX For patients on dialysis to draw potassium day of surgery 06/17/2023 9:25 AM PROTHROMBIN TIME If patient on coumadin within 4 days prior. 06/17/2023 9:25 AM Wound Class: Class II: Clean-Contaminated Blood Products: None Prophylactic Antibiotics: Procedure appropriate prophylactic antibiotic(s) given within 1 hour of surgical incision (two hours if receiving Vancomycin or flouroquinolone) [facility] 06-17-2023 Note Formatting of this n ote is different from the original. Date: 06/17/2023 Location: [facility] OR Name: Margaux Quarles, : 1950, Diagnosis Pre-op Diagnosis * Urethral stricture [N35.919] Post-op Diagnosis * Urethral stricture [N35.919] Procedures Retrograde Urethrogram, Urethral Dilation, Cystoscopy Surgeons * Ileana Rojas - Primary James Coleman - assisting Procedure Summary Anesthesia: Monitor Anesthesia Care ASA: III Estimated Blood Loss: None Drains: Urethral Catheter Straight-tip 19 Fr. (Active) Staff: Can Piler: Ava Pulido RN; Malachi Plascencia RN Scrub Person: Ger Foss Skoog Operator Student: Rut Luna Findings: see full op note Complications: None; patient tolerated the procedure well. Specimens Collected: Order Name Source Comment Collection Info Order Time POTASSIUM WITH MG REFLEX For patients on dialysis to draw potassium day of surgery 06/17/2023 9:25 AM PROTHROMBIN TIME If patient on coumadin within 4 days prior. 06/17/2023 9:25 AM Wound Class: Class II: Clean-Contaminated Blood Products: None Prophylactic Antibiotics: Procedure appropriate prophylactic antibiotic(s) given within 1 hour of surgical incision (two hours if receiving Vancomycin or flouroquinolone) [facility] 06-17-2023 Miscellaneous Notes Date: 06/17/2023 Location: [facility] OR Name: Margaux Quarles : 1950, Diagnosis Pre-op Diagnosis * Urethral stricture [N35.919] Post-op Diagnosis * Urethral stricture [N35.919] Procedures Retrograde Urethrogram, Urethral Dilation, Cystoscopy Surgeons * Ileana Rojas - Primary James Coleman - assisting Procedure Summary Anesthesia: Monitor Anesthesia Care ASA: III Estimated Blood Loss: None Drains: Urethral Catheter Straight-tip 19 Fr. (Active) Staff: Can Piler: Ava Pulido RN; Malachi Plascencia RN Scrub Person: Ger Suero Sugical Skoog Operator Student: Rut Luna Findings: see full op note Complications: None; patient tolerated the procedure well. Specimens Collected: Order Name Source Comment Collection Info Order Time POTASSIUM WITH MG REFLEX For patients on dialysis to draw potassium day of surgery 06/17/2023 9:25 AM PROTHROMBIN TIME If patient on coumadin within 4 days prior. 06/17/2023 9:25 AM Wound Class: Class II: Clean-Contaminated Blood Products: None Prophylactic Antibiotics: Procedure appropriate prophylactic antibiotic(s) given within 1 hour of surgical incision (two hours if receiving Vancomycin or flouroquinolone) documented in this encounter [facility] 06-17-2023 Attending History and physical note H&P reviewed. The patient was examined and there are no changes to the H&P. Source Note - Demetra Gonzalez APRN - SCIENCE TEACHER - 06/07/2023 12:00 PM EST Images from the original note were not included. Comprehensive Pre Surgical History and Physical ? Name: Margaux Quarles : 1950 (Age-72 y.o.) Date of Service: Pt seen/examined on 06/07/2023 Procedure Information Date/Time: 06/17/23 1100 Procedures: RETROGRADE URETHROGRAM, CYSTOSCOPY, POSSIBLE URETHRAL DILATION CYSTOSCOPY (Urethra) CYSTOSCOPY AND DILATION AND OR CALIBRATION OF URETHRAL STRICTURE (Urethra) Location: [place] [id number] / [facility] Operating Room Surgeons: Ileana Rojas DO Chief Complaint: Urology issues for 40 years per patient ASSESSMENT/PLAN: Patient is considered intermediate risk for this intermediate level 1 risk procedure/surgery () with no reducible risk factors. Based on the above evaluation, the benefits of the planned procedure likely exceed the risks. The patient is medically optimized to proceed with the planned procedure without any further cardiopulmonary testing. 1) Diagnosis: Urethral stricture [N35.919] -flomax - Managed per surgery 2) GERD -controlled on H2 charbel/PPI - Yes, prevacid -avoidance of triggers encouraged 3) ED -viagra 4) Medical cannabis CBD gummies for arthritis 5)Anemia - source - unknown - has required a blood transfusion - No - H&H pending Yes -patient is not on Iron supplements and does not want to see a fire watchman per patient. 2021 6)Mitral valve insufficiency - Echocardiogram 2020 Visit Type: Pre-Admission Testing Visit Labs Ordered: NO - NOT INDICATED FOR THIS PROCEDURE Sleep Referral Ordered: NO - NEGATIVE SCREEN PER SLEEP REFERRAL PROTOCOL Total time spent (which include face to face and non face to face encounters) : 30 minutes Toxic drug monitoring/narrow therapeutic index drug monitoring : # Drug name : na # Route administered : na # Method of monitoring : na PAT Protocol referenced includes: 1. Anesthesia Lab Protocol Orders 2. Perioperative Cardiovascular Risk Assessment 3. Anesthesia Assessment 4. Pain Assessment and Acute Pain Service Consult (if appropriate) 5. Medical Clearance/Consult from Internal Medicine ([facility]) 6. Shower/Wash Order (for designated surgeries) 7. PAULINA Screen and Sleep Clinic Referral (if appropriate) History Of Present Illness: 72 y.o. male who we are asked to see/evaluate by [facility] PAT 05 for pre-operative evaluation prior to . RETROGRADE URETHROGRAM, CYSTOSCOPY, POSSIBLE URETHRAL DILATION [93236 CPT(R)] CYSTOSCOPY (Urethra) [59789 CPT(R)] CYSTOSCOPY AND DILATION AND OR CALIBRATION OF URETHRAL STRICTURE (Urethra) [37796 CPT(R)] Anesthesia type: Monitor Anesthesia Care Risk factors for urethral stricture include: hx of hypospadias, hx of urethral dilation Previous work up includes: dilation Previous intervention includes: dilation x 3 Urethral dilation/long placement August 2021 We discussed treatment options for work up and management of urethral stricture disease. Workup includes retrograde urethrogram +/- office cystoscopy. Options for treatment include observation, urethral dilation in office +/- intermittent self calibration, internal urethrotomy, insertion of suprapubic catheter, perineal urethrostomy, or urethroplasty w/ or w/out buccal mucosal graft. He is somewhat bothered by symptoms at this time. Sees alterations supervisor ( Dr Elana Taveras at [facility]) Has an irregular heart rate a times Plan: Plan RUG, cystoscopy in OR with possible dilation to further evaluate stricture Meatus too small for flexible cystoscope Pending findings, may consider dilation in OR He is not bothered by penile hypospadias, does not desire reconstruction Check Renal US to ensure no stones or hydronephrosis Follow up for surgery Dr Rojas office note 03/03/2023 ? Denies history of DE, CAD, CHF, TIA, CVA Past Medical History: Past Medical History: No date: Arthritis Comment: gets stem cells injected in both knees and right shoulder No date: Bilateral inguinal hernia No date: Bleeding from the nose Comment: cauterized No date: BPH (benign prostatic hyperplasia) No date: Chronic anemia No date: Eczema No date: GERD (gastroesophageal reflux disease) No date: Hyperlipidemia No date: Kidney stones No date: Mitral valve insufficiency No date: Poor urinary stream No date: UTI (urinary tract infection) Past Surgical History: Past Surgical History: 2016: CYSTOSCOPY Comment: stent No date: HERNIA REPAIR No date: KIDNEY STONE SURGERY 2011: LITHOTRIPSY No date: OTHER SURGICAL HISTORY Comment: string stent No date: TONSILLECTOMY AND ADENOIDECTOMY (HISTORICAL) Medications Prior to Admission: Prior to Admission medications Medication Sig Start Date End Date Taking? Authorizing Provider Cannabinoids (medical cannabis) Take 1 each by mouth 2 times daily. CBD GUMMIES Historical Provider, cholecalciferol (Vitamin D-3) 10 MCG (400 UNIT) tablet Take 400 Units by mouth daily. Historical Provider, ibuprofen 200 MG tablet Take by mouth. Historical Provider, Lansoprazole (PREVACID PO) Take by mouth daily. Historical Provider, naproxen (Naprosyn) 500 MG tablet Take 500 mg by mouth Daily as needed. 11/13/22 Historical Provider, sildenafil (Viagra) 100 MG tablet take one tablet by mouth once a day as needed. maximum of 1 tablet daily 11/28/22 Historical Provider, tamsulosin (Flomax) 0.4 MG 24 hr capsule 02/25/23 Historical Provider, CHRONIC NARCOTIC USE: No Allergies: Patient has no known allergies. If patient has opioid allergy, is it okay to take Acetaminophen: Yes Social History: TOBACCO: reports that he has never smoked. He does not have any smokeless tobacco history on file. ETOH: reports no history of alcohol use. Social History Substance and Sexual Activity Drug Use No Family History: Family History Problem Relation Name Age of Onset Prostate cancer Father Breast cancer Mother Heart disease Father REVIEW OF SYSTEMS: Review of Systems Constitutional: Negative for activity change, fatigue and fever. HENT: Negative for congestion and sore throat. Eyes: Negative for visual disturbance. Respiratory: Negative. Negative for shortness of breath and wheezing. Cardiovascular: Negative. Negative for chest pain, palpitations and leg swelling. Gastrointestinal: Negative. Negative for abdominal pain, nausea and vomiting. Endocrine: Negative for polyuria. Genitourinary: Negative. Negative for difficulty urinating, dysuria and flank pain. Musculoskeletal: Negative. Negative for back pain, neck pain and neck stiffness. Skin: Negative. Negative for color change. Neurological: Negative for dizziness, weakness and numbness. Psychiatric/Behavioral: Negative for behavioral problems and suicidal ideas. All other systems reviewed and are negative. Physical Exam: Physical Exam Vitals and nursing note reviewed. Constitutional: Appearance: Normal appearance. HENT: Head: Normocephalic. Nose: Nose normal. Mouth/Throat: Mouth: Mucous membranes are moist. Eyes: Pupils: Pupils are equal, round, and reactive to light. Cardiovascular: Rate and Rhythm: Normal rate and regular rhythm. Pulses: Normal pulses. Heart sounds: Normal heart sounds. Pulmonary: Effort: Pulmonary effort is normal. Breath sounds: Normal breath sounds. No stridor, decreased air movement or transmitted upper airway sounds. No decreased breath sounds, wheezing, rhonchi or rales. Abdominal: General: Abdomen is flat. Musculoskeletal: General: Normal range of motion. Right lower leg: No edema. Left lower leg: No edema. Skin: General: Skin is warm. Capillary Refill: Capillary refill takes less than 2 seconds. Neurological: General: No focal deficit present. Mental Status: He is alert. Vitals: Vitals Value Taken Time BP 140/67 06/07/23 1220 Temp 36.3 C (97.3 F) 06/07/23 1220 Pulse 64 06/07/23 1220 Resp 18 06/07/23 1219 SpO2 99 % 06/07/23 1220 BP Readings from Last 3 Encounters: 06/07/23 (!) 140/67 03/03/23 115/71 Labs: No results found for: WBC, HGB, HCT, MCV, PLT No results found for: NA, K, CL, CO2, BUN, CREATININE, GLUCOSE, CALCIUM, PROT, BILIRUBINFL, ALKPHOS, AST, ALT, EGFR, GLOB Timur's Simple Cardiac Risk Index: Interpretation: 0 Points Class I 0.5% 1 Point Class II 1.3% 2 Points Class III 3.6% 3+ Points Class IV 9.1% PAT Pain Score: 0/10 Postop Pain Management Plan (Pain consult ordered?): Pain consult not indicated at this time ? EKG: NSR No results found for this or any previous visit (from the past 4464 hour(s)). ECHO and EF: No components found for: LVEF, LVEFMODE METS >4 Electronically signed by: DAYNA Schwab CNP Date: 06/07/2023 at 12:50 PM [facility] 06-17-2023 History and physical note H&P reviewed. The patient was examined and there are no changes to the H&P. Source Note - DAYNA Schwab CNP - 06/07/2023 12:00 PM EST Images from the original note were not included. Comprehensive Pre Surgical History and Physical ? Name: Margaux GORDONN: [id number] : 1950 (Age-72 y.o.) Date of Service: Pt seen/examined on 06/07/2023 Procedure Information Date/Time: 06/17/23 1100 Procedures: RETROGRADE URETHROGRAM, CYSTOSCOPY, POSSIBLE URETHRAL DILATION CYSTOSCOPY (Urethra) CYSTOSCOPY AND DILATION AND OR CALIBRATION OF URETHRAL STRICTURE (Urethra) Location: [address] Operating Room Surgeons: Ileana Rojas DO Chief Complaint: Urology issues for 40 years per patient ASSESSMENT/PLAN: Patient is considered intermediate risk for this intermediate level 1 risk procedure/surgery () with no reducible risk factors. Based on the above evaluation, the benefits of the planned procedure likely exceed the risks. The patient is medically optimized to proceed with the planned procedure without any further cardiopulmonary testing. 1) Diagnosis: Urethral stricture [N35.919] -flomax - Managed per surgery 2) GERD -controlled on H2 charbel/PPI - Yes, prevacid -avoidance of triggers encouraged 3) ED -viagra 4) Medical cannabis CBD gummies for arthritis 5)Anemia - source - unknown - has required a blood transfusion - No - H&H pending Yes -patient is not on Iron supplements and does not want to see a fire watchman per patient. 2021 6)Mitral valve insufficiency - Echocardiogram 2020 Visit Type: Pre-Admission Testing Visit Labs Ordered: NO - NOT INDICATED FOR THIS PROCEDURE Sleep Referral Ordered: NO - NEGATIVE SCREEN PER SLEEP REFERRAL PROTOCOL Total time spent (which include face to face and non face to face encounters) : 30 minutes Toxic drug monitoring/narrow therapeutic index drug monitoring : # Drug name : na # Route administered : na # Method of monitoring : na PAT Protocol referenced includes: 1. Anesthesia Lab Protocol Orders 2. Perioperative Cardiovascular Risk Assessment 3. Anesthesia Assessment 4. Pain Assessment and Acute Pain Service Consult (if appropriate) 5. Medical Clearance/Consult from Internal Medicine ([facility]) 6. Shower/Wash Order (for designated surgeries) 7. PAULINA Screen and Sleep Clinic Referral (if appropriate) History Of Present Illness: 72 y.o. male who we are asked to see/evaluate by [place] [id number] for pre-operative evaluation prior to . RETROGRADE URETHROGRAM, CYSTOSCOPY, POSSIBLE URETHRAL DILATION [78388 CPT(R)] CYSTOSCOPY (Urethra) [08222 CPT(R)] CYSTOSCOPY AND DILATION AND OR CALIBRATION OF URETHRAL STRICTURE (Urethra) [80793 CPT(R)] Anesthesia type: Monitor Anesthesia Care Risk factors for urethral stricture include: hx of hypospadias, hx of urethral dilation Previous work up includes: dilation Previous intervention includes: dilation x 3 Urethral dilation/long placement August 2021 We discussed treatment options for work up and management of urethral stricture disease. Workup includes retrograde urethrogram +/- office cystoscopy. Options for treatment include observation, urethral dilation in office +/- intermittent self calibration, internal urethrotomy, insertion of suprapubic catheter, perineal urethrostomy, or urethroplasty w/ or w/out buccal mucosal graft. He is somewhat bothered by symptoms at this time. Sees alterations supervisor ( Dr Elana Taveras at [facility]) Has an irregular heart rate a times Plan: Plan RUG, cystoscopy in OR with possible dilation to further evaluate stricture Meatus too small for flexible cystoscope Pending findings, may consider dilation in OR He is not bothered by penile hypospadias, does not desire reconstruction Check Renal US to ensure no stones or hydronephrosis Follow up for surgery Dr Rojas office note 03/03/2023 ? Denies history of DE, CAD, CHF, TIA, CVA Past Medical History: Past Medical History: No date: Arthritis Comment: gets stem cells injected in both knees and right shoulder No date: Bilateral inguinal hernia No date: Bleeding from the nose Comment: cauterized No date: BPH (benign prostatic hyperplasia) No date: Chronic anemia No date: Eczema No date: GERD (gastroesophageal reflux disease) No date: Hyperlipidemia No date: Kidney stones No date: Mitral valve insufficiency No date: Poor urinary stream No date: UTI (urinary tract infection) Past Surgical History: Past Surgical History: 2016: CYSTOSCOPY Comment: stent No date: HERNIA REPAIR No date: KIDNEY STONE SURGERY 2011: LITHOTRIPSY No date: OTHER SURGICAL HISTORY Comment: string stent No date: TONSILLECTOMY AND ADENOIDECTOMY (HISTORICAL) Medications Prior to Admission: Prior to Admission medications Medication Sig Start Date End Date Taking? Authorizing Provider Cannabinoids (medical cannabis) Take 1 each by mouth 2 times daily. CBD GUMMIES Historical Provider, cholecalciferol (Vitamin D-3) 10 MCG (400 UNIT) tablet Take 400 Units by mouth daily. Historical Provider, ibuprofen 200 MG tablet Take by mouth. Historical Provider, Lansoprazole (PREVACID PO) Take by mouth daily. Historical Provider, naproxen (Naprosyn) 500 MG tablet Take 500 mg by mouth Daily as needed. 11/13/22 Historical Provider, sildenafil (Viagra) 100 MG tablet take one tablet by mouth once a day as needed. maximum of 1 tablet daily 11/28/22 Historical Provider, tamsulosin (Flomax) 0.4 MG 24 hr capsule 02/25/23 Historical Provider, CHRONIC NARCOTIC USE: No Allergies: Patient has no known allergies. If patient has opioid allergy, is it okay to take Acetaminophen: Yes Social History: TOBACCO: reports that he has never smoked. He does not have any smokeless tobacco history on file. ETOH: reports no history of alcohol use. Social History Substance and Sexual Activity Drug Use No Family History: Family History Problem Relation Name Age of Onset Prostate cancer Father Breast cancer Mother Heart disease Father REVIEW OF SYSTEMS: Review of Systems Constitutional: Negative for activity change, fatigue and fever. HENT: Negative for congestion and sore throat. Eyes: Negative for visual disturbance. Respiratory: Negative. Negative for shortness of breath and wheezing. Cardiovascular: Negative. Negative for chest pain, palpitations and leg swelling. Gastrointestinal: Negative. Negative for abdominal pain, nausea and vomiting. Endocrine: Negative for polyuria. Genitourinary: Negative. Negative for difficulty urinating, dysuria and flank pain. Musculoskeletal: Negative. Negative for back pain, neck pain and neck stiffness. Skin: Negative. Negative for color change. Neurological: Negative for dizziness, weakness and numbness. Psychiatric/Behavioral: Negative for behavioral problems and suicidal ideas. All other systems reviewed and are negative. Physical Exam: Physical Exam Vitals and nursing note reviewed. Constitutional: Appearance: Normal appearance. HENT: Head: Normocephalic. Nose: Nose normal. Mouth/Throat: Mouth: Mucous membranes are moist. Eyes: Pupils: Pupils are equal, round, and reactive to light. Cardiovascular: Rate and Rhythm: Normal rate and regular rhythm. Pulses: Normal pulses. Heart sounds: Normal heart sounds. Pulmonary: Effort: Pulmonary effort is normal. Breath sounds: Normal breath sounds. No stridor, decreased air movement or transmitted upper airway sounds. No decreased breath sounds, wheezing, rhonchi or rales. Abdominal: General: Abdomen is flat. Musculoskeletal: General: Normal range of motion. Right lower leg: No edema. Left lower leg: No edema. Skin: General: Skin is warm. Capillary Refill: Capillary refill takes less than 2 seconds. Neurological: General: No focal deficit present. Mental Status: He is alert. Vitals: Vitals Value Taken Time BP 140/67 06/07/23 1220 Temp 36.3 C (97.3 F) 06/07/23 1220 Pulse 64 06/07/23 1220 Resp 18 06/07/23 1219 SpO2 99 % 06/07/23 1220 BP Readings from Last 3 Encounters: 06/07/23 (!) 140/67 03/03/23 115/71 Labs: No results found for: WBC, HGB, HCT, MCV, PLT No results found for: NA, K, CL, CO2, BUN, CREATININE, GLUCOSE, CALCIUM, PROT, BILIRUBINFL, ALKPHOS, AST, ALT, EGFR, GLOB Timur's Simple Cardiac Risk Index: Interpretation: 0 Points Class I 0.5% 1 Point Class II 1.3% 2 Points Class III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 the first week of every month as prophylaxis rather than daily Keflex and the patient would like to do that Taking Flomax daily only now Nocturia 1-3 and stream is okay Has not been on Keflex every day at this point 05/29/2019 CC: prostate Patient got poison yamila and started on steroids and he thought he might end up getting recurrent prostatitis/UTI which she did Had fevers and dysuria with frequency and went to urgent care and got 10 days of Cipro and there has been improvement albeit occasional bladder spasm Normally takes Keflex 250 mg and Flomax Urinalysis today-large leukocyte on dipstick We'll treat him with 10 extra days of Cipro and get urine culture today No urine culture was done through urgent care 01/17/2019 CC: bph Still taking Keflex 250 mg daily and wants to continue with that Just taking Flomax 1 pill a day now and doing fine Nocturia times 1-2 and stream is moderate and satisfied with it but we did talk about Urolift Would need cystoscopy and transrectal ultrasound to evaluate but he will hold off for now Viagra works well for erections and gets it at [facility] at a [facility] locally He is worried about doing any kind of cystoscopy evaluation because even passing a catheter in the past cause trouble urinating for a long time and irritation January 17, 2018-still takes Flomax 2 tablets one day and the next day will only take it in the morning. Viagra is still helpful and wants to stay on Keflex 250 mg daily for prophylaxis for his history of prostatitis. Nocturia 1. No gross hematuria or dysuria. Been well since I saw him July 2017. July 2017-Taking Flomax twice every other day and one tablet every other day. Nocturia 1 and stream moderate. Still on Keflex 250 mg daily. No burning or gross hematuria issue. Erectile dysfunction and Viagra helped. Has history of kidney stones and wanted follow-up KUB to see if recurrence. Did not get recent PSA. flomax bid better-well now on keflex qd--wants stay on still ED- 03/11 ; ;Hx recur prostatitis; saw dr Marino in past and goit Geocillin qd; hx Gent x1 IM could help; recent to ER and admit for prostatitis and had a long p;laced-out now; Dr Betancourt had given cipor and better on it but recur sx off so started cipro at home and getting better; still some SP spasms in am; flomax q am can help saw Dr Sutton in past ; Past notes reviewed: Pt recently admitted to hospital with obstructing UPJ calc. Had stent placed and dilation of urethral stricture. Prostastitis post op kept him in the hospital post op. Stone has not passed. FREQUENCY: He has frequency of urination. This has been present several months. The following treatments have been used: nothing. The frequency is the same. The patient now urinates every 3 hours. ERECTILE DYSFUNCTION: He has impotency (erectile dysfunction) which The impotency (erectile dysfunction) is the same. There is no pain with erection. No dysuria noted. No hematuria is present. NOCTURIA: He has nocturia 1-2X which has been present several years. The following treatments have been used: alpha charbel, nothing, antibiotics, saw palmetto. The nocturia some nights up to 4x Patient dribbles occasionally. No dysuria noted. He has frequency every 2 hours. No hematuria is present. Patient states there is an occasional straining to urinate. The urinary stream is moderate. Patient states there is occasional urgency. There is no urgency incontinence. PROSTATE: He was last seen in this office because of symptoms of prostatitis which have been present several years. The following treatments have been used: Flomax (Tamsulosin ) with considerable success, antibiotics. [place] Sheet: August 19, 2022-urine culture-Pseudomonas- May 29, 2019-urine [id number] to ampicillin, Cipro, Levaquin but sensitive to cefazolin and doxycycline and Bactrim 12/15/2016: [place] Sheet: UC- E Coli-R to cipro/Amp 11/12/2016: [place] Sheet: UC- E Coli--R to doxy/bactrim/amp/augmentin 11/21/2015: [place] Sheet: Stone Ca Oxalate 10/03/2015: [place] Sheet: Urine c+s- no growth 03/09/2011: [place] Sheet: n/s 09/19/2010: [place] Sheet: Ucx 50k e coli 09/10/2010: [place] Sheet: KUB L 2mm stone 07/16/2010: [place] Sheet: L ESWL , cysto 06/19/2010: [place] Sheet: U/S R 2.6cm cyst, L 7mm stone 11/03/2009: [place] Sheet: CT flank 8mm proximal urethral stone, 6mm L renal stone, no hydro, R 1cm cyst Radiology: January 14, [id number] 11/12/2016: Test: CT, Comments: enlarged prostate PSA: 03/13/2016: PSA: 1.40 09/12/2015: PSA: 2.23 07/16/2014: PSA: 1.20 07/13/2013: PSA: 2.070 Creatinine Date Value Ref Range Status 09/06/2020 0.93 0.73 - 1.22 mg/dL Final PSA (ng/mL) Date Value 10/03/2021 4.23 10/03/2021 5.72 08/06/2021 8.00 06/10/2021 4.4 01/06/2021 4.01 01/15/2020 3.00 01/12/2018 1.63 03/12/2016 1.40 Color (no units) Date Value 08/19/2022 Light Yellow 11/12/2016 STRAW Clarity (no units) Date Value 08/19/2022 Clear 11/18/2014 Cloudy Glucose, Urine Date Value 08/19/2022 Negative 01/17/2018 neg mg/dL Bilirubin, Urine (no units) Date Value 08/19/2022 Negative 01/17/2018 neg Ketones, Urine (no units) Date Value 08/19/2022 Negative 01/17/2018 neg Specific [place], Ur (no units) Date Value 08/19/2022 1.019 01/17/2018 1.020 Hemoglobin/Blood,Ur (no units) Date Value 08/19/2022 2+ 01/17/2018 neg pH, Urine (no units) Date Value 08/19/2022 7.0 01/17/2018 5.5 Protein, Urine Date Value 08/19/2022 Negative 01/17/2018 neg mg/dL Urobilinogen (no units) Date Value 08/19/2022 Normal 11/18/2014 Normal Nitrites (no units) Date Value 08/19/2022 Negative 01/17/2018 neg Leukest (no units) Date Value 11/18/2014 2+ Leuk Esterase (no units) Date Value 08/19/2022 25 Marcelino/mL Leukocytes Esterase (no units) Date Value 11/12/2016 LARGE Review of Systems Constitutional: Negative. HENT: Negative. Eyes: Negative. Respiratory: Negative. Cardiovascular: Negative. Gastrointestinal: Negative. Endocrine: Negative. Genitourinary: See HPI Musculoskeletal: Negative. Skin: Negative. Allergic/Immunologic: Negative. Neurological: Negative. Hematological: Negative. Psychiatric/Behavioral: Negative. I reviewed and confirmed ROS obtained by MA HISTORIES PAST MEDICAL HISTORY Diagnosis Date Bilateral inguinal hernia 2014 BPH (benign prostatic hyperplasia) enlarged prostate Colonoscopy refused 06/06/2014 Fecal occult blood test positive 01/2016 GERD (gastroesophageal reflux disease) History of epistaxis Hyperlipidemia on diet control, exercise Irregular heart beat Left inguinal hernia 2010 Liver lesion MRI OA (osteoarthritis) of knee Received Euflexxa injection Osteoarthritis Pancreatic lesion MRI Prostatitis since age [address] [facility] Renal stone 2011 removed Urgency of urination UTI (urinary tract infection) FAMILY HISTORY Problem Relation Age of Onset Ischemic Heart Disease Father 70 CABG other (vertigo) Father alive other (Lung cancer- smoker) Mother 61 Cancer Maternal Grandmother lung cancer Heart Paternal Grandmother SOCIAL HISTORY Social History Tobacco Use Smoking status: Never Smokeless tobacco: Never Vaping Use Vaping Use: Never used Substance Use Topics Alcohol use: Yes Comment: rarely Drug use: No MEDICATIONS: tamsulosin (FLOMAX) 0.4 mg TAKE ONE CAPSULE BY MOUTH ONCE DAILY sildenafil (VIAGRA) 100 mg tablet Take 1 tablet by mouth as needed (one per day maximum as needed). tamsulosin (FLOMAX) 0.4 mg Take 1 capsule by mouth once daily. lansoprazole (PREVACID ORAL) Take by mouth once daily. tamsulosin ER (FLOMAX) 0.4 mg cp24 0.4 mg once daily. ciprofloxacin HCl (CIPRO) 500 mg tablet Take 1 tablet by mouth twice daily. sildenafil (VIAGRA) 100 mg tablet TAKE ONE TABLET BY MOUTH NEEDED (MAXIMUM 1 PER DAY NEEDED) (Patient not taking: Reported on 08/25/2022) ciprofloxacin HCl (CIPRO) 500 mg tablet Take 500 mg by mouth as needed. (Patient not taking: No sig reported) amoxicillin (POLYMOX, AMOXIL) 500 mg capsule Take 500 mg by mouth as needed. (Patient not taking: No sig reported) SAW PALMETTO ORAL Take by mouth once daily. (Patient not taking: Reported on 01/13/2021 ) ACETAMINOPHEN (TYLENOL ORAL) Take by mouth once daily. (Patient not taking: No sig reported) Cholecalciferol, Vitamin D3, (VITAMIN D) 1,000 unit cap Take 1 capsule by mouth once daily. (Patient not taking: Reported on 08/25/2022) Physical Exam HENT: Head: Normocephalic and atraumatic. Mouth/Throat: Pharynx: No oropharyngeal exudate. Pulmonary: Effort: Pulmonary effort is normal. Genitourinary: Prostate: Enlarged: 1.5+, no nodule. Rectum: Normal. Musculoskeletal: Comments: limp Skin: General: Skin is warm and dry. Neurological: Mental Status: He is alert and oriented to person, place, and time. Gait: Gait is intact. Psychiatric: Mood and Affect: Mood and affect normal. Cognition and Memory: Memory normal. Risk/Benefit Discussion: Cystoscopy I explained the options concerning cystoscopy I did tell the patient about various alternatives and why cystoscopy was indicated in this particular circumstance. I advised the patient about the possible outcome and the possibility of infection post operatively and possible dysuria or hematuria. The patient expressed an understanding with regard to possible complications and outcome. FOLLOW UP (1s&1w; 3s): Return in about 3 months (around 01/06/2023). ASSESSMENT/PLAN: 1. BPH with obstruction/lower urinary tract symptoms - ICD9: 600.01, 599.69, ICD10: N40.1, N13.8 (primary diagnosis) cysto - US MSR POST-VOID RESID URINE - PSA/PROSTSPECAG DIAG 2. Postprocedural stricture of anterior urethra - ICD9: 598.2, ICD10: N99.114 Rochelle Christian Please note: This note has been produced using speech recognition software and may contain errors related to that system including grammar, punctuation, spelling, gender and words and phrases that may be inappropriate. documented in this encounter [facility] 10-06-2022 History of Present illness Narrative Images from the original note were not included. Kosta Carrasco [address] [address] SUBJECTIVE Margaux Quarles is a 72 year old male who presents with Patient presents with: Yearly Exam . Nursing notes: There are no exam notes on file for this visit. HPI Pt here for yearly exam doing well Hx of hypercholesterolemia stable Hx of hypertriglyceridemia stable Hx of iron deficiency anemia has had for 12 years, or so, had seen GI but did not like the care he received and did not do the colonoscopy, UGI testing Did see GI Dr.Gellis dugan Hx of elevated PSA sees urology Hx of BPH sees urology Hx of microscopic hematuria sees urology Hx of hyperglycemia stable Review of Systems Constitutional: Negative for malaise/fatigue and weight loss. HENT: Negative for hearing loss. Eyes: Negative for blurred vision and double vision. Respiratory: Negative for cough and shortness of breath. Cardiovascular: Negative for chest pain, palpitations and leg swelling. Gastrointestinal: Negative for abdominal pain, blood in stool, constipation, diarrhea, melena, nausea and vomiting. Genitourinary: Negative for dysuria, frequency and urgency. Musculoskeletal: Negative for joint pain and myalgias. Skin: Negative for rash. Neurological: Negative for dizziness, weakness and headaches. Endo/Heme/Allergies: Negative for polydipsia. Psychiatric/Behavioral: Negative for depression. The patient is not nervous/anxious and does not have insomnia. PAST MEDICAL HISTORY Diagnosis Date Bilateral inguinal hernia 2014 BPH (benign prostatic hyperplasia) enlarged prostate Colonoscopy refused 06/06/2014 Fecal occult blood test positive 01/2016 GERD (gastroesophageal reflux disease) History of epistaxis Hyperlipidemia on diet control, exercise Irregular heart beat Left inguinal hernia 2010 Liver lesion MRI OA (osteoarthritis) of knee Received Euflexxa injection Osteoarthritis Pancreatic lesion MRI Prostatitis since age [address] K[facility] Renal stone 2011 removed Urgency of urination UTI (urinary tract infection) PAST SURGICAL HISTORY Procedure Laterality Date CAUTERIZATION INNER NOSE HERNIA REPAIR HX 11/16/2014 Laparoscopic total preperitoneal bilateral inguinal hernia repair. Open umbilical hernia repair PAST SURGICAL HISTORY OF 07/2010 lithotripsy REPAIR INGUINAL HERNIA 2010 left injuinal hernia repair w/ mesh TONSILLECTOMY HX Social History Tobacco Use Smoking status: Never Smokeless tobacco: Never Vaping Use Vaping Use: Never used Substance Use Topics Alcohol use: Yes Comment: rarely Drug use: No FAMILY HISTORY Problem Relation Age of Onset Ischemic Heart Disease Father 70 CABG other (vertigo) Father alive other (Lung cancer- smoker) Mother 61 Cancer Maternal Grandmother lung cancer Heart Paternal Grandmother The ROS, medical, surgical, family, and social history were reviewed by Kosta Carrasco DO ALLERGIES No Known Allergies Current Outpatient Medications Medication Sig ciprofloxacin HCl (CIPRO) 500 mg tablet Take 1 tablet by mouth twice daily. tamsulosin (FLOMAX) 0.4 mg TAKE ONE CAPSULE BY MOUTH ONCE DAILY sildenafil (VIAGRA) 100 mg tablet Take 1 tablet by mouth as needed (one per day maximum as needed). tamsulosin (FLOMAX) 0.4 mg Take 1 capsule by mouth once daily. lansoprazole (PREVACID ORAL) Take by mouth once daily. sildenafil (VIAGRA) 100 mg tablet TAKE ONE TABLET BY MOUTH NEEDED (MAXIMUM 1 PER DAY NEEDED) (Patient not taking: Reported on 08/25/2022) ciprofloxacin HCl (CIPRO) 500 mg tablet Take 500 mg by mouth as needed. (Patient not taking: No sig reported) amoxicillin (POLYMOX, AMOXIL) 500 mg capsule Take 500 mg by mouth as needed. (Patient not taking: No sig reported) SAW PALMETTO ORAL Take by mouth once daily. (Patient not taking: Reported on 01/13/2021 ) ACETAMINOPHEN (TYLENOL ORAL) Take by mouth once daily. (Patient not taking: No sig reported) tamsulosin ER (FLOMAX) 0.4 mg cp24 0.4 mg once daily. (Patient not taking: No sig reported) Cholecalciferol, Vitamin D3, (VITAMIN D) 1,000 unit cap Take 1 capsule by mouth once daily. (Patient not taking: Reported on 08/25/2022) No current facility-administered medications for this visit. OBJECTIVE BP 135/83 (BP Site: Right Arm, BP Position: Sitting, BP Cuff Size: Regular Adult) Pulse 72 Ht 175.3 cm (5' 9.02) Wt 73.5 kg (162 lb) SpO2 98% BMI 23.91 kg/m BMI 23.91 kg/(m^2) Physical Exam Vitals reviewed. Constitutional: Appearance: Normal appearance. HENT: Head: Normocephalic and atraumatic. Right Ear: Tympanic membrane, ear canal and external ear normal. Left Ear: Tympanic membrane, ear canal and external ear normal. Nose: Nose normal. Mouth/Throat: Mouth: Mucous membranes are moist. Pharynx: Oropharynx is clear. Eyes: Extraocular Movements: Extraocular movements intact. Conjunctiva/sclera: Conjunctivae normal. Pupils: Pupils are equal, round, and reactive to light. Cardiovascular: Rate and Rhythm: Normal rate and regular rhythm. Heart sounds: Normal heart sounds. Pulmonary: Effort: Pulmonary effort is normal. Breath sounds: Normal breath sounds. Abdominal: General: Abdomen is flat. Bowel sounds are normal. Palpations: Abdomen is soft. Genitourinary: Comments: Pt declines exam Musculoskeletal: General: Normal range of motion. Cervical back: Normal range of motion and neck supple. Skin: General: Skin is warm and dry. Neurological: General: No focal deficit present. Mental Status: He is alert and oriented to person, place, and time. Gait: Gait is intact. Deep Tendon Reflexes: Reflexes are normal and symmetric. Psychiatric: Mood and Affect: Mood and affect normal. Thought Content: Thought content normal. Cognition and Memory: Memory normal. Judgment: Judgment normal. Procedure note: Assessment/Plan: Margaux was seen today for yearly exam. Diagnoses and all orders for this visit: Routine general medical examination at a health care facility - ECG B/O W INTERP (MED OFFICE) Pure hypercholesterolemia - ECG B/O W INTERP (MED OFFICE) Hypertriglyceridemia BPH with obstruction/lower urinary tract symptoms Chronic pain of left knee - PARKING FOR HANDICAPPED EKG NSR 72 BPM no acute changes, normal intervals Pt declines all labs at this time Recheck yearly Disability placard No mood disorders Good functional ability and level of safety Healthy diet, exercise, Preventative services over the next 5 years Recheck yearly Follow up: No follow-ups on file. Kosta Carrasco DO documented in this encounter [facility] 08-25-2022 Nurse Note Patient presents for trial of voiding. Bladder filled with 100 cc of sterile water, balloon deflated, long catheter removed without difficulty, balloon intact. Patient voided 200 cc's of yellow urine. Priya Chen LPN documented in this encounter [facility] 08-25-2022 Instructions Rochelle Christian MD - 08/25/2022 11:25 AM EST Finish the Cipro and I sent another prescription in documented in this encounter [facility] 08-25-2022 History of Present illness Narrative ESTABLISHED PATIENT OFFICE VISIT PATIENT INFO: Margaux Quarles 71 year old HPI 08/25/2022 CC: aur Sent home on doxycycline but changed to Cipro He said the resident just put a wire in and dilated with one of the blue dilators and got the catheter and at the emergency department After starting Cipro discomfort went away very quickly but catheter is real bothersome Wants voiding trial today as catheter has been in for about a week We filled him up and he voided well Will add 1 more week of Cipro On Flomax Has appointment with me in about 5 to 6 weeks already from prior and will keep that Past Urology Hx: August 19, 2022-seen by nurse practitioner at [facility]- 71 year old male known to Dr Christian for nephrolithiasis, urinary retention due BPH, hypospadias, ureteral stricture requiring dilation, and prostatitis. Last seen 10/07/2021. He reports he hasn't been able to urinate since yesterday, so he called Dr christian's office this morning who instructed him to go to ER for long insertion by residents. Pt seen in [facility] -6. He states he stood outside yesterday holding signs for place of employment and got chilled. He denies fevers. He reports yesterday he was voiding fine, and then overnight he wasn't able to void, and currently is starting to feel uncomfortable. He had some nausea and vomiting in the ER due to the pain. He also notes his prostate feels like the size of an orange. Bladder scan in ER is 409cc. resident dilated urethra to 14F, then over an 035 wire, placed a 12F long catheter for a return of 250cc yellow urine. - Maintain long catheter at discharge. Send home with leg bags as well. - Check UA and Urine culture prior to dc. - Recommend discharging with 10 days of doxycycline based on prior urine cultures and resistance to cipro. - he can follow-up with Dr Christian. 10/07/2021 CC: bph Remains on Flomax daily and no problems with prostatitis right now Nocturia x2 and daytime voiding every 3-4 hours and moderate stream and satisfied with progress Has history of hypospadias and other staff trouble catheterizing in the past when he needed it but urology resident did so without any kind of problem He just sits to void and feels fine doing that Occasionally will take vitamin C as needed if a little irritation with voiding and it goes away Erectile dysfunction-he went to the private organization that does shockwave therapy the penis and thinks had some 50% improvement with treatments Now only needs about one fourth of a Viagra tablet and needs refill of that He will follow-up 12 months with PSA 01/13/2021 CC: bph Saw nurse as below and placed on doxycycline which cleared his symptoms and he took Flomax twice daily during that time but now just daily Back to normal now Does not take doxycycline on a regular basis anymore and just will take if recurrent symptoms in the future PSA slight continued rise so we will repeat PSA in 4 months and plan follow-up 12 months for exam and PSA 12 months Scores/PVR: Bladder scan/PVR: 0cc December 06, 2020-seen by nurse- office today complaining of difficulty urinating and pressure in rectum. Patient was able to void once in office and PVR 93 ml. Patient instructed that if he has any sudden pain or inability to urinate he is to contact this office ([phone]) during the hours of 08:00 to 16:00. If after those hours, to go to the emergency room. Urine culture obtained and sent to lab. Urine culture proved to be negative and Gina told him to continue doxycycline 01/16/2020 CC: bph Saw him in May for prostatitis and cultures came back with Escherichia coli resistant to Cipro he was taking so we changed him to Bactrim for a couple of weeks 1 month ago in [place] saw urology because of prostatitis symptoms and they gave him doxycycline and things cleared within a couple of days Urologist suggested 5 days of doxycycline the first week of every month as prophylaxis rather than daily Keflex and the patient would like to do that Taking Flomax daily only now Nocturia 1-3 and stream is okay Has not been on Keflex every day at this point 05/29/2019 CC: prostate Patient got poison yamila and started on steroids and he thought he might end up getting recurrent prostatitis/UTI which she did Had fevers and dysuria with frequency and went to urgent care and got 10 days of Cipro and there has been improvement albeit occasional bladder spasm Normally takes Keflex 250 mg and Flomax Urinalysis today-large leukocyte on dipstick We'll treat him with 10 extra days of Cipro and get urine culture today No urine culture was done through urgent care 01/17/2019 CC: bph Still taking Keflex 250 mg daily and wants to continue with that Just taking Flomax 1 pill a day now and doing fine Nocturia times 1-2 and stream is moderate and satisfied with it but we did talk about Urolift Would need cystoscopy and transrectal ultrasound to evaluate but he will hold off for now Viagra works well for erections and gets it at [facility] at a [facility] locally He is worried about doing any kind of cystoscopy evaluation because even passing a catheter in the past cause trouble urinating for a long time and irritation January 17, 2018-still takes Flomax 2 tablets one day and the next day will only take it in the morning. Viagra is still helpful and wants to stay on Keflex 250 mg daily for prophylaxis for his history of prostatitis. Nocturia 1. No gross hematuria or dysuria. Been well since I saw him July 2017. July 2017-Taking Flomax twice every other day and one tablet every other day. Nocturia 1 and stream moderate. Still on Keflex 250 mg daily. No burning or gross hematuria issue. Erectile dysfunction and Viagra helped. Has history of kidney stones and wanted follow-up KUB to see if recurrence. Did not get recent PSA. flomax bid better-well now on keflex qd--wants stay on still ED- 03/11 ; ;Hx recur prostatitis; saw dr Marino in past and goit Geocillin qd; hx Gent x1 IM could help; recent to ER and admit for prostatitis and had a long p;laced-out now; Dr Betancourt had given cipor and better on it but recur sx off so started cipro at home and getting better; still some SP spasms in am; flomax q am can help saw Dr Sutton in past ; Past notes reviewed: Pt recently admitted to hospital with obstructing UPJ calc. Had stent placed and dilation of urethral stricture. Prostastitis post op kept him in the hospital post op. Stone has not passed. FREQUENCY: He has frequency of urination. This has been present several months. The following treatments have been used: nothing. The frequency is the same. The patient now urinates every 3 hours. ERECTILE DYSFUNCTION: He has impotency (erectile dysfunction) which The impotency (erectile dysfunction) is the same. There is no pain with erection. No dysuria noted. No hematuria is present. NOCTURIA: He has nocturia 1-2X which has been present several years. The following treatments have been used: alpha charbel, nothing, antibiotics, saw palmetto. The nocturia some nights up to 4x Patient dribbles occasionally. No dysuria noted. He has frequency every 2 hours. No hematuria is present. Patient states there is an occasional straining to urinate. The urinary stream is moderate. Patient states there is occasional urgency. There is no urgency incontinence. PROSTATE: He was last seen in this office because of symptoms of prostatitis which have been present several years. The following treatments have been used: Flomax (Tamsulosin ) with considerable success, antibiotics. [place] Sheet: August 19, 2022-urine culture-Pseudomonas- May 29, 2019-urine [id number] to ampicillin, Cipro, Levaquin but sensitive to cefazolin and doxycycline and Bactrim 12/15/2016: [place] Sheet: UC- E Coli-R to cipro/Amp 11/12/2016: [place] Sheet: UC- E Coli--R to doxy/bactrim/amp/augmentin 11/21/2015: [place] Sheet: Stone Ca Oxalate 10/03/2015: [place] Sheet: Urine c+s- no growth 03/09/2011: [place] Sheet: n/s 09/19/2010: [place] Sheet: Ucx 50k e coli 09/10/2010: [place] Sheet: KUB L 2mm stone 07/16/2010: [place] Sheet: L ESWL , cysto 06/19/2010: [place] Sheet: U/S R 2.6cm cyst, L 7mm stone 11/03/2009: [place] Sheet: CT flank 8mm proximal urethral stone, 6mm L renal stone, no hydro, R 1cm cyst Radiology: January 14, [id number] 11/12/2016: Test: CT, Comments: enlarged prostate PSA: 03/13/2016: PSA: 1.40 09/12/2015: PSA: 2.23 07/16/2014: PSA: 1.20 07/13/2013: PSA: 2.070 06/08/2012: PSA: 2.2 05/19/2011: PSA: 1.49 06/19/2010: PSA: 1.51 03/12/2009: PSA: 1.06 02/14/2008: PSA: 0.84 11/01/2006: PSA: 1.67 12/02/2004: PSA: 1.2 Creatinine: 11/14/2016: Creatinine: 0.94 Creatinine Date Value Ref Range Status 09/06/2020 0.93 0.73 - 1.22 mg/dL Final PSA (ng/mL) Date Value 10/03/2021 4.23 10/03/2021 5.72 08/06/2021 8.00 06/10/2021 4.4 01/06/2021 4.01 01/15/2020 3.00 01/12/2018 1.63 03/12/2016 1.40 Color (no units) Date Value 08/19/2022 Light Yellow 11/12/2016 STRAW Clarity (no units) Date Value 08/19/2022 Clear 11/18/2014 Cloudy Glucose, Urine Date Value 08/19/2022 Negative 01/17/2018 neg mg/dL Bilirubin, Urine (no units) Date Value 08/19/2022 Negative 01/17/2018 neg Ketones, Urine (no units) Date Value 08/19/2022 Negative 01/17/2018 neg Specific [place], Ur (no units) Date Value 08/19/2022 1.019 01/17/2018 1.020 Hemoglobin/Blood,Ur (no units) Date Value 08/19/2022 2+ 01/17/2018 neg pH, Urine (no units) Date Value 08/19/2022 7.0 01/17/2018 5.5 Protein, Urine Date Value 08/19/2022 Negative 01/17/2018 neg mg/dL Urobilinogen (no units) Date Value 08/19/2022 Normal 11/18/2014 Normal Nitrites (no units) Date Value 08/19/2022 Negative 01/17/2018 neg Leukest (no units) Date Value 11/18/2014 2+ Leuk Esterase (no units) Date Value 08/19/2022 25 Marcelino/mL Leukocytes Esterase (no units) Date Value 11/12/2016 LARGE Review of Systems Constitutional: Negative. HENT: Negative. Eyes: Negative. Respiratory: Negative. Cardiovascular: Negative. Gastrointestinal: Negative. Endocrine: Negative. Genitourinary: See HPI Musculoskeletal: Negative. Skin: Negative. Allergic/Immunologic: Negative. Neurological: Negative. Hematological: Negative. Psychiatric/Behavioral: Negative. I reviewed and confirmed ROS obtained by MA HISTORIES PAST MEDICAL HISTORY Diagnosis Date Bilateral inguinal hernia 2014 BPH (benign prostatic hyperplasia) enlarged prostate Colonoscopy refused 06/06/2014 Fecal occult blood test positive 01/2016 GERD (gastroesophageal reflux disease) History of epistaxis Hyperlipidemia on diet control, exercise Irregular heart beat Left inguinal hernia 2010 Liver lesion MRI OA (osteoarthritis) of knee Received Euflexxa injection Osteoarthritis Pancreatic lesion MRI Prostatitis since age [address] Km [facility] Renal stone 2011 removed Urgency of urination UTI (urinary tract infection) FAMILY HISTORY Problem Relation Age of Onset Ischemic Heart Disease Father 70 CABG other (vertigo) Father alive other (Lung cancer- smoker) Mother 61 Cancer Maternal Grandmother lung cancer Heart Paternal Grandmother SOCIAL HISTORY Social History Tobacco Use Smoking status: Never Smokeless tobacco: Never Vaping Use Vaping Use: Never used Substance Use Topics Alcohol use: Yes Comment: rarely Drug use: No MEDICATIONS: ciprofloxacin HCl (CIPRO) 500 mg tablet Take 1 tablet by mouth twice daily for 7 days. tamsulosin (FLOMAX) 0.4 mg TAKE ONE CAPSULE BY MOUTH ONCE DAILY sildenafil (VIAGRA) 100 mg tablet Take 1 tablet by mouth as needed (one per day maximum as needed). tamsulosin (FLOMAX) 0.4 mg Take 1 capsule by mouth once daily. lansoprazole (PREVACID ORAL) Take by mouth once daily. ciprofloxacin HCl (CIPRO) 500 mg tablet Take 1 tablet by mouth twice daily. doxycycline monohydrate 100 mg tablet Take 1 tablet by mouth twice daily for 10 days. (Patient not taking: Reported on 08/25/2022) sildenafil (VIAGRA) 100 mg tablet TAKE ONE TABLET BY MOUTH NEEDED (MAXIMUM 1 PER DAY NEEDED) (Patient not taking: Reported on 08/25/2022) ciprofloxacin HCl (CIPRO) 500 mg tablet Take 500 mg by mouth as needed. (Patient not taking: No sig reported) amoxicillin (POLYMOX, AMOXIL) 500 mg capsule Take 500 mg by mouth as needed. (Patient not taking: No sig reported) SAW PALMETTO ORAL Take by mouth once daily. (Patient not taking: Reported on 01/13/2021 ) ACETAMINOPHEN (TYLENOL ORAL) Take by mouth once daily. (Patient not taking: No sig reported) tamsulosin ER (FLOMAX) 0.4 mg cp24 0.4 mg once daily. (Patient not taking: No sig reported) Cholecalciferol, Vitamin D3, (VITAMIN D) 1,000 unit cap Take 1 capsule by mouth once daily. (Patient not taking: Reported on 08/25/2022) Physical Exam HENT: Head: Normocephalic and atraumatic. Nose: Nose normal. Neck: Trachea: No tracheal deviation. Pulmonary: Effort: Pulmonary effort is normal. No respiratory distress. Musculoskeletal: General: No deformity. Normal range of motion. Cervical back: Normal range of motion. Skin: General: Skin is warm. Neurological: Mental Status: He is alert and oriented to person, place, and time. Gait: Gait is intact. Psychiatric: Mood and Affect: Mood and affect normal. Cognition and Memory: Memory normal. Risk/Benefit Discussion: FOLLOW UP (1s&1w; 3s): Return in about 5 weeks (around 09/29/2022). ASSESSMENT/PLAN: 1. Nocturia - ICD9: 788.43, ICD10: R35.1 (primary diagnosis) 2. Acute cystitis without hematuria - ICD9: 595.0, ICD10: N30.00 - CIPROFLOXACIN 500 MG TABLET 3. Other stricture of anterior urethra in male - ICD9: 598.8, ICD10: N35.814 Rochelle Christian Please note: This note has been produced using speech recognition software and may contain errors related to that system including grammar, punctuation, spelling, gender and words and phrases that may be inappropriate. documented in this encounter [facility] 08-20-2022 Miscellaneous Notes Pt known to Dr Christian Pt seen in ER for inability to urinate. He had a long placed and was discharged home. He needs a fu appt. Thanks documented in this encounter [facility] 08-20-2022 History of Present illness Narrative Fyi Patient was seen in ED on 08/20/22 for urinary retention and catheter placement. Patient is doing good, will be following up with urology on 08/25/22 for catheter removal on 08/25/22. Patient has no other questions or concerns at this time. ED Follow Up: Patient discharged from [facility] ED on 08/19/22. 1. How are you feeling since your ED visit? Doing good Have your symptoms improved or resolved? Yes 2. Were you prescribed any medications while in the ED or advised to stop any medication? Yes - If yes, were you able to fill your prescriptions? Yes -if stopped medication, what was the medication? N/a 3. Were you advised to schedule a follow up appointment with your provider? No - If no, Do you feel like you need an appointment scheduled? No - If yes, Do you need this scheduled now or has this already been scheduled? Not applicable 4. Were you able to contact the office or personal financial planner provider prior to your ED visit? Yes 5. Is there anything else I can do for you today? No Annette Lagunas MA August 20, 2022 10:15 AM documented in this encounter [facility] 04-20-2022 Miscellaneous Notes Radiology Service Progress Note PATIENT NAME: Margaux Quarles DATE OF SERVICE: April 20, 2022 TIME: 10:33 AM PATIENT IDENTITY VERIFICATION COMPLETED USING TWO (2) IDENTIFIERS: Name and Date of confirmed by patient verbally and Name and Date of confirmed by identification band. FALL SCREENING: Has the patient had 2 falls in the last year or 1 fall with injury or currently using an Ambulatory Assistive Device (Walker, Cane, Wheelchair, Crutches, etc.)? No PATIENT GENDER DATA: Male PATIENT RELEVANT IMPLANT DATA REVIEWED: Not Applicable RADIOLOGY DEPARTMENT: General X-ray: Exam(s) Completed: GI/ Procedure(s): Upper GI with barium contrast PERIPHERAL IV DATA: Not applicable SIGNED BY: RT Sharon(R) April 20, 2022 10:33 AM documented in this encounter [facility] 12-03-2021 History of Present illness Narrative Images from the original note were not included. Kosta Carrasco [address] [place] [address] [facility] Margaux Quarles is a 71 year old male who presents with Patient presents with: Establish Care . Nursing notes: There are no exam notes on file for this visit. HPI Pt here to establish Hx of hypercholesterolemia stable Hx of hypertriglyceridemia stable Hx of iron deficiency anemia has had for 12 years, or so, had seen GI but did not like the care he received and did not do the colonoscopy, UGI testing Hx of elevated PSA sees urology Hx of BPH sees urology Hx of microscopic hematuria sees urology Hx of hyperglycemia stable Review of Systems Constitutional: Negative for malaise/fatigue and weight loss. HENT: Negative for hearing loss. Eyes: Negative for blurred vision and double vision. Respiratory: Negative for cough and shortness of breath. Cardiovascular: Negative for chest pain, palpitations and leg swelling. Gastrointestinal: Negative for abdominal pain, blood in stool, constipation, diarrhea and melena. Genitourinary: Positive for frequency. Musculoskeletal: Negative for joint pain and myalgias. Skin: Negative for rash. Neurological: Negative for dizziness, weakness and headaches. Endo/Heme/Allergies: Negative for polydipsia. Psychiatric/Behavioral: Negative for depression. The patient is not nervous/anxious and does not have insomnia. All other systems reviewed and are negative. PAST MEDICAL HISTORY Diagnosis Date Bilateral inguinal hernia 2014 BPH (benign prostatic hyperplasia) enlarged prostate Colonoscopy refused 06/06/2014 Fecal occult blood test positive 01/2016 GERD (gastroesophageal reflux disease) History of epistaxis Hyperlipidemia on diet control, exercise Irregular heart beat Left inguinal hernia 2010 Liver lesion MRI OA (osteoarthritis) of knee Received Euflexxa injection Osteoarthritis Pancreatic lesion MRI Prostatitis since age [address] [facility] Renal stone 2011 removed Urgency of urination UTI (urinary tract infection) PAST SURGICAL HISTORY Procedure Laterality Date CAUTERIZATION INNER NOSE HERNIA REPAIR HX 11/16/2014 Laparoscopic total preperitoneal bilateral inguinal hernia repair. Open umbilical hernia repair PAST SURGICAL HISTORY OF 07/2010 lithotripsy REPAIR INGUINAL HERNIA 2010 left injuinal hernia repair w/ mesh TONSILLECTOMY HX Social History Tobacco Use Smoking status: Never Smoker Smokeless tobacco: Never Used Vaping Use Vaping Use: Never used Substance Use Topics Alcohol use: Yes Comment: rarely Drug use: No FAMILY HISTORY Problem Relation Age of Onset Ischemic Heart Disease Father 70 CABG other (vertigo) Father alive other (Lung cancer- smoker) Mother 61 Cancer Maternal Grandmother lung cancer Heart Paternal Grandmother The ROS, medical, surgical, family, and social history were reviewed by Kosta Carrasco DO ALLERGIES No Known Allergies Current Outpatient Medications Medication Sig sildenafil (VIAGRA) 100 mg tablet Take 1 tablet by mouth as needed (one per day maximum as needed). tamsulosin (FLOMAX) 0.4 mg Take 1 capsule by mouth once daily. tamsulosin (FLOMAX) 0.4 mg Take 1 capsule by mouth once daily. doxycycline monohydrate (MONODOX) 100 mg capsule Take 1 capsule by mouth twice daily. (Patient not taking: Reported on 01/13/2021 ) lansoprazole (PREVACID ORAL) Take by mouth once daily. sildenafil (VIAGRA) 100 mg tablet TAKE ONE TABLET BY MOUTH NEEDED (MAXIMUM 1 PER DAY NEEDED) doxycycline monohydrate (MONODOX) 100 mg capsule Take 1 capsule by mouth twice daily. (Patient not taking: Reported on 01/13/2021 ) ciprofloxacin HCl (CIPRO) 500 mg tablet Take 500 mg by mouth as needed. (Patient not taking: Reported on 01/13/2021 ) amoxicillin (POLYMOX, AMOXIL) 500 mg capsule Take 500 mg by mouth as needed. (Patient not taking: Reported on 01/13/2021 ) cephALEXin (KEFLEX) 250 mg capsule Take 1 capsule by mouth once daily. (Patient not taking: Reported on 01/13/2021 ) SAW PALMETTO ORAL Take by mouth once daily. (Patient not taking: Reported on 01/13/2021 ) ACETAMINOPHEN (TYLENOL ORAL) Take by mouth once daily. (Patient not taking: Reported on 01/07/2021 ) tamsulosin ER (FLOMAX) 0.4 mg cp24 0.4 mg once daily. (Patient not taking: Reported on 01/13/2021 ) Cholecalciferol, Vitamin D3, (VITAMIN D) 1,000 unit cap Take 1 capsule by mouth once daily. No current facility-administered medications for this visit. OBJECTIVE BP 130/75 (BP Site: Right Arm, BP Position: Sitting, BP Cuff Size: Regular Adult) Pulse 74 Ht 175.3 cm (5' 9.02) Wt 74.4 kg (164 lb) SpO2 99% BMI 24.21 kg/m BMI 24.21 kg/(m^2) Physical Exam Vitals reviewed. Constitutional: Appearance: Normal appearance. HENT: Head: Normocephalic and atraumatic. Right Ear: External ear normal. Left Ear: External ear normal. Nose: Nose normal. Mouth/Throat: Mouth: Mucous membranes are moist. Pharynx: Oropharynx is clear. Eyes: Extraocular Movements: Extraocular movements intact. Conjunctiva/sclera: Conjunctivae normal. Neck: Thyroid: No thyromegaly. Cardiovascular: Rate and Rhythm: Normal rate and regular rhythm. Heart sounds: Normal heart sounds. Pulmonary: Effort: Pulmonary effort is normal. Breath sounds: Normal breath sounds. Abdominal: General: Bowel sounds are normal. Palpations: Abdomen is soft. Tenderness: There is no abdominal tenderness. Musculoskeletal: General: Normal range of motion. Cervical back: Normal range of motion and neck supple. Skin: General: Skin is warm and dry. Neurological: Mental Status: He is alert and oriented to person, place, and time. Psychiatric: Mood and Affect: Mood and affect normal. Thought Content: Thought content normal. Cognition and Memory: Memory normal. Judgment: Judgment normal. Procedure note: No notes on file Assessment/Plan: Margaux was seen today for establish care. Diagnoses and all orders for this visit: Pure hypercholesterolemia - ECG B/O W INTERP (MED OFFICE) - COMP METABOLIC PANEL; Future - LIPID PANEL BASIC; Future - TSH BLD; Future Hypertriglyceridemia - ECG B/O W INTERP (MED OFFICE) - COMP METABOLIC PANEL; Future - LIPID PANEL BASIC; Future - TSH BLD; Future Iron deficiency anemia, unspecified iron deficiency anemia type - CONSULT TO GASTROENTEROLOGY; Future - CBC + DIFF; Future - IRON + TIBC; Future - FERRITIN BLD; Future BPH with obstruction/lower urinary tract symptoms Elevated PSA Vitamin D deficiency - VITAMIN D 25 HYDROXY; Future Vitamin B12 deficiency - VITAMIN B12 BLOOD; Future Reviewed previous labs, tests, Repeat labs as directed EKG NSR 69 BPM no acute changes, normal intervals Refer to GI , But pt states he might not do colonoscopy, but may consider it Follow up: No follow-ups on file. Kosta Carrasco DO documented in this encounter [facility] 10-21-2021 Note HNO ID: [id number] Author: Maxine Juarez Service: ? Author Type: ? Type: Progress Notes Filed: 10/21/2021 3:14 PM Note Text: POPULATION HEALTH NAVIGATION OUTREACH Action/FYI Pt identified by name and : YES, via phone Outreach Outcome/Action Spoke to patient or caregiver: Patient scheduled PCP field updated Reason for Outreach Care Gap or Scheduling/Wellness visits Payer: Payor: MEDICARE / Plan: MEDICARE A AND B / Product Type: Medicare / Care Gap Reviewed:: Annual Wellness visit Reminder: Reminder note to check Health Maintenance for items below Health Maintenance items due: DTAP,TDAP,TD(1 - Tdap) Never done DEPRESSION SCREENING due on 09/15/2017 ADVANCE DIRECTIVE DISCUSSION Never done COVID-19 VACCINE(2 - Booster for Keaton series) due on 09/10/2021 COLORECTAL CANCER SCREENING due on 11/17/2021 Message Sent to Practice: No Navigation Signature: Maxine Juarez October 21, 2021 2:56 PM [facility] 10-21-2021 History of Present illness Narrative POPULATION HEALTH NAVIGATION OUTREACH Action/FYI Pt identified by name and : YES, via phone Outreach Outcome/Action Spoke to patient or caregiver: Patient scheduled PCP field updated Reason for Outreach Care Gap or Scheduling/Wellness visits Payer: Payor: MEDICARE / Plan: MEDICARE A AND B / Product Type: Medicare / Care Gap Reviewed:: Annual Wellness visit Reminder: Reminder note to check Health Maintenance for items below Health Maintenance items due: DTAP,TDAP,TD(1 - Tdap) Never done DEPRESSION SCREENING due on 09/15/2017 ADVANCE DIRECTIVE DISCUSSION Never done COVID-19 VACCINE(2 - Booster for Keaton series) due on 09/10/2021 COLORECTAL CANCER SCREENING due on 11/17/2021 Message Sent to Practice: No Navigation Signature: Maxine Juarez October 21, 2021 2:56 PM documented in this encounter [facility] 10-21-2021 Note Patient Outreach (WOOD TNAV) ------ MARGAUX QUARLES ([id number]) 1950 M Date Time Provider Department 10/21/21 MAXINE JUAREZ During your visit today, we recorded the following information about you: Maxine Juarez 10/21/2021 3:14 PM Signed POPULATION HEALTH NAVIGATION OUTREACH Action/FYI Pt identified by name and : YES, via phone Outreach Outcome/Action Spoke to patient or caregiver: Patient scheduled PCP field updated Reason for Outreach Care Gap or Scheduling/Wellness visits Payer: Payor: MEDICARE / Plan: MEDICARE A AND B / Product Type: Medicare / Care Gap Reviewed:: Annual Wellness visit Reminder: Reminder note to check Health Maintenance for items below Health Maintenance items due: DTAP,TDAP,TD(1 - Tdap) Never done DEPRESSION SCREENING due on 09/15/2017 ADVANCE DIRECTIVE DISCUSSION Never done COVID-19 VACCINE(2 - Booster for Keaton series) due on 09/10/2021 COLORECTAL CANCER SCREENING due on 11/17/2021 Message Sent to Practice: No Navigation Signature: Maxine Juarez October 21, 2021 2:56 PM Allergies As of Date: 10/21/2021 (No Known Allergies) Date Reviewed: 10/07/2021 Reviewed by: Rochelle Christian MD - Fully Assessed Reason for Visit: Population Health Navigation Outreach [3910] Cmt: ACO Roster- Scheduled [address] Carrasco Prescriptions as of 10/21/2021 - sildenafil (VIAGRA) 100 mg tablet Take 1 tablet by mouth as needed (one per day maximum as needed). - tamsulosin (FLOMAX) 0.4 mg Take 1 capsule by mouth once daily. - tamsulosin (FLOMAX) 0.4 mg Take 1 capsule by mouth once daily. - doxycycline monohydrate (MONODOX) 100 mg capsule Take 1 capsule by mouth twice daily. - lansoprazole (PREVACID ORAL) Take by mouth once daily. - sildenafil (VIAGRA) 100 mg tablet TAKE ONE TABLET BY MOUTH NEEDED (MAXIMUM 1 PER DAY NEEDED) - doxycycline monohydrate (MONODOX) 100 mg capsule Take 1 capsule by mouth twice daily. - ciprofloxacin HCl (CIPRO) 500 mg tablet Take 500 mg by mouth as needed. - amoxicillin (POLYMOX, AMOXIL) 500 mg capsule Take 500 mg by mouth as needed. - cephALEXin (KEFLEX) 250 mg capsule Take 1 capsule by mouth once daily. - SAW PALMETTO ORAL Take by mouth once daily. - ACETAMINOPHEN (TYLENOL ORAL) Take by mouth once daily. - tamsulosin ER (FLOMAX) 0.4 mg cp24 0.4 mg once daily. - Cholecalciferol, Vitamin D3, (VITAMIN D) 1,000 unit cap Take 1 capsule by mouth once daily. 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] 10/02/2015 Liver nodule [K76.89] 10/02/2015 Pain of both shoulder joints [M25.511, M25.512] 01/08/2016 Fecal occult blood test positive [R19.5] 01/01/2016 Liver lesion [K76.9] ED (erectile dysfunction) of organic origin [N5*07/13/2017 Renal calculi [N20.0] 07/13/2017 Poor urinary stream [R39.12] 07/13/2017 Nocturia [R35.1] 07/13/2017 Hx of renal calculi [Z87.442] 01/17/2018 Irregular heart beat [I49.9] Microcytic anemia [D50.9] 10/18/2020 Encounter Status:Closed by MAXINE JUAREZ on 10/21/21 [facility] Evaluation note Diagnosis Pure hypercholesterolemia- Primary Hypertriglyceridemia Pure hyperglyceridemia Iron deficiency anemia, unspecified iron deficiency anemia type BPH with obstruction/lower urinary tract symptoms Hypertrophy of prostate with urinary obstruction and other lower urinary tract symptoms (LUTS) Elevated PSA Elevated prostate specific antigen (PSA) Vitamin D deficiency Unspecified vitamin D deficiency Vitamin B12 deficiency Other B-complex deficiencies documented in this encounter [facility] note* Diagnosis Nocturia- Primary Acute cystitis without hematuria Acute cystitis Other stricture of anterior urethra in male documented in this encounter [facility] note* Diagnosis Routine general medical examination at a [facility]- Primary Pure hypercholesterolemia Hypertriglyceridemia Pure hyperglyceridemia BPH with obstruction/lower urinary tract symptoms Hypertrophy of prostate with urinary obstruction and other lower urinary tract symptoms (LUTS) Chronic pain of left knee Pain in joint, lower leg [facility] Diagnosis BPH with obstruction/lower urinary tract symptoms- Primary Hypertrophy of prostate with urinary obstruction and other lower urinary tract symptoms (LUTS) Postprocedural stricture of anterior urethra documented in this encounter [facility] note* Diagnosis Urinary tract infection without hematuria, site unspecified- Primary documented in this encounter [facility] note* Diagnosis History of kidney stones- Primary Stricture of male urethra, unspecified stricture type Hypospadias, penile Hypospadias documented in this encounter [facility] note* Diagnosis History of kidney stones Urethral stricture [facility]* Diagnosis Nocturia documented in this encounter [facility] note* Diagnosis Irregular heart beat- Primary Cardiac dysrhythmia, unspecified Mixed hyperlipidemia Microcytic anemia Iron deficiency anemia, unspecified Poor urinary stream Slowing of urinary stream Preoperative clearance Preoperative examination, unspecified Mitral valve insufficiency, unspecified etiology documented in this encounter [facility] note* Diagnosis BPH with obstruction/lower urinary tract symptoms documented in this encounter [facility] note* Diagnosis Dysuria- Primary documented in this encounter [facility] note* Diagnosis 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 urethral stricture- Primary Hypospadias, penile Hypospadias documented in this encounter [facility] note* Diagnosis Encounter to establish care- Primary Other reasons for seeking consultation Microcytic anemia Iron deficiency anemia, unspecified Tear of medial meniscus of left knee, current, unspecified tear type, subsequent encounter documented in this encounter [facility] note* Diagnosis Iron deficiency- Primary Iron deficiency anemia, unspecified documented in this encounter [facility] note* Diagnosis Tear of medial meniscus of left knee, current, subsequent encounter- Primary Primary osteoarthritis of left knee Primary localized osteoarthrosis, lower leg Other spontaneous disruption of medial collateral ligament of left knee Left knee pain, unspecified chronicity documented in this encounter [facility] note* Diagnosis Renal calculi Calculus of kidney Primary osteoarthritis of left knee Primary localized osteoarthrosis, lower leg Other spontaneous disruption of medial collateral ligament of left knee Left knee pain, unspecified chronicity documented in this encounter [facility] note* Diagnosis Nocturia- Primary 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 Hypertrophy of prostate with urinary obstruction and other lower urinary tract symptoms (LUTS) Primary osteoarthritis of left knee Primary localized osteoarthrosis, lower leg Other spontaneous disruption of medial collateral ligament of left knee Left knee pain, unspecified chronicity documented in this encounter [facility] note* Diagnosis Pre-operative examination for internal medicine- Primary Other specified pre-operative examination History of cardiac arrhythmia Personal history of other diseases of circulatory system Microcytic anemia Iron deficiency anemia, unspecified Chronic pain of left knee Pain in joint, lower leg Primary osteoarthritis of left knee Primary localized osteoarthrosis, lower leg Other spontaneous disruption of medial collateral ligament of left knee Left knee pain, unspecified chronicity documented in this encounter [facility] note* Diagnosis Preop testing- Primary Preoperative examination, unspecified Pain, unspecified Postprocedural hypoinsulinemia Postsurgical hypoinsulinemia Benign prostatic hyperplasia, unspecified whether lower urinary tract symptoms present Gastroesophageal reflux disease, unspecified whether esophagitis present Hyperlipidemia, unspecified hyperlipidemia type Left knee pain, unspecified chronicity Primary osteoarthritis of left knee Primary localized osteoarthrosis, lower leg Other spontaneous disruption of medial collateral ligament of left knee Left knee pain, unspecified chronicity documented in this encounter [facility] note* Diagnosis Urinary retention- Primary Unspecified retention of urine Urinary retention Unspecified retention of urine Status post insertion of Long catheter Status post insertion of Long catheter documented in this encounter [facility] note* Diagnosis Complicated UTI (urinary tract infection)- Primary documented in this encounter [facility] note* Diagnosis Establishing care with new doctor, encounter for- Primary Other reasons for seeking consultation Microcytic anemia Iron deficiency anemia, unspecified Annual physical exam Routine general medical examination at a health care facility Other hyperlipidemia Screening for colon cancer Special screening for malignant neoplasms, colon BPH with obstruction/lower urinary tract symptoms Hypertrophy of prostate with urinary obstruction and other lower urinary tract symptoms (LUTS) documented in this encounter [facility] note* Diagnosis Urinary retention- Primary Unspecified retention of urine Dysuria Elevated PSA Elevated prostate specific antigen (PSA) Recurrent UTI Urinary tract infection, site not specified BPH with obstruction/lower urinary tract symptoms Hypospadias, penile Hypospadias 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 urethral stricture documented in this encounter [facility] note* Diagnosis Recurrent UTI Urinary tract infection, site not specified documented in this encounter [facility] note* Diagnosis Calculus of kidney- Primary Hydronephrosis, unspecified hydronephrosis type [facility]* Diagnosis Bladder spasms- Primary Hypertonicity of bladder Recurrent UTI Urinary tract infection, site not specified Dysuria Hypospadias, penile Hypospadias 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 urethral stricture documented in this encounter [facility] note* Diagnosis Calculus of kidney Hydronephrosis, unspecified hydronephrosis type documented in this encounter [facility] note* Diagnosis Hypospadias, penile- Primary Hypospadias Bladder spasms Hypertonicity of bladder Recurrent UTI Urinary tract infection, site not specified 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 [facility]* Diagnosis Recurrent UTI- Primary Urinary tract infection, site not specified BPH with obstruction/lower urinary tract symptoms Hypospadias, penile Hypospadias Dysuria Bladder spasms Hypertonicity of bladder [facility]* Diagnosis Establishing care with new doctor, encounter for- Primary Other reasons for seeking consultation Microcytic anemia Iron deficiency anemia, unspecified Annual physical exam Routine general medical examination at a health care facility Other hyperlipidemia Screening for colon cancer Special screening for malignant neoplasms, colon Palpitations- Primary Non-rheumatic mitral regurgitation Mitral valve disorders AGUILERA (dyspnea on exertion) Other dyspnea and respiratory abnormality Iron deficiency anemia due to chronic blood loss Iron deficiency anemia secondary to blood loss (chronic) PVC (premature ventricular contraction) Other premature beats [facility] Diagnosis Establishing care with new doctor, encounter for- Primary Other reasons for seeking consultation Microcytic anemia Iron deficiency anemia, unspecified Annual physical exam Routine general medical examination at a health care facility Other hyperlipidemia Screening for colon cancer Special screening for malignant neoplasms, colon BPH with obstruction/lower urinary tract symptoms- Primary Hypertrophy of prostate with urinary obstruction and other lower urinary tract symptoms (LUTS) Nocturia Postprocedural stricture of anterior urethra Renal calculi Calculus of kidney Other male erectile dysfunction documented in this encounter [facility] Discharge instructions* Attachments The following attachments cannot be sent through Care Everywhere. * Long Catheter (Vincentian) * How to Care for Your Long Catheter (Vincentian) * Urinary Retention Discharge Instructions (Vincentian) * [facility]Vincentian[facility] Outpatient Procedure (Routine) - Pending Review Specialty Diagnoses / Procedures Referred By Francisco mckeon Referred To [facility] Diagnoses Mitral valve insufficiency, unspecified etiology Procedures ECHO ECHO TTHRC R-T 2D W/WOM-MODE COMPL SPEC&COLR D Elana Taveras MD [address] [facility] [address] [place] [address] [facility] [address] [place] [address] Referral ID Status Reason Start Date Expiration Date Visits Requested Visits Authorized [id number] Pending Review Auto-Generat ed Referral 04/19/2024 05/18/2024 1 1 [facility] for visit Narrative* Diagnostic Procedure Only (Routine) - Closed Specialty Diagnoses / Procedures Referred By Francisco mckeon Referred To Contact XR IMAGING Diagnoses Renal calculi Procedures XR ABDOMEN 1V SUPINE RADIOLOGIC EXAM ABDOMEN 1 VIEW Rochelle Christian MD [address] [place] [address] [place] [address] Referral ID Status Reason Start Date Expiration Date V isits Requested Visits Authorized [id number] Closed Auto-Generate d Referral 01/12/2023 02/11/2024 1 1 [facility] for visit Narrative* Imaging (Routine) - Closed Specialty Diagnoses / Procedures Referred By Contac t Referred To Contact Radiology Diagnoses Calculus of kidney Hydronephrosis, unspecified hydronephrosis type Procedures CT abdomen pelvis wo IV contrast Ileana Rojas DO [address] [place] [address] Phone: tel: fax: Referral ID Status Reason Start Date Expiration Date Visits Re quested Visits Authorized [id number] Closed 08/05/2024 08/05/2025 1 1 [facility] Summary Purpose Family History No Family History Records FoundNo Family History Records FoundNo Family History Records FoundNo Family History Records FoundNo Family History Records FoundNo Family History Records Found Advance Directives No Advanced Directives Records FoundDocuments on File Type Date 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 Advance Directive(s) 11/16/2014 8:46 AM Documents on File Type Date Recorded 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 Advance Directive(s) 11/16/2014 8:46 AM Date Activated Date Inactivated Comments 02/21/2024 2:25 PM 02/21/2024 6:33 PM Question Answer Comments Full Code Order Discussed With: Patient Date Activated Date Inactivated Comments 02/21/2024 2:25 PM 02/21/2024 6:33 PM Question Answer Comments Full Code Order Discussed With: Patient Reason for Referral Specialty Diagnoses / Procedures Referred By Contac t Referred To Contact Gastroenterology Diagnoses Iron deficiency anemia, unspecified iron deficiency anemia type Procedures CONSULT TO GASTROENTEROLOGY OFFICE/OUTPATIENT FOR[facility]LY [facility], [facility] MDM 60-74 MINUTES Kosta Carrasco, [address] [place] [address] Referral ID Status Reason Start Date Expiration Date Visits Requested Visits Authorized [id number] Authorized PCP Requested Referral 12/03/2021 12/03/2022 1 1 Specialty Diagnoses / Procedures Referred By Contac t Referred To Contact Pain Management Diagnoses Tear of medial meniscus of left knee, current, subsequent encounter Procedures CONSULT TO PAIN MGT OFFICE/OUTPATIENT [facility] MDM 60 MINUTES Tam Major MD [address] [place] [address] Referral ID Status Reason Start Date Expiration Date Visits Requested Visits Authorized [id number] Authorized PCP Requested Referral 01/03/2024 01/02/2025 1 1 Additional Source Comments (unrecognized sect ion and content) No Status Records FoundNo Status Records FoundNo Status Records FoundNo Status Records FoundNo Status Records FoundNo Status Records Found INFORMATION SOURCE (unrecogn ized section and content) DATE CREATED AUTHOR 01/13/2021 [facility] DATE CREATED AUTHOR AUTHOR'S ORGANIZ ATION 10/23/2021 [facility] DATE CREATED AUTHOR AUTHOR'S ORGANIZ ATION 03/07/2024 [facility] DATE CREATED AUTHOR AUTHOR'S ORGANIZ ATION 06/16/2024 [facility] DATE CREATED AUTHOR AUTHOR'S ORGANIZ ATION 10/18/2024 [facility] DATE CREATED AUTHOR AUTHOR'S ORGANIZ ATION 01/06/2025 [facility] Source Comments (unrecognize d section and content) In the event this informatio n is protected by the Federal Confidentiality of Alcohol and Drug Abuse Patient Records regulations: The Federal rules restrict any use of the information to criminally investigate or prosecute any alcohol or drug abuse patient.[facility] Hospital[facility] the event this information is protected by the Federal Confidentiality of Alcohol and Drug Abuse Patient Records regulations: The Federal rules restrict any use of the information to criminally investigate or prosecute any alcohol or drug abuse patient.[facility] HospitalIn the event this information is protected by the Federal Confidentiality of Alcohol and Drug Abuse Patient Records regulations: The Federal rules restrict any use of the information to criminally investigate or prosecute any alcohol or drug abuse patient.[facility] HospitalIn the event this information is protected by the Federal Confidentiality of Alcohol and Drug Abuse Patient Records regulations: The Federal rules restrict any use of the information to criminally investigate or prosecute any alcohol or drug abuse patient.[facility] HospitalIn the event this information is protected by the Federal Confidentiality of Alcohol and Drug Abuse Patient Records regulations: The Federal rules restrict any use of the information to criminally investigate or prosecute any alcohol or drug abuse patient.[facility] HospitalIn the event this information is protected by the Federal Confidentiality of Alcohol and Drug Abuse Patient Records regulations: The Federal rules restrict any use of the information to criminally investigate or prosecute any alcohol or drug abuse patient.[facility] HospitalIn the event this information is protected by the Federal Confidentiality of Alcohol and Drug Abuse Patient Records regulations: The Federal rules restrict any use of the information to criminally investigate or prosecute any alcohol or drug abuse patient.[facility] HospitalIn the event this information is protected by the Federal Confidentiality of Alcohol and Drug Abuse Patient Records regulations: The Federal rules restrict any use of the information to criminally investigate or prosecute any alcohol or drug abuse patient.[facility] HospitalIn the event this information is protected by the Federal Confidentiality of Alcohol and Drug Abuse Patient Records regulations: The Federal rules restrict any use of the information to criminally investigate or prosecute any alcohol or drug abuse patient.[facility] HospitalIn the event this information is protected by the Federal Confidentiality of Alcohol and Drug Abuse Patient Records regulations: The Federal rules restrict any use of the information to criminally investigate or prosecute any alcohol or drug abuse patient.[facility] HospitalIn the event this information is protected by the Federal Confidentiality of Alcohol and Drug Abuse Patient Records regulations: The Federal rules restrict any use of the information to criminally investigate or prosecute any alcohol or drug abuse patient.[facility] HospitalIn the event this information is protected by the Federal Confidentiality of Alcohol and Drug Abuse Patient Records regulations: The Federal rules restrict any use of the information to criminally investigate or prosecute any alcohol or drug abuse patient.[facility] HospitalIn the event this information is protected by the Federal Confidentiality of Alcohol and Drug Abuse Patient Records regulations: The Federal rules restrict any use of the information to criminally investigate or prosecute any alcohol or drug abuse patient.[facility] HospitalIn the event this information is protected by the Federal Confidentiality of Alcohol and Drug Abuse Patient Records regulations: The Federal rules restrict any use of the information to criminally investigate or prosecute any alcohol or drug abuse patient.[facility] HospitalIn the event this information is protected by the Federal Confidentiality of Alcohol and Drug Abuse Patient Records regulations: The Federal rules restrict any use of the information to criminally investigate or prosecute any alcohol or drug abuse patient.[facility] HospitalIn the event this information is protected by the Federal Confidentiality of Alcohol and Drug Abuse Patient Records regulations: The Federal rules restrict any use of the information to criminally investigate or prosecute any alcohol or drug abuse patient.[facility] HospitalIn the event this information is protected by the Federal Confidentiality of Alcohol and Drug Abuse Patient Records regulations: The Federal rules restrict any use of the information to criminally investigate or prosecute any alcohol or drug abuse patient.[facility] HospitalIn the event this information is protected by the Federal Confidentiality of Alcohol and Drug Abuse Patient Records regulations: The Federal rules restrict any use of the information to criminally investigate or prosecute any alcohol or drug abuse patient.[facility] HospitalIn the event this information is protected by the Federal Confidentiality of Alcohol and Drug Abuse Patient Records regulations: The Federal rules restrict any use of the information to criminally investigate or prosecute any alcohol or drug abuse patient.[facility] HospitalIn the event this information is protected by the Federal Confidentiality of Alcohol and Drug Abuse Patient Records regulations: The Federal rules restrict any use of the information to criminally investigate or prosecute any alcohol or drug abuse patient.[facility] HospitalIn the event this information is protected by the Federal Confidentiality of Alcohol and Drug Abuse Patient Records regulations: The Federal rules restrict any use of the information to criminally investigate or prosecute any alcohol or drug abuse patient.[facility] HospitalIn the event this information is protected by the Federal Confidentiality of Alcohol and Drug Abuse Patient Records regulations: The Federal rules restrict any use of the information to criminally investigate or prosecute any alcohol or drug abuse patient.[facility] HospitalIn the event this information is protected by the Federal Confidentiality of Alcohol and Drug Abuse Patient Records regulations: The Federal rules restrict any use of the information to criminally investigate or prosecute any alcohol or drug abuse patient.[facility] HospitalIn the event this information is protected by the Federal Confidentiality of Alcohol and Drug Abuse Patient Records regulations: The Federal rules restrict any use of the information to criminally investigate or prosecute any alcohol or drug abuse patient.[facility] HospitalIn the event this information is protected by the Federal Confidentiality of Alcohol and Drug Abuse Patient Records regulations: The Federal rules restrict any use of the information to criminally investigate or prosecute any alcohol or drug abuse patient.[facility] HospitalIn the event this information is protected by the Federal Confidentiality of Alcohol and Drug Abuse Patient Records regulations: The Federal rules restrict any use of the information to criminally investigate or prosecute any alcohol or drug abuse patient.[facility] HospitalIn the event this information is protected by the Federal Confidentiality of Alcohol and Drug Abuse Patient Records regulations: The Federal rules restrict any use of the information to criminally investigate or prosecute any alcohol or drug abuse patient.[facility] HospitalIn the event this information is protected by the Federal Confidentiality of Alcohol and Drug Abuse Patient Records regulations: The Federal rules restrict any use of the information to criminally investigate or prosecute any alcohol or drug abuse patient.[facility] HospitalIn the event this information is protected by the Federal Confidentiality of Alcohol and Drug Abuse Patient Records regulations: The Federal rules restrict any use of the information to criminally investigate or prosecute any alcohol or drug abuse patient.[facility] HospitalIn the event this information is protected by the Federal Confidentiality of Alcohol and Drug Abuse Patient Records regulations: The Federal rules restrict any use of the information to criminally investigate or prosecute any alcohol or drug abuse patient.[facility] HospitalIn the event this information is protected by the Federal Confidentiality of Alcohol and Drug Abuse Patient Records regulations: The Federal rules restrict any use of the information to criminally investigate or prosecute any alcohol or drug abuse patient.[facility] Reason for Visit (unrecogniz ed section and content) Reason Onset Date Comments Population Health Navigation Outreach 10/21/2021 ACO Roster- Scheduled [address] Carrasco Reason Comments Establish Care Reason Onset Date Comments Transition Of Care 08/20/2022 Seen at ED on 08/19/22 Reason Onset Date Comments ER F/U 08/20/2022 Reason Comments Urinary Retention Reason Comments Yearly Exam Reason Comments Benign Prostatic Hypertrophy Reason Comments Orders UTI Reason Comments Patient Update Reason Comments New Patient Urethral Stricture Reason Comments Cardiac Clearance Reason Onset Date Comments Surgery Scheduling 03/03/2023 Reason Comments Refill Request Reason Comments Cardiac Clearance Retrograde urethrogr am, cystoscopy, possible urethral dilation Specialty Diagnoses / Procedures Referred By Francisco mckeon Referred To Contact Diagnoses Urethral stricture Urethral stricture [N35.919] Procedures MI NJX RETROGRADE URETHROCSTOGRAPY MI CYSTOURETHROSCOPY MI CYSTO CALIBRATION DILAT URTL STRIX/STENOSIS RETROGRADE URETHROGRAM, CYSTOSCOPY, POSSIBLE URETHRAL DILATION CYSTOSCOPY CYSTOSCOPY AND DILATION AND OR CALIBRATION OF URETHRAL STRICTURE Ileana Rojas, DO [address] [place] [address] [address] [place] [address] Referral ID Status Reason Start Date Expiration Date Visits Re quested Visits Authorized [id number] 1 Reason Comments Follow-up Prostatitis ( on ant ibiotics) with PVR. Nocturia x2, burning with urination at the end of the urine stream, right back pain that radiates to the middle, occasional dribbling. Urinates every 3-4 hours. Reason Onset Date Comments Lab Orders 08/12/2023 Reason Comments Consult 3 wk fu, discuss jose louis, pt denies any complication s/p surgery Reason Comments New Patient Establish Care Left Knee Pain Need to establish ca re for meniscus Reason Comments Results Reason Comments Consult Pain Management Reason Comments Appointment Pre-Op Clearance Sarah t Needed Reason Comments PSA Kidney Stones Reason Comments Pre-Op Exam Reason Comments Urinary Retention Pt states he had a k nee replacement this morning and is now having urinary retention. Pt states he is also nausea and feels like he is going to pass out Reason Onset Date Comments Appointment Request 02/21/2024 Reason Onset Date Comments Urinary Retention 02/21/2024 Reason Comments Patient Update Iron Infusion Reason Onset Date Comments Reschedule 03/17/2024 Reason Comments Benign Prostatic Hypertrophy BPH/ Urethr al stricture follow up. Has some occasional spasms and discomfort at prostate. Has been treated for pseudomonas about two weeks ago at [facility]. Reason Onset Date Comments Results 08/05/2024 Reason Comments UTI Pt stated he still h ave lots of bladder spasms, complications with his prostate, burning, cloudy urine. Reason Comments Follow-up UTI Reason Comments Benign Prostatic Hypertrophy Reason Comments CARD Follow Up Annual Irregular heart be at Reason Comments PSA Care Teams (unrecognized sec tion and content) Propeller Engineer Relationship Specialty Start Date End Date Kosta Carrasco DO [address] [place] [address] PCP - General Family Practice 10/21/21 Propeller Engineer Relationship Specialty Start Date End Date Kosta Carrasco DO [address] [place] [address] PCP - General Family Practice 10/21/21 Propeller Engineer Relationship Specialty Start Date End Date KaiajoãodeisiKosta DO PCP - General Family Practice 10/21/21 Propeller Engineer Relationship Specialty Start Date End Date Luna Kosta Isidro DO PCP - General Family Medicine 10/21/21 Propeller Engineer Relationship Specialty Start Date End Date Luna Kosta Colin DO PCP - General Family Medicine 10/21/21 Propeller Engineer Relationship Specialty Start Date End Date Luna Kosta Colin DO PCP - General Family Medicine 10/21/21 Propeller Engineer Relationship Specialty Start Date End Date Sam Early [address] [facility], [place] [address] PCP - General 09/18/16 Ileana Rojas DO [address] [place] [address] Surgeon Urology 03/03/23 Propeller Engineer Relationship Specialty Start Date End Date Sam Early [address] [facility] [place] [address] PCP - General 09/18/16 Ileana Rojas DO [address] [place] [address] Surgeon Urology 03/03/23 Propeller Engineer Relationship Specialty Start Date End Date Sam Early [address] [facility], [place] [address] PCP - General 09/18/16 Ileana Rojas DO [address] [place] [address] Surgeon Urology 03/03/23 Propeller Engineer Relationship Specialty Start Date End Date Sam Early [address] [facility], [place] [address] PCP - General 09/18/16 Ileana Rojas DO [address] [place] [address]. [address] [place] [address] Surgeon Urology 03/03/23 Propeller Engineer Relationship Specialty Start Date End Date Sam Early [facility], [place] [address] PCP - General 09/18/16 Ielana Rojas DO [address] [place] [address]. [address] [place] [address] Surgeon Urology 03/03/23 Propeller Engineer Relationship Specialty Start Date End Date Sam Early [address] [facility], [place] [address] PCP - General 09/18/16 Ileana Rojas DO [address] [place] [address] Surgeon Urology 03/03/23 Propeller Engineer Relationship Specialty Start Date End Date Sam Early [address] [facility], [place] [address] PCP - General 09/18/16 Ileana Rojas DO [address] [place] [address] Surgeon Urology 03/03/23 Propeller Engineer Relationship Specialty Start Date End Date Sam Early [address] [facility], [place] [address] PCP - General 09/18/16 Ileana Rojas DO [address] [place] [address] Surgeon Urology 03/03/23 Propeller Engineer Relationship Specialty Start Date End Date Sam Early [address] [facility], [place] [address] PCP - General 09/18/16 Ileana Rojas DO [address] [place] [address] Surgeon Urology 03/03/23 Propeller Engineer Relationship Specialty Start Date End Date Sam Early [address] [facility], [place] [address] PCP - General 09/18/16 Ileana Rojas DO [address] [place] [address] Surgeon Urology 03/03/23 Propeller Engineer Relationship Specialty Start Date End Date Tam Major MD [address] [place] [address] PCP - General Internal Medicine 12/02/23 Emilio Enrique MD [address] [place] [address] [place], [place] [id number] PCP Resident 12/02/23 Propeller Engineer Relationship Specialty Start Date End Date Tam Major MD [address] [place] [address] PCP - General Internal Medicine 12/02/23 Emilio Enrique MD [address] [address] [place], [place] [id number] PCP Resident 12/02/23 Propeller Engineer Relationship Specialty Start Date End Date Tam Major MD [address] [place] [address] PCP - General Internal Medicine 12/02/23 Emilio Enrique MD [address] [place] [address] PCP Resident 12/02/23 Propeller Engineer Relationship Specialty Start Date End Date Tam Major MD [address] [place] [address] PCP - General Internal Medicine 12/02/23 Emilio Enrique MD [address] [place] [address] [place], [place] [id number] PCP Resident 12/02/23 Propeller Engineer Relationship Specialty Start Date End Date Tam Major MD [address] [place] [address] PCP - General Internal Medicine 12/02/23 Emilio Enrique MD [address] [address] [place], [place] [id number] PCP Resident 12/02/23 Propeller Engineer Relationship Specialty Start Date End Date Tam Major MD [address] [place] [address] PCP - General Internal Medicine 12/02/23 Emilio Enrique MD [address] [place] [address] [place], [place] [id number] PCP Resident 12/02/23 Propeller Engineer Relationship Specialty Start Date End Date Tam Major MD [address] [place] [address] PCP - General Internal Medicine 12/02/23 Emilio Enrique MD [address] [place] [address] PCP Resident 12/02/23 Propeller Engineer Relationship Specialty Start Date End Date Tam Major MD [address] [place] [address] PCP - General Internal Medicine 12/02/23 Emilio Enrique MD [address] [place] [address] [place], [place] [id number] PCP Resident 12/02/23 Propeller Engineer Relationship Specialty Start Date End Date Tam Major MD [address] [place] [address] PCP - General Internal Medicine 12/02/23 Emilio Enrique MD [address] [place] [address] [place], [place] [id number] PCP Resident 12/02/23 Propeller Engineer Relationship Specialty Start Date End Date Tam Major MD [address] [place] [address] PCP - General Internal Medicine 12/02/23 Emilio Enrique MD [address] [place] [address] PCP Resident 12/02/23 Propeller Engineer Relationship Specialty Start Date End Date Tam Major MD [address] [place] [address] PCP - General Internal Medicine 12/02/23 Emilio Enrique MD [address] [place] [address] PCP Resident 12/02/23 Propeller Engineer Relationship Specialty Start Date End Date Sam Early [address] [facility], [place] [address] PCP - General 09/18/16 Ileana Rojas DO [address] [place] [address] Surgeon Urology 03/03/23 Propeller Engineer Relationship Specialty Start Date End Date Sam Early [address] [facility] [address], [place] [address] PCP - General 09/18/16 Ileana Rojas DO [address] [place] [address] Surgeon Urology 03/03/23 Propeller Engineer Relationship Specialty Start Date End Date Sam Early [address] [facility], [place] [address] PCP - General 09/18/16 Ileana Rojas DO [address] [place] [address] Surgeon Urology 03/03/23 Propeller Engineer Relationship Specialty Start Date End Date Tam Major MD [address] [facility] [address] [place] [address] PCP - General Internal Medicine 12/02/23 Emilio Enrique MD [address] [place] [address] PCP Resident 12/02/23 Propeller Engineer Relationship Specialty Start Date End Date Sam Early [address] [facility], [place] [address] PCP - General 09/18/16 Ileana Rojas DO [address] [place] [address] Surgeon Urology 03/03/23 Propeller Engineer Relationship Specialty Start Date End Date Sam Eraly [address] [facility], [place] [address] PCP - General 09/18/16 Ileana Rojas DO [address] [place] [address] Surgeon Urology 03/03/23 Propeller Engineer Relationship Specialty Start Date End Date Sam Early [address] [facility] [address], [place] [address] PCP - General 09/18/16 Ileana Rojas DO [address] [place] [address] Surgeon Urology 03/03/23 Propeller Engineer Relationship Specialty Start Date End Date Tam Major MD [address] [place] [address] PCP - General Internal Medicine 08/15/24 Ileana Rojas DO [address] [place] [address] Surgeon Urology 03/03/23 Propeller Engineer Relationship Specialty Start Date End Date Tam Major MD [address] [place] [address] [place], [place] [id number] PCP - General Internal Medicine 08/15/24 Ileana Rojas DO [address] [place] [address] Surgeon Urology 03/03/23 Propeller Engineer Relationship Specialty Start Date End Date Tam Major MD [address] [place], [place] [id number] PCP - General Internal Medicine 08/15/24 Ileana Rojas DO [address] [place] [address] Surgeon Urology 03/03/23 Propeller Engineer Relationship Specialty Start Date End Date Tam Major MD [address] [facility] [address] [place] [address] PCP - General Internal Medicine 08/15/24 Ileana Rojas DO [address] [place] [address] Surgeon Urology 03/03/23 Propeller Engineer Relationship Specialty Start Date End Date Tam Major MD 1 [facility] [address] [place] [address] PCP - General Internal Medicine 12/02/23 Emilio Enrique MD 1 [place], [place] [id number] PCP Resident 12/02/23 Scheduled Active and Recently Administ ered Medications (unrecognized section and content) Medication Order 06/15/2023 06/16/2023 06/17/2023 acetaminophen (Tylenol) tablet 1,000 mg (COMPLETED) 1,000 mg, Oral, Once, On Monique 06/17/23 at 0930, For 1 dose, Preprocedure, Maximum dose of acetaminophen is 4000 mg from all sources in 24 hours. Do not administer if patient has taken tylenol <4 hours earlier. Do not give if contraindicated ie. patient has active liver disease or cirrhosis. 09 (Given - Provid er: Suzan Newby RN) ceFAZolin in dextrose 4% (Ancef) IVPB 2,000 mg (COMPLETED) 2,000 mg, IntraVENous, Administer over 30 Minutes, Once, On Monique 06/17/23 at 0930, For 1 dose, Preprocedure, premix bag, Suspected Indication (Select all that apply): Surgical Prophylaxis 1052 (Given - Provid er: Vivek Marie CRNA) famotidine (Pepcid) tablet 20 mg (COMPLETED) 20 mg, Oral, Once, On Monique 06/17/23 at 0930, For 1 dose, Preprocedure 0937 (Given - Provid er: Suzan Newby RN) sodium chloride 0.9% (NS) flush 10 mL 10 mL, IntraVENous, Every 12 hours scheduled (2 times per day), First dose on Monique 06/17/23 at 0930, Preprocedure 0930 (Canceled Entry - Provider: Automatic Discharge Provider - Comment: Automatically canceled at discontinue of medication order) sodium chloride 0.9% (NS) flush 10 mL 10 mL, IntraVENous, Every 12 hours scheduled (2 times per day), First dose on Monique 06/17/23 at 2100, Recovery (only) sodium chloride 0.9% (NS) flush 5-40 mL 5-40 mL, IntraVENous, Every 12 hours, First dose on Monique 06/17/23 at 0930, Preprocedure, For Line Patency: Peripheral IV = 5 mL; Midline or Central Line = 10 mL/lumen. If following IV push medication, administer flush at same rate as the IV push. Flush volume is determined by type of infusion therapy being given. For non-viscous solutions use: Peripheral IV = 5 mL Midline or Central Line = 10 mL/lumen For viscous solutions (i.e. blood components, parenteral nutrition, contrast media, or after obtaining blood sample) use: Peripheral IV = 10 mL Midline or Central Line = 20 mL/lumen 0930 (Canceled Entry - Provider: Automatic Discharge Provider - Comment: Automatically canceled at discontinue of medication order) Continuous Medication Order 06/15/2023 06/16/2023 06/17/2023 lactated Ringer's (LR) infusion 50 mL/hr, IntraVENous, Continuous, Starting on Monique 06/17/23 at 0930, Preprocedure, Upon admission to sameday - please start iv if patient does not have iv access. Use 500ml NS for patients on dialysis. 0944 (New Bag - Prov ider: Suzan Newby RN)1045 (Paused - Provider: Vivek Marie CRNA - Comment: Switch to gravity)1046 (Restarted - Provider: Vivek Marie CRNA)1122 (Stopped - Provider: Vivek Marie CRNA) lactated ringers infusion 125 mL/hr, IntraVENous, Continuous, Starting on Monique 06/17/23 at 1215, Recovery (only) 1215 (Canceled Entry - Provider: Automatic Discharge Provider - Comment: Automatically canceled at discontinue of medication order) PRN Medication Order 06/15/2023 06/16/2023 06/17/2023 ALPRAZolam (Xanax) disintegrating tablet 0.25 mg 0.25 mg, Oral, PRN, anxiety, Starting on [facility]ique 06/17/23 at 0925, For 1 dose, Preprocedure, Using dry hands, place tablet on top of tongue and allow to disintegrate. Administration with water is not necessary. diphenhydrAMINE (BENADryl) injection 12.5 mg 12.5 mg, IntraVENous, Once PRN, itching, Starting on [facility]ique 06/17/23 at 1205, For 1 dose, Recovery (only) fentaNYL (Sublimaze) injection 25 mcg 25 mcg, IntraVENous, Every 5 min PRN, moderate pain (4-6), Starting on Monique 06/17/23 at 1205, For 3 doses, Recovery (only), Phase I and Phase II- Initial therapy for moderate pain (4-6). Restricted to a 90 minute time frame starting when the patient can verbally state their pain score. If after 2 doses the pain score does not decrease by more than one point, then call the provider. If oral meds are utilized, do not return to initial therapy medications. fentaNYL (Sublimaze) injection 50 mcg 50 mcg, IntraVENous, Every 5 min PRN, severe pain (7-10), Starting on Monique 06/17/23 at 1205, For 3 doses, Recovery (only), Phase I and Phase II- Initial therapy for severe pain (7-10). Restricted to a 90 minute time frame starting when the patient can verbally state their pain score. If after 2 doses the pain score does not decrease by more than one point, then call the provider. If oral meds are utilized, do not return to initial therapy medications. hydrALAZINE (Apresoline) injection 5 mg(Linked Group 1) 5 mg, IntraVENous, Every 15 min PRN, high blood pressure, for SBP greater than 160 mmHg for 2 consecutive measurements taken from different sites, Starting on Monique 06/17/23 at 1205, For 2 doses, Recovery (only), PRN for SBP > 160 for 2 consecutive measurements, and if one of the following conditions is met: 1) If IV labetolol is ineffective. 2) If HR is under 60. 3) If patient has heart block, COPD or asthma. If both labetalol and hydralazine ineffective, notify anesthesia provider. labetalol (Normodyne,Trandate) injection 5 mg(Linked Group 1) 5 mg, IntraVENous, Every 10 min PRN, high blood pressure, for SBP greater than 160 mmHg for 2 consecutive measurements taken from different sites., Starting on Monique 06/17/23 at 1205, For 2 doses, Recovery (only), PRN for SBP >160 for 2 consecutive measurements, if HR is 60 or greater. If beta charbel is contraindicated (HR less than 60, heart block, COPD or asthma) use hydralazine IV order. ondansetron (Zofran) injection 4 mg 4 mg, IntraVENous, Once PRN, nausea, Starting on Monique 06/17/23 at 1205, For 1 dose, Recovery (only), Initial antiemetic therapy. oxyCODONE (Roxicodone) immediate release tablet 10 mg(Linked Group 2) 10 mg, Oral, PRN, severe pain (7-10), Starting on Monique 06/17/23 at 1205, For 1 dose, Recovery (only), PHASE II oxyCODONE (Roxicodone) immediate release tablet 5 mg(Linked Group 2) 5 mg, Oral, PRN, moderate pain (4-6), Starting on Monique 06/17/23 at 1205, For 1 dose, Recovery (only), PHASE II sodium chloride 0.9 % bolus 500 mL 500 mL, IntraVENous, at 1,000 mL/hr, Administer over 0.5 Hours, PRN, Anti-nausea, Starting on Monique 06/17/23 at 1205, Recovery (only), Indications: Anti-nausea sodium chloride 0.9 % infusion 5-250 mL/hr, IntraVENous, PRN, if patient receiving piggyback infusions and maintenance fluids are not ordered OR KVO fluids to protect IV site / prevent frequent line interruptions / long duration, Starting on [facility] 06/17/23 at 0925, Preprocedure, For piggyback infusion, administer at same rate as piggyback for a total of 25 mL. Enter 25 mL into dose field and piggyback rate into rate field of order. If piggyback is infusing at a rate less than 100 mL/hr, enter 25 mL into dose field and 100 mL/hr into rate field of order. For KVO fluids, enter rate of 20 mL/hr or less into rate field of order. sodium chloride 0.9 % infusion 5-250 mL/hr, IntraVENous, PRN, if patient receiving piggyback infusions and maintenance fluids are not ordered OR KVO fluids to protect IV site / prevent frequent line interruptions/ long duration, Starting on [facility] 06/17/23 at 0925, Preprocedure, For piggyback infusion, administer at same rate as piggyback for a total of 25 mL. Enter 25 mL into dose field and piggyback rate into rate field of order. If piggyback is infusing at a rate less than 100 mL/hr, enter 25 mL into dose field and 100 mL/hr into rate field of order. For KVO fluids, enter rate of 20 mL/hr or less into rate field of order. sodium chloride 0.9 % infusion 5-250 mL/hr, IntraVENous, PRN, if patient receiving piggyback infusions and maintenance fluids are not ordered OR KVO fluids to protect IV site / prevent frequent line interruptions/ long duration, Starting on [facility] 06/17/23 at 1205, Recovery (only), For piggyback infusion, administer at same rate as piggyback for a total of 25 mL. Enter 25 mL into dose field and piggyback rate into rate field of order. If piggyback is infusing at a rate less than 100 mL/hr, enter 25 mL into dose field and 100 mL/hr into rate field of order. For KVO fluids, enter rate of 20 mL/hr or less into rate field of order. sodium chloride 0.9% (NS) flush 10 mL 10 mL, IntraVENous, PRN, line care, Starting on [facility] 06/17/23 at 0925, Preprocedure, After every IV line use sodium chloride 0.9% (NS) flush 10 mL 10 mL, IntraVENous, PRN, line care, Starting on Monique 06/17/23 at 1205, Recovery (only), After every IV line use sodium chloride 0.9% (NS) flush 5-40 mL 5-40 mL, IntraVENous, PRN, line care, After every IV line use, Starting on Monique 06/17/23 at 0925, Preprocedure, For Line Patency: Peripheral IV = 5 mL; Midline or Central Line = 10 mL/lumen. If following IV push medication, administer flush at same rate as the IV push. Flush volume is determined by type of infusion therapy being given. For non-viscous solutions use: Peripheral IV = 5 mL Midline or Central Line = 10 mL/lumen For viscous solutions (i.e. blood components, parenteral nutrition, contrast media, or after obtaining blood sample) use: Peripheral IV = 10 mL Midline or Central Line = 20 mL/lumen sterile water irrigation solution (CANCELED) As needed, Starting on Monique 06/17/23 at 1101, Intraprocedure 1101 (Given - Provid er: Ileana Rojas DO) Linked Groups Order Group 1: labetalol (Normodyne,Trandate) injection 5 mgJump to med 5 mg, IntraVENous, Every 10 min PRN, high blood pressure, for SBP greater than 160 mmHg for 2 consecutive measurements taken from different sites., Starting on [facility]ique 06/17/23 at 1205, For 2 doses, Recovery (only), PRN for SBP >160 for 2 consecutive measurements, if HR is 60 or greater. If beta charbel is contraindicated (HR less than 60, heart block, COPD or asthma) use hydralazine IV order. Or hydrALAZINE (Apresoline) injection 5 mgJump to med 5 mg, IntraVENous, Every 15 min PRN, high blood pressure, for SBP greater than 160 mmHg for 2 consecutive measurements taken from different sites, Starting on Monique 06/17/23 at 1205, For 2 doses, Recovery (only), PRN for SBP > 160 for 2 consecutive measurements, and if one of the following conditions is met: 1) If IV labetolol is ineffective. 2) If HR is under 60. 3) If patient has heart block, COPD or asthma. If both labetalol and hydralazine ineffective, notify anesthesia provider. Group 2: oxyCODONE (Roxicodone) immediate release tablet 5 mgJump to med 5 mg, Oral, PRN, moderate pain (4-6), Starting on [facility]ique 06/17/23 at 1205, For 1 dose, Recovery (only), PHASE II Or oxyCODONE (Roxicodone) immediate release tablet 10 mgJump to med 10 mg, Oral, PRN, severe pain (7-10), Starting on [facility]ique 06/17/23 at 1205, For 1 dose, Recovery (only), PHASE II Scheduled Medication Order 02/19/2024 02/20/2024 02/21/2024 lidocaine (Uro-Jet) 2 % gel (COMPLETED) Urethral, Once, On Wed02/21/24 at 2130, For 1 dose 2129 (Given - Provid er: Anthony Meadows RN) morphine injection 4 mg (COMPLETED) 4 mg, IntraVENous, Once, On Wed02/21/24 at 2019, For 1 dose, If oral and IV narcotics ordered, use oral first and only use IV if oral is ineffective or cannot take oral. Do Not give oral and IV within 1 hour of each other unless specifically ordered. 2010 (Given - Provid er: Anthony Meadows RN) ondansetron (Zofran) injection 4 mg (COMPLETED) 4 mg, IntraVENous, Once, On Wed02/21/24 at 2019, For 1 dose 2111 (Given - Provid er: Anthony Meadows RN) traMADol (Ultram) tablet 50 mg 50 mg, Oral, Once, On Wed02/21/24 at 0, For 1 dose, Max of 300 mg daily for patients > 75 years of age. 2149 (Canceled Entry - Provider: Automatic Discharge Provider - Comment: Automatically canceled at discontinue of medication order) FOR RECORDS PERTAINING TO PATIENTS WHO ARE OR HAVE BEEN ENROLLED IN A CHEMICAL DEPENDENCY/SUBSTANCEABUSE PROGRAM, SOME INFORMATION MAY BE OMITTED. This clinical summary was aggregated from multiple sources. Caution should be exercised in using it in the provision of clinical care. This summary normalizes information from multiple sources, and as a consequence, information in this document may materially change the coding, format and clinical context of patient data. In addition, data may be omitted in some cases. CLINICAL DECISIONS SHOULD BE BASED ON THE PRIMARY CLINICAL RECORDS. [facility]. provides no warranty or guarantee of the accuracy or completeness of information in this document.
--- NOTE | 2025-03-18 21:54 | EX.ED.GUMALE ---
HPI History of Present Illness Chief Complaint: Complaint Informant: patient and spouse/S.O. Narrative Narrative: Presenting with urine retention last urination 4 PM 6 hours prior to arrival. History of BPH along with hypospadia. Reported he had urethral trauma from previous surgery more scarring. He is followed by urologist Dr. Christian at [facility] also seen Dr. Nguyen at [facility]. Multiple Long catheters in the past. He feels suprapubic distention. No fever or chills. States he is requires a small Long catheter. Prior similar symptoms: Yes PFSH PFSH Medical History Scoliosis Right shoulder pain Low iron History of prostate disorder Osteoarthritis Kidney stones Back problem Arthritis Anemia Home Medications ?Medication ?Instructions ?Recorded ?Last Taken ?Type ferrous sulfate 325 mg (65 mg 325 mg PO QDAY 05/23/24 Unknown History iron) tablet (Feosol) lansoprazole 30 mg capsule,delayed 30 mg PO QDAY 05/23/24 Unknown History release (Prevacid) neruida PO 05/23/24 Unknown History nervida supplement PO BID 05/23/24 Unknown History tamsulosin 0.4 mg capsule 0.8 mg PO QDAY 05/23/24 Unknown History Allergy/AdvReac Type Severity Reaction Status Date / Time No Known Allergies Allergy Verified 03/18/25 20:43 Family History Father Myocardial infarction, Onset Age: 70 Heart disease Mother Cancer breast Surgical History History of hernia repair History of knee replacement Social History adopted: No household members: spouse housing: house current occupational status: retired 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 pets and animals: Yes (2) pets and animals: dog(s) sexually active: Yes Smoking Status: Never smoker alcohol intake: never substance use type: marijuana and other details: cbd caffeine: Yes (3) Type: carbonated beverages what type of physical activity do you participate in: none seatbelt use: always do you feel safe at home: Yes ROS ROS ED Constitutional Constitutional ED: Denies fever(s) Cardiovascular Cardiovascular: Denies chest pain Respiratory/Chest Respiratory/Chest: Denies cough Gastrointestinal Gastrointestinal: Denies diarrhea or vomiting Genitourinary Genitourinary ED: Reports other Details: Urine retention Musculoskeletal Musculoskeletal: Denies none Integumentary Denies rash or wounds Neurologic Neurologic: Denies weakness EXAM Physical Exam Const Vital Signs: 03/18/25 20:43 03/18/25 23:48 03/18/25 23:48 Temperature 97.5 F L 98.6 F 98.8 F Temperature Source Temporal Oral Pulse Rate 88 102 H 97 Respiratory Rate 18 20 H 18 Blood Pressure 179/97 H 162/86 H 162/86 H Blood Pressure Mean 124 111 111 Pulse Ox 99 98 97 Oxygen Delivery Method Room Air Room Air Positive well nourished and well developed General Appearance ED: well developed HEENT normocephalic and atraumatic Eyes General Eye ED: Yes normal appearance of both eyes Neck full ROM Resp normal respiratory effort and normal air movement Cardio regular rate and regular rhythm GI soft to palpation GI Narrative: Suprapubic tenderness with fullness palpated. Narrative: Hypospadia with orifice patent. Extremity normal to inspection and full ROM Neuro oriented x3 Skin no rashes or lesions noted and no wounds MDM MDM MDM Narrative Medical decision making narrative: Interventions / MDM: Differential diagnosis: Urine retention, history of BPH, history of hypospadia Diagnosis considered but do not suspect: N/A My EKG interpretation: N/A Imaging independently reviewed and interpreted by myself: N/A External documents reviewed: N/A Test considered but not ordered:N/A ED course: Presenting with urine retention and suprapubic discomfort. Will have bladder scan, will plan for Long with the smallest catheter using Uro-Jet. Will order for UA. Per nursing bladder scan 175 cc. With Uro-Jet nursing reports tried straight Long 8 Danish smallest one would not fit through the hypospadias. Female cath also attempted 8 Danish unable to pass to the orifice of hypospadias. Per nursing use pediatric cath which was the smallest we have, however it was too short she reports only a trickle of urine was obtained. 2310: Bedside bladder ultrasound performed myself noted bladder distention calculated approximately 600 cc. 2328: No urology coverage currently. He has been up to [place]. They spoke with [facility] transfer line as he seen Dr. Nguyen there. I spoke with the ED physician Dr. Quiroz, discussed his history and attempts in the ED. He is accepted to the ED for planned neurology evaluation. Re-evaluation: stable Disposition discussed with patient/family/significant other: Patient and spouse Case discussed with consulting clinician: N/A This note was generated with [employer] dictation software. It may contain incorrect words, spelling, and punctuation that were not noted in checking the note before signing. Discharge Plan Triage Chief Complaint: Complaint ED Provider: Yoav Kenny Dx/Rx/DC Orders Clinical Impression: Acute retention of urine, BPH (benign prostatic hyperplasia), Hypospadias, penile Prescriptions: No Action tamsulosin 0.4 mg capsule 0.8 mg PO QDAY lansoprazole [Prevacid] 30 mg capsule,delayed release(DR/EC) 30 mg PO QDAY neruida PO ferrous sulfate [Feosol] 325 mg (65 mg iron) tablet 325 mg PO QDAY nervida supplement PO BID Primary Care Provider: Rey Mancini Referrals: Rey Mancini, [Primary Care Provider] - Print Language: Russian Disposition Disposition: DC/Tx to Another Type of HCF
[2025-03-18 23:48] VITALS: BP 162/86; PULSE 102; PULSE 97; RESP 18; RESP 20; TEMP 37; TEMP 37.1; O2SAT 97; O2SAT 98
== END 2025-03-19 00:15 | disposition other institution (70) ==
PROVIDERS: Emergency Provider Emergency Medicine; PCP Family Medicine; Visit Provider Emergency Medicine
DX: R33.8 Other retention of urine (principal); N40.1 Benign prostatic hyperplasia with lower urinary tract symptoms; Q54.1 Hypospadias, penile; Z79.899 Other long term (current) drug therapy; Z96.659 Presence of unspecified artificial knee joint
CPT/HCPCS: 99283